=== PATIENT | male | born 1950 | race Caucasian/White ===

== ENCOUNTER → 2017-06-15 11:21 | Outpatient (CLI) | payer MEDICARE, OTHER, SELFPAY ==
--- NOTE | 2017-06-15 11:28 | RAD_ITS ---
STUDY: X-RAY - LUMBAR SPINE REASON FOR EXAM: Male, 66 years old. Low back pain TECHNIQUE: 3 view(s) of the lumbar spine were obtained. COMPARISON: None FINDINGS: Normal lumbar lordosis. There is a mild dextroscoliosis. There is a normal alignment of the vertebrae in the lateral view. There is diffuse demineralization with multi-level endplate spondylosis. There is multi-level degenerative disc disease with multi-level disc space narrowing. There is no demonstrated fracture. There is atherosclerotic calcification of the abdominal aorta without a demonstrated aneurysm. RAD/Lumbar Spine 2 or 3 Views IMPRESSION: Degenerative changes of the spine, as detailed above. Mild dextroscoliosis Electronically Signed: Esa Hernandez MD at 13:27 EDT , Service support ,
--- NOTE | 2017-06-15 11:30 | RAD_ITS ---
STUDY: X-RAY - PELVIS AND RIGHT HIP REASON FOR EXAM: Male, 66 years old. Atraumatic right hip pain. TECHNIQUE: Radiological exam, hip, unilateral, with pelvis when performed; 2 or 3 views. COMPARISON: None. FINDINGS: There is a non-specific bowel gas pattern. Normal visualized soft tissue structures. There is generalized osteopenia. Normal bilateral iliac wings, sacroiliac joints and visualized sacrum. Normal bilateral superior and inferior pubic rami. Normal pubic symphysis. Normal bilateral ischial tuberosities. There is mild arthrosis of both hips. RAD/Hip 2-3 Views with Pelvis IMPRESSION: Osteopenia with mild arthrosis of both hips. No acute pathology. Electronically Signed: Ron Daniel MD at 15:41 EDT , Service support ,
== END ==
PROVIDERS: Family Provider Family Medicine Geriatric Medicine; PCP Family Medicine Geriatric Medicine; Visit Provider Family Medicine Geriatric Medicine
DX: M54.5 Low back pain (principal); M25.559 Pain in unspecified hip
CPT/HCPCS: 72100; 73502

== ENCOUNTER → 2017-07-23 10:42 | Outpatient (CLI) | payer MEDICARE, OTHER, SELFPAY ==
--- NOTE | 2017-07-30 07:01 | LEAS ---
Arterial Study - Arterial Study Arterial Study: This is a 66-year-old male with a history of hypertension and diabetes mellitus. The patient presents with bilateral lower extremity ambulatory pain, consistent with intermittent claudication. He is also noted to have color changes in the digits of his feet, suggesting ischemia. Suspecting the presence of atherosclerotic peripheral arterial occlusive disease, the patient was brought to the noninvasive vascular laboratory at this time for the purpose of bilateral noninvasive lower extremity arterial assessment. Doppler signal assessment was used to evaluate the pulses at ankle level bilaterally. The posterior tibial and dorsalis pedis pulses were triphasic bilaterally. Segmental limb pressures were obtained bilaterally. The right ankle pressure, as determined by posterior tibial pulse, was measured at 158 mmHg. The right ankle pressure, as determined by dorsalis pedis pulse, was measured at 153 mmHg. The right digital pressure was measured at 114 mmHg. The left ankle pressure, as determined by posterior tibial pulse, was measured at 152 mmHg. The left ankle pressure, as determined by dorsalis pedis pulse, was measured at 144 mmHg. The left digital pressure was measured at 111 mmHg. Resting ankle-brachial indices were calculated bilaterally. The resting right ankle-brachial index was calculated to be 1.11. The resting left ankle-brachial index was calculated to be 1.07. Digital-brachial indices were calculated bilaterally. The right digital-brachial index was calculated to be 0.80. The left digital-brachial index was calculated to be 0.78. Impression: Based upon the findings of this resting noninvasive lower extremity arterial study, there is no evidence of significant atherosclerotic peripheral arterial occlusive disease in the lower extremities bilaterally. Triphasic waveforms were noted at ankle level bilaterally. Resting ankle-brachial indices are bilaterally normal. Digital-brachial indices are also normal bilaterally. In summary, this represents a normal resting noninvasive lower extremity arterial study bilaterally.
--- NOTE | 2017-07-30 07:06 | LEAS_ITS ---
Arterial Study - Arterial Study Arterial Study: This is a 66-year-old male with a history of hypertension and diabetes mellitus. The patient presents with bilateral lower extremity ambulatory pain, consistent with intermittent claudication. He is also noted to have color changes in the digits of his feet, suggesting ischemia. Suspecting the presence of atherosclerotic peripheral arterial occlusive disease, the patient was brought to the noninvasive vascular laboratory at this time for the purpose of bilateral noninvasive lower extremity arterial assessment. Doppler signal assessment was used to evaluate the pulses at ankle level bilaterally. The posterior tibial and dorsalis pedis pulses were triphasic bilaterally. Segmental limb pressures were obtained bilaterally. The right ankle pressure, as determined by posterior tibial pulse, was measured at 158 mmHg. The right ankle pressure, as determined by dorsalis pedis pulse, was measured at 153 mmHg. The right digital pressure was measured at 114 mmHg. The left ankle pressure, as determined by posterior tibial pulse, was measured at 152 mmHg. The left ankle pressure, as determined by dorsalis pedis pulse, was measured at 144 mmHg. The left digital pressure was measured at 111 mmHg. Resting ankle-brachial indices were calculated bilaterally. The resting right ankle-brachial index was calculated to be 1.11. The resting left ankle- brachial index was calculated to be 1.07. Digital-brachial indices were calculated bilaterally. The right digital- brachial index was calculated to be 0.80. The left digital-brachial index was calculated to be 0.78. Impression: Based upon the findings of this resting noninvasive lower extremity arterial study, there is no evidence of significant atherosclerotic peripheral arterial occlusive disease in the lower extremities bilaterally. Triphasic waveforms were noted at ankle level bilaterally. Resting ankle-brachial indices are bilaterally normal. Digital-brachial indices are also normal bilaterally. In summary, this represents a normal resting noninvasive lower extremity arterial study bilaterally.
== END ==
PROVIDERS: Family Provider Family Medicine Geriatric Medicine; PCP Family Medicine Geriatric Medicine; Visit Provider Family Medicine Geriatric Medicine
DX: I73.9 Peripheral vascular disease, unspecified (principal)
CPT/HCPCS: 93922

== ENCOUNTER → 2017-08-29 14:35 | Outpatient (CLI) | payer MEDICARE, OTHER, SELFPAY ==
--- NOTE | 2017-08-29 14:35 | DT_ITS ---
This patient was seen during an EMR downtime August 27, 2017 - September 03, 2017. This patient may have a combination of paper and electronic documentation or all paper documentation. All documentation is viewable within the e-chart portion of [employer] for each patient visit.
--- NOTE | 2017-08-29 14:45 | RAD_ITS ---
STUDY: X-RAY - CERVICAL SPINE REASON FOR EXAM: Male, 66 years old. Neck pain. TECHNIQUE: 4 view(s) of the cervical spine were obtained. COMPARISON: None FINDINGS: Normal anterior atlantoaxial articulation. Normal odontoid process. On the lateral view cervical spine seen from C1 through the mid body of C6. There is disc space narrowing C3-C4 and C5-C6 with marginal osteophytes C5-6. Uncovertebral joint hypertrophy at multiple levels in the mid cervical spine. The soft tissue structures are unremarkable. RAD/Cerv Spine 2 or 3 Views IMPRESSION: Multilevel degenerative changes of the cervical spine. No fracture identified. The lower cervical spine from the mid body of C6 through C7-T1 not well-seen on the lateral view. Consider additional plain film images or CT cervical spine. Electronically Signed: Donald Knox MD at 8:02 EDT , Service support ,
== END ==
PROVIDERS: Family Provider Family Medicine Geriatric Medicine; PCP Family Medicine Geriatric Medicine; Visit Provider Anesthesiology Pain Medicine
DX: M54.2 Cervicalgia (principal)
CPT/HCPCS: 72040

== ENCOUNTER → 2017-09-05 14:45 | Outpatient (CLI) | payer MEDICARE, OTHER, SELFPAY ==
--- NOTE | 2017-09-05 14:46 | RAD_ITS ---
STUDY: X-RAY - BILATERAL RIBS WITH CHEST REASON FOR EXAM: Male, 66 years old. Right-sided rib pain, recent fall TECHNIQUE - RIBS: 8 view(s) of the ribs. TECHNIQUE - CHEST: Single PA view of the chest. COMPARISON: None. FINDINGS - RIBS : There is severe demineralization of the osseous structures which diminishes the diagnostic sensitivity of this examination, however there is no visualized rib fracture. FINDINGS - CHEST: There are interstitial fibrotic changes of the lungs. There is no demonstrated pleural abnormality. Normal size heart. Normal mediastinum and abby. Normal visualized pulmonary arteries. Normal visualized aortic arch and descending thoracic aorta. There are diffuse degenerative changes of the visualized thoracic spine. Severe left glenohumeral arthrosis. Extensive postsurgical changes noted in the right glenohumeral joint and proximal right humerus. There is no demonstrated abnormality of the visualized soft tissue structures of the upper abdomen. RAD/Ribs Jaylan Min 4V w/PA Chest IMPRESSION: RIBS: Demineralization of the osseous structures but no demonstrated acute displaced rib fracture, pleural thickening or pneumothorax. CHEST: Chronic interstitial changes, no superimposed acute pulmonary process Electronically Signed: Esa Hernandez MD at 8:38 EDT , Service support ,
== END ==
PROVIDERS: Family Provider Family Medicine Geriatric Medicine; PCP Family Medicine Geriatric Medicine; Visit Provider Anesthesiology Pain Medicine
DX: R07.81 Pleurodynia (principal)
CPT/HCPCS: 71111

== ENCOUNTER → 2017-09-12 12:20 | Outpatient (CLI) | payer MEDICARE, OTHER, SELFPAY ==
--- NOTE | 2017-09-12 14:11 | NEURO ---
NCS and/or EMG Patient Report Ordering Doctor: Cameron Mueller Chi DATE OF SERVICE: 09/12/17 Rubén Flores is a 66-year-old male presents for electrodiagnostic testing of the lower limbs. He reports numbness and tingling in both legs with poor balance. He has a history of diabetes. Electrodiagnostic findings: Common peroneal nerve demonstrates prolonged distal latency bilaterally with reduced amplitude and conduction velocity. Reduced tibial motor conduction velocity. Bilaterally. Reduced right tibial motor amplitude. Sensory responses are unobtainable bilaterally. On needle EMG, 1+ fibrillations are noted in the right anterior tibialis with motor units demonstrating polyphasics. Motor units of increased amplitude and duration noted in the peroneus longus and gastrocnemius bilaterally. Electrodiagnostic impression: This is an abnormal study. 1. Electrodiagnostic findings demonstrate peripheral polyneuropathy, with involvement of motor and sensory nerve fibers. There is evidence of axonal loss. Etiology may be likely to poorly controlled diabetes. 2. Electrodiagnostic evidence suggestive of chronic right L5 radiculopathy. If there are any further questions, please not hesitate contact me.
== END ==
PROVIDERS: Family Provider Family Medicine Geriatric Medicine; PCP Family Medicine Geriatric Medicine; Visit Provider Family Medicine Geriatric Medicine
DX: R94.131 Abnormal electromyogram [EMG] (principal); R20.9 Unspecified disturbances of skin sensation; L53.9 Erythematous condition, unspecified; E11.9 Type 2 diabetes mellitus without complications; G62.9 Polyneuropathy, unspecified
CPT/HCPCS: 95886; 95913

== ENCOUNTER → 2017-10-08 16:50 | Outpatient (CLI) | payer MEDICARE, OTHER, SELFPAY ==
[2017-10-08 17:56] LABS: Absolute Neutrophil Count 6.7 X10^3/uL (2.0-7.7); Basophil# 0.02 X10^3/uL; Basophil% 0.2 % (0-1); Eosinophil# 0.14 X10^3/uL; Eosinophils% 1.5 % (0-5); Hematocrit 42.4 % (40-54); Hemoglobin 13.4 g/dl (13.0-16.5); Lymphocyte % 15.3 % (19-41); Mean Corp Hgb Conc 31.6 g/gl (32-36); Mean Corpuscular Hgb 28.6 pg (27.0-32.0); Mean Corpuscular Volume 90.6 fL (80-94); Mean Platelet Vol. 9.7 fl (6.2-12.0); Monocyte# 0.91 X10^3/uL; Monocyte% 9.9 % (0-10); Neutrophil # 6.65 X10^3/uL (2.7-7.7); Neutrophil % 72.6 % (47-70); POSITIVE COUNT NO; POSITIVE DIFFERENTIAL NO; POSITIVE MORPHOLOGY NO; Platelet Count 188 K/mm3 (150-450); RBC Distribution Width CV 15.4 % (11.6-14.6); RBC Distribution Width SD 50.2 fl (35.1-43.9); Red Blood Count 4.68 M/mm3 (4.6-6.2); White Blood Count 9.2 K/mm3 (4.4-11.0)
[2017-10-08 18:02] LABS: Vitamin D,25 Hydroxy 14.1 ng/mL (29.95-100.01)
[2017-10-08 18:04] LABS: ALB/GLOB Ratio 0.6 RATIO (0.9-2.4); AST(SGOT) 37 U/L (15-37); Alanine Aminotransfer ALT/SGPT 39 U/L (16-61); Albumin, Serum 2.9 g/dL (3.2-5.0); Alkaline Phosphatase 218 U/L (45-117); Anion Gap 12 (5-15); BUN 8 mg/dL (7-18); BUN/Creat Ratio 9.8 RATIO (10-20); Chloride 98 mmol/L (98-107); Cholesterol 142 mg/dL (200); Creatinine, Serum 0.82 mg/dL (0.70-1.30); EST Glomerular Filtration Rate 100 mL/min (>60); Est Glom Filt Rate - Afr Amer 121 mL/min (>60); Globulin 4.7 g/dL (2.2-4.2); Glucose 140 mg/dL (74-106); High Density Lipoprotein 79 mg/dL; Potassium 3.9 mmol/L (3.5-5.1); Protein, Total 7.6 g/dL (6.4-8.2); Sodium Level 137 mmol/L (136-145); Triglycerides 75 mg/dL; Very Low Density Lipoprotein 15 mg/dL (5-40)
== END ==
PROVIDERS: Family Provider Family Medicine Geriatric Medicine; PCP Family Medicine Geriatric Medicine; Visit Provider Family Medicine Geriatric Medicine
DX: E11.9 Type 2 diabetes mellitus without complications (principal); E55.9 Vitamin D deficiency, unspecified; F52.8 Other sexual dysfunction not due to a substance or known physiological condition; I10 Essential (primary) hypertension
CPT/HCPCS: 36415; 80053; 80061; 82306; 84403; 84443; 85025

== ENCOUNTER → 2017-12-19 12:52 | Outpatient (CLI) | payer MEDICARE, OTHER, SELFPAY ==
--- NOTE | 2017-12-19 12:57 | CT_ITS ---
STUDY: CT BRAIN WITHOUT CONTRAST REASON FOR EXAM: Male, 67 years old. Leg weakness. Closed head injury. RADIATION DOSAGE (If Supplied By Facility): CTDIvol = ( 44.99 ) mGy, DLP = ( 846.73 ) mGycm TECHNIQUE: Transaxial CT imaging of the brain was performed without administration of intravenous contrast material. Individualized dose optimization techniques were used for this CT. COMPARISON: Comparison is made with prior study June 15, 2013. FINDINGS: Normal soft tissue structures. Normal calvarium. There is mild cerebral atrophy with widening of the extra-axial spaces and ventricular dilatation. There are areas of decreased attenuation within the white matter tracts of the supratentorial brain, consistent with microvascular disease changes. Normal basal ganglia and thalami. Normal brainstem. Normal cerebellum. There is no intracranial hemorrhage. There are no findings of an acute ischemic infarction. Calcified atherosclerotic plaques involving both vertebral arteries and the cavernous portions of the internal carotid arteries bilaterally. Normal visualized paranasal sinuses. CT/Brain/Head without Contrast IMPRESSION: Chronic involutional changes of the brain. Electronically Signed: Quirino Smith MD at 13:32 EDT Tel [phone], Service support ,
[2017-12-19 16:09] LABS: Absolute Lymphocyte Count 1.51 X10^3/ul (0.83-4.51); Absolute Neutrophil Count 4.7 X10^3/uL (2.0-7.7); Basophil# 0.02 X10^3/uL; Basophil% 0.3 % (0-1); Eosinophil# 0.21 X10^3/uL; Eosinophils% 2.9 % (0-5); Hematocrit 39.8 % (40-54); Hemoglobin 12.4 g/dl (13.0-16.5); Lymphocyte # 1.51 X10^3/ul (4.0); Lymphocyte % 20.7 % (19-41); Mean Corp Hgb Conc 31.2 g/gl (32-36); Mean Corpuscular Hgb 28.1 pg (27.0-32.0); Mean Platelet Vol. 9.8 fl (6.2-12.0); Monocyte# 0.79 X10^3/uL; Monocyte% 10.9 % (0-10); Neutrophil # 4.74 X10^3/uL (2.7-7.7); Neutrophil % 65.1 % (47-70); Platelet Count 150 K/mm3 (150-450); RBC Distribution Width CV 15.9 % (11.6-14.6); RBC Distribution Width SD 52.5 fl (35.1-43.9); Red Blood Count 4.42 M/mm3 (4.6-6.2); White Blood Count 7.3 K/mm3 (4.4-11.0)
[2017-12-19 16:23] LABS: Anion Gap 12 (5-15); BUN 16 mg/dL (7-18); BUN/Creat Ratio 17.7 RATIO (10-20); Calcium,Total 8.9 mg/dL (8.5-10.1); Chloride 100 mmol/L (98-107); Creatinine, Serum 0.91 mg/dL (0.70-1.30); EST Glomerular Filtration Rate 89 mL/min (>60); Est Glom Filt Rate - Afr Amer 107 mL/min (>60); Glucose 261 mg/dL (74-106); Potassium 4.4 mmol/L (3.5-5.1); Sodium Level 138 mmol/L (136-145)
[2017-12-19 17:16] LABS: POSITIVE COUNT NO; POSITIVE DIFFERENTIAL NO; POSITIVE MORPHOLOGY NO
== END ==
PROVIDERS: Family Provider Family Medicine Geriatric Medicine; PCP Family Medicine Geriatric Medicine; Referring Provider Family Medicine Geriatric Medicine; Visit Provider Family Medicine Geriatric Medicine
DX: E11.9 Type 2 diabetes mellitus without complications (principal); S09.90XA Unspecified injury of head, initial encounter
CPT/HCPCS: 36415; 70450; 80048; 85025

== ENCOUNTER → 2017-12-25 12:38 | Outpatient (CLI) | payer MEDICARE, OTHER, SELFPAY ==
--- NOTE | 2017-12-25 13:00 | MRI_ITS ---
STUDY: MRI LUMBAR SPINE WITHOUT CONTRAST REASON FOR EXAM: Male, 67 years old. LBP, rt leg weakness, falls TECHNIQUE: Standardized fat and water weighted pulse sequences were obtained in the sagittal and axial planes. COMPARISON: None FINDINGS: T12-L1: There is mild disc space narrowing and endplate spondylosis. There is no significant disc herniation, central canal or foraminal stenosis. Normal lumbar lordosis. There is no substantial scoliosis. Normal conus medullaris that terminates at the L1 L1-2: There is minimal disc space narrowing and endplate spondylosis. There is no significant disc herniation, central canal or foraminal stenosis. L2-3: There is mild disc space narrowing and endplate spondylosis. There is no significant disc herniation, central canal or foraminal stenosis. L3-4: There is moderate disc space narrowing and endplates spondylosis. There is disc osteophyte complex asymmetric to the left with moderate left foraminal stenosis. There is inferiorly directed left paracentral extrusion (1.2 x 0.8 x 2.0 cm) with severe left lateral recess narrowing. There is facet arthropathy contributing to moderate central canal stenosis. There is minimal right foraminal stenosis. There is redundancy of the nerve roots L4-5: There is minimal disc space narrowing and endplate spondylosis. There is a disc bulge with small central protrusion and facet hypertrophy with severe central canal stenosis. There is redundancy of the nerve roots. There is moderate right and mild left foraminal stenosis. L5-S1: There is mild disc space narrowing and endplates spondylosis. There is extensive facet arthropathy with minimal anterolisthesis. There is a disc osteophyte complex asymmetric to the right with severe right foraminal stenosis. There is mild central canal and mild left foraminal stenosis. Normal visualized sacral ala. Normal visualized paraspinous soft tissue structures. MRI/Spine Lumbar (Routine) IMPRESSION: L3/L4, left paracentral extrusion with severe left lateral recess narrowing. Moderate central canal stenosis. Moderate left foraminal stenosis. L4/L5: Severe central canal stenosis. Moderate right foraminal stenosis. L5/S1: Minimal degenerative anterolisthesis. Severe right foraminal stenosis. Electronically Signed: Charli Priest MD at 11:05 EDT Tel , Service support ,
== END ==
PROVIDERS: Family Provider Family Medicine Geriatric Medicine; PCP Family Medicine Geriatric Medicine; Referring Provider Family Medicine Geriatric Medicine; Visit Provider Family Medicine Geriatric Medicine
DX: M54.16 Radiculopathy, lumbar region (principal); G83.10 Monoplegia of lower limb affecting unspecified side
CPT/HCPCS: 72148

== ENCOUNTER → 2018-01-09 14:03 | Outpatient (CLI) | payer MEDICARE, OTHER, SELFPAY ==
[2018-01-09 17:06] LABS: Absolute Lymphocyte Count 1.41 X10^3/ul (0.83-4.51); Basophil# 0.01 X10^3/uL; Basophil% 0.2 % (0-1); Eosinophil# 0.16 X10^3/uL; Eosinophils% 2.5 % (0-5); Hematocrit 41.8 % (40-54); Hemoglobin 13.2 g/dl (13.0-16.5); Lymphocyte # 1.41 X10^3/ul (4.0); Lymphocyte % 22.4 % (19-41); Mean Corp Hgb Conc 31.6 g/gl (32-36); Mean Corpuscular Hgb 28.4 pg (27.0-32.0); Mean Corpuscular Volume 89.9 fL (80-94); Mean Platelet Vol. 9.8 fl (6.2-12.0); Monocyte# 0.67 X10^3/uL; Monocyte% 10.6 % (0-10); Neutrophil # 4.04 X10^3/uL (2.7-7.7); Neutrophil % 64.1 % (47-70); Platelet Count 168 K/mm3 (150-450); RBC Distribution Width CV 15.9 % (11.6-14.6); RBC Distribution Width SD 52.1 fl (35.1-43.9); Red Blood Count 4.65 M/mm3 (4.6-6.2); White Blood Count 6.3 K/mm3 (4.4-11.0)
[2018-01-09 17:16] LABS: ALB/GLOB Ratio 0.7 RATIO (0.9-2.4); AST(SGOT) 25 U/L (15-37); Alanine Aminotransfer ALT/SGPT 30 U/L (16-61); Albumin, Serum 2.9 g/dL (3.2-5.0); Alkaline Phosphatase 172 U/L (45-117); Anion Gap 10 (5-15); BUN 11 mg/dL (7-18); BUN/Creat Ratio 13.6 RATIO (10-20); Calcium,Total 9.1 mg/dL (8.5-10.1); Chloride 99 mmol/L (98-107); Creatinine, Serum 0.81 mg/dL (0.70-1.30); EST Glomerular Filtration Rate 101 mL/min (>60); Est Glom Filt Rate - Afr Amer 122 mL/min (>60); Globulin 4.4 g/dL (2.2-4.2); Glucose 197 mg/dL (74-106); Potassium 4.1 mmol/L (3.5-5.1); Protein, Total 7.3 g/dL (6.4-8.2); Sodium Level 138 mmol/L (136-145); Thyroid Stim Hormone (TSH) 3.18 uIU/mL (0.358-3.74)
[2018-01-09 17:24] LABS: POSITIVE COUNT NO; POSITIVE DIFFERENTIAL NO; POSITIVE MORPHOLOGY NO
[2018-01-09 19:19] LABS: Vitamin D,25 Hydroxy 24.5 ng/mL (29.95-100.01)
[2018-01-11 05:08] LABS: HEPATITIS B SURFACE AG 6510 Negative (Negative); Hepatitis C Ab <0.1 s/co ratio (0.0-0.9)
[2018-01-11 08:21] LABS: Hep B Surface Antibodies Non Reactive (.)
[2018-01-11 13:28] LABS: HIV - WCH Non-Reactive (Nonreactive)
== END ==
PROVIDERS: Family Provider Family Medicine Geriatric Medicine; PCP Family Medicine Geriatric Medicine; Visit Provider Family Medicine Geriatric Medicine
DX: E11.9 Type 2 diabetes mellitus without complications (principal); E55.9 Vitamin D deficiency, unspecified; F52.8 Other sexual dysfunction not due to a substance or known physiological condition; I10 Essential (primary) hypertension
CPT/HCPCS: 36415; 80053; 82306; 84403; 84443; 85025; 86703; 86704; 86706; 86803; 87340

== ENCOUNTER → 2018-03-06 11:19 | Outpatient (CLI) | payer MEDICARE, OTHER, SELFPAY ==
--- NOTE | 2018-03-06 11:28 | RAD_ITS ---
STUDY: X-RAY - LEFT SHOULDER REASON FOR EXAM: Male, 67 years old. Fall, pain TECHNIQUE: 4 view(s) of the shoulder. COMPARISON: None. FINDINGS: Chronic acromioclavicular joint arthrosis, with apparent intracapsular extraosseous bone formation/osteophytosis. Severe degenerative features of the glenohumeral articulation, sclerosis and cortical surface irregularity of the humeral head, subcortical cysts, joint margin osteophytic lipping, and ossifications that appear to be intra-articular probably representing chondral or synovial calcifications. Periarticular soft tissues normal. There is widening of the subacromial-humeral interval, suggesting rotator cuff insufficiency. RAD/Shoulder min 2 Views IMPRESSION: Severe degenerative changes of the glenohumeral joint. Severe degenerative changes of the acromioclavicular joint. Electronically Signed: Frank Diego MD at 12:01 EST Tel , Service support ,
--- OUTSIDE RECORDS SUMMARY | 2018-04-22 14:16 | XMS RPT_ITS ---
:1950 Author Organization OHIP Support Name Relationship Address Phone JOSE MANUEL FLORES Unavailable [address] + [place] [address] R Unavailable Unavailable Unavailable RANULFO, JOSE MANUEL Unavailable [address] + [place] [address] R Unavailable Unavailable Unavailable RANULFO, JOSE MANUEL Unavailable [address] + [place] [address] R Unavailable Unavailable Unavailable RANULFO, JOSE MANUEL Unavailable [address] + [place] [address] R Unavailable Unavailable Unavailable RANULFO, JOSE MANUEL Unavailable [address] + [place] [address] R Unavailable Unavailable Unavailable RANULFO, JOSE MANUEL Unavailable [address] + [place] [address] R Unavailable Unavailable Unavailable RANULFO, JOSE MANUEL Unavailable [address] + [place] [address] R Unavailable Unavailable Unavailable RANULFO, JOSE MANUEL Unavailable [address] + [place] [address] R Unavailable Unavailable Unavailable RANULFO, JOSE MANUEL Unavailable [address] + [place] [address] R Unavailable Unavailable Unavailable RANULFO, JOSE MANUEL Unavailable [address] + [place] [address] S Unavailable Unavailable Unavailable Care Team Providers Name Role Phone Ervin, Cameron Chi Attending Unavailable Ervin, Cameron Chi Referring Unavailable Ervin, Cameron Chi Primary Care Unavailable Ervin, Cameron Chi Attending Unavailable Ervin, Cameron Chi Referring Unavailable Ervin, Cameron Chi Primary Care Unavailable Ervin, Cameron Chi Attending Unavailable Ervin, Cameron Chi Primary Care Unavailable Yanira Rodriguezman Attending Unavailable Basali Ayman Referring Unavailable Ervin, Cameron Chi Primary Care Unavailable Basali, Ayman Attending Unavailable Basali, Ayman Referring Unavailable Ervin, Cameron Chi Primary Care Unavailable Ervin, Cameron Chi Attending Unavailable Ervin, Cameron Chi Referring Unavailable Ervin, Cameron Chi Primary Care Unavailable Ervin, Cameron Chi Attending Unavailable Ervin, Cameron Chi Primary Care Unavailable Ervin, Cameron Chi Attending Unavailable Ervin, Cameron Chi Referring Unavailable Ervin, Cameron Chi Primary Care Unavailable Ervin, Cameron Chi Attending Unavailable Ervin, Cameron Chi Referring Unavailable Ervin, Cameron Chi Primary Care Unavailable Ervin, Cameron Chi Attending Unavailable Ervin, Cameron Chi Primary Care Unavailable PROBLEMS PROBLEMS DATE TYPE CONDITION / CODE ATTENDING STATUS SOURCE 03/06/2018 Unknown M25.519 - Pain in Ervin, Cameron Chi Active [place] unspecified Community shoulder / Hospital M25.519(ICD-10) Repository 01/09/2018 Unknown E11.9 - Type 2 Ervin, Cameron Chi Active [place] diabetes mellitus Community without Hospital complications / Repository E11.9(ICD-10) 01/09/2018 Unknown E55.9 - Vitamin D Ervin, Cameron Chi Active [place] deficiency, Community unspecified / Hospital E55.9(ICD-10) Repository 01/09/2018 Unknown Z77.21 - Contact Ervin, Cameron Chi Active [place] with and Community (suspected) Hospital exposure to Repository potentially hazardous body fluids / Z77.21(ICD-10) 09/19/2017 Unknown M54.2 - Cervicalgia Basali, Ayman Active [place] / M54.2(ICD-10) [facility] Repository 08/16/2017 Unknown L53.9 - Ervin, Cameron Chi Active [place] Erythematous Community condition, Hospital unspecified / Repository L53.9(ICD-10) 06/15/2017 Unknown M54.5 - Low back Ervin, Cameron Chi Active [place] pain / Community M54.5(ICD-10) Hospital Repository 06/15/2017 Unknown M25.559 - Pain in Ervin, Cameron Chi Active [place] unspecified hip / Community M25.559(ICD-10) Hospital Repository PROCEDURES PROCEDURES No Procedure Records FoundRESULTS RESULTS SHOULDER MIN 2 VIEWS Observed: 03/06/2018 Status: F Source: [place] 11:23 AM [facility] HOSPITAL REPOSITORY [facility] Imaging Services [address] [place] [address] Shoulder min 2 Views MR#: [id number] Acct: [id number] Name: LIANET FLORES Rep #: [id number] : 1950 M 67 From: Frank Diego MD PCP: Cameron Mueller MD, Chi Status: REG CLI Study: Shoulder min 2 Views Date of Exam: 03/06/18 Exam# [id number] Ordering Dr: Cameron Mueller MD STUDY: X-RAY - LEFT SHOULDER REASON FOR EXAM: Male, 67 years old. Fall, pain TECHNIQUE: 4 view(s) of the shoulder. COMPARISON: None. FINDINGS: Chronic acromioclavicular joint arthrosis, with apparent intracapsular extraosseous bone formation/osteophytosis. Severe degenerative features of the glenohumeral articulation, sclerosis and cortical surface irregularity of the humeral head, subcortical cysts, joint margin osteophytic lipping, and ossifications that appear to be intra-articular probably representing chondral or synovial calcifications. Periarticular soft tissues normal. There is widening of the subacromial-humeral interval, suggesting rotator cuff insufficiency. RAD/Shoulder min 2 Views IMPRESSION: Severe degenerative changes of the glenohumeral joint. Severe degenerative changes of the acromioclavicular joint. Electronically Signed: Frank Diego MD at 12:01 EST Tel , Service support , CC: Cameron Mueller MD Cardiac Technician: Signed HEPATITIS EXPOSE PANEL Collected: 01/09/2018 Status: F Source: [place] 3:[address] [facility] REPOSITORY TYPE CODE TESTS RESULT OUT OF RANGE REFERENCE UNITS LAB L3100.0350 Negative Normal HB Negative SURF AG 6510 LAB L3100.0528 . Normal Hep B Non Reactive Tatianna AB Result Comment: Non Reactive: Inconsistent with immunity, less than 10 mIU/mL Reactive: Consistent with immunity, greater than 9.9 mIU/mL LAB L3100.0750 0.0-0.9 s/co ratio Normal HCV Ab <0.1 LAB L3100.0765 . Normal COMMENT Comment Result Comment: Non reactive HCV antibody screen is consistent with no HCV infection, unless recent infection is suspected or other evidence exists to indicate HCV infection. Performed at: - [facility] [address] [id number] Display Department Manager: Sancho Vigil PhD, Phone: [phone] Performed By: #### L3000.0400 #### [facility] (refer to report for specific site) refer to report for address and phone number HIV - [facility] Collected: 01/09/2018 Status: F Source: [place] 2:[address] [facility] REPOSITORY TYPE CODE TESTS RESULT OUT OF RANGE REFERENCE UNITS LAB L3890.6005 Nonreactive Normal HIV - [facility] Non-Reactive Performed By: #### L3890.6005 #### [facility] [address] [place], [place], [id number] COMPREHENSIVE METABOLIC Collected: 01/09/2018 Status: F Source: [facility] 2:[address] [facility] REPOSITORY TYPE CODE TESTS RESULT OUT OF RANGE REFERENCE UNITS LAB L501.0100 74-106 mg/dL High GLU 197 Result Comment: Fasting Glucose result greater than or equal to 126 mg/dL suggests DIABETES MELLITUS per A.D.A. criteria. Please note revised GLUCOSE reference range effective 2017. LAB L501.1000 7-18 mg/dL Normal BUN 11 LAB L501.1100 0.70-1.30 mg/dL Normal CREAT,SERUM 0.81 Result Comment: The validity of the calculated GFR AND GFRAA in patients over 70 years has not been determined. Clinical correlation is essential. LAB L501.1110 >60 mL/min Normal EST GFR 101 Result Comment: Non- GFR Calc LAB L501.1115 >60 mL/min Normal EST GFR - AA 122 Result Comment: GFR Calc LAB L501.1300 10-20 RATIO Normal BUN/CRE 13.6 LAB L501.1500 6.4-8.2 g/dL T Normal PROT 7.3 LAB L501.1800 3.2-5.0 g/dL Low ALB 2.9 LAB L501.1950 2.2-4.2 g/dL High GLOB 4.4 LAB L501.2000 0.9-2.4 RATIO Low A/G 0.7 LAB L501.2200 8.5-10.1 mg/dL CA Normal 9.1 LAB L501.4100 15-37 U/L Normal AST 25 LAB L501.4305 45-117 U/L High ALK P 172 LAB L501.4405 16-61 U/L Normal ALT 30 LAB L501.4600 0.20-1.00 mg/dL T Normal BILI 0.50 LAB L501.5300 136-145 mmol/L NA Normal 138 LAB L501.5600 3.5-5.1 mmol/L K Normal 4.1 LAB L501.5900 98-107 mmol/L CL Normal 99 LAB L501.6100 21.0-32.0 mmol/L Normal CO2 29.0 LAB L501.6200 5-15 Normal GAP 10 Performed By: #### L500.4050, L501.9520 #### [facility] [address] [place], [place], [address] THYROID STIM HORMONE Collected: 01/09/2018 Status: F Source: [place] (TSH) 2:[address] [facility] REPOSITORY TYPE CODE TESTS RESULT OUT OF RANGE REFERENCE UNITS LAB L501.9520 0.358-3.74 uIU/mL Normal TSH 3.18 Performed By: #### L500.4050, L501.9520 #### [facility] [address] [place], [address] CBC W/DIFF, AUTOMATED Collected: 01/09/2018 Status: F Source: [place] 2:[address] [facility] REPOSITORY TYPE CODE TESTS RESULT OUT OF RANGE REFERENCE UNITS LAB L100.1000 4.4-11.0 K/mm3 Normal WBC 6.3 LAB L100.1200 4.6-6.2 M/mm3 Normal RBC 4.65 LAB L100.1300 13.0-16.5 g/dl Normal HGB 13.2 LAB L100.1400 40-54 % Normal HCT 41.8 LAB L100.1500 80-94 fL Normal MCV 89.9 LAB L100.1600 27.0-32.0 pg Normal MCH 28.4 LAB L100.1700 32-36 g/gl Low MCHC 31.6 LAB L100.1810 11.6-14.6 % High RDW CV 15.9 LAB L100.1820 35.1-43.9 fl High RDW SD 52.1 LAB L100.1900 150-450 K/mm3 Normal PLT 168 LAB L100.2000 6.2-12.0 fl Normal MPV 9.8 LAB L100.2100 47-70 % Normal NEUT% 64.1 LAB L100.2200 19-41 % Normal LY% 22.4 LAB L100.2300 0-10 % High MONO% 10.6 LAB L100.2400 0-5 % Normal EO% 2.5 LAB L100.2500 0-1 % Normal BASO% 0.2 LAB L100.2550 0.0-0.9 % Normal IM GRAN % 0.200 Result Comment: IG% - Immature Granulocytes (promyelocytes, myelocytes and metamyelocytes) > 1% indicates that a LEFT SHIFT is Present. LAB L100.2620 2.0-7.7 X10 3/uL Normal Absolute Neut 4.0 LAB L100.2720 0.83-4.51 X10 3/ul Normal Absolute Lymph 1.41 Performed By: #### L100.0100 #### [facility] [address] [place], [place], [address] VITAMIN D,25 HYDROXY Collected: 01/09/2018 Status: F Source: [place] 2:[address] [facility] REPOSITORY TYPE CODE TESTS RESULT OUT OF REFERENCE UNITS RANGE LAB L506.1000 29.95-100.01 ng/mL Low Vitamin D 24.5 25-OH Result Comment: Vitamin D 25(OH) Status Range Deficiency <20 ng/mL (50nmol/L) Insuffciency 20 - 30 ng/mL (50 - 75 nmol/L) Sufficiency 30 - 100 ng/mL (75 - 250 nmol/L) Toxicity >100 ng/mL (>250 nmol/L) Performed By: #### L506.1000, L509.3000 #### [facility] [address] [place], [address] TESTOSTERONE, SERUM TOTAL Collected: 01/09/2018 Status: F Source: [place] 2:[address] [facility] REPOSITORY TYPE CODE TESTS RESULT OUT OF REFERENCE UNITS RANGE LAB L509.3000 ng/dL Testosterone Normal 248.67 Result Comment: NORMAL REFERENCE RANGES MALE AGE <50 123.06 - 813.86 ng/dL MALE AGE >50 89.98 - 780.10 ng/dL FEMALE PREMENOPAUSE AGE 21 - 60 9.01 - 47.94 ng/dL FEMALE POSTMENOPAUSE AGE 45 - 89 <7.00 - 45.62 ng/dL REFERENCE RANGE AND METHODOLOGY CHANGED 03/14/2017 Performed By: #### L506.1000, L509.3000 #### [facility] [address] [place], [address] SPINE LUMBAR Observed: 12/25/2017 Status: F Source: [place] (ROUTINE) 12:[address] [facility] REPOSITORY [facility] Imaging Services [address] [place] [address] Spine Lumbar (Routine) MR#: [id number] Acct: [id number] Name: LIANET FLORES Rep #: [id number] : 1950 M 67 From: Charli Priest PCP: Ervin CAMEJO,Cameron Eugene Status: REG CLI Study: Spine Lumbar (Routine) Date of Exam: 12/25/17 Exam# [id number] Ordering Dr: Cameron Mueller MD STUDY: MRI LUMBAR SPINE WITHOUT CONTRAST REASON FOR EXAM: Male, 67 years old. LBP, rt leg weakness, falls TECHNIQUE: Standardized fat and water weighted pulse sequences were obtained in the sagittal and axial planes. COMPARISON: None FINDINGS: T12-L1: There is mild disc space narrowing and endplate spondylosis. There is no significant disc herniation, central canal or foraminal stenosis. Normal lumbar lordosis. There is no substantial scoliosis. Normal conus medullaris that terminates at the L1 L1-2: There is minimal disc space narrowing and endplate spondylosis. There is no significant disc herniation, central canal or foraminal stenosis. L2-3: There is mild disc space narrowing and endplate spondylosis. There is no significant disc herniation, central canal or foraminal stenosis. L3-4: There is moderate disc space narrowing and endplates spondylosis. There is disc osteophyte complex asymmetric to the left with moderate left foraminal stenosis. There is inferiorly directed left paracentral extrusion (1.2 x 0.8 x 2.0 cm) with severe left lateral recess narrowing. There is facet arthropathy contributing to moderate central canal stenosis. There is minimal right foraminal stenosis. There is redundancy of the nerve roots L4-5: There is minimal disc space narrowing and endplate spondylosis. There is a disc bulge with small central protrusion and facet hypertrophy with severe central canal stenosis. There is redundancy of the nerve roots. There is moderate right and mild left foraminal stenosis. L5-S1: There is mild disc space narrowing and endplates spondylosis. There is extensive facet arthropathy with minimal anterolisthesis. There is a disc osteophyte complex asymmetric to the right with severe right foraminal stenosis. There is mild central canal and mild left foraminal stenosis. Normal visualized sacral ala. Normal visualized paraspinous soft tissue structures. MRI/Spine Lumbar (Routine) IMPRESSION: L3/L4, left paracentral extrusion with severe left lateral recess narrowing. Moderate central canal stenosis. Moderate left foraminal stenosis. L4/L5: Severe central canal stenosis. Moderate right foraminal stenosis. L5/S1: Minimal degenerative anterolisthesis. Severe right foraminal stenosis. Electronically Signed: Charli Priest MD at 11:05 EDT Tel , Service support , CC: Cameron Mueller MD Cardiac Technician: Signed BASIC METABOLIC Collected: 2017 Status: F Source: [place] PROFILE (BMP) 2:[address] [facility] REPOSITORY TYPE CODE TESTS RESULT OUT OF RANGE REFERENCE UNITS LAB L501.0100 74-106 mg/dL High GLU 261 Result Comment: Glucose result greater than or equal to 200 mg/dL suggests DIABETES MELLITUS per A.D.A. criteria. Please note revised GLUCOSE reference range effective 2017. LAB L501.1000 7-18 mg/dL Normal BUN 16 LAB L501.1100 0.70-1.30 mg/dL Normal CREAT,SERUM 0.91 Result Comment: The validity of the calculated GFR AND GFRAA in patients over 70 years has not been determined. Clinical correlation is essential. LAB L501.1110 >60 mL/min Normal EST GFR 89 Result Comment: Non- GFR Calc LAB L501.1115 >60 mL/min Normal EST GFR - AA 107 Result Comment: GFR Calc LAB L501.1300 10-20 RATIO Normal BUN/CRE 17.7 LAB L501.2200 8.5-10.1 mg/dL CA Normal 8.9 LAB L501.5300 136-145 mmol/L NA Normal 138 LAB L501.5600 3.5-5.1 mmol/L K Normal 4.4 LAB L501.5900 98-107 mmol/L CL Normal 100 LAB L501.6100 21.0-32.0 mmol/L Normal CO2 26.0 LAB L501.6200 5-15 Normal GAP 12 Performed By: #### L500.2500 #### [facility] [address] [facility] [place], [address] CBC W/DIFF, AUTOMATED Collected: 2017 Status: F Source: [place] 2:[address] [facility] REPOSITORY TYPE CODE TESTS RESULT OUT OF RANGE REFERENCE UNITS LAB L100.1000 4.4-11.0 K/mm3 Normal WBC 7.3 LAB L100.1200 4.6-6.2 M/mm3 Low RBC 4.42 LAB L100.1300 13.0-16.5 g/dl Low HGB 12.4 LAB L100.1400 40-54 % Low HCT 39.8 LAB L100.1500 80-94 fL Normal MCV 90.0 LAB L100.1600 27.0-32.0 pg Normal MCH 28.1 LAB L100.1700 32-36 g/gl Low MCHC 31.2 LAB L100.1810 11.6-14.6 % High RDW CV 15.9 LAB L100.1820 35.1-43.9 fl High RDW SD 52.5 LAB L100.1900 150-450 K/mm3 Normal PLT 150 LAB L100.2000 6.2-12.0 fl Normal MPV 9.8 LAB L100.2100 47-70 % Normal NEUT% 65.1 LAB L100.2200 19-41 % Normal LY% 20.7 LAB L100.2300 0-10 % High MONO% 10.9 LAB L100.2400 0-5 % Normal EO% 2.9 LAB L100.2500 0-1 % Normal BASO% 0.3 LAB L100.2550 0.0-0.9 % Normal IM GRAN % 0.100 Result Comment: IG% - Immature Granulocytes (promyelocytes, myelocytes and metamyelocytes) > 1% indicates that a LEFT SHIFT is Present. LAB L100.2620 2.0-7.7 X10 3/uL Normal Absolute Neut 4.7 LAB L100.2720 0.83-4.51 X10 3/ul Normal Absolute Lymph 1.51 Performed By: #### L100.0100 #### [facility] [address] [place], [address] BRAIN/HEAD WITHOUT Observed: 2017 Status: F Source: [place] CONTRAST 12:[address] [facility] REPOSITORY [facility] Imaging Services [address] [place] [address] Brain/Head without Contrast MR#: [id number] Acct: [id number] Name: LIANET FLORES Rep #: [id number] : 1950 M 67 From: Quirino Smith MD PCP: Cameron Mueller MD, Chi Status: REG CLI Study: Brain/Head without Contrast Date of Exam: 12/19/17 Exam# [id number] Ordering Dr: Cameron Mueller MD STUDY: CT BRAIN WITHOUT CONTRAST REASON FOR EXAM: Male, 67 years old. Leg weakness. Closed head injury. RADIATION DOSAGE (If Supplied By Facility): CTDIvol = ( 44.99 ) mGy, DLP = ( 846.73 ) mGycm TECHNIQUE: Transaxial CT imaging of the brain was performed without administration of intravenous contrast material. Individualized dose optimization techniques were used for this CT. COMPARISON: Comparison is made with prior study June 15, 2013. FINDINGS: Normal soft tissue structures. Normal calvarium. There is mild cerebral atrophy with widening of the extra- axial spaces and ventricular dilatation. There are areas of decreased attenuation within the white matter tracts of the supratentorial brain, consistent with microvascular disease changes. Normal basal ganglia and thalami. Normal brainstem. Normal cerebellum. There is no intracranial hemorrhage. There are no findings of an acute ischemic infarction. Calcified atherosclerotic plaques involving both vertebral arteries and the cavernous portions of the internal carotid arteries bilaterally. Normal visualized paranasal sinuses. CT/Brain/Head without Contrast IMPRESSION: Chronic involutional changes of the brain. Electronically Signed: Quirino Smith MD at 13:32 EDT Tel [phone], Service support , CC: Cameron Mueller MD Cardiac Technician: Signed CBC W/DIFF, AUTOMATED Collected: 10/08/2017 Status: F Source: [place] 4:[address] [facility] REPOSITORY TYPE CODE TESTS RESULT OUT OF RANGE REFERENCE UNITS LAB L100.1000 4.4-11.0 K/mm3 Normal WBC 9.2 LAB L100.1200 4.6-6.2 M/mm3 Normal RBC 4.68 LAB L100.1300 13.0-16.5 g/dl Normal HGB 13.4 LAB L100.1400 40-54 % Normal HCT 42.4 LAB L100.1500 80-94 fL Normal MCV 90.6 LAB L100.1600 27.0-32.0 pg Normal MCH 28.6 LAB L100.1700 32-36 g/gl Low MCHC 31.6 LAB L100.1810 11.6-14.6 % High RDW CV 15.4 LAB L100.1820 35.1-43.9 fl High RDW SD 50.2 LAB L100.1900 150-450 K/mm3 Normal PLT 188 LAB L100.2000 6.2-12.0 fl Normal MPV 9.7 LAB L100.2100 47-70 % High NEUT% 72.6 LAB L100.2200 19-41 % Low LY% 15.3 LAB L100.2300 0-10 % Normal MONO% 9.9 LAB L100.2400 0-5 % Normal EO% 1.5 LAB L100.2500 0-1 % Normal BASO% 0.2 LAB L100.2550 0.0-0.9 % Normal IM GRAN % 0.500 Result Comment: IG% - Immature Granulocytes (promyelocytes, myelocytes and metamyelocytes) > 1% indicates that a LEFT SHIFT is Present. LAB L100.2620 2.0-7.7 X10 3/uL Normal Absolute Neut 6.7 LAB L100.2720 0.83-4.51 X10 3/ul Normal Absolute Lymph 1.40 Performed By: #### L100.0100 #### [facility] [address] [place], [place], [id number] VITAMIN D,25 HYDROXY Collected: 10/08/2017 Status: F Source: [place] 4:[address] [facility] REPOSITORY TYPE CODE TESTS RESULT OUT OF REFERENCE UNITS RANGE LAB L506.1000 29.95-100.01 ng/mL Low Vitamin D 14.1 25-OH Result Comment: Vitamin D 25(OH) Status Range Deficiency <20 ng/mL (50nmol/L) Insuffciency 20 - 30 ng/mL (50 - 75 nmol/L) Sufficiency 30 - 100 ng/mL (75 - 250 nmol/L) Toxicity >100 ng/mL (>250 nmol/L) Performed By: #### L506.1000, L509.3000 #### [facility] [address] [facility] [place], [address] TESTOSTERONE, SERUM TOTAL Collected: 10/08/2017 Status: F Source: [place] 4:[address] [facility] REPOSITORY TYPE CODE TESTS RESULT OUT OF REFERENCE UNITS RANGE LAB L509.3000 ng/dL Testosterone Normal 244.63 Result Comment: NORMAL REFERENCE RANGES MALE AGE <50 123.06 - 813.86 ng/dL MALE AGE >50 89.98 - 780.10 ng/dL FEMALE PREMENOPAUSE AGE 21 - 60 9.01 - 47.94 ng/dL FEMALE POSTMENOPAUSE AGE 45 - 89 <7.00 - 45.62 ng/dL REFERENCE RANGE AND METHODOLOGY CHANGED 03/14/2017 Performed By: #### L506.1000, L509.3000 #### [facility] [address] [place], [address] COMPREHENSIVE METABOLIC Collected: 10/08/2017 Status: F Source: [place] [facility] 4:[address] [facility] REPOSITORY TYPE CODE TESTS RESULT OUT OF RANGE REFERENCE UNITS LAB L501.0100 74-106 mg/dL High GLU 140 Result Comment: Fasting Glucose result greater than or equal to 126 mg/dL suggests DIABETES MELLITUS per A.D.A. criteria. Please note revised GLUCOSE reference range effective 2017. LAB L501.1000 7-18 mg/dL Normal BUN 8 LAB L501.1100 0.70-1.30 mg/dL Normal CREAT,SERUM 0.82 Result Comment: The validity of the calculated GFR AND GFRAA in patients over 70 years has not been determined. Clinical correlation is essential. LAB L501.1110 >60 mL/min Normal EST GFR 100 Result Comment: Non- GFR Calc LAB L501.1115 >60 mL/min Normal EST GFR - AA 121 Result Comment: GFR Calc LAB L501.1300 10-20 RATIO Low BUN/CRE 9.8 LAB L501.1500 6.4-8.2 g/dL Normal T PROT 7.6 LAB L501.1800 3.2-5.0 g/dL Low ALB 2.9 LAB L501.1950 2.2-4.2 g/dL High GLOB 4.7 LAB L501.2000 0.9-2.4 RATIO Low A/G 0.6 LAB L501.2200 8.5-10.1 mg/dL Normal CA 9.0 LAB L501.4100 15-37 U/L Normal AST 37 LAB L501.4305 45-117 U/L High ALK P 218 LAB L501.4405 16-61 U/L Normal ALT 39 LAB L501.4600 0.20-1.00 mg/dL Normal T BILI 0.50 LAB L501.5300 136-145 mmol/L Normal NA 137 LAB L501.5600 3.5-5.1 mmol/L Normal K 3.9 LAB L501.5900 98-107 mmol/L Normal CL 98 LAB L501.6100 21.0-32.0 mmol/L Normal CO2 27.0 LAB L501.6200 5-15 Normal GAP 12 Performed By: #### L500.4050, L500.4100, L501.9520 #### [facility] [address] [place], [address] LIPID PROFILE Collected: 10/08/2017 Status: F Source: [place] 4:[address] [facility] REPOSITORY TYPE CODE TESTS RESULT OUT OF RANGE REFERENCE UNITS LAB L501.4900 200 mg/dL Normal CHOL 142 Result Comment: <200 mg/dL Desirable 200-240 mg/dL Borderline >240 mg/dL High Risk LAB L501.5000 mg/dL Normal TRIG 75 Result Comment: The drugs N-Acetylcysteine and Metamizole may falsely depress this assay. Serum Triglycerides Reference Interval Normal <150 mg/dL Borderline high 150 - 199 mg/dL High 200 - 499 mg/dL Very High > or = 500 mg/dL LAB L501.6400 mg/dL Normal HDL 79 Result Comment: The drugs N-Acetylcysteine and Metamizole may falsely depress this assay. Reference Range HDL <40 mg/dL Low HDL Cholesterol HDL >or= 60 mg/dL High HDL Cholesterol LAB L501.6500 0-130 mg/dL Normal LDL 48 LAB L501.6600 5-40 mg/dL Normal VLDL 15 Performed By: #### L500.4050, L500.4100, L501.9520 #### [facility] [address] [place], [address] THYROID STIM HORMONE Collected: 10/08/2017 Status: F Source: [place] (TSH) 4:[address] [facility] REPOSITORY TYPE CODE TESTS RESULT OUT OF RANGE REFERENCE UNITS LAB L501.9520 0.358-3.74 uIU/mL Normal TSH 3.10 Performed By: #### L500.4050, L500.4100, L501.9520 #### [facility] [address] [place], [place], [address] DOWNTIME REPORT Observed: 09/13/2017 Status: F Source: [place] 12:[address] [facility] REPOSITORY [facility] Medical Records Department [address] [place] [address] Downtime Report MR#: [id number] Acct: [id number] Name: LIANET FLORES Rep #: [id number] : 1950 66 From: Alberto Olivares PCP: Cameron Mueller MD, Chi Status: REG CLI This patient was seen during an EMR downtime August 27, 2017 - September 03, 2017. This patient may have a combination of paper and electronic documentation or all paper documentation. All documentation is viewable within the e-chart portion of [facility] for each patient visit. NCS AND/OR EMG Observed: 09/12/2017 Status: F Source: [place] PATIENT 2:[address] [facility] REPOSITORY [facility] Pulmonary Services/Neurology [address] [place] [address] MR#: [id number] Acct: [id number] Name: LIANET FLORES Rep #: [id number] : 1950 66 From: Elsie Holloway MD Referring Dr: Ervin CAMEJO,Cameron Eugene Status: REG CLI Ordering Dr: Date: Location: [facility] Sex: M C NCS and/or EMG Patient Report Ordering Doctor: Cameron Mueller Chi DATE OF SERVICE: 09/12/17 Lianet Flores is a 66-year-old male presents for electrodiagnostic testing of the lower limbs. He reports numbness and tingling in both legs with poor balance. He has a history of diabetes. Electrodiagnostic findings: Common peroneal nerve demonstrates prolonged distal latency bilaterally with reduced amplitude and conduction velocity. Reduced tibial motor conduction velocity. Bilaterally. Reduced right tibial motor amplitude. Sensory responses are unobtainable bilaterally. On needle EMG, 1+ fibrillations are noted in the right anterior tibialis with motor units demonstrating polyphasics. Motor units of increased amplitude and duration noted in the peroneus longus and gastrocnemius bilaterally. Electrodiagnostic impression: This is an abnormal study. 1. Electrodiagnostic findings demonstrate peripheral polyneuropathy, with involvement of motor and sensory nerve fibers. There is evidence of axonal loss. Etiology may be likely to poorly controlled diabetes. 2. Electrodiagnostic evidence suggestive of chronic right L5 radiculopathy. If there are any further questions, please not hesitate contact me. 09/12/17 1454 <Electronically signed by Elsie Holloway MD> Date Elsie Holloway MD CC: Elsie Holloway; Cameron Mueller MD Date Dictated: 09/12/17 141 Date Transcribed: 09/12/171410 Cardiac Technician: RAFAELA Signed RIBS JAYLAN MIN 4V Observed: 09/05/2017 Status: F Source: [place] W/PA CHEST 2:[address] [facility] REPOSITORY [facility] Imaging Services [address] [place] [address] Ribs Jaylan Min 4V w/PA Chest MR#: [id number] Acct: [id number] Name: LIANET FLORES Rep #: [id number] : 1950 [facility] From: Dejan Hernandez MD PCP: Cameron Mueller MD, Chi Status: REG CLI Study: Ribs Jaylan Min 4V w/PA Chest Date of Exam: 09/05/17 Exam# [id number] Ordering Dr: Abby Rodriguez MD STUDY: X-RAY - BILATERAL RIBS WITH CHEST REASON FOR EXAM: Male, 66 years old. Right-sided rib pain, recent fall TECHNIQUE - RIBS: 8 view(s) of the ribs. TECHNIQUE - CHEST: Single PA view of the chest. COMPARISON: None. FINDINGS - RIBS : There is severe demineralization of the osseous structures which diminishes the diagnostic sensitivity of this examination, however there is no visualized rib fracture. FINDINGS - CHEST: There are interstitial fibrotic changes of the lungs. There is no demonstrated pleural abnormality. Normal size heart. Normal mediastinum and abby. Normal visualized pulmonary arteries. Normal visualized aortic arch and descending thoracic aorta. There are diffuse degenerative changes of the visualized thoracic spine. Severe left glenohumeral arthrosis. Extensive postsurgical changes noted in the right glenohumeral joint and proximal right humerus. There is no demonstrated abnormality of the visualized soft tissue structures of the upper abdomen. RAD/Ribs Jaylan Min 4V w/PA Chest IMPRESSION: RIBS: Demineralization of the osseous structures but no demonstrated acute displaced rib fracture, pleural thickening or pneumothorax. CHEST: Chronic interstitial changes, no superimposed acute pulmonary process Electronically Signed: Esa Hernandez MD at 8:38 EDT , Service support , CC: Abby Rodriguez MD; Cameron Mueller MD Cardiac Technician: Signed CERV SPINE 2 OR 3 Observed: 08/30/2017 Status: F Source: [place] VIEWS 4:[address] [facility] REPOSITORY [facility] Imaging Services [address] [place] [address] Cerv Spine 2 or 3 Views MR#: [id number] Acct: [id number] Name: LIANET FLORES Rep #: [id number] : 1950 M 66 From: Donald Knox PCP: Ervin CAMEJO,Cameron Eugene Status: REG CLI Study: Cerv Spine 2 or 3 Views Date of Exam: 08/29/17 Exam# [id number] Ordering Dr: Abby Rodriguez MD STUDY: X-RAY - CERVICAL SPINE REASON FOR EXAM: Male, 66 years old. Neck pain. TECHNIQUE: 4 view(s) of the cervical spine were obtained. COMPARISON: None FINDINGS: Normal anterior atlantoaxial articulation. Normal odontoid process. On the lateral view cervical spine seen from C1 through the mid body of C6. There is disc space narrowing C3-C4 and C5-C6 with marginal osteophytes C5-6. Uncovertebral joint hypertrophy at multiple levels in the mid cervical spine. The soft tissue structures are unremarkable. RAD/Cerv Spine 2 or 3 Views IMPRESSION: Multilevel degenerative changes of the cervical spine. No fracture identified. The lower cervical spine from the mid body of C6 through C7- T1 not well-seen on the lateral view. Consider additional plain film images or CT cervical spine. Electronically Signed: Donald Knox MD at 8:02 EDT , Service support , CC: Abby Rodriguez MD; Cameron Mueller MD Cardiac Technician: Signed LOWER EXT ARTERIAL Observed: 07/30/2017 Status: F Source: [facility] 7:[address] [facility] REPOSITORY [facility] Cardiovascular Services [address] [place] [address] 07/30/17 0701 MR#: [id number] Acct: [id number] Name: LIANET FLORES Rep #: [id number] : 1950 66 From: Buddy Ro MD Attending Dr: Ervin CAMEJO,Cameron Eugene Status: REG CLI Ordering Dr: Date: 07/30/17 Location: [facility] Sex: M C Admitted: Arterial Study - Arterial Study Arterial Study: This is a 66-year-old male with a history of hypertension and diabetes mellitus. The patient presents with bilateral lower extremity ambulatory pain, consistent with intermittent claudication. He is also noted to have color changes in the digits of his feet, suggesting ischemia. Suspecting the presence of atherosclerotic peripheral arterial occlusive disease, the patient was brought to the noninvasive vascular laboratory at this time for the purpose of bilateral noninvasive lower extremity arterial assessment. Doppler signal assessment was used to evaluate the pulses at ankle level bilaterally. The posterior tibial and dorsalis pedis pulses were triphasic bilaterally. Segmental limb pressures were obtained bilaterally. The right ankle pressure, as determined by posterior tibial pulse, was measured at 158 mmHg. The right ankle pressure, as determined by dorsalis pedis pulse, was measured at 153 mmHg. The right digital pressure was measured at 114 mmHg. The left ankle pressure, as determined by posterior tibial pulse, was measured at 152 mmHg. The left ankle pressure, as determined by dorsalis pedis pulse, was measured at 144 mmHg. The left digital pressure was measured at 111 mmHg. Resting ankle-brachial indices were calculated bilaterally. The resting right ankle-brachial index was calculated to be 1.11. The resting left ankle-brachial index was calculated to be 1.07. Digital-brachial indices were calculated bilaterally. The right digital-brachial index was calculated to be 0.80. The left digital-brachial index was calculated to be 0.78. Impression: Based upon the findings of this resting noninvasive lower extremity arterial study, there is no evidence of significant atherosclerotic peripheral arterial occlusive disease in the lower extremities bilaterally. Triphasic waveforms were noted at ankle level bilaterally. Resting ankle-brachial indices are bilaterally normal. Digital- brachial indices are also normal bilaterally. In summary, this represents a normal resting noninvasive lower extremity arterial study bilaterally. 07/30/17705 <Electronically signed by Buddy Ro MD> Date Buddy Ro MD CC: Cameron Mueller MD Date Dictated: 07/30/17700 Date Transcribed: 07/30/17700 Cardiac Technician: LAS Signed LUMBAR SPINE 2 OR 3 Observed: 06/15/2017 Status: F Source: [place] VIEWS 11:[address] [facility] REPOSITORY [facility] Imaging Services [address] [place] [address] Lumbar Spine 2 or 3 Views MR#: [id number] Acct: [id number] Name: LIANET FLORES Rep #: [id number] : 1950 M 66 From: Dejna Hernandez MD PCP: Cameron Mueller MD, Chi Status: REG CLI Study: Lumbar Spine 2 or 3 Views Date of Exam: 06/15/17 Exam# [id number] Ordering Dr: Cameron Mueller MD STUDY: X-RAY - LUMBAR SPINE REASON FOR EXAM: Male, 66 years old. Low back pain TECHNIQUE: 3 view(s) of the lumbar spine were obtained. COMPARISON: None FINDINGS: Normal lumbar lordosis. There is a mild dextroscoliosis. There is a normal alignment of the vertebrae in the lateral view. There is diffuse demineralization with multi-level endplate spondylosis. There is multi-level degenerative disc disease with multi- level disc space narrowing. There is no demonstrated fracture. There is atherosclerotic calcification of the abdominal aorta without a demonstrated aneurysm. RAD/Lumbar Spine 2 or 3 Views IMPRESSION: Degenerative changes of the spine, as detailed above. Mild dextroscoliosis Electronically Signed: Esa Hernandez MD at 13:27 EDT , Service support , CC: Cameron Mueller MD Cardiac Technician: Signed HIP 2-3 VIEWS WITH Observed: 06/15/2017 Status: F Source: [place] PELVIS 11:[address] [facility] REPOSITORY [facility] Imaging Services [address] [place] [address] Hip 2-3 Views with Pelvis MR#: [id number] Acct: [id number] Name: LIANET FLORES Rep #: [id number] : 1950 66 From: Ron Daniel MD PCP: Cameron Mueller MD, Chi Status: REG CLI Study: Hip 2-3 Views with Pelvis Date of Exam: 06/15/17 Exam# [id number] Ordering Dr: Cameron Mueller MD STUDY: X-RAY - PELVIS AND RIGHT HIP REASON FOR EXAM: Male, 66 years old. Atraumatic right hip pain. TECHNIQUE: Radiological exam, hip, unilateral, with pelvis when performed; 2 or 3 views. COMPARISON: None. FINDINGS: There is a non-specific bowel gas pattern. Normal visualized soft tissue structures. There is generalized osteopenia. Normal bilateral iliac wings, sacroiliac joints and visualized sacrum. Normal bilateral superior and inferior pubic rami. Normal pubic symphysis. Normal bilateral ischial tuberosities. There is mild arthrosis of both hips. RAD/Hip 2-3 Views with Pelvis IMPRESSION: Osteopenia with mild arthrosis of both hips. No acute pathology. Electronically Signed: Ron Daniel MD at 15:41 EDT , Service support , CC: Cameron Mueller MD Cardiac Technician: Signed ALLERGIES ALLERGIES DATE TYPE / CODE NAME / CODE REACTION SEVERITY SOURCE 09/10/2016 Drug pioglitazone Swelling Unknown [place] Allergy/416 HCl/[id number]([facility] 037552[facility] ED CT) Repository 09/10/2016 Drug YONATAN THROAT SWELLS SV [place] Allergy/416 Inhibitors/[id number] [facility] [id number]([address]) Repository ENCOUNTERS ENCOUNTERS ADMIT/DISCHARGE ACCOUNT ADMITTING ENCOUNTER LOCATION SOURCE NUMBER CLASS 03/06/2018 [id number] Ambulatory [place] Alisha 5 [facility] Hospital ing:RAD Repository 01/09/2018 [id number] Ambulatory [place] 7 [facility] Hospital ing:POLAB3 Repository 12/25/2017 [id number] Ambulatory [place] Alisha 0 [facility] Hospital ing:MRI Repository 2017 [id number] Ambulatory [place] 8 [facility] Hospital ing:CT Repository 10/08/2017 [id number] [place] 3 [facility] Hospital ing:LAB Repository 09/12/2017 [id number] Ambulatory [place] [facility] 1 [facility] Hospital ing:PSN Repository 09/05/2017 [id number] Ambulatory [place] [facility] 4 [facility] ing:RAD Repository 08/29/2017 [id number] Ambulatory [place] [facility] 1 [facility] ing:RAD Repository 07/23/2017 [id number] [place] 8 [facility] Hospital ing:CVS Repository 06/15/2017 [id number] Ambulatory [place] 8 [facility] Hospital ing:RAD Repository PAYERS PAYERS ENCOUNTER GUARANTOR PAYER SUBSCRIBER SOURCE 03/06/2018 LIANET Robin Primary LIANET Robin [place] [id number] [place] Insurance[place] [facility] [id number] Hospital [address]Qif: (330) Number: Repository [phone] () [id number] Date:2018-03-06 03/06/2018 Secondary LIANET L [place] Insurance:MEDICAL BOWERDOB: [facility] [id number] Hospital Number: Repository [id number] Date:[id number] [address]TP: 03/06/2018 Tertiary NOT GIVENUNK [place] Insurance:SELF PAY [facility] Number: Effective Repository Date:2018-03-06 01/09/2018 LIANET L Primary LIANET L [place] [id number] [place] Insurance:MEDICARE [place]OWER[place]OB[place] [facility] [id number] Hospital 284[address]Vjl: (330) Number: Repository [phone] () [id number] Date:2018-01-09 01/09/2018 Secondary LIANET L [place] Insurance:MEDICAL BOWERDOB: [facility] [id number] Hospital Number: Repository [id number] Date:6318-19-77CI[address] [address]AY: 01/09/2018 Tertiary NOT GIVENUNK [place] Insurance:SELF PAY [facility] Number: Effective Repository Date:2018-01-09 12/25/2017 LIANET L Primary LIANET L [place] [id number] [place] Insurance:MEDICARE [place]OWER[place]OB[place] [facility] [id number] Hospital 16[address]Oab: (330) Number: Repository [phone] () [id number] Date:2017 12/25/2017 Secondary LIANET L [place] Insurance:MEDICAL BOWERDOB: [facility] [id number] Hospital Number: Repository [id number] Date:6436-11-36ZF[address] [address]PY: 12/25/2017 Tertiary NOT GIVENUNK [place] Insurance:SELF PAY [facility] Number: Effective Repository Date:2017 2017 LIANET L Primary LIANET L [place] [id number] [place] Insurance:MEDICARE [place]OWER[place]OB[place] [facility] [id number] Hospital 560[address]Uxx: (330) Number: Repository [phone] () [id number] Date:2017 2017 Secondary LIANET L [place] Insurance:MEDICAL BOWERDOB: [facility] [id number] Hospital Number: Repository [id number] Date:9094-24-31DX [address] [address]QS: 2017 Tertiary NOT GIVENUNK [place] Insurance:SELF PAY [facility] Number: Effective Repository Date:2017 10/08/2017 LIANET L Primary LIANET L [place] [id number] [place] Insurance:MEDICARE BOWERDOB[place] [facility] [id number] Hospital [address]23[address]Hxc: (330) Number: Repository [phone] () [id number] Date:2017-10-08 10/08/2017 Secondary LIANET L [place] Insurance:MEDICAL BOWERDOB: [facility] [id number] Hospital Number: Repository [id number] Date:5673-05-43VO [address] [address]AO: 10/08/2017 Tertiary NOT GIVENUNK [place] Insurance:SELF PAY [facility] Number: Effective Repository Date:2017-10-08 09/12/2017 LIANET L Primary LIANET L [place] [id number] [place] Insurance:MEDICARE [place]OWER[place]OB[place] [facility] [id number] Hospital [address]Ajq: (330) Number: Repository [phone] () [id number] Date:2017-07-10 09/12/2017 Secondary LIANET L [place] Insurance:MEDICAL BOWERDOB: [facility] [id number] Hospital Number: Repository [id number] Date:5936-52-09ZV[address] [address]MO: 09/12/2017 Tertiary NOT GIVENUNK [place] Insurance:SELF PAY [facility] Number: Effective Repository Date:2017-07-10 09/05/2017 LIANET L Primary LIANET L [place] [id number] [place] Insurance:MEDICARE BOWERDOB: [place] [facility] [id number] Hospital 74[address]Yvo: (330) Number: Repository [phone] () [id number] Date:2017-09-05 09/05/2017 Secondary LIANET L [place] Insurance:MEDICAL BOWERDOB: [facility] [id number] Hospital Number: Repository [id number] Date:6250-87-78NW[address] [address]FK: 09/05/2017 Tertiary NOT GIVENUNK [place] Insurance:SELF PAY [facility] Number: Effective Repository Date:2017-09-05 08/29/2017 LIANET L Primary LIANET L [place] [id number] [place] Insurance:MEDICARE [place]OWER[place]OB[place] [facility] [id number] Hospital 450[address]Jld: (330) Number: Repository [phone] () [id number] Date:2017-08-29 08/29/2017 Secondary LIANET L [place] Insurance:MEDICAL BOWERDOB: [facility] [id number] Hospital Number: Repository [id number] Date:9219-11-[address]XM[address] [address]LU: 08/29/2017 Tertiary NOT GIVENUNK [place] Insurance:SELF PAY [facility] Number: Effective Repository Date:2017-08-29 07/23/2017 LIANET L Primary LIANET L [place] [id number] [place] Insurance:AETNA BOWERDOB: [facility] Number: [id number] Hospital 222[address]Orh: (330 [id number] Repository [phone] () Date:4466-41-76[address] [address]SA: 07/23/2017 Secondary LIANET L [place] Insurance:MEDICAL BOWERDOB: [facility] [id number] Hospital Number: Repository [id number] Date:7209-85-76CM [address] [place] [address]KE: 07/23/2017 Tertiary NOT GIVENUNK [place] Insurance:SELF PAY [facility] Number: Effective Repository Date:2017-07-10 06/15/2017 LIANET L Primary LIANET L [place] [id number] [place] Insurance:AETNA BOWERDOB: [facility] Number: [id number] Hospital [address]Aje: ([phone]) [id number] Repository [phone] () Date:1862-18-18IM [address] [address]IN: 06/15/2017 Secondary LIANET L [place] Insurance:MEDICAL BOWERDOB: [facility] [id number] Hospital Number: Repository [id number] Date:9958-83-58NM [address] [place] [address]LD: 06/15/2017 Tertiary NOT GIVENUNK [place] Insurance:SELF PAY [facility] Number: Effective Repository Date:2017-06-15
== END ==
PROVIDERS: Family Provider Family Medicine Geriatric Medicine; PCP Family Medicine Geriatric Medicine; Referring Provider Family Medicine Geriatric Medicine; Visit Provider Family Medicine Geriatric Medicine
DX: M25.519 Pain in unspecified shoulder (principal)
CPT/HCPCS: 73030

== ENCOUNTER → 2018-05-08 15:07 | Outpatient (CLI) | payer MEDICARE, SELFPAY ==
--- NOTE | 2018-05-08 16:03 | RAD_ITS ---
STUDY: X-RAY - BILATERAL HIPS WITHOUT PELVIS REASON FOR EXAM: Male, 67 years old. Pain TECHNIQUE: 2 views of the right hip, and 2 views of the left hip were obtained. COMPARISON: None. FINDINGS: Right Hip: Normal right femoral head, neck, intertrochanteric region and visualized proximal femur. Questionable subtle lucency through the right acetabulum. Left Hip: Normal left femoral head, neck, intertrochanteric region and visualized proximal femur. Mild sclerosis of the left acetabulum. Normal left hip joint. Normal bilateral superior and inferior pubic rami , ischial tuberosities and pubic symphysis. RAD/Hips B/L min 2 views w/ Pelvis IMPRESSION: Questionable subtle lucency through the right acetabulum. Electronically Signed: Erik Green DO at 21:13 EST Tel [phone], Service support ,
[2018-05-08 16:22] LABS: Absolute Lymphocyte Count 1.21 X10^3/ul (0.83-4.51); Absolute Neutrophil Count 3.4 X10^3/uL (2.0-7.7); Basophil# 0.01 X10^3/uL; Basophil% 0.2 % (0-1); Eosinophil# 0.15 X10^3/uL; Eosinophils% 2.8 % (0-5); Hematocrit 38.7 % (40-54); Lymphocyte # 1.21 X10^3/ul (4.0); Lymphocyte % 22.4 % (19-41); Mean Corpuscular Hgb 28.4 pg (27.0-32.0); Mean Corpuscular Volume 91.7 fL (80-94); Mean Platelet Vol. 9.9 fl (6.2-12.0); Monocyte% 11.1 % (0-10); Neutrophil # 3.41 X10^3/uL (2.7-7.7); Neutrophil % 63.1 % (47-70); Platelet Count 134 K/mm3 (150-450); RBC Distribution Width SD 50.4 fl (35.1-43.9); Red Blood Count 4.22 M/mm3 (4.6-6.2); White Blood Count 5.4 K/mm3 (4.4-11.0)
[2018-05-08 16:33] LABS: POSITIVE COUNT NO; POSITIVE DIFFERENTIAL NO; POSITIVE MORPHOLOGY NO
[2018-05-08 16:46] LABS: Vitamin D,25 Hydroxy 22.6 ng/mL (29.95-100.01)
[2018-05-08 16:51] LABS: ALB/GLOB Ratio 0.7 RATIO (0.9-2.4); AST(SGOT) 31 U/L (15-37); Alanine Aminotransfer ALT/SGPT 33 U/L (16-61); Albumin, Serum 2.9 g/dL (3.2-5.0); Alkaline Phosphatase 179 U/L (45-117); Anion Gap 8 (5-15); BUN 23 mg/dL (7-18); BUN/Creat Ratio 26.2 RATIO (10-20); Calcium,Total 8.1 mg/dL (8.5-10.1); Chloride 104 mmol/L (98-107); Creatinine, Serum 0.88 mg/dL (0.70-1.30); EST Glomerular Filtration Rate 92 mL/min (>60); Est Glom Filt Rate - Afr Amer 111 mL/min (>60); Glucose 210 mg/dL (74-106); PSA,Total - Annual Screen 0.06 ng/mL (0.00-4.00); Potassium 4.6 mmol/L (3.5-5.1); Protein, Total 6.9 g/dL (6.4-8.2); Sodium Level 138 mmol/L (136-145); Thyroid Stim Hormone (TSH) 3.63 uIU/mL (0.358-3.74)
== END ==
LOC: POLAB3 15:08 → RAD 15:54
PROVIDERS: Family Provider Family Medicine Geriatric Medicine; PCP Family Medicine Geriatric Medicine; Referring Provider Family Medicine Geriatric Medicine; Visit Provider Family Medicine Geriatric Medicine
DX: E11.9 Type 2 diabetes mellitus without complications (principal); E55.9 Vitamin D deficiency, unspecified; I10 Essential (primary) hypertension; Z12.5 Encounter for screening for malignant neoplasm of prostate; M25.552 Pain in left hip; M25.551 Pain in right hip
CPT/HCPCS: 36415; 73521; 80053; 82306; 84153; 84443; 85025; G0103

== ENCOUNTER → 2018-05-29 14:05 | Outpatient (CLI) | payer MEDICARE, SELFPAY ==
--- NOTE | 2018-05-29 14:09 | RAD_ITS ---
STUDY: X-RAY - RIGHT SHOULDER REASON FOR EXAM: Male, 67 years old. CONTINUOUS PAIN FROM FALL 10 DAYS AGO TECHNIQUE: 4 view(s) of the shoulder. COMPARISON: None. FINDINGS: There is a shoulder prosthesis replacing the humeral head, and with a stem extending into the proximal humeral shaft. This prosthesis appears to be created from a nonmetallic substance through which a longitudinal metal screw is seen. The appearance suggests revision status post removal of conventional shoulder arthroplasty-correlate with history. A fracture seen through the stem of the prosthesis, including through the central middle screw. There also appear to be loosening between the stem in the telida humerus. No dislocation. Generalized osteoporosis and degenerative changes. Possible loose bodies and bone debris in the subaxillary bursa. RAD/Shoulder min 2 Views IMPRESSION: Nondisplaced fracture through the stem of a shoulder prosthesis which appears to be from revision of previous shoulder arthroplasty. Loosening and degenerative changes. Electronically Signed: Yariel Pedroza MD at 15:31 EST , Service support ,
== END ==
PROVIDERS: Family Provider Family Medicine Geriatric Medicine; PCP Family Medicine Geriatric Medicine; Referring Provider Family Medicine Geriatric Medicine; Visit Provider Family Medicine Geriatric Medicine
DX: M25.519 Pain in unspecified shoulder (principal)
CPT/HCPCS: 73030

== ENCOUNTER 2018-05-30 16:53 | Emergency (ER) | payer MEDICARE, SELFPAY ==
[2018-05-30 16:53] VITALS: BP 152/95; PULSE 92; RESP 20; TEMP 37.1; O2SAT 95; BMI 51.5
--- NOTE | 2018-05-30 17:41 | CT_ITS ---
STUDY: CT BRAIN WITHOUT CONTRAST REASON FOR EXAM: Male, 67 years old. Fall. RADIATION DOSAGE (If Supplied By Facility): CTDIvol = ( 44.99 ) mGy, DLP = ( 829.85 ) mGycm TECHNIQUE: Transaxial CT imaging of the brain was performed without administration of intravenous contrast material. Individualized dose optimization techniques were used for this CT. COMPARISON: None. FINDINGS: Normal soft tissue structures. Normal calvarium. Irregularities across the bridge of the nose are seen consistent with nondisplaced fractures. There is mild cerebral atrophy with widening of the extra-axial spaces and ventricular dilatation. There are areas of decreased attenuation within the white matter tracts of the supratentorial brain, consistent with microvascular disease changes. Normal basal ganglia and thalami. Normal brainstem. Normal cerebellum. There is no intracranial hemorrhage. There are no findings of an acute ischemic infarction. Normal visualized paranasal sinuses. CT/Brain/Head without Contrast IMPRESSION: No acute intracranial abnormality. Probable bilateral nasal fractures. Electronically Signed: Yariel Pedroza MD at 18:56 EST , Service support ,
--- NOTE | 2018-05-30 17:41 | CT_ITS ---
STUDY: CT FACIAL BONES WITHOUT CONTRAST REASON FOR EXAM: Male, 67 years old. Fall. RADIATION DOSAGE (If Supplied By Facility): CTDIvol = ( 29.38 ) mGy, DLP = ( 635.61 ) mGycm TECHNIQUE: The patient was scanned in a multi detector CT scanner. Sagittal and coronal images were reconstructed. Individualized dose optimization techniques were used for this CT. COMPARISON: None. FINDINGS: Soft tissue swelling seen over the nose. Bilateral nasal fractures are seen without significant displaced fragments or deviation to either side. No other nasal fractures are seen. Normal orbital jc and orbital contents. Normal visualized paranasal sinuses. CT/Sinus/Facial Bone IMPRESSION: Bilateral nasal fractures. Electronically Signed: Yariel Pedroza MD at 18:57 EST , Service support ,
--- NOTE | 2018-05-30 17:42 | CT_ITS ---
STUDY: CT CERVICAL SPINE WITHOUT CONTRAST REASON FOR EXAM: Male, 67 years old. Fall. RADIATION DOSAGE (If Supplied By Facility): CTDIvol = ( 43.81 ) mGy, DLP = ( 872.50 ) mGycm TECHNIQUE: High resolution transaxial imaging was performed without contrast material. Sagittal and coronal images were reconstructed. Individualized dose optimization techniques were used for this CT. COMPARISON: None FINDINGS: No definite acute fracture/dislocation. The cervical junction is intact. C1-C2 articulation is intact. There is straightening. There is normal alignment. Facet joints are intact at all levels bilaterally. No jumped facets. There is multilevel spondyloarthropathy. Multilevel degenerative disc disease seen. Multilevel loss of disc height. Multilevel posterior marginal osteophytes and disc bulges. Multilevel neural foraminal narrowing. Visualized paraspinal soft tissues and structures are unremarkable. CT/Spine Cervical without Contras IMPRESSION: There is no definite acute fracture/dislocation. Degenerative changes. Electronically Signed: Yariel Pedroza MD at 18:59 EST , Service support ,
[2018-05-30 18:12] LABS: Absolute Lymphocyte Count 1.22 X10^3/ul (0.83-4.51); Basophil# 0.01 X10^3/uL; Basophil% 0.2 % (0-1); Eosinophil# 0.15 X10^3/uL; Eosinophils% 2.4 % (0-5); Hemoglobin 12.2 g/dl (13.0-16.5); Lymphocyte # 1.22 X10^3/ul (4.0); Lymphocyte % 19.5 % (19-41); Mean Corp Hgb Conc 31.3 g/gl (32-36); Mean Corpuscular Hgb 28.7 pg (27.0-32.0); Mean Corpuscular Volume 91.8 fL (80-94); Mean Platelet Vol. 9.1 fl (6.2-12.0); Monocyte# 0.91 X10^3/uL; Monocyte% 14.6 % (0-10); Neutrophil # 3.95 X10^3/uL (2.7-7.7); Neutrophil % 63.1 % (47-70); Platelet Count 131 K/mm3 (150-450); RBC Distribution Width CV 15.1 % (11.6-14.6); RBC Distribution Width SD 49.9 fl (35.1-43.9); Red Blood Count 4.25 M/mm3 (4.6-6.2); White Blood Count 6.3 K/mm3 (4.4-11.0)
[2018-05-30 18:14] LABS: POSITIVE COUNT NO; POSITIVE DIFFERENTIAL NO; POSITIVE MORPHOLOGY NO
[2018-05-30 18:27] LABS: Anion Gap 8 (5-15); BUN 22 mg/dL (7-18); Calcium,Total 8.8 mg/dL (8.5-10.1); Chloride 103 mmol/L (98-107); EST Glomerular Filtration Rate 71 mL/min (>60); Est Glom Filt Rate - Afr Amer 86 mL/min (>60); Estimated Creatinine Clearance 60.93 ml/min; Glucose 201 mg/dL (74-106); Potassium 4.8 mmol/L (3.5-5.1); Sodium Level 137 mmol/L (136-145)
[2018-05-30 19:10] VITALS: BP 151/92
--- NOTE | 2018-05-30 20:09 | ED.DCSUM_ITS ---
- ER Visit Summary Date of Service: 05/30/18 Chief Complaint: Facial injury History of Present Illness: The patient is a 67 M who fell after trying to place his walker in the back of his pickup truck. He states he lost his balance and fell forward. He did not lose consciousness. He is not on blood thinners. Patient states he has a history of frequent falls which he believes is secondary to his prior knee surgeries. Physical Examination: Vital signs grossly unremarkable. Patient lying in bed no acute distress. Head neck examination reveals abrasions to his forehead and nasal bridge. He has some dried blood in the nares with no evidence of septal hematoma. C-spine is nontender. Heart is regular rate and rhythm. Lung sounds clear. Abdomen is soft and nontender. Extremity examination was abrasions to his left knee without bony tenderness. Neuro exam reveals good strength and sensation on testing. Test Results: CBC was normal white count. Hemoglobin 12.2 and platelet count 131,000. Chemistry studies significant only for glucose of 201. CT head shows no acute abnormality. CT C-spine shows degenerative changes with no fracture. CT of the facial bones shows bilateral nasal bone fractures. Emergency Department Course and Treatment: Wounds were cleansed. Dermabond was applied over the nasal bridge skin avulsion. The patient is currently on Duricef daily and this will cover for his nasal bone fracture as possible open fracture. Patient was able to ambulate with his walker without difficulty. Treatment Plan: [] Disposition: Discharge Impression: 1. Mechanical fall 2. Nasal bone fractures This note was generated with [employer] dictation software. It may contain incorrect words, spelling, and punctuation that were not noted in review of the chart prior to signing ED Disposition - Plan for ED Patient: Disposition: Home or Assisted Living Instructions: ED Mechanical Fall, ED Head Injury Closed, ED Fx Nose W Lac Skin Glue Referrals: Cameron Mueller Chi, MD [Primary Care Provider] - 1 Week
[2018-05-30 20:22] VITALS: BP 138/78; PULSE 92; RESP 18; O2SAT 97
== END 2018-05-30 20:45 | disposition home or self-care (01) ==
PROVIDERS: Emergency Provider Emergency Medicine; Family Provider Family Medicine Geriatric Medicine; PCP Family Medicine Geriatric Medicine
DX: S02.2XXA Fracture of nasal bones, initial encounter for closed fracture (principal); S80.212A Abrasion, left knee, initial encounter; S00.31XA Abrasion of nose, initial encounter; S00.81XA Abrasion of other part of head, initial encounter; V87.8XXA Person injured in other specified noncollision transport accidents involving motor vehicle (traffic), initial encounter; Y93.9 Activity, unspecified; Y92.89 Other specified places as the place of occurrence of the external cause; Y99.9 Unspecified external cause status; E11.9 Type 2 diabetes mellitus without complications; K21.9 Gastro-esophageal reflux disease without esophagitis; I10 Essential (primary) hypertension; E78.00 Pure hypercholesterolemia, unspecified; G47.33 Obstructive sleep apnea (adult) (pediatric)
CPT/HCPCS: 12011; 70450; 70486; 72125; 80048; 85025; 99285; A4216

== ENCOUNTER → 2018-08-08 14:43 | Outpatient (CLI) | payer MEDICARE, SELFPAY ==
[2018-08-08 16:59] LABS: Absolute Lymphocyte Count 1.32 X10^3/ul (0.83-4.51); Absolute Neutrophil Count 6.9 X10^3/uL (2.0-7.7); Basophil# 0.01 X10^3/uL; Basophil% 0.1 % (0-1); Eosinophils% 1.1 % (0-5); Hematocrit 38.7 % (40-54); Hemoglobin 12.9 g/dl (13.0-16.5); Lymphocyte # 1.32 X10^3/ul (4.0); Lymphocyte % 14.2 % (19-41); Mean Corp Hgb Conc 33.3 g/gl (32-36); Mean Corpuscular Hgb 30.1 pg (27.0-32.0); Mean Corpuscular Volume 90.2 fL (80-94); Monocyte# 0.94 X10^3/uL; Monocyte% 10.1 % (0-10); Neutrophil # 6.89 X10^3/uL (2.7-7.7); Neutrophil % 74.3 % (47-70); Platelet Count 174 K/mm3 (150-450); RBC Distribution Width CV 15.3 % (11.6-14.6); RBC Distribution Width SD 49.5 fl (35.1-43.9); Red Blood Count 4.29 M/mm3 (4.6-6.2); White Blood Count 9.3 K/mm3 (4.4-11.0)
[2018-08-08 17:03] LABS: POSITIVE COUNT NO; POSITIVE DIFFERENTIAL NO; POSITIVE MORPHOLOGY NO
[2018-08-08 17:22] LABS: ALB/GLOB Ratio 0.7 RATIO (0.9-2.4); AST(SGOT) 32 U/L (15-37); Alanine Aminotransfer ALT/SGPT 29 U/L (16-61); Alkaline Phosphatase 168 U/L (45-117); Anion Gap 10 (5-15); BUN 25 mg/dL (7-18); BUN/Creat Ratio 24.3 RATIO (10-20); Calcium,Total 8.8 mg/dL (8.5-10.1); Chloride 102 mmol/L (98-107); Creatinine, Serum 1.03 mg/dL (0.70-1.30); EST Glomerular Filtration Rate 76 mL/min (>60); Est Glom Filt Rate - Afr Amer 93 mL/min (>60); Globulin 4.4 g/dL (2.2-4.2); Glucose 248 mg/dL (74-106); Potassium 4.7 mmol/L (3.5-5.1); Protein, Total 7.4 g/dL (6.4-8.2); Sodium Level 136 mmol/L (136-145); Thyroid Stim Hormone (TSH) 3.97 uIU/mL (0.358-3.74)
[2018-08-08 17:23] LABS: Vitamin D,25 Hydroxy 18.4 ng/mL (29.95-100.01)
== END ==
PROVIDERS: Family Provider Family Medicine Geriatric Medicine; PCP Family Medicine Geriatric Medicine; Visit Provider Family Medicine Geriatric Medicine
DX: E55.9 Vitamin D deficiency, unspecified (principal); E23.6 Other disorders of pituitary gland; E11.9 Type 2 diabetes mellitus without complications
CPT/HCPCS: 36415; 80053; 82306; 84403; 84443; 85025

== ENCOUNTER → 2018-11-06 13:55 | Outpatient (CLI) | payer MEDICARE, SELFPAY ==
[2018-11-06 17:07] LABS: Absolute Neutrophil Count 4.2 X10^3/uL (2.0-7.7); Basophil# 0.03 X10^3/uL; Basophil% 0.5 % (0-1); Eosinophil# 0.16 X10^3/uL; Eosinophils% 2.5 % (0-5); Hematocrit 37.7 % (40-54); Hemoglobin 11.8 g/dL (13.0-16.5); Lymphocyte % 17.2 % (19-41); Mean Corp Hgb Conc 31.3 g/dL (32-36); Mean Corpuscular Volume 89.5 fL (80-94); Mean Platelet Vol. 9.9 fl (6.2-12.0); Monocyte# 0.86 X10^3/uL; Monocyte% 13.4 % (0-10); NRBC Flagged by Analyzer 0 % (0-5); Neutrophil # 4.22 X10^3/uL (2.7-7.7); Neutrophil % 65.9 % (47-70); Platelet Count 151 K/mm3 (150-450); RBC Distribution Width CV 15.7 % (11.6-14.6); RBC Distribution Width SD 51.5 fl (35.1-43.9); Red Blood Count 4.21 M/mm3 (4.6-6.2); White Blood Count 6.4 K/mm3 (4.4-11.0)
[2018-11-06 17:23] LABS: Vitamin D,25 Hydroxy 27.1 ng/mL (29.95-100.01)
[2018-11-06 17:31] LABS: ALB/GLOB Ratio 0.6 RATIO (0.9-2.4); AST(SGOT) 30 U/L (15-37); Alanine Aminotransfer ALT/SGPT 36 U/L (16-61); Albumin, Serum 2.8 g/dL (3.2-5.0); Alkaline Phosphatase 146 U/L (45-117); Anion Gap 9 (5-15); BUN 27 mg/dL (7-18); BUN/Creat Ratio 28.5 RATIO (10-20); Calcium,Total 8.8 mg/dL (8.5-10.1); Chloride 101 mmol/L (98-107); Creatinine, Serum 0.95 mg/dL (0.70-1.30); EST Glomerular Filtration Rate 84 mL/min (>60); Est Glom Filt Rate - Afr Amer 102 mL/min (>60); Globulin 4.5 g/dL (2.2-4.2); Glucose 202 mg/dL (74-106); Potassium 4.3 mmol/L (3.5-5.1); Protein, Total 7.3 g/dL (6.4-8.2); Sodium Level 135 mmol/L (136-145); Thyroid Stim Hormone (TSH) 2.49 uIU/mL (0.358-3.74)
== END ==
PROVIDERS: Family Provider Family Medicine Geriatric Medicine; PCP Family Medicine Geriatric Medicine; Visit Provider Family Medicine Geriatric Medicine
DX: E11.9 Type 2 diabetes mellitus without complications (principal); E23.6 Other disorders of pituitary gland; E55.9 Vitamin D deficiency, unspecified; I10 Essential (primary) hypertension
CPT/HCPCS: 36415; 80053; 82306; 84403; 84443; 85025

== ENCOUNTER → 2018-12-04 14:27 | Outpatient (CLI) | payer MEDICARE, SELFPAY ==
--- NOTE | 2018-12-04 14:47 | RAD_ITS ---
STUDY: X-RAY - ABDOMEN/PELVIS REASON FOR EXAM: Male, 67 years old. Fecal impaction. Abdominal pain. TECHNIQUE: AP supine and upright views of the abdomen and pelvis. COMPARISON: None. FINDINGS: Normal visualized lung bases. There is a moderate amount of colonic fecal material. There is no demonstrated free abdominal air. The visualized liver, spleen and kidneys are grossly normal in size and morphology. Normal soft tissue structures. There are diffuse degenerative changes of the visualized lumbar spine. Dextroscoliosis. RAD/Abd Inc Decub and/or Erect IMPRESSION: Moderate amount of fecal material is seen in the colon. Electronically Signed: Quirino Smith, at 15:43 EDT , Service support ,
[2018-12-04 15:41] LABS: Absolute Lymphocyte Count 1.21 X10^3/uL (0.83-4.51); Basophil# 0.02 X10^3/uL; Basophil% 0.3 % (0-1); Eosinophil# 0.17 X10^3/uL; Eosinophils% 2.7 % (0-5); Hematocrit 38.4 % (40-54); Hemoglobin 11.8 g/dL (13.0-16.5); Lymphocyte # 1.21 X10^3/ul (4.0); Mean Corp Hgb Conc 30.7 g/dL (32-36); Mean Corpuscular Hgb 27.4 pg (27.0-32.0); Mean Corpuscular Volume 89.3 fL (80-94); Monocyte# 0.96 X10^3/uL; Monocyte% 15.1 % (0-10); NRBC Flagged by Analyzer 0 % (0-5); Neutrophil # 3.98 X10^3/uL (2.7-7.7); Neutrophil % 62.6 % (47-70); Platelet Count 154 K/mm3 (150-450); RBC Distribution Width CV 15.9 % (11.6-14.6); RBC Distribution Width SD 51.3 fl (35.1-43.9); White Blood Count 6.4 K/mm3 (4.4-11.0)
[2018-12-04 16:17] LABS: ALB/GLOB Ratio 0.6 RATIO (0.9-2.4); AST(SGOT) 33 U/L (15-37); Alanine Aminotransfer ALT/SGPT 28 U/L (16-61); Albumin, Serum 2.9 g/dL (3.2-5.0); Alkaline Phosphatase 131 U/L (45-117); Anion Gap 10 (5-15); BUN 36 mg/dL (7-18); BUN/Creat Ratio 34.3 RATIO (10-20); Calcium,Total 9.1 mg/dL (8.5-10.1); Chloride 102 mmol/L (98-107); Creatinine, Serum 1.05 mg/dL (0.70-1.30); EST Glomerular Filtration Rate 75 mL/min (>60); Est Glom Filt Rate - Afr Amer 90 mL/min (>60); Globulin 4.5 g/dL (2.2-4.2); Glucose 170 mg/dL (74-106); Potassium 4.3 mmol/L (3.5-5.1); Protein, Total 7.4 g/dL (6.4-8.2); Sodium Level 138 mmol/L (136-145); Thyroid Stim Hormone (TSH) 2.93 uIU/mL (0.358-3.74)
== END ==
PROVIDERS: Family Provider Family Medicine Geriatric Medicine; PCP Family Medicine Geriatric Medicine; Referring Provider Family Medicine Geriatric Medicine; Visit Provider Family Medicine Geriatric Medicine
DX: I10 Essential (primary) hypertension (principal); K56.41 Fecal impaction
CPT/HCPCS: 36415; 74019; 80053; 84443; 85025

== ENCOUNTER 2018-12-04 20:34 | Emergency (ER) | payer MEDICARE, SELFPAY ==
[2018-12-04 20:34] VITALS: BP 144/84; PULSE 90; RESP 18; TEMP 36.8; O2SAT 97; BMI 49.0
--- NOTE | 2018-12-04 22:35 | EKG12_ITS ---
Test Reason : FALL Blood Pressure : / mmHG Vent. Rate : 095 BPM Atrial Rate : 095 BPM P-R Int : 178 ms QRS Dur : 154 ms QT Int : 424 ms P-R-T Axes : 042 014 -17 degrees QTc Int : 532 ms Normal sinus rhythm Right bundle branch block T wave abnormality, consider inferior ischemia Abnormal ECG Confirmed by FLACO CAMEJO, JAMES ([id number]), advertising editor BRANDON STEINER ([id number]) on 12/06/2018 11:45:06 AM Referred By: ERINN Confirmed By:GARY SAM MD
--- NOTE | 2018-12-04 22:35 | RAD_ITS ---
STUDY: X-RAY CHEST REASON FOR EXAM: Male, 67 years old. Weak and short of breath TECHNIQUE: Single AP portable view of the chest. COMPARISON: None. FINDINGS: The lungs are clear and expanded. There is no demonstrated pleural abnormality. There is mild cardiac enlargement. Normal mediastinum and abby. Normal visualized pulmonary arteries. Normal visualized aortic arch and descending thoracic aorta. Normal visualized thoracic spine. There is an implant of the right shoulder joint. An associated right humeral threaded pin associated with this implant is fractured. There are degenerative changes of the left shoulder joint. There is no demonstrated abnormality of the visualized soft tissue structures of the upper abdomen. RAD/Chest 1 View (Portable) IMPRESSION: Mild cardiomegaly. No acute cardiopulmonary disease process is seen. Right shoulder implant with associated fractured threaded pin noted. Electronically Signed: Noam Acosta MD at 22:52 EDT , Service support ,
--- NOTE | 2018-12-04 22:35 | ED.VIS.GEN ---
History of Present Illness Chief Complaint: Fall Narrative: Patient is a 67-year-old male who presents with generalized weakness and fall. Patient uses a walker. He has a history of frequent falls. He has poor mobility. He actually saw his primary care physician today and had laboratory studies and an abdominal x-ray. He was given a couple of shots which he believes was a muscle relaxer. He was getting down off of a tractor. With the position his leg was then he was unable to sit down further. He has some chronic leg weakness related to multiple surgeries and neuropathy and also reports a history of abnormal nerve conduction studies. He fell to the ground and had to roll himself out to the road. He was afraid that if someone help him up he would fall again and he was unable to get up on his own. He denies any pain right now. He does not believe that he injured anything. Past Medical History - Allergies and Home Meds Allergies/Adverse Reactions: Allergies YONATAN Inhibitors Allergy (Severe, Verified 12/04/18 20:37) throat swells pioglitazone HCl [From Actos] Adverse Reaction (Verified 12/04/18 20:37) Swelling Primary Care Physician: Cameron Mueller Chi, MD [Primary Care Provider] - Past Medical History: - - Diabetes, hypothyroidism, hypertension, hyperlipidemia Surgical History: adenoidectomy, arthroscopy, knee, rotator cuff repair, total knee arthroplasty, tonsillectomy, - Smoking Status: Never smoker - Family History Maternal Family History: Reports: Diabetes, Heart Disease, Hypertension Paternal Family History: Reports: High Cholesterol, Heart Disease Review of Systems All systems negative except as indicated General: Denies: Fever Cardiovascular: Denies: Chest pain Respiratory: Denies: Dyspnea, Cough Gastrointestinal: Denies: Vomiting, Diarrhea Musculoskeletal: Denies: Myalgias, Arthralgias Neurological: Reports: Weakness Physical Exam Vital Signs/Narrative: Vital Signs Temp Pulse Resp BP Pulse Ox 12/04/18 20:34 98.3 F 90 18 144/84 H 97 Inital Vital Signs reviewed: Yes General: Well nourished, Well developed Head: Normocephalic Eyes: EOMI ENT: Moist mucous membranes Neck: Supple Cardiovascular: Regular rate, Regular rhythm Respiratory: No distress, CTA bilaterally Abdomen: Soft, Nontender Extremities: Nontender, - - Active full range of motion x4 without any pain. Negative for: Tenderness Skin: Normal color Neurological: Alert, - - No focal or lateralizing neurological deficits Psychological: Normal affect Diagnostic/Tx/Re-eval - Medical Decision Making EKG shows normal sinus rhythm with a right bundle branch block and inferior T wave inversions that is similar to prior EKG. Chest x-ray shows mild cardiomegaly, no acute process. I was able to review laboratory studies from earlier today which were unremarkable including a normal TSH. Patient reports that his urine was checked today but I was unable to see these results I did order urinalysis. Patient has been unable to void. He does not want to wait longer wants to go home. He actually has an appointment tomorrow morning with Dr. Mueller at 11 AM. He was advised to keep this. Patient discharged. ED Disposition - Plan for ED Patient: Disposition: Home or Assisted Living Diagnosis: General weakness Instructions: FALL, Uncertain Cause, WEAKNESS, Unk Cause Referrals: Cameron Mueller Chi, MD [Primary Care Provider] -
[2018-12-04 23:55] VITALS: BP 151/86; PULSE 89; RESP 18; O2SAT 98
--- NOTE | 2018-12-04 23:56 | ED.RN ---
PT ASSISTED INTO WHEELCHAIR WITH LITTLE ASSISTANCE. TAKEN OUT TO FAMILY CAR AND PT GOT INTO CAR BY HIS SELF.
== END 2018-12-04 23:58 | disposition home or self-care (01) ==
PROVIDERS: Emergency Provider Emergency Medicine; Family Provider Family Medicine Geriatric Medicine; PCP Family Medicine Geriatric Medicine
DX: R53.1 Weakness (principal); E03.9 Hypothyroidism, unspecified; E11.9 Type 2 diabetes mellitus without complications; E78.5 Hyperlipidemia, unspecified; I10 Essential (primary) hypertension; I45.10 Unspecified right bundle-branch block; Z91.81 History of falling
CPT/HCPCS: 36415; 71045; 74019; 80053; 84443; 85025; 93005; 99283

== ENCOUNTER → 2019-02-04 13:01 | Outpatient (CLI) | payer MEDICARE, SELFPAY ==
[2019-02-04 15:47] LABS: Absolute Lymphocyte Count 1.26 X10^3/uL (0.83-4.51); Absolute Neutrophil Count 4.5 X10^3/uL (2.0-7.7); Basophil# 0.03 X10^3/uL; Basophil% 0.4 % (0-1); Eosinophil# 0.22 X10^3/uL; Eosinophils% 3.2 % (0-5); Hematocrit 41.7 % (40-54); Hemoglobin 12.6 g/dL (13.0-16.5); Lymphocyte # 1.26 X10^3/ul (4.0); Lymphocyte % 18.3 % (19-41); Mean Corp Hgb Conc 30.2 g/dL (32-36); Mean Corpuscular Hgb 26.8 pg (27.0-32.0); Mean Corpuscular Volume 88.5 fL (80-94); Mean Platelet Vol. 9.9 fl (6.2-12.0); Monocyte# 0.86 X10^3/uL; Monocyte% 12.5 % (0-10); NRBC Flagged by Analyzer 0 % (0-5); Neutrophil # 4.49 X10^3/uL (2.7-7.7); Neutrophil % 65.3 % (47-70); Platelet Count 165 K/mm3 (150-450); RBC Distribution Width CV 15.7 % (11.6-14.6); RBC Distribution Width SD 50.6 fl (35.1-43.9); Red Blood Count 4.71 M/mm3 (4.6-6.2); White Blood Count 6.9 K/mm3 (4.4-11.0)
[2019-02-04 16:05] LABS: Vitamin D,25 Hydroxy 28.4 ng/mL (29.95-100.01)
[2019-02-04 16:19] LABS: ALB/GLOB Ratio 0.7 RATIO (0.9-2.4); AST(SGOT) 26 U/L (15-37); Alanine Aminotransfer ALT/SGPT 26 U/L (16-61); Albumin, Serum 3.1 g/dL (3.2-5.0); Alkaline Phosphatase 135 U/L (45-117); Anion Gap 8 (5-15); BUN 22 mg/dL (7-18); BUN/Creat Ratio 24.6 RATIO (10-20); Calcium,Total 9.3 mg/dL (8.5-10.1); Chloride 101 mmol/L (98-107); Creatinine, Serum 0.89 mg/dL (0.70-1.30); EST Glomerular Filtration Rate 90 mL/min (>60); Est Glom Filt Rate - Afr Amer 109 mL/min (>60); Globulin 4.6 g/dL (2.2-4.2); Glucose 181 mg/dL (74-106); Potassium 4.8 mmol/L (3.5-5.1); Protein, Total 7.7 g/dL (6.4-8.2); Sodium Level 135 mmol/L (136-145); Thyroid Stim Hormone (TSH) 4.92 uIU/mL (0.358-3.74)
== END ==
PROVIDERS: Family Provider Family Medicine Geriatric Medicine; PCP Family Medicine Geriatric Medicine; Visit Provider Family Medicine Geriatric Medicine
DX: E11.9 Type 2 diabetes mellitus without complications (principal); I10 Essential (primary) hypertension; E55.9 Vitamin D deficiency, unspecified
CPT/HCPCS: 36415; 80053; 82306; 84443; 85025

== ENCOUNTER → 2019-05-07 13:43 | Outpatient (CLI) | payer MEDICARE, SELFPAY ==
[2019-05-07 14:49] LABS: Absolute Lymphocyte Count 0.94 X10^3/uL (0.83-4.51); Absolute Neutrophil Count 3.7 X10^3/uL (2.0-7.7); Basophil# 0.02 X10^3/uL; Basophil% 0.4 % (0-1); Eosinophil# 0.18 X10^3/uL; Eosinophils% 3.3 % (0-5); Hematocrit 41.5 % (40-54); Hemoglobin 13.1 g/dL (13.0-16.5); Lymphocyte # 0.94 X10^3/ul (4.0); Mean Corp Hgb Conc 31.6 g/dL (32-36); Mean Corpuscular Hgb 27.8 pg (27.0-32.0); Mean Corpuscular Volume 87.9 fL (80-94); Mean Platelet Vol. 10.3 fl (6.2-12.0); Monocyte# 0.67 X10^3/uL; Monocyte% 12.1 % (0-10); NRBC Flagged by Analyzer 0 % (0-5); Neutrophil # 3.69 X10^3/uL (2.7-7.7); Neutrophil % 66.7 % (47-70); Platelet Count 142 K/mm3 (150-450); RBC Distribution Width CV 15.6 % (11.6-14.6); RBC Distribution Width SD 49.6 fl (35.1-43.9); Red Blood Count 4.72 M/mm3 (4.6-6.2); White Blood Count 5.5 K/mm3 (4.4-11.0)
[2019-05-07 15:08] LABS: Vitamin D,25 Hydroxy 40.6 ng/mL (29.95-100.01)
[2019-05-07 16:04] LABS: ALB/GLOB Ratio 0.7 RATIO (0.9-2.4); AST(SGOT) 26 U/L (15-37); Alanine Aminotransfer ALT/SGPT 27 U/L (16-61); Albumin, Serum 3.3 g/dL (3.2-5.0); Alkaline Phosphatase 134 U/L (45-117); Anion Gap 6 (5-15); BUN 25 mg/dL (7-18); BUN/Creat Ratio 25.9 RATIO (10-20); Calcium,Total 9.6 mg/dL (8.5-10.1); Chloride 97 mmol/L (98-107); Creatinine, Serum 0.97 mg/dL (0.70-1.30); EST Glomerular Filtration Rate 82 mL/min (>60); Est Glom Filt Rate - Afr Amer 99 mL/min (>60); Globulin 4.5 g/dL (2.2-4.2); Glucose 163 mg/dL (74-106); PSA,Total - Annual Screen 0.11 ng/mL (0.00-4.00); Potassium 4.3 mmol/L (3.5-5.1); Protein, Total 7.8 g/dL (6.4-8.2); Sodium Level 135 mmol/L (136-145); Thyroid Stim Hormone (TSH) 1.66 uIU/mL (0.358-3.74)
== END ==
PROVIDERS: Family Provider Family Medicine Geriatric Medicine; PCP Family Medicine Geriatric Medicine; Visit Provider Family Medicine Geriatric Medicine
DX: E11.9 Type 2 diabetes mellitus without complications (principal); E55.9 Vitamin D deficiency, unspecified; I10 Essential (primary) hypertension; Z12.5 Encounter for screening for malignant neoplasm of prostate; E03.9 Hypothyroidism, unspecified
CPT/HCPCS: 36415; 80053; 82306; 84153; 84443; 85025; G0103

== ENCOUNTER → 2019-08-22 08:54 | Outpatient (CLI) | payer MEDICARE, SELFPAY | LOC: POLAB3 09:00 → LAB.FUTURE 12:01 | PROVIDERS: PCP Family Medicine Geriatric Medicine; Visit Provider Family Medicine Geriatric Medicine | DX: E11.9 Type 2 diabetes mellitus without complications (principal); E23.6 Other disorders of pituitary gland; E55.9 Vitamin D deficiency, unspecified; I10 Essential (primary) hypertension ==

== ENCOUNTER → 2019-11-20 09:59 | Outpatient (CLI) | payer MEDICARE, SELFPAY ==
[2019-11-20 12:17] LABS: Absolute Lymphocyte Count 1.02 X10^3/uL (0.83-4.51); Absolute Neutrophil Count 4.7 X10^3/uL (2.0-7.7); Basophil# 0.02 X10^3/uL; Basophil% 0.3 % (0-1); Eosinophil# 0.16 X10^3/uL; Eosinophils% 2.3 % (0-5); Hematocrit 39.8 % (40-54); Hemoglobin 12.5 g/dL (13.0-16.5); Lymphocyte # 1.02 X10^3/ul (4.0); Lymphocyte % 14.9 % (19-41); Mean Corp Hgb Conc 31.4 g/dL (32-36); Mean Corpuscular Hgb 29.5 pg (27.0-32.0); Mean Corpuscular Volume 93.9 fL (80-94); Mean Platelet Vol. 10.5 fl (6.2-12.0); Monocyte# 0.96 X10^3/uL; NRBC Flagged by Analyzer 0 % (0-5); Neutrophil # 4.67 X10^3/uL (2.7-7.7); Neutrophil % 68.2 % (47-70); Platelet Count 158 K/mm3 (150-450); RBC Distribution Width CV 14.5 % (11.6-14.6); RBC Distribution Width SD 49.1 fl (35.1-43.9); Red Blood Count 4.24 M/mm3 (4.6-6.2); White Blood Count 6.9 K/mm3 (4.4-11.0)
[2019-11-20 12:31] LABS: Vitamin D,25 Hydroxy 65.6 ng/mL
[2019-11-20 12:33] LABS: ALB/GLOB Ratio 0.7 RATIO (0.9-2.4); AST(SGOT) 24 U/L (15-37); Alanine Aminotransfer ALT/SGPT 21 U/L (16-61); Albumin, Serum 2.9 g/dL (3.2-5.0); Alkaline Phosphatase 124 U/L (45-117); Anion Gap 9 (5-15); BUN 18 mg/dL (7-18); BUN/Creat Ratio 19.6 RATIO (10-20); Calcium,Total 9.2 mg/dL (8.5-10.1); Chloride 98 mmol/L (98-107); Creatinine, Serum 0.92 mg/dL (0.70-1.30); EST Glomerular Filtration Rate 87 mL/min (>60); Est Glom Filt Rate - Afr Amer 105 mL/min (>60); Globulin 4.3 g/dL (2.2-4.2); Glucose 139 mg/dL (74-106); Potassium 3.9 mmol/L (3.5-5.1); Protein, Total 7.2 g/dL (6.4-8.2); Sodium Level 136 mmol/L (136-145); Thyroid Stim Hormone (TSH) 2.48 uIU/mL (0.358-3.74)
== END ==
PROVIDERS: PCP Family Medicine Geriatric Medicine; Visit Provider Family Medicine Geriatric Medicine
DX: I10 Essential (primary) hypertension (principal); E11.9 Type 2 diabetes mellitus without complications; E55.9 Vitamin D deficiency, unspecified; E23.6 Other disorders of pituitary gland
CPT/HCPCS: 36415; 80053; 82306; 84403; 84443; 85025

== ENCOUNTER → 2020-02-18 10:38 | Outpatient (CLI) | payer MEDICARE, SELFPAY ==
[2020-02-18 13:12] LABS: Absolute Neutrophil Count 3.6 X10^3/uL (2.0-7.7); Basophil# 0.01 X10^3/uL; Basophil% 0.2 % (0-1); Eosinophil# 0.15 X10^3/uL; Eosinophils% 2.9 % (0-5); Hematocrit 36.9 % (40-54); Hemoglobin 11.3 g/dL (13.0-16.5); Lymphocyte % 13.6 % (19-41); Mean Corp Hgb Conc 30.6 g/dL (32-36); Mean Corpuscular Hgb 28.4 pg (27.0-32.0); Mean Corpuscular Volume 92.7 fL (80-94); Mean Platelet Vol. 10.3 fl (6.2-12.0); Monocyte# 0.66 X10^3/uL; Monocyte% 12.8 % (0-10); NRBC Flagged by Analyzer 0 % (0-5); Neutrophil # 3.63 X10^3/uL (2.7-7.7); Neutrophil % 70.3 % (47-70); Platelet Count 133 K/mm3 (150-450); RBC Distribution Width SD 51.4 fl (35.1-43.9); Red Blood Count 3.98 M/mm3 (4.6-6.2); White Blood Count 5.2 K/mm3 (4.4-11.0)
[2020-02-18 13:43] LABS: ALB/GLOB Ratio 0.8 RATIO (0.9-2.4); AST(SGOT) 32 U/L (15-37); Alanine Aminotransfer ALT/SGPT 33 U/L (16-61); Albumin, Serum 3.1 g/dL (3.2-5.0); Alkaline Phosphatase 167 U/L (45-117); Anion Gap 5 (5-15); BUN 39 mg/dL (7-18); Calcium,Total 9.2 mg/dL (8.5-10.1); Chloride 101 mmol/L (98-107); Creatinine, Serum 0.89 mg/dL (0.70-1.30); EST Glomerular Filtration Rate 91 mL/min (>60); Est Glom Filt Rate - Afr Amer 110 mL/min (>60); Globulin 4.1 g/dL (2.2-4.2); Glucose 228 mg/dL (74-106); Potassium 4.5 mmol/L (3.5-5.1); Protein, Total 7.2 g/dL (6.4-8.2); Sodium Level 136 mmol/L (136-145); Thyroid Stim Hormone (TSH) 1.93 uIU/mL (0.358-3.74)
== END ==
PROVIDERS: PCP Family Medicine Geriatric Medicine; Visit Provider Family Medicine Geriatric Medicine
DX: I10 Essential (primary) hypertension (principal); E55.9 Vitamin D deficiency, unspecified; E23.6 Other disorders of pituitary gland; E11.9 Type 2 diabetes mellitus without complications
CPT/HCPCS: 36415; 80053; 82306; 84403; 84443; 85025

== ENCOUNTER → 2020-05-17 13:28 | Outpatient (CLI) | payer MEDICARE, SELFPAY ==
[2020-05-17 17:00] LABS: Absolute Lymphocyte Count 0.91 X10^3/uL (0.83-4.51); Absolute Neutrophil Count 3.5 X10^3/uL (2.0-7.7); Basophil# 0.02 X10^3/uL; Basophil% 0.4 % (0-1); Eosinophil# 0.09 X10^3/uL; Eosinophils% 1.7 % (0-5); Hematocrit 39.6 % (40-54); Hemoglobin 11.7 g/dL (13.0-16.5); Lymphocyte # 0.91 X10^3/ul (4.0); Lymphocyte % 17.2 % (19-41); Mean Corp Hgb Conc 29.5 g/dL (32-36); Mean Corpuscular Hgb 26.7 pg (27.0-32.0); Mean Corpuscular Volume 90.4 fL (80-94); Mean Platelet Vol. 10.3 fl (6.2-12.0); Monocyte# 0.76 X10^3/uL; Monocyte% 14.4 % (0-10); NRBC Flagged by Analyzer 0 % (0-5); Neutrophil # 3.49 X10^3/uL (2.7-7.7); Neutrophil % 65.9 % (47-70); Platelet Count 171 K/mm3 (150-450); RBC Distribution Width CV 15.9 % (11.6-14.6); RBC Distribution Width SD 52.6 fl (35.1-43.9); Red Blood Count 4.38 M/mm3 (4.6-6.2); White Blood Count 5.3 K/mm3 (4.4-11.0)
[2020-05-17 17:34] LABS: Vitamin D,25 Hydroxy 43.7 ng/mL
[2020-05-17 18:00] LABS: ALB/GLOB Ratio 0.7 RATIO (0.9-2.4); AST(SGOT) 47 U/L (15-37); Alanine Aminotransfer ALT/SGPT 42 U/L (16-61); Albumin, Serum 3.1 g/dL (3.2-5.0); Alkaline Phosphatase 175 U/L (45-117); Anion Gap 8 (5-15); BUN 45 mg/dL (7-18); BUN/Creat Ratio 42.5 RATIO (10-20); Calcium,Total 9.6 mg/dL (8.5-10.1); Chloride 100 mmol/L (98-107); Creatinine, Serum 1.06 mg/dL (0.70-1.30); EST Glomerular Filtration Rate 74 mL/min (>60); Est Glom Filt Rate - Afr Amer 89 mL/min (>60); Globulin 4.4 g/dL (2.2-4.2); Glucose 288 mg/dL (74-106); PSA,Total - Annual Screen 0.05 ng/mL (0.00-4.00); Potassium 4.8 mmol/L (3.5-5.1); Protein, Total 7.5 g/dL (6.4-8.2); Sodium Level 135 mmol/L (136-145); Thyroid Stim Hormone (TSH) 1.72 uIU/mL (0.358-3.74)
== END ==
PROVIDERS: PCP Family Medicine Geriatric Medicine; Visit Provider Family Medicine Geriatric Medicine
DX: E11.9 Type 2 diabetes mellitus without complications (principal); I10 Essential (primary) hypertension; E55.9 Vitamin D deficiency, unspecified; Z12.5 Encounter for screening for malignant neoplasm of prostate
CPT/HCPCS: 36415; 80053; 82306; 84153; 84443; 85025; G0103

== ENCOUNTER 2020-05-31 10:43 | Inpatient (IN) | payer MEDICARE, SELFPAY ==
[2020-05-31] VITALS (13 sets, daily range): BP systolic 118–156; BP diastolic 68–91; PULSE 68–90; RESP 19–26; TEMP 36.8–38.6; O2SAT 88–97; BMI 43.4; BMI 43.5
--- NOTE | 2020-05-31 10:53 | RAD_ITS ---
STUDY: X-RAY CHEST REASON FOR EXAM: Male, 69 years old. sob TECHNIQUE: Single AP portable view of the chest. COMPARISON: None. FINDINGS: Ill-defined subpleural groundglass opacities are seen more prominent in the lung bases , may represent atypical pneumonia or viral pneumonia (COVID-19 ?). There is no demonstrated pleural abnormality. Normal size heart. Normal mediastinum and abby. Normal visualized pulmonary arteries. Normal visualized aortic arch and descending thoracic aorta. Normal visualized thoracic spine. Normal visualized ribs, clavicles, and shoulders. There is no demonstrated abnormality of the visualized soft tissue structures of the upper abdomen. RAD/Chest 1 View (Portable) IMPRESSION: Ill-defined subpleural groundglass opacities are seen more prominent in the lung bases , may represent atypical pneumonia or viral pneumonia (COVID-19 ?). Electronically Signed: Areli Wolfe MD at 12:05 EST Tel , Service support ,
--- NOTE | 2020-05-31 10:53 | EKG12_ITS ---
Test Reason : WEAKNESS Blood Pressure : / mmHG Vent. Rate : 082 BPM Atrial Rate : 082 BPM P-R Int : 172 ms QRS Dur : 156 ms QT Int : 406 ms P-R-T Axes : 057 028 001 degrees QTc Int : 474 ms Sinus rhythm with Fusion complexes Right bundle branch block Abnormal ECG Confirmed by GILBERT CAMEJO, BETTIE ([id number]), online editor SALAZAR FU ([id number]) on 06/02/2020 10:58:48 AM Referred By: ESTEBAN Confirmed By:BETTIE HUNT MD
--- NOTE | 2020-05-31 10:53 | CT_ITS ---
STUDY: CT BRAIN WITHOUT CONTRAST REASON FOR EXAM: Male, 69 years old. fall RADIATION DOSAGE (If Supplied By Facility): CTDIvol = ( 44.99 ) mGy, DLP = ( 880.47 ) mGycm TECHNIQUE: Transaxial CT imaging of the brain was performed without administration of intravenous contrast material. Individualized dose optimization techniques were used for this CT. COMPARISON: No relevant priors. FINDINGS: Normal soft tissue structures. Normal calvarium. Normal size ventricles and extra-axial spaces for the patient''s age. There are areas of decreased attenuation within the white matter tracts of the supratentorial brain, consistent with microvascular disease changes. Normal basal ganglia and thalami. Normal brainstem. Normal cerebellum. There is no intracranial hemorrhage. There are no findings of an acute ischemic infarction. Normal visualized paranasal sinuses. CT/Brain/Head without Contrast IMPRESSION: Chronic involutional changes of the brain. Electronically Signed: Areli Wolfe MD at 12:03 EST Tel , Service support ,
--- NOTE | 2020-05-31 10:54 | ED.DCSUM_ITS ---
History of Present Illness Chief Complaint: Weakness Informant: Patient Onset: Weeks Context: Gradual Onset Timing: Continuous Current Severity: Moderate Maximum Severity: Moderate Narrative: Patient is a 69-year-old male with medical history significant for diabetes, hypertension, hyperlipidemia, restless legs, and depression who presents to the emergency department increasing weakness. Patient states he felt like this for the past 2 weeks but it has gotten worse. He had a few falls. He states today, he does feel that he had no energy. He does admit to increasing cough and shortness of breath. He does not have any sick contacts. He denies abdominal pain. He does admit to diffuse arthralgias and myalgias. He states his been compliant with his medications. He states that his blood sugars have been in the 140s to 180s. He is not had dysuria. He states he just feels uncomfortable and weak. Prior similar symptoms: No Recent Illness/Hospitalization: No Past Medical History - Allergies and Home Meds Allergies/Adverse Reactions: Allergies YONATAN Inhibitors Allergy (Severe, Verified 05/31/20 11:37) throat swells pioglitazone HCl [From Actos] Adverse Reaction (Verified 05/31/20 11:37) Swelling Primary Care Physician: Cameron Mueller Chi, MD [Primary Care Provider] - Prior records reviewed: Yes Past Medical History: - - Diabetes, hypertension, depression, restless legs Surgical History: adenoidectomy, arthroscopy, knee, rotator cuff repair, total knee arthroplasty, tonsillectomy, - Smoking Status: Never smoker - Family History Maternal Family History: Reports: Diabetes, Heart Disease, Hypertension Paternal Family History: Reports: High Cholesterol, Heart Disease Review of Systems General: Reports: Fever, Malaise. Denies: Chills, Sweats Eyes: Denies: Visual changes - bilaterally, Diplopia ENT: Denies: Rhinorrhea, Sore throat Cardiovascular: Denies: Chest pain, Palpitations Respiratory: Reports: Dyspnea, Cough. Denies: Dyspnea on exertion Gastrointestinal: Denies: Abdominal pain, Nausea, Vomiting, Diarrhea, Melena, Hematochezia Genitourinary: Denies: Dysuria, Hematuria, Frequency Musculoskeletal: Reports: Myalgias, Arthralgias. Denies: Back pain, Extremity Pain Skin: Denies: Rash, Wounds Neurological: Denies: Headache, Weakness, Numbness Physical Exam Vital Signs/Narrative: Vital Signs Temp Pulse Resp BP Pulse Ox 05/31/20 10:50 101.4 F H 84 24 H 133/83 H 91 05/31/20 10:44 101.4 F H 85 20 H 133/83 H 94 Inital Vital Signs reviewed: Yes General: Well nourished, Well developed, No Acute Distress Head: Normocephalic, Atraumatic Eyes: Perrl, EOMI ENT: Moist mucous membranes, No rhinorrhea Neck: Supple, Nontender Cardiovascular: Regular rate, Regular rhythm, No murmurs Respiratory: No distress, Chest nontender, Wheezing, Diminished Abdomen: Soft, Nontender, Nondistended, Normal bowel sounds Back: Nontender, Normal Inspection Extremities: Nontender, No edema Skin: Normal color, No rash Neurological: Alert, Oriented x3, Cranial nerves II-XII grossly intact, Normal Strength, Normal Sensation Psychological: Normal affect, Normal Mood Diagnostic/Tx/Re-eval Chest X-Ray - ED: 1 View, Read by ED Physician, Normal, Mediastinum, Cardiomegaly, Right Infiltrate, Left Infiltrate Abnormal Lab Results 05/31/20 05/31/20 05/31/20 11:00 11:00 11:00 WBC 2.5 L RBC 4.36 L Hgb 12.1 L Hct 37.6 L MCV 86.2 MCH 27.8 MCHC 32.2 RDW Std Deviation 49.9 H RDW Coeff of Linnette 15.9 H Plt Count 111 L MPV 9.6 Immature Gran % (Auto) 0.400 Neut % (Auto) 66.1 Lymph % (Auto) 13.4 L [place] % (Auto) 19.7 H Eos % (Auto) 0.0 Baso % (Auto) 0.4 Absolute Neuts (auto) 1.7 L Absolute Lymphs (auto) 0.34 L Nucleated RBC % 0 Differential Comment SCANNED Diff Path Review May foll Sodium 133 L Potassium 4.0 Chloride 96 L Carbon Dioxide 30.0 Anion Gap 7 BUN 28 H Creatinine 0.99 Estim Creat Clear Calc 65.84 Est GFR (MDRD) Af Amer 96 Est GFR (MDRD) Non-Af 79 BUN/Creatinine Ratio 28.2 H Glucose 189 H Lactic Acid 3.0 H* Calcium 9.0 Total Bilirubin 0.80 AST 56 H ALT 42 Alkaline Phosphatase 127 H Total Protein 7.2 Albumin 2.9 L Globulin 4.3 H Albumin/Globulin Ratio 0.7 L - Rhythm Strip Rhythm Strip: Sinus Rhythm Rate: 80 Ectopy: None - Medical Decision Making Patient presents with cough, shortness of breath, weakness, and multiple falls. He is febrile on arrival. Sepsis work-up was pursued. Patient was found to be Covid positive. Chest x-ray does demonstrate patchy infiltrates consistent with Covid. He is also leukopenic and thrombocytopenic. Patient was also hypoxic. He is started on Decadron. His lactic acid is 3, but I do feel that this is more likely from his global hypoxemia rather than hypoperfusion. The patient has not been tachycardic or hypotensive. He was given a small amount of fluids because he is Covid positive. At this point, given his age, frequent falls, and hypoxia I do feel that he would benefit from admission. Impression 1. COVID-19 2. Hypoxia ED Disposition - Plan for ED Patient: Referrals: Cameron Mueller Chi, MD [Primary Care Provider] -
[2020-05-31] MEDS: Acetaminophen 500 MG Tablet 1000 MG PO (11:09)
[2020-05-31] MEDS: fentaNYL 100 MCG/2 ML Ampul 50 MCG IV (11:09)
[2020-05-31 11:13] LABS: Absolute Lymphocyte Count 0.34 X10^3/uL (0.83-4.51); Absolute Neutrophil Count 1.7 X10^3/uL (2.0-7.7); Basophil# 0.01 X10^3/uL; Basophil% 0.4 % (0-1); Hematocrit 37.6 % (40-54); Hemoglobin 12.1 g/dL (13.0-16.5); Lymphocyte # 0.34 X10^3/ul (4.0); Lymphocyte % 13.4 % (19-41); Mean Corp Hgb Conc 32.2 g/dL (32-36); Mean Corpuscular Hgb 27.8 pg (27.0-32.0); Mean Corpuscular Volume 86.2 fL (80-94); Mean Platelet Vol. 9.6 fl (6.2-12.0); Monocyte% 19.7 % (0-10); NRBC Flagged by Analyzer 0 % (0-5); Neutrophil # 1.68 X10^3/uL (2.7-7.7); Neutrophil % 66.1 % (47-70); POSITIVE DIFFERENTIAL YES; Platelet Count 111 K/mm3 (150-450); RBC Distribution Width CV 15.9 % (11.6-14.6); RBC Distribution Width SD 49.9 fl (35.1-43.9); Red Blood Count 4.36 M/mm3 (4.6-6.2); White Blood Count 2.5 K/mm3 (4.4-11.0)
[2020-05-31 11:20] LABS: Differential Indicated SCAN CRITERIA MET
[2020-05-31 11:27] LABS: ALB/GLOB Ratio 0.7 RATIO (0.9-2.4); AST(SGOT) 56 U/L (15-37); Alanine Aminotransfer ALT/SGPT 42 U/L (16-61); Albumin, Serum 2.9 g/dL (3.2-5.0); Alkaline Phosphatase 127 U/L (45-117); Anion Gap 7 (5-15); BUN 28 mg/dL (7-18); BUN/Creat Ratio 28.2 RATIO (10-20); Chloride 96 mmol/L (98-107); Creatinine, Serum 0.99 mg/dL (0.70-1.30); EST Glomerular Filtration Rate 79 mL/min (>60); Est Glom Filt Rate - Afr Amer 96 mL/min (>60); Estimated Creatinine Clearance 65.84 ml/min; Globulin 4.3 g/dL (2.2-4.2); Glucose 189 mg/dL (74-106); Protein, Total 7.2 g/dL (6.4-8.2); Sodium Level 133 mmol/L (136-145)
[2020-05-31 11:39] LABS: Differential Comment SCANNED
[2020-05-31] MEDS: dexAMETHasone 4 MG/ML Vial 6 MG IV (11:50)
--- NOTE | 2020-05-31 12:01 | HP.PCM_ITS ---
History of Present Illness Date of Admission: 05/31/20 Chief Complaint: worsening weakness The patient is a 69 year old M with a PMH as outlined who was admitted via the ED on 05/31/2020 with a complaint of generalised weakness which has been worsening. Patient said he has been gradually getting weak and tired and symptoms had not improved. He could not eat or drink much. He had also had a fever and cough as well as mild shortness of breath. Also had a few falls at home where he said his legs just gave way because of weakness. He denied any sick contacts. He admitted to diffuse arthralgia and myalgia denied any nausea vomiting or diarrhea. Review of systems otherwise negative. In the ED, vitals showed temperature of 101.4 Fahrenheit with blood pressure 133/83, respiratory rate of 20 and pulse rate of 86. He was saturating at 88% on 4 L of oxygen. Of note he does not usually wear oxygen at home. Chemistry was significant for lactic acid of 3 with sodium of 130. Chloride of 96. Bicarb was 30. CBC showed hemoglobin of 12.1 with WBC of 2.5 and platelets of 111. Chest x-ray showed bilateral infiltrates typical for Covid and CT of the brain done was negative for any acute intracranial pathology. Covid test done was positive. He has been admitted to manage for acute hypoxic respiratory insufficiency and general debility due to COVID-19 infection. [] Past Medical History Past Medical History (Chronic Problems): Chronic Problems Obstructive sleep apnea (Chronic) Morbid obesity (Chronic) HTN (hypertension) (Chronic) HLD (hyperlipidemia) (Chronic) Generalized osteoarthritis (Chronic) Type II diabetes mellitus, uncontrolled (Chronic) Restless leg (Chronic) Depressive disorder (Chronic) Allergies YONATAN Inhibitors Allergy (Severe, Verified 05/31/20 11:37) throat swells pioglitazone HCl [From Actos] Adverse Reaction (Verified 05/31/20 11:37) Swelling Home Medications: Ambulatory Orders Medication Instructions Recorded Venlafaxine HCl [Effexor] 200 mg PO BREAKFAST 12/05/13 Atorvastatin Calcium [Lipitor] 80 mg PO QHS 04/09/15 Hydrochlorothiazide [Hctz] 25 mg PO DAILY 04/09/15 buPROPion XL [Wellbutrin Xl] 150 mg PO DAILY 04/09/15 cycloBENZAPRine HCl [Flexeril] 10 mg PO QHS 04/09/15 metFORMIN HCl [Glucophage] 1,000 mg PO BIDCM 04/09/15 Cefadroxil [Duracef] 500 mg PO BID 05/30/18 Glimepiride [Amaryl] 4 mg PO BID 05/30/18 Levothyroxine [Synthroid] 75 mcg PO DAILY 05/30/18 Metoprolol Succinate 50 mg PO BID 05/30/18 Oxybutynin [Ditropan] 5 mg PO BID 05/30/18 Pioglitazone [Actos] 30 mg PO DAILY 05/30/18 Meloxicam 15 mg PO DAILY 05/26/20 Cholecalciferol (VIT D3) [Vitamin 1,000 unit PO DAILY 05/31/20 D] Insulin Glargine,Hum.rec.anlog 20 unit SQ DAILY 05/31/20 [Brunilda Corey] Venlafaxine HCl [Effexor] 100 mg PO QHS 05/31/20 Surgical History: adenoidectomy, arthroscopy, knee, rotator cuff repair, total knee arthroplasty, tonsillectomy, - Psychiatric History: Depression Lives: With Family Smoking Status: Never smoker Alcohol: None Drugs: None - *Family History Maternal History Items: Diabetes, Heart Disease, Hypertension Paternal History Items: High Cholesterol, Heart Disease Review of Systems Constitutional: Reports: Anorexia, Chills, Fever, Malaise, Weakness, Fatigue Eyes: Denies: Blurred vision HEENT: Denies: Head Aches, Sinus Congestion, Sinus Drainage Cardiovascular: Denies: Chest Pain, Palpitations Respiratory: Reports: Cough, Shortness of Breath, Shortness of breath at rest, Shortness of breath upon exertion. Denies: Sputum production, Wheezing Gastrointestinal: Denies: Abdominal Pain, Nausea, Vomiting Genitourinary: Denies: Dysuria Musculoskeletal: Reports: Hand Pain. Denies: Joint Pain, Joint Tenderness Skin: Denies: Rash, Wounds Neurological: Denies: Numbness, Tingling, Focal weakness Psychiatric: Denies: Anxiety, Depression, Homicidal Ideations, Suicidal Ideations Hematologic/ Lymphatic: Denies: Easy Bruising, Easy Bleeding VTE Information - Inpt Only VTE Present on Admission: No VTE Pharm Prophylaxis ordered?: Yes - Physical Exam Vitals/I&O's: Vital Signs Temp Pulse Resp BP Pulse Ox 101.4 F H 86 20 H 133/83 H 88 05/31/20 10:50 05/31/20 11:10 05/31/20 11:10 05/31/20 10:50 05/31/20 11:10 Oxygen Flow Rate (L/min) 4 Oxygen Delivery Method Room Air Weight: 277 lb 8.992 oz Body Mass Index (BMI) 43.4 Finger Stick Blood Glucose 500 General: Alert, Oriented x3, Cooperative, Lethargic HEENT: Atraumatic, PERRLA, EOMI, Normocephalic Oral: Dry Mucosa Neck: Supple, No JVD, Negative Carotid Bruits Lungs: - - diminished breath sounds bibasally, no wheezes or crackles. on 4L of oxygen by nasal canula Cardiovascular: Regular rate, Regular Rhythm, Normal S1, Normal S2, No murmurs Abdomen: Bowel Sounds Present, Soft, Non Tender Extremities: No clubbing, No cyanosis, No edema, Capillary Refill Less than 3 Seconds Skin: No rashes, No breakdown Musculoskeletal: No Tenderness to Palpation of Joints or Extremities Lymphatic: No Cervical, Supraclavicular, or Inguinal Adenopathy Neurological: Cranial nerves II-XII grossly intact, Neuro grossly intact, Motor Exam 5/5 strength throughout Psych/Mental Status: Normal Affect, Appropriate, Alert and oriented to time, place, person, mood and affect Microbiology Past 72 Hours 05/31/20 10:50 Mucosa - Nasopharyngeal SARS-CoV-2 Antigen (Rapid) - Final SARS-CoV-2 (COVID 19) Laboratory Results 05/31/20 11:00: WBC 2.5 L, RBC 4.36 L, Hgb 12.1 L, Hct 37.6 L, MCV 86.2, MCH 27.8, MCHC 32.2, RDW Std Deviation 49.9 H, RDW Coeff of Linnette 15.9 H, Plt Count 111 L, MPV 9.6, Immature Gran % (Auto) 0.400, Neut % (Auto) 66.1, Lymph % (Auto) 13.4 L, [place] % (Auto) 19.7 H, Eos % (Auto) 0.0, Baso % (Auto) 0.4, Absolute Neuts (auto) 1.7 L, Absolute Lymphs (auto) 0.34 L, Nucleated RBC % 0, Differential Comment SCANNED, Diff Path Review July05/31/20 11:00: Sodium 133 L, Potassium 4.0, Chloride 96 L, Carbon Dioxide 30.0, Anion Gap 7, BUN 28 H, Creatinine 0.99, Estim Creat Clear Calc 65.84, Est GFR ( MDRD) Af Amer 96, Est GFR (MDRD) Non-Af 79, BUN/Creatinine Ratio 28.2 H, Glucose 189 H, Calcium 9.0, Total Bilirubin 0.80, AST 56 H, ALT 42, Alkaline Phosphatase 127 H, Total Protein 7.2, Albumin 2.9 L, Globulin 4.3 H, Albumin/Globulin Ratio 0.7 L 05/31/20 11:00: Lactic Acid 3.0 H* Diagnostic Data Brain CT 05/31/20 10:53 IMPRESSION: Chronic involutional changes of the brain. Electronically Signed: Areli Wolfe MD at 12:03 EST Tel , Service support , Chest X-Ray 05/31/20 10:53 IMPRESSION: Ill-defined subpleural groundglass opacities are seen more prominent in the lung bases , may represent atypical pneumonia or viral pneumonia (COVID-19 ?). Electronically Signed: Areli Wolfe MD at 12:05 EST Tel , Service support , Assessment/Plan All Active Problems Rhabdomyolysis (Acute) 69-year-old male admitted with a complaint of lethargy and shortness of breath. #Acute hypoxic respiratory insufficiency due to COVID 19 infection * admit to covid unit * check D dimer * titrate oxygen to maintain sats >90% * start remdesivir and decadron * consult ID * consult pulmonology to help determine if he will benefit from convalescent plasma * #Lactic acidosis: Likely due to dehydration as he is not been eating and drinking well. He is also on Metformin. Hold Metformin and hydrate with IV fluids. #COVID 19 infection: as above * * #Type 2 diabetes mellitus: On glimepiride and Lantus 20 units daily. Insulin sliding scale. Accu-Cheks AC at bedtime. Hold Metformin. Also hold pioglitazone. #Depression: On venlafaxine #Hyperlipidemia: On statin #Hypertension: On hydrochlorothiazide and metoprolol #DVT prophylaxis: Lovenox #CODE STATUS: full code * Patient and daughter counseled extensively about different types of CODE STATUS including full code, DNR CCA and DNR CCA. Patient elects to be full code. * Total [id number] time 17 minutes. Inpatient E&M: 56522 Init Hosp L3 Procedures: 48007 Advncd Care Plan 30 Min
[2020-05-31 14:55] LABS: Alkaline Phosphatase 125 U/L (45-117)
[2020-05-31 15:05] LABS: Reflex Lactate? Y
[2020-05-31 15:07] LABS: BNP,B-Type NATRIURETIC PEPTIDE 31.3 pg/mL (0-100)
[2020-05-31 15:16] LABS: Procalcitonin 0.32 ng/mL (0.00-0.09)
[2020-05-31 15:20] LABS: D-Dimer Quantitative (DVT/PE) 1.74 FEU/ug/m (0.27-0.49)
[2020-05-31 16:04] LABS: Lactic Acid 1.4 mmol/L (0.4-1.9)
[2020-05-31 16:46] LABS: Bedside Glucose 191 mg/dL (70-110)
[2020-05-31] MEDS: Metoprolol Tartrate 50 MG Tablet PO (22:13)
[2020-05-31] MEDS: Oxybutynin 5 MG Tablet PO (22:13)
[2020-05-31] MEDS: Atorvastatin Calcium 80 MG Tablet PO (22:13)
[2020-05-31] MEDS: cycloBENZAPRine HCl 10 MG Tablet PO (22:13)
[2020-05-31 23:28] LABS: Bacteria 0 SEEN /hpf (None Seen); Mucous, Urine 0 SEEN /hpf (<or=2+); Red Blood Cells-Urine 0 SEEN /hpf (0-5); White Blood Cells 0 SEEN /hpf (0-5)
[2020-05-31 23:29] LABS: Color, Urine Yellow (Yellow); Glucose, Dipstick 250 mg/dl (Normal); Ketone-Dipstick 15 mg/dl (Negative); Leukocyte Esterase-Dipstick Negative /ul (Negative); Nitrite-Dipstick Negative (Negative); Occult Blood-Urine Negative /ul (Negative); Protein-Dipstick 30 mg/dl (Negative); Urine Bilirubin Dipstick Negative (Negative); Urine Clarity Clear (Clear); Urine Urobilinogen Normal (Normal)
[2020-05-31 23:35] LABS: Squamous Epithelial Cells - UA 0-5 SEEN /hpf (0-5)
[2020-06-01] VITALS (14 sets, daily range): BP systolic 121–140; BP diastolic 57–91; PULSE 60–88; RESP 12–22; TEMP 36.6–37.1; O2SAT 94–99
[2020-06-01 01:36] LABS: Bedside Glucose 341 mg/dL (70-110)
[2020-06-01 04:33] LABS: Absolute Lymphocyte Count 0.32 X10^3/uL (0.83-4.51); Absolute Neutrophil Count 1.7 X10^3/uL (2.0-7.7); Hematocrit 35.7 % (40-54); Hemoglobin 11.5 g/dL (13.0-16.5); Lymphocyte # 0.32 X10^3/ul (4.0); Lymphocyte % 13.6 % (19-41); Mean Corp Hgb Conc 32.2 g/dL (32-36); Mean Corpuscular Volume 86.9 fL (80-94); Mean Platelet Vol. 9.8 fl (6.2-12.0); Monocyte# 0.32 X10^3/uL; Monocyte% 13.6 % (0-10); NRBC Flagged by Analyzer 0 % (0-5); Neutrophil # 1.71 X10^3/uL (2.7-7.7); Neutrophil % 72.4 % (47-70); POSITIVE DIFFERENTIAL YES; Platelet Count 105 K/mm3 (150-450); RBC Distribution Width CV 15.9 % (11.6-14.6); RBC Distribution Width SD 50.9 fl (35.1-43.9); Red Blood Count 4.11 M/mm3 (4.6-6.2); White Blood Count 2.4 K/mm3 (4.4-11.0)
[2020-06-01 04:34] LABS: Differential Indicated SCAN CRITERIA MET
[2020-06-01 04:46] LABS: ALB/GLOB Ratio 0.6 RATIO (0.9-2.4); AST(SGOT) 51 U/L (15-37); Alanine Aminotransfer ALT/SGPT 41 U/L (16-61); Albumin, Serum 2.6 g/dL (3.2-5.0); Alkaline Phosphatase 119 U/L (45-117); Anion Gap 7 (5-15); BUN 27 mg/dL (7-18); BUN/Creat Ratio 32.5 RATIO (10-20); Calcium,Total 8.6 mg/dL (8.5-10.1); Chloride 100 mmol/L (98-107); Creatinine, Serum 0.83 mg/dL (0.70-1.30); EST Glomerular Filtration Rate 97 mL/min (>60); Est Glom Filt Rate - Afr Amer 118 mL/min (>60); Globulin 4.3 g/dL (2.2-4.2); Glucose 252 mg/dL (74-106); Protein, Total 6.9 g/dL (6.4-8.2); Sodium Level 137 mmol/L (136-145)
--- NOTE | 2020-06-01 05:39 | NURSING ---
Pt having periods of apnea that monitor alarming is not waking him up, p.ox. sats as low as 56%. Pt wakes easily when staff yelled from doorway for him to take a deeper breath while donning PPE. Pt drowsy, but appropriately oriented. Pt does state to this nurse when questioned about advanced life support that he wants everything done to stay alive had a trach before and did well with it for months. Monitor alarm volume turned all the way up for loudness to startle pt awake if apnea causes him to desat again.
--- NOTE | 2020-06-01 06:11 | CON.PCM_ITS ---
Reason for Consult Date of Consultation: 06/01/20 Reason for Consultation: Acute respiratory insufficiency secondary to COVID-19 pneumonia History of Present Illness: The patient is a 69-year-old male, with a history as outlined below, who presented to the emergency department on May 31 with complaints of generalized malaise, weakness, cough and shortness of breath. The patient has a known history of severe obstructive sleep apnea, diabetes mellitus, hypertension, hyperlipidemia and hypothyroidism. On presentation to the emergency department, the patient was noted to be febrile and tachypneic. Laboratory evaluation revealed evidence of pancytopenia. D- dimer was elevated at 1.74. Chemistry profile was largely unrevealing. Lactate was elevated at 3.0. BNP was within normal limits. Liver function was within normal limits. Head CT revealed chronic involutional changes of the brain. Plain film chest x-ray revealed subpleural groundglass opacities. The patient received supplemental IV fluids, remdesivir and Decadron. He was subsequently admitted for management of his coronavirus infection. Past Medical History Past Medical History (Chronic Problems): Chronic Problems Obstructive sleep apnea (Chronic) Morbid obesity (Chronic) HTN (hypertension) (Chronic) HLD (hyperlipidemia) (Chronic) Generalized osteoarthritis (Chronic) Type II diabetes mellitus, uncontrolled (Chronic) Restless leg (Chronic) Depressive disorder (Chronic) Allergies YONATAN Inhibitors Allergy (Severe, Verified 05/31/20 11:37) throat swells pioglitazone HCl [From Actos] Adverse Reaction (Verified 05/31/20 11:37) Swelling Home Medications: Ambulatory Orders Medication Instructions Recorded Venlafaxine HCl [Effexor] 200 mg PO BREAKFAST 12/05/13 Atorvastatin Calcium [Lipitor] 80 mg PO QHS 04/09/15 Hydrochlorothiazide [Hctz] 25 mg PO DAILY 04/09/15 buPROPion XL [Wellbutrin Xl] 150 mg PO DAILY 04/09/15 cycloBENZAPRine HCl [Flexeril] 10 mg PO QHS 04/09/15 metFORMIN HCl [Glucophage] 1,000 mg PO BIDCM 04/09/15 Cefadroxil [Duracef] 500 mg PO BID 05/30/18 Glimepiride [Amaryl] 4 mg PO BID 05/30/18 Levothyroxine [Synthroid] 75 mcg PO DAILY 05/30/18 Metoprolol Succinate 50 mg PO BID 05/30/18 Oxybutynin [Ditropan] 5 mg PO BID 05/30/18 Pioglitazone [Actos] 30 mg PO DAILY 05/30/18 Meloxicam 15 mg PO DAILY 05/26/20 Cholecalciferol (VIT D3) [Vitamin 1,000 unit PO DAILY 05/31/20 D] Insulin Glargine,Hum.rec.anlog 20 unit SQ DAILY 05/31/20 [Brunilda Corey] Venlafaxine HCl [Effexor] 100 mg PO QHS 05/31/20 Surgical History: adenoidectomy, arthroscopy, knee, rotator cuff repair, total knee arthroplasty, tonsillectomy, - Psychiatric History: Depression Lives: With Family Smoking Status: Never smoker Alcohol: None Drugs: None - *Family History Maternal History Items: Diabetes, Heart Disease, Hypertension Paternal History Items: High Cholesterol, Heart Disease Review of Systems Constitutional: Reports: Fever, Malaise, Weakness, Fatigue. Denies: Chills Eyes: Denies: Blurred vision, Double vision HEENT: Denies: Head Aches, Sinus Congestion, Sinus Drainage Cardiovascular: Denies: Chest Pain, Palpitations Respiratory: Reports: Cough, Shortness of Breath Gastrointestinal: Denies: Abdominal Pain, Nausea, Vomiting Genitourinary: Denies: Dysuria Musculoskeletal: Denies: Joint Pain, Joint Tenderness Skin: Denies: Rash, Wounds Neurological: Denies: Numbness, Tingling, Focal weakness Psychiatric: Denies: Anxiety, Depression, Homicidal Ideations, Suicidal Ideations Hematologic/ Lymphatic: Denies: Easy Bruising, Easy Bleeding Patient Problems: Active and Suspected Problems COVID-19 (Acute) Objective: The patient's most recent lab work, culture data and imaging studies have all been personally reviewed. - Physical Exam Vitals/I&O's: Vital Signs Temp Pulse Resp BP Pulse Ox 98.4 F 63 22 H 121/69 H 99 06/01/20 04:00 06/01/20 04:00 06/01/20 04:00 06/01/20 04:00 06/01/20 04:00 Oxygen Flow Rate (L/min) 2 Oxygen Delivery Method Nasal Cannula Weight: 269 lb 10.005 oz Body Mass Index (BMI) 43.4 Finger Stick Blood Glucose 500 Intake and Output for Last 24 Hours 05/30/20 05/31/20 06/01/20 23:59 23:59 23:59 Intake Total 1050 / 1050 Balance 1050 / 1050 General: Alert, Cooperative, No apparent distress HEENT: Atraumatic, Normocephalic Oral: No Gingival or Mucosal Lesions/ Ulcerations Neck: Supple, No Nodes, Trachea Midline Lungs: No rhonchi, No wheeze, No rales, Diminished Cardiovascular: Regular rate, Regular Rhythm Abdomen: Bowel Sounds Present, Soft, Non Tender, Obese Extremities: No clubbing, No cyanosis, No edema Skin: No breakdown Musculoskeletal: No Tenderness to Palpation of Joints or Extremities Lymphatic: No Cervical, Supraclavicular, or Inguinal Adenopathy Neurological: - - No focal neurological deficits. Psych/Mental Status: Normal Affect, Appropriate Labs (Last 48 Hours) 05/31/20 05/31/20 05/31/20 11:00 11:00 11:00 WBC 2.5 L RBC 4.36 L Hgb 12.1 L Hct 37.6 L MCV 86.2 MCH 27.8 MCHC 32.2 RDW Std Deviation 49.9 H RDW Coeff of [place] 15.9 H Plt Count 111 L MPV 9.6 Immature Gran % (Auto) 0.400 Neut % (Auto) 66.1 Lymph % (Auto) 13.4 L [place] % (Auto) 19.7 H Eos % (Auto) 0.0 Baso % (Auto) 0.4 Absolute Neuts (auto) 1.7 L Absolute Lymphs (auto) 0.34 L Nucleated RBC % 0 Differential Comment SCANNED Diff Path Review May foll D-Dimer Quant (PE/DVT) Sodium 133 L Potassium 4.0 Chloride 96 L Carbon Dioxide 30.0 Anion Gap 7 BUN 28 H Creatinine 0.99 Estim Creat Clear Calc 65.84 Est GFR (MDRD) Af Amer 96 Est GFR (MDRD) Non-Af 79 BUN/Creatinine Ratio 28.2 H Glucose 189 H Lactic Acid 3.0 H* Calcium 9.0 Total Bilirubin 0.80 AST 56 H ALT 42 Alkaline Phosphatase 127 H B-Natriuretic Peptide Total Protein 7.2 Albumin 2.9 L Globulin 4.3 H Albumin/Globulin Ratio 0.7 L Procalcitonin Urine Color Urine Clarity Urine pH Ur Specific [place] Urine Protein Urine Glucose (UA) Urine Ketones Urine Occult Blood Urine Nitrite Urine Bilirubin Urine Urobilinogen Ur Leukocyte Esterase Urine RBC Urine WBC Ur Squamous Epith Cells Urine Bacteria Urine Mucus POC Glucose 05/31/20 05/31/20 05/31/20 14:20 14:20 14:20 WBC RBC Hgb Hct MCV MCH MCHC RDW Std Deviation RDW Coeff of [place] Plt Count MPV Immature Gran % (Auto) Neut % (Auto) Lymph % (Auto) [place] % (Auto) Eos % (Auto) Baso % (Auto) Absolute Neuts (auto) Absolute Lymphs (auto) Nucleated RBC % Differential Comment Diff Path Review D-Dimer Quant (PE/DVT) 1.74 H* Sodium Potassium Chloride Carbon Dioxide Anion Gap BUN Creatinine Estim Creat Clear Calc Est GFR (MDRD) Af Amer Est GFR (MDRD) Non-Af BUN/Creatinine Ratio Glucose Lactic Acid Calcium Total Bilirubin AST ALT Alkaline Phosphatase B-Natriuretic Peptide 31.3 Total Protein Albumin Globulin Albumin/Globulin Ratio Procalcitonin 0.32 H Urine Color Urine Clarity Urine pH Ur Specific [place] Urine Protein Urine Glucose (UA) Urine Ketones Urine Occult Blood Urine Nitrite Urine Bilirubin Urine Urobilinogen Ur Leukocyte Esterase Urine RBC Urine WBC Ur Squamous Epith Cells Urine Bacteria Urine Mucus POC Glucose 05/31/20 05/31/20 05/31/20 14:20 15:20 16:33 WBC RBC Hgb Hct MCV MCH MCHC RDW Std Deviation RDW Coeff of [place] Plt Count MPV Immature Gran % (Auto) Neut % (Auto) Lymph % (Auto) [place] % (Auto) Eos % (Auto) Baso % (Auto) Absolute Neuts (auto) Absolute Lymphs (auto) Nucleated RBC % Differential Comment Diff Path Review D-Dimer Quant (PE/DVT) Sodium Potassium Chloride Carbon Dioxide Anion Gap BUN Creatinine Estim Creat Clear Calc Est GFR (MDRD) Af Amer Est GFR (MDRD) Non-Af BUN/Creatinine Ratio Glucose Lactic Acid 1.4 Calcium Total Bilirubin AST ALT Alkaline Phosphatase 125 H B-Natriuretic Peptide Total Protein Albumin Globulin Albumin/Globulin Ratio Procalcitonin Urine Color Urine Clarity Urine pH Ur Specific [place] Urine Protein Urine Glucose (UA) Urine Ketones Urine Occult Blood Urine Nitrite Urine Bilirubin Urine Urobilinogen Ur Leukocyte Esterase Urine RBC Urine WBC Ur Squamous Epith Cells Urine Bacteria Urine Mucus POC Glucose 191 H 05/31/20 05/31/20 06/01/20 22:11 23:25 04:00 WBC 2.4 L RBC 4.11 L Hgb 11.5 L Hct 35.7 L MCV 86.9 MCH 28.0 MCHC 32.2 RDW Std Deviation 50.9 H RDW Coeff of [place] 15.9 H Plt Count 105 L MPV 9.8 Immature Gran % (Auto) 0.400 Neut % (Auto) 72.4 H Lymph % (Auto) 13.6 L [place] % (Auto) 13.6 H Eos % (Auto) 0.0 Baso % (Auto) 0.0 Absolute Neuts (auto) 1.7 L Absolute Lymphs (auto) 0.32 L Nucleated RBC % 0 Differential Comment Diff Path Review May foll D-Dimer Quant (PE/DVT) Sodium Potassium Chloride Carbon Dioxide Anion Gap BUN Creatinine Estim Creat Clear Calc Est GFR (MDRD) Af Amer Est GFR (MDRD) Non-Af BUN/Creatinine Ratio Glucose Lactic Acid Calcium Total Bilirubin AST ALT Alkaline Phosphatase B-Natriuretic Peptide Total Protein Albumin Globulin Albumin/Globulin Ratio Procalcitonin Urine Color Yellow Urine Clarity Clear Urine pH 6.0 Ur Specific [place] 1.020 Urine Protein 30 H Urine Glucose (UA) 250 H Urine Ketones 15 H Urine Occult Blood Negative Urine Nitrite Negative Urine Bilirubin Negative Urine Urobilinogen Normal Ur Leukocyte Esterase Negative Urine RBC 0 SEEN Urine WBC 0 SEEN Ur Squamous Epith Cells 0-5 SEEN Urine Bacteria 0 SEEN Urine Mucus 0 SEEN POC Glucose 341 H 06/01/20 04:00 WBC RBC Hgb Hct MCV MCH MCHC RDW Std Deviation RDW Coeff of [place] Plt Count MPV Immature Gran % (Auto) Neut % (Auto) Lymph % (Auto) [place] % (Auto) Eos % (Auto) Baso % (Auto) Absolute Neuts (auto) Absolute Lymphs (auto) Nucleated RBC % Differential Comment Diff Path Review D-Dimer Quant (PE/DVT) Sodium 137 Potassium 4.0 Chloride 100 Carbon Dioxide 30.0 Anion Gap 7 BUN 27 H Creatinine 0.83 Estim Creat Clear Calc 75.80 Est GFR (MDRD) Af Amer 118 Est GFR (MDRD) Non-Af 97 BUN/Creatinine Ratio 32.5 H Glucose 252 H Lactic Acid Calcium 8.6 Total Bilirubin 0.60 AST 51 H ALT 41 Alkaline Phosphatase 119 H B-Natriuretic Peptide Total Protein 6.9 Albumin 2.6 L Globulin 4.3 H Albumin/Globulin Ratio 0.6 L Procalcitonin Urine Color Urine Clarity Urine pH Ur Specific [place] Urine Protein Urine Glucose (UA) Urine Ketones Urine Occult Blood Urine Nitrite Urine Bilirubin Urine Urobilinogen Ur Leukocyte Esterase Urine RBC Urine WBC Ur Squamous Epith Cells Urine Bacteria Urine Mucus POC Glucose Microbiology 05/31/20 10:50 Mucosa - Nasopharyngeal SARS-CoV-2 Antigen (Rapid) - Final SARS-CoV-2 (COVID 19) Clinical Impression(s) from Imaging Studies Brain CT 05/31/20 10:53 IMPRESSION: Chronic involutional changes of the brain. Electronically Signed: Areli Wolfe MD at 12:03 EST Tel , Service support , Chest X-Ray 05/31/20 10:53 IMPRESSION: Ill-defined subpleural groundglass opacities are seen more prominent in the lung bases , may represent atypical pneumonia or viral pneumonia (COVID-19 ?). Electronically Signed: Areli Wolfe MD at 12:05 EST Tel , Service support , Current Medications Atorvastatin Calcium (Atorvastatin Calcium 80 Mg Tablet) 80 mg PO QHS [facility] Last Admin: 05/31/20 22:13 Dose: 80 mg Documented by: Bupropion HCl (Bupropion (Xl) 150 Mg Tablet.Xl) 150 mg PO DAILY [facility] Cholecalciferol (Cholecalciferol (Vit D3) 1,000 Unit (25mcg)) 1,000 unit PO DAILY [facility] Cyclobenzaprine HCl (Cyclobenzaprine Hcl 10 Mg Tablet) 10 mg PO QHS [facility] Last Admin: 05/31/20 22:13 Dose: 10 mg Documented by: Dexamethasone Sodium Phosphate (Dexamethasone 10 Mg/Ml Vial) 6 mg IV DAILY [facility] Enoxaparin Sodium (Enoxaparin 40 Mg/0.4 Ml Syringe) 40 mg SC DAILY [facility] Hydrochlorothiazide (Hydrochlorothiazide 25 Mg Tablet) 25 mg PO DAILY [facility] Remdesivir 100 mg/ Sodium (Chloride) 250 mls @ 125 mls/hr IV DAILY [facility] Stop: 06/04/20 11:59 Insulin Glargine (Insulin Glargine 100 Units/Ml Pen) 20 units SC DAILY [facility] Insulin Human Lispro (Insulin Lispro 100 Unit/Ml Insuln.Pen) 0 unit SC [facility]; Protocol Levothyroxine Sodium (Levothyroxine 75 Mcg Tablet) 75 mcg PO DAILY [facility] Meloxicam (Meloxicam 15 Mg Tablet) 15 mg PO DAILY [facility] Metoprolol Tartrate (Metoprolol Tartrate 50 Mg Tablet) 50 mg PO BID [facility] Last Admin: 05/31/20 22:13 Dose: 50 mg Documented by: Nitroglycerin (Nitroglycerin (Inpatient Use) 0.4 Mg Tab.Subl) 0.4 mg SL Q5M PRN PRN Reason: CARDIAC/CHEST PAIN Ondansetron HCl (Ondansetron 4 Mg/2 Ml Vial) 4 mg IV Q8H PRN PRN PRN Reason: NAUSEA/VOMITING Oxybutynin Chloride (Oxybutynin 5 Mg Tablet) 5 mg PO BID [facility] Last Admin: 05/31/20 22:13 Dose: 5 mg Documented by: Sodium Chloride (0.9% Saline Lock 10 Ml Syringe) 10 - 40 ml IV UD PRN PRN Reason: SALINE FLUSH Venlafaxine HCl (Venlafaxine Hcl 100 Mg Tablet) 200 mg PO 1000 [facility] Venlafaxine HCl (Venlafaxine Hcl 100 Mg Tablet) 100 mg PO QHS [facility] Last Admin: 05/31/20 22:13 Dose: 100 mg Documented by: Assessment/Plan All Active Problems COVID-19 (Acute) Rhabdomyolysis (Acute) RECOMMENDATIONS: 1. Wean supplemental oxygen to maintain saturations at or above 90%. 2. Continue remdesivir as ordered. Continue to monitor liver and renal function. 3. Continue Decadron to complete 10-day treatment course. 4. Continue prophylactic dosing of Lovenox. 5. Start BiPAP therapy to be utilized nightly and with naps. 6. Start sliding scale insulin coverage. 7. Encourage incentive spirometer use and mobilize patient as tolerated. IMPRESSIONS: 1. Acute hypoxemic respiratory insufficiency secondary to COVID-19 pneumonia Plan to continue current supportive measures including supplemental oxygen to maintain saturations at or above 90%. Continue remdesivir and Decadron as ordered. Continue to monitor liver and renal function accordingly. Continue prophylactic Lovenox as ordered. 2. Severe obstructive sleep apnea The patient has known severe obstructive sleep apnea. Accordingly, BiPAP therapy will be utilized while the patient is sleeping or napping throughout the day. 3. Obesity/hypertension/hyperlipidemia/diabetes mellitus Complicates care, management, recovery and prognosis. Continue home medications as indicated. Start sliding scale insulin coverage. This note was generated with [employer] dictation software. It may contain incorrect words, spelling, and punctuation that were not noted in checking the note before signing. Inpatient E&M: 85425 Init Hosp L3
[2020-06-01] MEDS: Enoxaparin 40 MG/0.4 ML Syringe SC ×2 (08:30→20:09)
[2020-06-01] MEDS: Meloxicam 15 MG Tablet PO (08:31)
[2020-06-01] MEDS: Insulin Lispro 100 UNIT/ML INSULN.PEN SC ×4 (08:31→20:10)
[2020-06-01] MEDS: hydroCHLOROthiazide 25 MG Tablet PO (08:31)
[2020-06-01] MEDS: Oxybutynin 5 MG Tablet PO ×2 (08:31→20:08)
[2020-06-01] MEDS: Levothyroxine 75 MCG Tablet PO (08:34)
[2020-06-01] MEDS: Metoprolol Tartrate 50 MG Tablet PO ×2 (08:34→20:09)
[2020-06-01] MEDS: buPROPion (XL) 150 MG TABLET.XL PO (08:34)
[2020-06-01] MEDS: dexAMETHasone 10 MG/ML Vial 6 MG IV (08:35)
[2020-06-01 08:56] LABS: Bedside Glucose 181 mg/dL (70-110)
[2020-06-01] MEDS: 0.9% Saline Lock 10 ML Syringe IV (10:11)
--- NOTE | 2020-06-01 10:38 | PCM.HP.ID ---
Problem List (1) COVID-19 Status: Acute Reason for Consult: covid Consulted by: Dr. Mar History of Present Illness: The patient is a 69 year old M, not on home O2, lives alone, presents with sx starting about 2 weeks ago with URI-type sx. Had progressive headache, sore throat, mild aches, decreased sense of taste/smell, chills, cough, and SOB. No n/v/d. Was on waitlist for covid shot. Came to ED, covid Ag (+), admitted on dex and remdesivir. Still some headache, sore throat, cough. Full ROS performed and neg except as noted above. - Medical History Past Medical History (Chronic Problems): Chronic Problems Obstructive sleep apnea (Chronic) Morbid obesity (Chronic) HTN (hypertension) (Chronic) HLD (hyperlipidemia) (Chronic) Generalized osteoarthritis (Chronic) Type II diabetes mellitus, uncontrolled (Chronic) Restless leg (Chronic) Depressive disorder (Chronic) Allergies/Adverse Reactions: Allergies YONATAN Inhibitors Allergy (Severe, Verified 05/31/20 11:37) throat swells pioglitazone HCl [From Actos] Adverse Reaction (Verified 05/31/20 11:37) Swelling Home Medications: Ambulatory Orders Medication Instructions Recorded Venlafaxine HCl [Effexor] 200 mg PO BREAKFAST 12/05/13 Atorvastatin Calcium [Lipitor] 80 mg PO QHS 04/09/15 Hydrochlorothiazide [Hctz] 25 mg PO DAILY 04/09/15 buPROPion XL [Wellbutrin Xl] 150 mg PO DAILY 04/09/15 cycloBENZAPRine HCl [Flexeril] 10 mg PO QHS 04/09/15 metFORMIN HCl [Glucophage] 1,000 mg PO BIDCM 04/09/15 Cefadroxil [Duracef] 500 mg PO BID 05/30/18 Glimepiride [Amaryl] 4 mg PO BID 05/30/18 Levothyroxine [Synthroid] 75 mcg PO DAILY 05/30/18 Metoprolol Succinate 50 mg PO BID 05/30/18 Oxybutynin [Ditropan] 5 mg PO BID 05/30/18 Pioglitazone [Actos] 30 mg PO DAILY 05/30/18 Meloxicam 15 mg PO DAILY 05/26/20 Cholecalciferol (VIT D3) [Vitamin 1,000 unit PO DAILY 05/31/20 D] Insulin Glargine,Hum.rec.anlog 20 unit SQ DAILY 05/31/20 [Touadelaida Solostar] Venlafaxine HCl [Effexor] 100 mg PO QHS 05/31/20 - Social History SMOKING STATUS:: Former smoker Vital Signs Temp Pulse Resp BP Pulse Ox 97.8 F 68 20 H 128/77 H 97 06/01/20 08:27 06/01/20 08:34 06/01/20 08:27 06/01/20 08:34 06/01/20 08:27 Oxygen Flow Rate (L/min) 2 Oxygen Delivery Method Nasal Cannula Weight: 122.3 kg Body Mass Index (BMI) 43.4 Finger Stick Blood Glucose 500 Microbiology Past 72 Hours 05/31/20 10:50 SARS-CoV-2 Antigen (Rapid) - Final Mucosa - Nasopharyngeal SARS-CoV-2 (COVID 19) Laboratory Tests Past 24 Hrs 05/31/20 05/31/20 05/31/20 11:00 11:00 11:00 WBC 2.5 L RBC 4.36 L Hgb 12.1 L Hct 37.6 L MCV 86.2 MCH 27.8 MCHC 32.2 RDW Std Deviation 49.9 H RDW Coeff of [place] 15.9 H Plt Count 111 L MPV 9.6 Immature Gran % (Auto) 0.400 Neut % (Auto) 66.1 Lymph % (Auto) 13.4 L [place] % (Auto) 19.7 H Eos % (Auto) 0.0 Baso % (Auto) 0.4 Absolute Neuts (auto) 1.7 L Absolute Lymphs (auto) 0.34 L Nucleated RBC % 0 Differential Comment SCANNED Diff Path Review May foll D-Dimer Quant (PE/DVT) Sodium 133 L Potassium 4.0 Chloride 96 L Carbon Dioxide 30.0 Anion Gap 7 BUN 28 H Creatinine 0.99 Estim Creat Clear Calc 65.84 Est GFR (MDRD) Af Amer 96 Est GFR (MDRD) Non-Af 79 BUN/Creatinine Ratio 28.2 H Glucose 189 H Lactic Acid 3.0 H* Calcium 9.0 Total Bilirubin 0.80 AST 56 H ALT 42 Alkaline Phosphatase 127 H B-Natriuretic Peptide Total Protein 7.2 Albumin 2.9 L Globulin 4.3 H Albumin/Globulin Ratio 0.7 L Procalcitonin Urine Color Urine Clarity Urine pH Ur Specific [place] Urine Protein Urine Glucose (UA) Urine Ketones Urine Occult Blood Urine Nitrite Urine Bilirubin Urine Urobilinogen Ur Leukocyte Esterase Urine RBC Urine WBC Ur Squamous Epith Cells Urine Bacteria Urine Mucus 05/31/20 05/31/20 05/31/20 14:20 14:20 14:20 WBC RBC Hgb Hct MCV MCH MCHC RDW Std Deviation RDW Coeff of [place] Plt Count MPV Immature Gran % (Auto) Neut % (Auto) Lymph % (Auto) [place] % (Auto) Eos % (Auto) Baso % (Auto) Absolute Neuts (auto) Absolute Lymphs (auto) Nucleated RBC % Differential Comment Diff Path Review D-Dimer Quant (PE/DVT) 1.74 H* Sodium Potassium Chloride Carbon Dioxide Anion Gap BUN Creatinine Estim Creat Clear Calc Est GFR (MDRD) Af Amer Est GFR (MDRD) Non-Af BUN/Creatinine Ratio Glucose Lactic Acid Calcium Total Bilirubin AST ALT Alkaline Phosphatase B-Natriuretic Peptide 31.3 Total Protein Albumin Globulin Albumin/Globulin Ratio Procalcitonin 0.32 H Urine Color Urine Clarity Urine pH Ur Specific [place] Urine Protein Urine Glucose (UA) Urine Ketones Urine Occult Blood Urine Nitrite Urine Bilirubin Urine Urobilinogen Ur Leukocyte Esterase Urine RBC Urine WBC Ur Squamous Epith Cells Urine Bacteria Urine Mucus 05/31/20 05/31/20 05/31/20 14:20 15:20 23:25 WBC RBC Hgb Hct MCV MCH MCHC RDW Std Deviation RDW Coeff of [place] Plt Count MPV Immature Gran % (Auto) Neut % (Auto) Lymph % (Auto) [place] % (Auto) Eos % (Auto) Baso % (Auto) Absolute Neuts (auto) Absolute Lymphs (auto) Nucleated RBC % Differential Comment Diff Path Review D-Dimer Quant (PE/DVT) Sodium Potassium Chloride Carbon Dioxide Anion Gap BUN Creatinine Estim Creat Clear Calc Est GFR (MDRD) Af Amer Est GFR (MDRD) Non-Af BUN/Creatinine Ratio Glucose Lactic Acid 1.4 Calcium Total Bilirubin AST ALT Alkaline Phosphatase 125 H B-Natriuretic Peptide Total Protein Albumin Globulin Albumin/Globulin Ratio Procalcitonin Urine Color Yellow Urine Clarity Clear Urine pH 6.0 Ur Specific [place] 1.020 Urine Protein 30 H Urine Glucose (UA) 250 H Urine Ketones 15 H Urine Occult Blood Negative Urine Nitrite Negative Urine Bilirubin Negative Urine Urobilinogen Normal Ur Leukocyte Esterase Negative Urine RBC 0 SEEN Urine WBC 0 SEEN Ur Squamous Epith Cells 0-5 SEEN Urine Bacteria 0 SEEN Urine Mucus 0 SEEN 06/01/20 06/01/20 04:00 04:00 WBC 2.4 L RBC 4.11 L Hgb 11.5 L Hct 35.7 L MCV 86.9 MCH 28.0 MCHC 32.2 RDW Std Deviation 50.9 H RDW Coeff of [place] 15.9 H Plt Count 105 L MPV 9.8 Immature Gran % (Auto) 0.400 Neut % (Auto) 72.4 H Lymph % (Auto) 13.6 L [place] % (Auto) 13.6 H Eos % (Auto) 0.0 Baso % (Auto) 0.0 Absolute Neuts (auto) 1.7 L Absolute Lymphs (auto) 0.32 L Nucleated RBC % 0 Differential Comment Diff Path Review May foll D-Dimer Quant (PE/DVT) Sodium 137 Potassium 4.0 Chloride 100 Carbon Dioxide 30.0 Anion Gap 7 BUN 27 H Creatinine 0.83 Estim Creat Clear Calc 75.80 Est GFR (MDRD) Af Amer 118 Est GFR (MDRD) Non-Af 97 BUN/Creatinine Ratio 32.5 H Glucose 252 H Lactic Acid Calcium 8.6 Total Bilirubin 0.60 AST 51 H ALT 41 Alkaline Phosphatase 119 H B-Natriuretic Peptide Total Protein 6.9 Albumin 2.6 L Globulin 4.3 H Albumin/Globulin Ratio 0.6 L Procalcitonin Urine Color Urine Clarity Urine pH Ur Specific [place] Urine Protein Urine Glucose (UA) Urine Ketones Urine Occult Blood Urine Nitrite Urine Bilirubin Urine Urobilinogen Ur Leukocyte Esterase Urine RBC Urine WBC Ur Squamous Epith Cells Urine Bacteria Urine Mucus - Other Studies Radiology: [] reviewed Other Studies: [] Route of nutrition/ use of supplements: [] Nutritional Intake: [] IV Site: [] [place]herty Catheter: [] - Physical Exam General: Alert, Oriented x3, Cooperative, No apparent distress HEENT: Atraumatic, PERRLA, EOMI Neck: Supple, No Nodes Lungs: Clear to auscultation, Diminished Cardiovascular: Regular rate, Regular Rhythm Abdomen: Soft, Non Tender, Non-Distended, Obese Extremities: No edema Skin: No rashes IV Site: Peripheral, without redness Musculoskeletal: No Tenderness to Palpation of Joints or Extremities Neurological: Cranial nerves II-XII grossly intact - Assessment/Plan Antibiotics: [] Assessment/Plan: [] covid with hypoxia - sx started about 14 days ago at this point. On dex, remdesivir. Will change dex to po, order AM labs. D-dimer at 1.7. Will increase lovenox to 40mg bid. Likely home soon. Quarantine for one more week. Discharge to complete 10 total days of dex. Ok for covid vaccine in 1-2 weeks. Will follow, thank you.
[2020-06-01 11:20] LABS: Bedside Glucose 248 mg/dL (70-110)
--- NOTE | 2020-06-01 11:23 | PCM.PN.HOSP ---
Patient Problems: Active and Suspected Problems COVID-19 (Acute) Subjective: Patient seen and examined. He feels much better today, and has no complaints. He feels much better today. He is down to 2L of oxygen; review of systems is otherwise negative. He has remained hemodynamically stable. Vitals/I&O's: Vital Signs Temp Pulse Resp BP Pulse Ox 97.8 F 68 20 H 128/77 H 97 06/01/20 08:27 06/01/20 08:34 06/01/20 08:27 06/01/20 08:34 06/01/20 08:27 Oxygen Flow Rate (L/min) 2 Oxygen Delivery Method Nasal Cannula Weight: 269 lb 10.005 oz Body Mass Index (BMI) 43.4 Finger Stick Blood Glucose 500 Intake and Output for Last 24 Hours 05/30/20 05/31/20 06/01/20 23:59 23:59 23:59 Intake Total 1050 / 1050 Balance 1050 / 1050 General: Alert, Oriented x3, Cooperative HEENT: Atraumatic, PERRLA, EOMI, Normocephalic Oral: Dry Mucosa Neck: Supple, No JVD, Negative Carotid Bruits Lungs: - - diminished breath sounds bibasally, no wheezes or crackles. on 2L of oxygen by nasal canula Cardiovascular: Regular rate, Regular Rhythm, Normal S1, Normal S2, No murmurs Abdomen: Bowel Sounds Present, Soft, Non Tender Extremities: No clubbing, No cyanosis, No edema, Capillary Refill Less than 3 Seconds Skin: No rashes, No breakdown Musculoskeletal: No Tenderness to Palpation of Joints or Extremities Lymphatic: No Cervical, Supraclavicular, or Inguinal Adenopathy Neurological: Cranial nerves II-XII grossly intact, Neuro grossly intact, Motor Exam 5/5 strength throughout Psych/Mental Status: Normal Affect, Appropriate, Alert and oriented to time, place, person, mood and affect Microbiology Past 72 Hours 05/31/20 10:50 Mucosa - Nasopharyngeal SARS-CoV-2 Antigen (Rapid) - Final SARS-CoV-2 (COVID 19) Laboratory Results 05/31/20 11:00: Differential Comment SCANNED, Diff Path Review July05/31/20 11:00: Sodium 133 L, Potassium 4.0, Chloride 96 L, Carbon Dioxide 30.0, Anion Gap 7, BUN 28 H, Creatinine 0.99, Estim Creat Clear Calc 65.84, Est GFR (MDRD) Af Amer 96, Est GFR (MDRD) Non-Af 79, BUN/Creatinine Ratio 28.2 H, Glucose 189 H, Calcium 9.0, Total Bilirubin 0.80, AST 56 H, ALT 42, Alkaline Phosphatase 127 H, Total Protein 7.2, Albumin 2.9 L, Globulin 4.3 H, Albumin/Globulin Ratio 0.7 L 05/31/20 11:00: Lactic Acid 3.0 H* 05/31/20 14:20: D-Dimer Quant (PE/DVT) 1.74 H* 05/31/20 14:20: B-Natriuretic Peptide 31.3 05/31/20 14:20: Procalcitonin 0.32 H 05/31/20 14:20: Alkaline Phosphatase 125 H 05/31/20 15:20: Lactic Acid 1.4 05/31/20 16:33: POC Glucose 191 H 05/31/20 22:11: POC Glucose 341 H 05/31/20 23:25: Urine Color Yellow, Urine Clarity Clear, Urine pH 6.0, Ur Specific [place] 1.020, Urine Protein 30 H, Urine Glucose (UA) 250 H, Urine Ketones 15 H, Urine Occult Blood Negative, Urine Nitrite Negative, Urine Bilirubin Negative, Urine Urobilinogen Normal, Ur Leukocyte Esterase Negative, Urine RBC 0 SEEN, Urine WBC 0 SEEN, Ur Squamous Epith Cells 0-5 SEEN, Urine Bacteria 0 SEEN, Urine Mucus 0 SEEN 06/01/20 04:00: WBC 2.4 L, RBC 4.11 L, Hgb 11.5 L, Hct 35.7 L, MCV 86.9, MCH 28.0, MCHC 32.2, RDW Std Deviation 50.9 H, RDW Coeff of [place] 15.9 H, Plt Count 105 L, MPV 9.8, Immature Gran % (Auto) 0.400, Neut % (Auto) 72.4 H, Lymph % (Auto) 13.6 L, [place] % (Auto) 13.6 H, Eos % (Auto) 0.0, Baso % (Auto) 0.0, Absolute Neuts (auto) 1.7 L, Absolute Lymphs (auto) 0.32 L, Nucleated RBC % 0, Diff Path Review July06/01/20 04:00: Sodium 137, Potassium 4.0, Chloride 100, Carbon Dioxide 30.0, Anion Gap 7, BUN 27 H, Creatinine 0.83, Estim Creat Clear Calc 75.80, Est GFR (MDRD) Af Amer 118, Est GFR (MDRD) Non-Af 97, BUN/Creatinine Ratio 32.5 H, Glucose 252 H, Calcium 8.6, Total Bilirubin 0.60, AST 51 H, ALT 41, Alkaline Phosphatase 119 H, Total Protein 6.9, Albumin 2.6 L, Globulin 4.3 H, Albumin/Globulin Ratio 0.6 L 06/01/20 08:24: POC Glucose 181 H 06/01/20 11:14: POC Glucose 248 H Diagnostic Data Brain CT 05/31/20 10:53 IMPRESSION: Chronic involutional changes of the brain. Electronically Signed: Areli Wolfe MD at 12:03 EST Tel , Service support , Chest X-Ray 05/31/20 10:53 IMPRESSION: Ill-defined subpleural groundglass opacities are seen more prominent in the lung bases , may represent atypical pneumonia or viral pneumonia (COVID-19 ?). Electronically Signed: Areli Wolfe MD at 12:05 EST Tel , Service support , Current Medications Atorvastatin Calcium (Atorvastatin Calcium 80 Mg Tablet) 80 mg PO QHS [facility] Last Admin: 05/31/20 22:13 Dose: 80 mg Documented by: Bupropion HCl (Bupropion (Xl) 150 Mg Tablet.Xl) 150 mg PO DAILY [facility] Last Admin: 06/01/20 08:34 Dose: 150 mg Documented by: Cholecalciferol (Cholecalciferol (Vit D3) 1,000 Unit (25mcg)) 1,000 unit PO DAILY [facility] Last Admin: 06/01/20 08:31 Dose: 1,000 unit Documented by: Cyclobenzaprine HCl (Cyclobenzaprine Hcl 10 Mg Tablet) 10 mg PO QHS [facility] Last Admin: 05/31/20 22:13 Dose: 10 mg Documented by: Dexamethasone (Dexamethasone 4 Mg Tablet) 6 mg PO DAILY [facility] Stop: 06/09/20 10:01 Enoxaparin Sodium (Enoxaparin 40 Mg/0.4 Ml Syringe) 40 mg SC BID [facility] Hydrochlorothiazide (Hydrochlorothiazide 25 Mg Tablet) 25 mg PO DAILY [facility] Last Admin: 06/01/20 08:31 Dose: 25 mg Documented by: Remdesivir 100 mg/ Sodium (Chloride) 250 mls @ 125 mls/hr IV DAILY [facility] Stop: 06/04/20 11:59 Last Admin: 06/01/20 10:11 Dose: 125 mls/hr Documented by: Insulin Glargine (Insulin Glargine 100 Units/Ml Pen) 20 units SC DAILY [facility] Last Admin: 06/01/20 08:30 Dose: 20 u Documented by: Insulin Human Lispro (Insulin Lispro 100 Unit/Ml Insuln.Pen) 0 unit SC ACHS [facility]; Protocol Last Admin: 06/01/20 11:15 Dose: 4 u Documented by: Levothyroxine Sodium (Levothyroxine 75 Mcg Tablet) 75 mcg PO DAILY [facility] Last Admin: 06/01/20 08:34 Dose: 75 mcg Documented by: Meloxicam (Meloxicam 15 Mg Tablet) 15 mg PO DAILY [facility] Last Admin: 06/01/20 08:31 Dose: 15 mg Documented by: Metoprolol Tartrate (Metoprolol Tartrate 50 Mg Tablet) 50 mg PO BID [facility] Last Admin: 06/01/20 08:34 Dose: 50 mg Documented by: Nitroglycerin (Nitroglycerin (Inpatient Use) 0.4 Mg Tab.Subl) 0.4 mg SL Q5M PRN PRN Reason: CARDIAC/CHEST PAIN Ondansetron HCl (Ondansetron 4 Mg/2 Ml Vial) 4 mg IV Q8H PRN PRN PRN Reason: NAUSEA/VOMITING Oxybutynin Chloride (Oxybutynin 5 Mg Tablet) 5 mg PO BID [facility] Last Admin: 06/01/20 08:31 Dose: 5 mg Documented by: Sodium Chloride (0.9% Saline Lock 10 Ml Syringe) 10 - 40 ml IV UD PRN PRN Reason: SALINE FLUSH Last Admin: 06/01/20 10:11 Dose: 10 ml Documented by: Venlafaxine HCl (Venlafaxine Hcl 100 Mg Tablet) 200 mg PO 1000 [facility] Last Admin: 06/01/20 08:34 Dose: 200 mg Documented by: Venlafaxine HCl (Venlafaxine Hcl 100 Mg Tablet) 100 mg PO QHS [facility] Last Admin: 05/31/20 22:13 Dose: 100 mg Documented by: STROKE Vital Signs/Narrative: Vital Signs Temp Pulse Resp BP Pulse Ox 06/01/20 08:34 68 128/77 H 06/01/20 08:27 97.8 F 64 20 H 128/77 H 97 06/01/20 07:36 95 06/01/20 07:34 88 22 H 95 Medical Necessity - Tobacco Use Smoking Status: Never smoker Assessment/Plan All Active Problems COVID-19 (Acute) Rhabdomyolysis (Acute) 69-year-old male admitted with a complaint of lethargy and shortness of breath. #Acute hypoxic respiratory insufficiency due to COVID 19 infection now on 2L of oxygen feels much better. On remdesivir and decadron ID and pulmonology on board on breathing treatment. Titrate oxygen to maintain sats >90% #Lactic acidosis:resolved. #COVID 19 infection: as above #Type 2 diabetes mellitus: On glimepiride and Lantus 20 units daily. Insulin sliding scale. Accu-Cheks AC at bedtime. metformin and pioglitazone on hold. #Depression: On venlafaxine #Hyperlipidemia: On statin #Hypertension: On hydrochlorothiazide and metoprolol #DVT prophylaxis: Lovenox #CODE STATUS: full code Inpatient E&M: 61360 Subs Hosp L3
--- NOTE | 2020-06-01 11:50 | CASEMGMT ---
DEMARIO CONNOLLY Assessment: Phone interview with patient due to COVID precautions for initial transition planning/care coordination assessment. RN MOHSEN introduced self and role at [facility], pt voices understanding and consents to assessment. Pt is A/Ox4 and answers questions appropriately. Care providers, pharmacy, and demographics verified. Presentation: increased weakness, cough, sob and bilat knee pain Admitting dx: COVID 19 infection PCP:Ervin Marin Pharmacy:[facility] Insurance:[employer] Prescription Benefit: yes Living Will/HPOA:Pt states his son is his HPOA, Axel Flores and he has a LW. Pt is aware that LW/HPOA is not on file at [facility]. LNOK: son Axel Living Arrangements: Pt lives in a 1 1/2 story home and reports he recently has done a major remodel project. He has widened all the door, put the bedroom on the main floor, brought washer and dryer to main level, added a walk in shower and installed high toilets. Pt states he is I in ADL's. Transportation:Pt drives self and has no concerns with transportation. States he only leaves his home once every 3 wks. DME/HHC: Pt reports he has a bipap machine at home but has not used for years. He has previously used [facility]HS and has been in [facility] TCU. Pt is current with [facility] and states they are to visit today and wanted this CM to make them aware he was in the hospital. Left vm with Aman in [facility]. Pt also pays privately for aides through [employer] and private hires another to shop for his groceries. Pt states no concerns with going home at time of dc. Pt states he may need some therapy at home. He reports no smoking or drinking of ETOH. Pt states no further concerns/needs. CM to follow for any further dc planning/needs. Advised pt to ask for CM if any further questions/concerns/needs arise, voices understanding. Pt goal: Home with home therapy Plan:Home and CM to follow therapy.
[2020-06-01 12:39] LABS: Pathologist Review Reviewed
[2020-06-01 12:40] LABS: Pathologist Review Reviewed
[2020-06-01] MEDS: Acetaminophen 325 MG Tablet 650 MG PO (14:19)
[2020-06-01 18:31] LABS: Bedside Glucose 330 mg/dL (70-110)
[2020-06-01] MEDS: cycloBENZAPRine HCl 10 MG Tablet PO (20:08)
[2020-06-01] MEDS: Atorvastatin Calcium 80 MG Tablet PO (20:09)
[2020-06-02] VITALS (17 sets, daily range): BP systolic 116–139; BP diastolic 58–107; PULSE 54–72; RESP 12–27; TEMP 36.8–37.2; O2SAT 95–99; BMI 43.4
[2020-06-02 00:40] LABS: Bedside Glucose 379 mg/dL (70-110)
[2020-06-02 04:25] LABS: Hematocrit 35.2 % (40-54); Hemoglobin 11.2 g/dL (13.0-16.5); Mean Corp Hgb Conc 31.8 g/dL (32-36); Mean Corpuscular Hgb 27.9 pg (27.0-32.0); Mean Corpuscular Volume 87.6 fL (80-94); Mean Platelet Vol. 9.8 fl (6.2-12.0); Platelet Count 123 K/mm3 (150-450); RBC Distribution Width CV 15.9 % (11.6-14.6); RBC Distribution Width SD 50.7 fl (35.1-43.9); Red Blood Count 4.02 M/mm3 (4.6-6.2); White Blood Count 4.2 K/mm3 (4.4-11.0)
[2020-06-02 04:56] LABS: ALB/GLOB Ratio 0.6 RATIO (0.9-2.4); AST(SGOT) 53 U/L (15-37); Alanine Aminotransfer ALT/SGPT 41 U/L (16-61); Albumin, Serum 2.6 g/dL (3.2-5.0); Alkaline Phosphatase 121 U/L (45-117); Anion Gap 5 (5-15); BUN 34 mg/dL (7-18); BUN/Creat Ratio 40.3 RATIO (10-20); Calcium,Total 8.8 mg/dL (8.5-10.1); Chloride 100 mmol/L (98-107); Creatinine, Serum 0.84 mg/dL (0.70-1.30); EST Glomerular Filtration Rate 96 mL/min (>60); Est Glom Filt Rate - Afr Amer 116 mL/min (>60); Globulin 4.1 g/dL (2.2-4.2); Glucose 178 mg/dL (74-106); Potassium 3.8 mmol/L (3.5-5.1); Protein, Total 6.7 g/dL (6.4-8.2); Sodium Level 137 mmol/L (136-145)
--- NOTE | 2020-06-02 05:27 | PN_ITS ---
Patient Problems: Active and Suspected Problems COVID-19 (Acute) Subjective: The patient was seen and examined at the bedside this morning. Events from the last 24 hours have been reviewed. The patient is currently afebrile, hemodynamically stable and maintaining appropriate oxygen saturations on nocturnal BiPAP. Yesterday, the patient was able to be weaned to 2 L/min via nasal cannula. Liver and renal function are stable. The patient remains on remdesivir and Decadron. Objective: The patient's most recent lab work, culture data and imaging studies have all been personally reviewed. Coronavirus rapid antigen testing was positive on May 31. Blood cultures have shown no growth to date. - Physical Exam Vitals/I&O's: Vital Signs Temp Pulse Resp BP Pulse Ox 98.8 F 54 L 23 H 133/72 H 98 06/02/20 02:00 06/02/20 04:38 06/02/20 04:38 06/02/20 02:00 06/02/20 04:38 Oxygen Flow Rate (L/min) 2 Oxygen Delivery Method Bi-pap Weight: 269 lb 10.005 oz Body Mass Index (BMI) 43.4 Finger Stick Blood Glucose 500 Intake and Output for Last 24 Hours 05/31/20 06/01/20 06/02/20 23:59 23:59 23:59 Intake Total 1050 / 1050 1010 / 1010 120 / 120 Output Total 200 / 200 Balance 1050 / 1050 810 / 810 120 / 120 General: Alert, Cooperative, No apparent distress HEENT: Atraumatic, Normocephalic Oral: No Gingival or Mucosal Lesions/ Ulcerations Neck: Supple, No Nodes, Trachea Midline Lungs: No rhonchi, No wheeze, No rales, Diminished Cardiovascular: Regular rate, Regular Rhythm Abdomen: Bowel Sounds Present, Soft, Non Tender, Obese Extremities: No clubbing, No cyanosis, No edema Skin: No breakdown Musculoskeletal: No Tenderness to Palpation of Joints or Extremities Lymphatic: No Cervical, Supraclavicular, or Inguinal Adenopathy Neurological: Cranial nerves II-XII grossly intact, Neuro grossly intact Psych/Mental Status: Normal Affect, Appropriate Labs (Last 48 Hours) 05/31/20 05/31/20 05/31/20 11:00 11:00 11:00 WBC 2.5 L RBC 4.36 L Hgb 12.1 L Hct 37.6 L MCV 86.2 MCH 27.8 MCHC 32.2 RDW Std Deviation 49.9 H RDW Coeff of [place] 15.9 H Plt Count 111 L MPV 9.6 Immature Gran % (Auto) 0.400 Neut % (Auto) 66.1 Lymph % (Auto) 13.4 L Reeves % (Auto) 19.7 H Eos % (Auto) 0.0 Baso % (Auto) 0.4 Absolute Neuts (auto) 1.7 L Absolute Lymphs (auto) 0.34 L Nucleated RBC % 0 Differential Comment SCANNED Diff Path Review Reviewed D-Dimer Quant (PE/DVT) Sodium 133 L Potassium 4.0 Chloride 96 L Carbon Dioxide 30.0 Anion Gap 7 BUN 28 H Creatinine 0.99 Estim Creat Clear Calc 65.84 Est GFR (MDRD) Af Amer 96 Est GFR (MDRD) Non-Af 79 BUN/Creatinine Ratio 28.2 H Glucose 189 H Lactic Acid 3.0 H* Calcium 9.0 Total Bilirubin 0.80 AST 56 H ALT 42 Alkaline Phosphatase 127 H B-Natriuretic Peptide Total Protein 7.2 Albumin 2.9 L Globulin 4.3 H Albumin/Globulin Ratio 0.7 L Procalcitonin Urine Color Urine Clarity Urine pH Ur Specific [place] Urine Protein Urine Glucose (UA) Urine Ketones Urine Occult Blood Urine Nitrite Urine Bilirubin Urine Urobilinogen Ur Leukocyte Esterase Urine RBC Urine WBC Ur Squamous Epith Cells Urine Bacteria Urine Mucus POC Glucose 05/31/20 05/31/20 05/31/20 14:20 14:20 14:20 WBC RBC Hgb Hct MCV MCH MCHC RDW Std Deviation RDW Coeff of [place] Plt Count MPV Immature Gran % (Auto) Neut % (Auto) Lymph % (Auto) Reeves % (Auto) Eos % (Auto) Baso % (Auto) Absolute Neuts (auto) Absolute Lymphs (auto) Nucleated RBC % Differential Comment Diff Path Review D-Dimer Quant (PE/DVT) 1.74 H* Sodium Potassium Chloride Carbon Dioxide Anion Gap BUN Creatinine Estim Creat Clear Calc Est GFR (MDRD) Af Amer Est GFR (MDRD) Non-Af BUN/Creatinine Ratio Glucose Lactic Acid Calcium Total Bilirubin AST ALT Alkaline Phosphatase B-Natriuretic Peptide 31.3 Total Protein Albumin Globulin Albumin/Globulin Ratio Procalcitonin 0.32 H Urine Color Urine Clarity Urine pH Ur Specific [place] Urine Protein Urine Glucose (UA) Urine Ketones Urine Occult Blood Urine Nitrite Urine Bilirubin Urine Urobilinogen Ur Leukocyte Esterase Urine RBC Urine WBC Ur Squamous Epith Cells Urine Bacteria Urine Mucus POC Glucose 05/31/20 05/31/20 05/31/20 14:20 15:20 16:33 WBC RBC Hgb Hct MCV MCH MCHC RDW Std Deviation RDW Coeff of [place] Plt Count MPV Immature Gran % (Auto) Neut % (Auto) Lymph % (Auto) Reeves % (Auto) Eos % (Auto) Baso % (Auto) Absolute Neuts (auto) Absolute Lymphs (auto) Nucleated RBC % Differential Comment Diff Path Review D-Dimer Quant (PE/DVT) Sodium Potassium Chloride Carbon Dioxide Anion Gap BUN Creatinine Estim Creat Clear Calc Est GFR (MDRD) Af Amer Est GFR (MDRD) Non-Af BUN/Creatinine Ratio Glucose Lactic Acid 1.4 Calcium Total Bilirubin AST ALT Alkaline Phosphatase 125 H B-Natriuretic Peptide Total Protein Albumin Globulin Albumin/Globulin Ratio Procalcitonin Urine Color Urine Clarity Urine pH Ur Specific [place] Urine Protein Urine Glucose (UA) Urine Ketones Urine Occult Blood Urine Nitrite Urine Bilirubin Urine Urobilinogen Ur Leukocyte Esterase Urine RBC Urine WBC Ur Squamous Epith Cells Urine Bacteria Urine Mucus POC Glucose 191 H 05/31/20 05/31/20 06/01/20 22:11 23:25 04:00 WBC 2.4 L RBC 4.11 L Hgb 11.5 L Hct 35.7 L MCV 86.9 MCH 28.0 MCHC 32.2 RDW Std Deviation 50.9 H RDW Coeff of [place] 15.9 H Plt Count 105 L MPV 9.8 Immature Gran % (Auto) 0.400 Neut % (Auto) 72.4 H Lymph % (Auto) 13.6 L Reeves % (Auto) 13.6 H Eos % (Auto) 0.0 Baso % (Auto) 0.0 Absolute Neuts (auto) 1.7 L Absolute Lymphs (auto) 0.32 L Nucleated RBC % 0 Differential Comment Diff Path Review Reviewed D-Dimer Quant (PE/DVT) Sodium Potassium Chloride Carbon Dioxide Anion Gap BUN Creatinine Estim Creat Clear Calc Est GFR (MDRD) Af Amer Est GFR (MDRD) Non-Af BUN/Creatinine Ratio Glucose Lactic Acid Calcium Total Bilirubin AST ALT Alkaline Phosphatase B-Natriuretic Peptide Total Protein Albumin Globulin Albumin/Globulin Ratio Procalcitonin Urine Color Yellow Urine Clarity Clear Urine pH 6.0 Ur Specific [place] 1.020 Urine Protein 30 H Urine Glucose (UA) 250 H Urine Ketones 15 H Urine Occult Blood Negative Urine Nitrite Negative Urine Bilirubin Negative Urine Urobilinogen Normal Ur Leukocyte Esterase Negative Urine RBC 0 SEEN Urine WBC 0 SEEN Ur Squamous Epith Cells 0-5 SEEN Urine Bacteria 0 SEEN Urine Mucus 0 SEEN POC Glucose 341 H 06/01/20 06/01/20 06/01/20 04:00 08:24 11:14 WBC RBC Hgb Hct MCV MCH MCHC RDW Std Deviation RDW Coeff of [place] Plt Count MPV Immature Gran % (Auto) Neut % (Auto) Lymph % (Auto) Reeves % (Auto) Eos % (Auto) Baso % (Auto) Absolute Neuts (auto) Absolute Lymphs (auto) Nucleated RBC % Differential Comment Diff Path Review D-Dimer Quant (PE/DVT) Sodium 137 Potassium 4.0 Chloride 100 Carbon Dioxide 30.0 Anion Gap 7 BUN 27 H Creatinine 0.83 Estim Creat Clear Calc 75.80 Est GFR (MDRD) Af Amer 118 Est GFR (MDRD) Non-Af 97 BUN/Creatinine Ratio 32.5 H Glucose 252 H Lactic Acid Calcium 8.6 Total Bilirubin 0.60 AST 51 H ALT 41 Alkaline Phosphatase 119 H B-Natriuretic Peptide Total Protein 6.9 Albumin 2.6 L Globulin 4.3 H Albumin/Globulin Ratio 0.6 L Procalcitonin Urine Color Urine Clarity Urine pH Ur Specific [place] Urine Protein Urine Glucose (UA) Urine Ketones Urine Occult Blood Urine Nitrite Urine Bilirubin Urine Urobilinogen Ur Leukocyte Esterase Urine RBC Urine WBC Ur Squamous Epith Cells Urine Bacteria Urine Mucus POC Glucose 181 H 248 H 06/01/20 06/01/20 06/02/20 16:54 20:02 04:08 WBC 4.2 L RBC 4.02 L Hgb 11.2 L Hct 35.2 L MCV 87.6 MCH 27.9 MCHC 31.8 L RDW Std Deviation 50.7 H RDW Coeff of [place] 15.9 H Plt Count 123 L MPV 9.8 Immature Gran % (Auto) Neut % (Auto) Lymph % (Auto) Reeves % (Auto) Eos % (Auto) Baso % (Auto) Absolute Neuts (auto) Absolute Lymphs (auto) Nucleated RBC % Differential Comment Diff Path Review D-Dimer Quant (PE/DVT) Sodium Potassium Chloride Carbon Dioxide Anion Gap BUN Creatinine Estim Creat Clear Calc Est GFR (MDRD) Af Amer Est GFR (MDRD) Non-Af BUN/Creatinine Ratio Glucose Lactic Acid Calcium Total Bilirubin AST ALT Alkaline Phosphatase B-Natriuretic Peptide Total Protein Albumin Globulin Albumin/Globulin Ratio Procalcitonin Urine Color Urine Clarity Urine pH Ur Specific [place] Urine Protein Urine Glucose (UA) Urine Ketones Urine Occult Blood Urine Nitrite Urine Bilirubin Urine Urobilinogen Ur Leukocyte Esterase Urine RBC Urine WBC Ur Squamous Epith Cells Urine Bacteria Urine Mucus POC Glucose 330 H 379 H 06/02/20 04:08 WBC RBC Hgb Hct MCV MCH MCHC RDW Std Deviation RDW Coeff of [place] Plt Count MPV Immature Gran % (Auto) Neut % (Auto) Lymph % (Auto) Reeves % (Auto) Eos % (Auto) Baso % (Auto) Absolute Neuts (auto) Absolute Lymphs (auto) Nucleated RBC % Differential Comment Diff Path Review D-Dimer Quant (PE/DVT) Sodium 137 Potassium 3.8 Chloride 100 Carbon Dioxide 32.0 Anion Gap 5 BUN 34 H Creatinine 0.84 Estim Creat Clear Calc 74.90 Est GFR (MDRD) Af Amer 116 Est GFR (MDRD) Non-Af 96 BUN/Creatinine Ratio 40.3 H Glucose 178 H Lactic Acid Calcium 8.8 Total Bilirubin 0.40 AST 53 H ALT 41 Alkaline Phosphatase 121 H B-Natriuretic Peptide Total Protein 6.7 Albumin 2.6 L Globulin 4.1 Albumin/Globulin Ratio 0.6 L Procalcitonin Urine Color Urine Clarity Urine pH Ur Specific [place] Urine Protein Urine Glucose (UA) Urine Ketones Urine Occult Blood Urine Nitrite Urine Bilirubin Urine Urobilinogen Ur Leukocyte Esterase Urine RBC Urine WBC Ur Squamous Epith Cells Urine Bacteria Urine Mucus POC Glucose Microbiology 05/31/20 10:50 Mucosa - Nasopharyngeal SARS-CoV-2 Antigen (Rapid) - Final SARS-CoV-2 (COVID 19) Clinical Impression(s) from Imaging Studies Brain CT 05/31/20 10:53 IMPRESSION: Chronic involutional changes of the brain. Electronically Signed: Areli Wolfe MD at 12:03 EST Tel , Service support , Chest X-Ray 05/31/20 10:53 IMPRESSION: Ill-defined subpleural groundglass opacities are seen more prominent in the lung bases , may represent atypical pneumonia or viral pneumonia (COVID-19 ?). Electronically Signed: Areli Wolfe MD at 12:05 EST Tel , Service support , Current Medications Acetaminophen (Acetaminophen 325 Mg Tablet) 650 mg PO Q6H PRN PRN PRN Reason: Pain Score 1-10 Last Admin: 06/01/20 14:19 Dose: 650 mg Documented by: Atorvastatin Calcium (Atorvastatin Calcium 80 Mg Tablet) 80 mg PO QHS [facility] Last Admin: 06/01/20 20:09 Dose: 80 mg Documented by: Bupropion HCl (Bupropion (Xl) 150 Mg Tablet.Xl) 150 mg PO DAILY [facility] Last Admin: 06/01/20 08:34 Dose: 150 mg Documented by: Cholecalciferol (Cholecalciferol (Vit D3) 1,000 Unit (25mcg)) 1,000 unit PO DAILY [facility] Last Admin: 06/01/20 08:31 Dose: 1,000 unit Documented by: Cyclobenzaprine HCl (Cyclobenzaprine Hcl 10 Mg Tablet) 10 mg PO QHS [facility] Last Admin: 06/01/20 20:08 Dose: 10 mg Documented by: Dexamethasone (Dexamethasone 4 Mg Tablet) 6 mg PO DAILY [facility] Stop: 06/09/20 10:01 Enoxaparin Sodium (Enoxaparin 40 Mg/0.4 Ml Syringe) 40 mg SC BID [facility] Last Admin: 06/01/20 20:09 Dose: 40 mg Documented by: Hydrochlorothiazide (Hydrochlorothiazide 25 Mg Tablet) 25 mg PO DAILY [facility] Last Admin: 06/01/20 08:31 Dose: 25 mg Documented by: Remdesivir 100 mg/ Sodium (Chloride) 250 mls @ 125 mls/hr IV DAILY [facility] Stop: 06/04/20 11:59 Last Infusion: 06/01/20 13:40 Dose: Infused Documented by: Insulin Glargine (Insulin Glargine 100 Units/Ml Pen) 20 units SC DAILY [facility] Last Admin: 06/01/20 08:30 Dose: 20 u Documented by: Insulin Human Lispro (Insulin Lispro 100 Unit/Ml Insuln.Pen) 0 unit SC [facility]; Protocol Last Admin: 06/01/20 20:10 Dose: 10 u Documented by: Levothyroxine Sodium (Levothyroxine 75 Mcg Tablet) 75 mcg PO DAILY [facility] Last Admin: 06/01/20 08:34 Dose: 75 mcg Documented by: Meloxicam (Meloxicam 15 Mg Tablet) 15 mg PO DAILY [facility] Last Admin: 06/01/20 08:31 Dose: 15 mg Documented by: Metoprolol Tartrate (Metoprolol Tartrate 50 Mg Tablet) 50 mg PO BID [facility] Last Admin: 06/01/20 20:09 Dose: 50 mg Documented by: Nitroglycerin (Nitroglycerin (Inpatient Use) 0.4 Mg Tab.Subl) 0.4 mg SL Q5M PRN PRN Reason: CARDIAC/CHEST PAIN Ondansetron HCl (Ondansetron 4 Mg/2 Ml Vial) 4 mg IV Q8H PRN PRN PRN Reason: NAUSEA/VOMITING Oxybutynin Chloride (Oxybutynin 5 Mg Tablet) 5 mg PO BID [facility] Last Admin: 06/01/20 20:08 Dose: 5 mg Documented by: Sodium Chloride (0.9% Saline Lock 10 Ml Syringe) 10 - 40 ml IV UD PRN PRN Reason: SALINE FLUSH Last Admin: 06/01/20 10:11 Dose: 10 ml Documented by: Venlafaxine HCl (Venlafaxine Hcl 100 Mg Tablet) 200 mg PO 1000 [facility] Last Admin: 06/01/20 08:34 Dose: 200 mg Documented by: Venlafaxine HCl (Venlafaxine Hcl 100 Mg Tablet) 100 mg PO QHS [facility] Last Admin: 06/01/20 20:08 Dose: 100 mg Documented by: Medical Necessity - Tobacco Use Smoking Status: Never smoker Assessment/Plan All Active Problems COVID-19 (Acute) Rhabdomyolysis (Acute) RECOMMENDATIONS: 1. Wean supplemental oxygen to maintain saturations at or above 90%. 2. Continue remdesivir as ordered. Continue to monitor liver and renal function. 3. Continue Decadron to complete 10-day treatment course. 4. Continue prophylactic dosing of Lovenox. 5. Continue BiPAP therapy nightly and with naps. 6. Continue sliding scale insulin coverage. 7. Encourage incentive spirometer use and mobilize patient as tolerated. IMPRESSIONS: 1. Acute hypoxemic respiratory insufficiency secondary to COVID-19 pneumonia Plan to continue current supportive measures including supplemental oxygen to maintain saturations at or above 90%. Continue remdesivir and Decadron as ordered. Continue to monitor liver and renal function accordingly. Continue prophylactic Lovenox as ordered. 2. Severe obstructive sleep apnea The patient has known severe obstructive sleep apnea. Accordingly, BiPAP therapy will be utilized while the patient is sleeping or napping throughout the day. 3. Obesity/hypertension/hyperlipidemia/diabetes mellitus Complicates care, management, recovery and prognosis. Continue home medications as indicated. Continue sliding scale insulin coverage. This note was generated with [employer] dictation software. It may contain incorrect words, spelling, and punctuation that were not noted in checking the note before signing. Inpatient E&M: 72771 Subs Hosp L2
[2020-06-02] MEDS: Metoprolol Tartrate 50 MG Tablet PO ×2 (09:17→22:39)
[2020-06-02] MEDS: 0.9% Saline Lock 10 ML Syringe IV (09:17)
[2020-06-02] MEDS: Meloxicam 15 MG Tablet PO (09:18)
[2020-06-02] MEDS: Oxybutynin 5 MG Tablet PO ×2 (09:18→22:39)
[2020-06-02] MEDS: hydroCHLOROthiazide 25 MG Tablet PO (09:18)
[2020-06-02] MEDS: dexAMETHasone 4 MG Tablet 6 MG PO (09:18)
[2020-06-02] MEDS: Levothyroxine 75 MCG Tablet PO (09:18)
[2020-06-02] MEDS: buPROPion (XL) 150 MG TABLET.XL PO (09:19)
[2020-06-02] MEDS: Enoxaparin 40 MG/0.4 ML Syringe SC ×2 (09:19→22:40)
--- NOTE | 2020-06-02 09:40 | PCM.PN.HOSP ---
Patient Problems: Active and Suspected Problems COVID-19 (Acute) Subjective: Patient seen and examined. He was on BIPAP. He had no complaints. Review of systems was otherwise negative. He feels he is getting better. Review of systems otherwise negative. Has remained hemodynamically stable and is on 2 L of oxygen. Vitals/I&O's: Vital Signs Temp Pulse Resp BP Pulse Ox 98.9 F 67 18 138/88 H 95 06/02/20 09:01 06/02/20 09:17 06/02/20 09:01 06/02/20 09:01 06/02/20 09:01 Oxygen Flow Rate (L/min) 2 Oxygen Delivery Method Nasal Cannula Weight: 269 lb 10.005 oz Body Mass Index (BMI) 43.4 Finger Stick Blood Glucose 500 Intake and Output for Last 24 Hours 05/31/20 06/01/20 06/02/20 23:59 23:59 23:59 Intake Total 1050 / 1050 1010 / 1010 120 / 120 Output Total 200 / 200 Balance 1050 / 1050 810 / 810 120 / 120 General: Alert, Oriented x3, Cooperative HEENT: Atraumatic, PERRLA, EOMI, Normocephalic Oral: Dry Mucosa Neck: Supple, No JVD, Negative Carotid Bruits Lungs: - - diminished breath sounds bibasally, no wheezes or crackles. on BIPAP at time of review Cardiovascular: Regular rate, Regular Rhythm, Normal S1, Normal S2, No murmurs Abdomen: Bowel Sounds Present, Soft, Non Tender Extremities: No clubbing, No cyanosis, No edema, Capillary Refill Less than 3 Seconds Skin: No rashes, No breakdown Musculoskeletal: No Tenderness to Palpation of Joints or Extremities Lymphatic: No Cervical, Supraclavicular, or Inguinal Adenopathy Neurological: Cranial nerves II-XII grossly intact, Neuro grossly intact, Motor Exam 5/5 strength throughout Psych/Mental Status: Normal Affect, Appropriate, Alert and oriented to time, place, person, mood and affect Microbiology Past 72 Hours 05/31/20 10:50 Mucosa - Nasopharyngeal SARS-CoV-2 Antigen (Rapid) - Final SARS-CoV-2 (COVID 19) Laboratory Results 05/31/20 11:00: Diff Path Review Reviewed 06/01/20 04:00: Diff Path Review Reviewed 06/01/20 11:14: POC Glucose 248 H 06/01/20 16:54: POC Glucose 330 H 06/01/20 20:02: POC Glucose 379 H 06/02/20 04:08: WBC 4.2 L, RBC 4.02 L, Hgb 11.2 L, Hct 35.2 L, MCV 87.6, MCH 27.9, MCHC 31.8 L, RDW Std Deviation 50.7 H, RDW Coeff of [place] 15.9 H, Plt Count 123 L, MPV 9.8 06/02/20 04:08: Sodium 137, Potassium 3.8, Chloride 100, Carbon Dioxide 32.0, Anion Gap 5, BUN 34 H, Creatinine 0.84, Estim Creat Clear Calc 74.90, Est GFR (MDRD) Af Amer 116, Est GFR (MDRD) Non-Af 96, BUN/Creatinine Ratio 40.3 H, Glucose 178 H, Calcium 8.8, Total Bilirubin 0.40, AST 53 H, ALT 41, Alkaline Phosphatase 121 H, Total Protein 6.7, Albumin 2.6 L, Globulin 4.1, Albumin/Globulin Ratio 0.6 L Diagnostic Data Brain CT 05/31/20 10:53 IMPRESSION: Chronic involutional changes of the brain. Electronically Signed: Areli Wolfe MD at 12:03 EST Tel , Service support , Chest X-Ray 05/31/20 10:53 IMPRESSION: Ill-defined subpleural groundglass opacities are seen more prominent in the lung bases , may represent atypical pneumonia or viral pneumonia (COVID-19 ?). Electronically Signed: Areli Wolfe MD at 12:05 EST Tel , Service support , Current Medications Acetaminophen (Acetaminophen 325 Mg Tablet) 650 mg PO Q6H PRN PRN PRN Reason: Pain Score 1-10 Last Admin: 06/01/20 14:19 Dose: 650 mg Documented by: Atorvastatin Calcium (Atorvastatin Calcium 80 Mg Tablet) 80 mg PO QHS [facility] Last Admin: 06/01/20 20:09 Dose: 80 mg Documented by: Bupropion HCl (Bupropion (Xl) 150 Mg Tablet.Xl) 150 mg PO DAILY [facility] Last Admin: 06/02/20 09:19 Dose: 150 mg Documented by: Cholecalciferol (Cholecalciferol (Vit D3) 1,000 Unit (25mcg)) 1,000 unit PO DAILY [facility] Last Admin: 06/02/20 09:18 Dose: 1,000 unit Documented by: Cyclobenzaprine HCl (Cyclobenzaprine Hcl 10 Mg Tablet) 10 mg PO QHS [facility] Last Admin: 06/01/20 20:08 Dose: 10 mg Documented by: Dexamethasone (Dexamethasone 4 Mg Tablet) 6 mg PO DAILY [facility] Stop: 06/09/20 10:01 Last Admin: 06/02/20 09:18 Dose: 6 mg Documented by: Enoxaparin Sodium (Enoxaparin 40 Mg/0.4 Ml Syringe) 40 mg SC BID [facility] Last Admin: 06/02/20 09:19 Dose: 40 mg Documented by: Hydrochlorothiazide (Hydrochlorothiazide 25 Mg Tablet) 25 mg PO DAILY [facility] Last Admin: 06/02/20 09:18 Dose: 25 mg Documented by: Remdesivir 100 mg/ Sodium (Chloride) 250 mls @ 125 mls/hr IV DAILY [facility] Stop: 06/04/20 11:59 Last Infusion: 06/01/20 13:40 Dose: Infused Documented by: Insulin Glargine (Insulin Glargine 100 Units/Ml Pen) 20 units SC DAILY [facility] Last Admin: 06/02/20 09:19 Dose: 20 u Documented by: Insulin Human Lispro (Insulin Lispro 100 Unit/Ml Insuln.Pen) 0 unit SC [facility]; Protocol Last Admin: 06/02/20 09:20 Dose: Not Given Documented by: Levothyroxine Sodium (Levothyroxine 75 Mcg Tablet) 75 mcg PO DAILY [facility] Last Admin: 06/02/20 09:18 Dose: 75 mcg Documented by: Meloxicam (Meloxicam 15 Mg Tablet) 15 mg PO DAILY [facility] Last Admin: 06/02/20 09:18 Dose: 15 mg Documented by: Metoprolol Tartrate (Metoprolol Tartrate 50 Mg Tablet) 50 mg PO BID [facility] Last Admin: 06/02/20 09:17 Dose: 50 mg Documented by: Nitroglycerin (Nitroglycerin (Inpatient Use) 0.4 Mg Tab.Subl) 0.4 mg SL Q5M PRN PRN Reason: CARDIAC/CHEST PAIN Ondansetron HCl (Ondansetron 4 Mg/2 Ml Vial) 4 mg IV Q8H PRN PRN PRN Reason: NAUSEA/VOMITING Oxybutynin Chloride (Oxybutynin 5 Mg Tablet) 5 mg PO BID [facility] Last Admin: 06/02/20 09:18 Dose: 5 mg Documented by: Sodium Chloride (0.9% Saline Lock 10 Ml Syringe) 10 - 40 ml IV UD PRN PRN Reason: SALINE FLUSH Last Admin: 06/02/20 09:17 Dose: 10 ml Documented by: Venlafaxine HCl (Venlafaxine Hcl 100 Mg Tablet) 200 mg PO 1000 [facility] Last Admin: 06/02/20 09:18 Dose: 200 mg Documented by: Venlafaxine HCl (Venlafaxine Hcl 100 Mg Tablet) 100 mg PO QHS [facility] Last Admin: 06/01/20 20:08 Dose: 100 mg Documented by: STROKE Vital Signs/Narrative: Vital Signs Temp Pulse Resp BP Pulse Ox 06/02/20 09:17 67 06/02/20 09:01 98.9 F 67 18 138/88 H 95 06/02/20 07:20 58 L 24 H 99 Medical Necessity - Tobacco Use Smoking Status: Never smoker Assessment/Plan All Active Problems COVID-19 (Acute) Rhabdomyolysis (Acute) 69-year-old male admitted with a complaint of lethargy and shortness of breath. #Acute hypoxic respiratory insufficiency due to COVID 19 infection on BIPAP at time of review feels much better. On remdesivir and decadron in cumulative positive balance by 1.98L, though he doesnt have a morgan catheter in, so I am doubtful about how accurate this is. ID and pulmonology on board on breathing treatment. Titrate oxygen to maintain sats >90% #Lactic acidosis:resolved. #COVID 19 infection: as above #Type 2 diabetes mellitus: On glimepiride and Lantus 20 units daily. Insulin sliding scale. Accu-Cheks AC at bedtime. metformin and pioglitazone on hold. #Depression: On venlafaxine #Hyperlipidemia: On statin #Hypertension: On hydrochlorothiazide and metoprolol #DVT prophylaxis: Lovenox Disposition: will likely need placement. #CODE STATUS: full code Inpatient E&M: 45008 Subs Hosp L3
--- NOTE | 2020-06-02 10:07 | CASEMGMT ---
RN MOHSEN NOTE: Palliative screening completed using [facility] screening tool. Pt does not meet criteria/no referral made at this time. Key [id number] RN CM
--- NOTE | 2020-06-02 10:13 | CASEMGMT ---
Addendum entered by Dayan Raphael 06/02/20 11:55: Social Work Phone call to pt room. SW introduced self and role of SW. SW discussed discharge plans with pt. Pt stating that he wants to go home and feels like he can care for himself. SW reviewed therapy notes with pt and discussed concerns with need for min A x 2 with transfers and ambulation. SW presented idea of short term stay in a SNF and reviewed a list of SNF providers that are in patient's geographic region, medical needs and insurance network. Pt continues to state he can return home and that [facility] and [facility] can increase their services. Pt agreeable for SW to contact these organizations to see if they can increase services and will call pt back. AHSAN will send a list of SNF providers including quality and resource use data into room with pt nurse. Phone call to [facility] and they see pt once a week for medication management and vital signs. The amount of visits will not change. Phone call to [facility] and waiting on return call. SW to continue to follow for discharge planning. JOSE MIGUEL Kilgore Original Note: Social Work SW reviewed pt chart and spoke with OT. Pt required Min Ax2 for ambulation and transfers and was unsteady, shaky, painful and quick to fatigue. Pt lives at home alone and admits to OT he has not been eating well nor bathing and has had falls at home recently. Pt is connected with the [facility] and has private duty aides through [facility]. AHSAN attempted to call pt in room, due to Covid precautions, and discuss short term SNF placement. No answer on room phone or cell phone. AHSAN will continue to attempt to contact. JOSE MIGUEL Kilgore
--- NOTE | 2020-06-02 10:19 | CASEMGMT ---
Per RNCM, pt states his son Axel Flores is HCPOA and pt has also completed Living Will. RNCM updated pt documents are not in [facility] system. JOSE MIGUEL Kilgore
--- NOTE | 2020-06-02 10:27 | PCM.PN.ID ---
Patient Problems: Active and Suspected Problems COVID-19 (Acute) Subjective: Feeling better, cough/headache/sore throat improved, no fever - Physical Exam Vitals/I&O's: Vital Signs Temp Pulse Resp BP Pulse Ox 98.9 F 67 18 138/88 H 95 06/02/20 09:01 06/02/20 09:17 06/02/20 09:01 06/02/20 09:01 06/02/20 09:01 Oxygen Flow Rate (L/min) 2 Oxygen Delivery Method Nasal Cannula Weight: 122.3 kg Body Mass Index (BMI) 43.4 Finger Stick Blood Glucose 500 Intake and Output for Last 24 Hours 05/31/20 06/01/20 06/02/20 23:59 23:59 23:59 Intake Total 1050 / 1050 1010 / 1010 120 / 120 Output Total 200 / 200 Balance 1050 / 1050 810 / 810 120 / 120 General: Alert, Cooperative, No apparent distress Lungs: Clear to auscultation, Diminished Cardiovascular: Regular rate, Regular Rhythm Abdomen: Soft, Non Tender, Non-Distended Skin: No rashes Microbiology Past 72 Hours 05/31/20 10:50 Mucosa - Nasopharyngeal SARS-CoV-2 Antigen (Rapid) - Final SARS-CoV-2 (COVID 19) Laboratory Results 05/31/20 11:00: Diff Path Review Reviewed 06/01/20 04:00: Diff Path Review Reviewed 06/01/20 11:14: POC Glucose 248 H 06/01/20 16:54: POC Glucose 330 H 06/01/20 20:02: POC Glucose 379 H 06/02/20 04:08: WBC 4.2 L, RBC 4.02 L, Hgb 11.2 L, Hct 35.2 L, MCV 87.6, MCH 27.9, MCHC 31.8 L, RDW Std Deviation 50.7 H, RDW Coeff of Linnette 15.9 H, Plt Count 123 L, MPV 9.8 06/02/20 04:08: Sodium 137, Potassium 3.8, Chloride 100, Carbon Dioxide 32.0, Anion Gap 5, BUN 34 H, Creatinine 0.84, Estim Creat Clear Calc 74.90, Est GFR (MDRD) Af Amer 116, Est GFR (MDRD) Non-Af 96, BUN/Creatinine Ratio 40.3 H, Glucose 178 H, Calcium 8.8, Total Bilirubin 0.40, AST 53 H, ALT 41, Alkaline Phosphatase 121 H, Total Protein 6.7, Albumin 2.6 L, Globulin 4.1, Albumin/Globulin Ratio 0.6 L Current Medications Acetaminophen (Acetaminophen 325 Mg Tablet) 650 mg PO Q6H PRN PRN PRN Reason: Pain Score 1-10 Last Admin: 06/01/20 14:19 Dose: 650 mg Documented by: Atorvastatin Calcium (Atorvastatin Calcium 80 Mg Tablet) 80 mg PO QHS [facility] Last Admin: 06/01/20 20:09 Dose: 80 mg Documented by: Bupropion HCl (Bupropion (Xl) 150 Mg Tablet.Xl) 150 mg PO DAILY [facility] Last Admin: 06/02/20 09:19 Dose: 150 mg Documented by: Cholecalciferol (Cholecalciferol (Vit D3) 1,000 Unit (25mcg)) 1,000 unit PO DAILY [facility] Last Admin: 06/02/20 09:18 Dose: 1,000 unit Documented by: Cyclobenzaprine HCl (Cyclobenzaprine Hcl 10 Mg Tablet) 10 mg PO QHS [facility] Last Admin: 06/01/20 20:08 Dose: 10 mg Documented by: Dexamethasone (Dexamethasone 4 Mg Tablet) 6 mg PO DAILY [facility] Stop: 06/09/20 10:01 Last Admin: 06/02/20 09:18 Dose: 6 mg Documented by: Enoxaparin Sodium (Enoxaparin 40 Mg/0.4 Ml Syringe) 40 mg SC BID [facility] Last Admin: 06/02/20 09:19 Dose: 40 mg Documented by: Hydrochlorothiazide (Hydrochlorothiazide 25 Mg Tablet) 25 mg PO DAILY [facility] Last Admin: 06/02/20 09:18 Dose: 25 mg Documented by: Remdesivir 100 mg/ Sodium (Chloride) 250 mls @ 125 mls/hr IV DAILY [facility] Stop: 06/04/20 11:59 Last Infusion: 06/01/20 13:40 Dose: Infused Documented by: Insulin Glargine (Insulin Glargine 100 Units/Ml Pen) 20 units SC DAILY [facility] Last Admin: 06/02/20 09:19 Dose: 20 u Documented by: Insulin Human Lispro (Insulin Lispro 100 Unit/Ml Insuln.Pen) 0 unit SC [facility]; Protocol Last Admin: 06/02/20 09:20 Dose: Not Given Documented by: Levothyroxine Sodium (Levothyroxine 75 Mcg Tablet) 75 mcg PO DAILY [facility] Last Admin: 06/02/20 09:18 Dose: 75 mcg Documented by: Meloxicam (Meloxicam 15 Mg Tablet) 15 mg PO DAILY [facility] Last Admin: 06/02/20 09:18 Dose: 15 mg Documented by: Metoprolol Tartrate (Metoprolol Tartrate 50 Mg Tablet) 50 mg PO BID [facility] Last Admin: 06/02/20 09:17 Dose: 50 mg Documented by: Nitroglycerin (Nitroglycerin (Inpatient Use) 0.4 Mg Tab.Subl) 0.4 mg SL Q5M PRN PRN Reason: CARDIAC/CHEST PAIN Ondansetron HCl (Ondansetron 4 Mg/2 Ml Vial) 4 mg IV Q8H PRN PRN PRN Reason: NAUSEA/VOMITING Oxybutynin Chloride (Oxybutynin 5 Mg Tablet) 5 mg PO BID [facility] Last Admin: 06/02/20 09:18 Dose: 5 mg Documented by: Sodium Chloride (0.9% Saline Lock 10 Ml Syringe) 10 - 40 ml IV UD PRN PRN Reason: SALINE FLUSH Last Admin: 06/02/20 09:17 Dose: 10 ml Documented by: Venlafaxine HCl (Venlafaxine Hcl 100 Mg Tablet) 200 mg PO 1000 [facility] Last Admin: 06/02/20 09:18 Dose: 200 mg Documented by: Venlafaxine HCl (Venlafaxine Hcl 100 Mg Tablet) 100 mg PO QHS [facility] Last Admin: 06/01/20 20:08 Dose: 100 mg Documented by: Medical Necessity - Tobacco Use Smoking Status: Never smoker Route of nutrition/ use of supplements: [] Nutritional Intake: [] IV Site: [] Dougherty Catheter: [] - Assessment/Plan Antibiotics: [] Assessment/Plan: [] covid with hypoxia - sx started about 14 days ago at this point. On dex, remdesivir. D-dimer at 1.7. On lovenox 40mg bid. Likely home soon. Quarantine for one more week. Discharge to complete 10 total days of dex. Ok for covid vaccine in 1-2 weeks. Feeling better today. Will follow
[2020-06-02 10:50] LABS: Bedside Glucose 132 mg/dL (70-110)
[2020-06-02] MEDS: Insulin Lispro 100 UNIT/ML INSULN.PEN SC ×3 (12:13→22:36)
--- NOTE | 2020-06-02 14:13 | CASEMGMT ---
Social Work Return call from [facility] who state they are not making home visits for anyone with active Covid. Phone call to pt room and informed pt that [facility] will visit 1x week for med set up and vital signs. Private duty aids will not visit when pt is in Covid precautions. Pt expresses understanding. SW inquired about d/c plan now that home health aides will not be available. Pt continues to state he does not want to go to a SNF. SW reiterated safety concerns with returning home alone with no assistance. With pt permission, phone call to pt son Axel and updated him on d/c disposition. Son states that pt needs to be in an Assisted Living permanently however pt refuses to go. Axel is understanding and agreeable to need for SNF, but also does not feel like pt will be agreeable. Axel will speak with pt about discharge plan. SW read list of SNF providers including the quality ratings. SW also provided son with SW contact information. SW will continue to follow for discharge planning. JOSE MIGUEL Kilgore
[2020-06-02 15:36] LABS: Bedside Glucose 298 mg/dL (70-110)
--- NOTE | 2020-06-02 15:40 | PCM.NTREPORT ---
Nutrition Therapy Report - History Nutrition Services has been consulted to:: Manage nutrient details of diet order Current diet / nutrition support order:: consistent CHO, 1800 calorie controlled- mechanical (minced/moist) - Anthropometric Measurements Height:: 5 ft 6 in Weight:: 122.3 kg Body Mass Index (BMI):: 43.4 - Relevant Labs Relevant Labs:: WBC 4.2 K/mm3 (4.4-11.0) L 06/02/20 04:08 RBC 4.02 M/mm3 (4.6-6.2) L 06/02/20 04:08 Hgb 11.2 g/dL (13.0-16.5) L 06/02/20 04:08 Hct 35.2 % (40-54) L 06/02/20 04:08 MCHC 31.8 g/dL (32-36) L 06/02/20 04:08 RDW Std Deviation 50.7 fl (35.1-43.9) H 06/02/20 04:08 RDW Coeff of Linnette 15.9 % (11.6-14.6) H 06/02/20 04:08 Plt Count 123 K/mm3 (150-450) L 06/02/20 04:08 Neut % (Auto) 72.4 % (47-70) H 06/01/20 04:00 Lymph % (Auto) 13.6 % (19-41) L 06/01/20 04:00 Thurston % (Auto) 13.6 % (0-10) H 06/01/20 04:00 Absolute Neuts (auto) 1.7 X10^3/uL (2.0-7.7) L 06/01/20 04:00 Absolute Lymphs (auto) 0.32 X10^3/uL (0.83-4.51) L 06/01/20 04:00 D-Dimer Quant (PE/DVT) 1.74 FEU/ug/m (0.27-0.49) H* 05/31/20 14:20 Sodium 133 mmol/L (136-145) L 05/31/20 11:00 Chloride 96 mmol/L (98-107) L 05/31/20 11:00 BUN 34 mg/dL (7-18) H 06/02/20 04:08 BUN/Creatinine Ratio 40.3 RATIO (10-20) H 06/02/20 04:08 Glucose 178 mg/dL (74-106) H 06/02/20 04:08 Lactic Acid 3.0 mmol/L (0.4-1.9) H* 05/31/20 11:00 AST 53 U/L (15-37) H 06/02/20 04:08 Alkaline Phosphatase 121 U/L (45-117) H 06/02/20 04:08 Albumin 2.6 g/dL (3.2-5.0) L 06/02/20 04:08 Globulin 4.3 g/dL (2.2-4.2) H 06/01/20 04:00 Albumin/Globulin Ratio 0.6 RATIO (0.9-2.4) L 06/02/20 04:08 Procalcitonin 0.32 ng/mL (0.00-0.09) H 05/31/20 14:20 - Assessment Food / Nutrition-Related History:: Remains in isolation d/t COVID-19. Spoke w/ pt via room phone. States appetite/intake has gotten better since admission but is not at his baseline. 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 UBW ~280# and admission wt was 269.9#-10.1#/3.6% wt loss is significant for acute malnutrition. SMBG every AM at home. States he drinks 3-4 bottles of Boost/day at home. Pt does not have teeth. - Nutrition Diagnosis Problem / Etiology / Signs & Symptoms (PES):: severe, acute malnutrition r/t inadequate energy intake w/ increased energy needs d/t COVID-19 estimated PO intake meeting <50% of estimated nutritional needs x 1 week, unintentional wt loss of 10.1#/4.5% x 1 week Evidence of Malnutrition Exists:: Yes Severe PCM:: Acute Illness - Nutrition Intervention Nutrition Prescription:: [id number] teodoro / day (RMR x1.3 -500). 97-122 gm pro/day (.8-1 gm pro/kg). 2000 ml/day (1 ml/teodoro) - Food / Nutrient Delivery Interventions Summary of nutrition intervention:: Pt agreeable to ONS w/ meals until adequate, consistent PO intake is established. Would like ice cream w/ dinner tonight. Otherwise,no questions for RDN. Nutrition support ordered as / adjusted to:: will liberalize diet to CHO controlled (no protein/calorie restriction) d/t acute malnutrition and will add Glucerna ONS w/ meals. - MNT Monitoring Further MNT monitoring and evaluation required?: Yes MNT Follow-up in:: 3-5 days
[2020-06-02 17:26] LABS: Bedside Glucose 452 mg/dL (70-110)
[2020-06-02] MEDS: Insulin Lispro 100 UNIT/ML INSULN.PEN 10 UNIT SC (17:35)
[2020-06-02 18:15] LABS: Bedside Glucose 397 mg/dL (70-110)
[2020-06-02] MEDS: cycloBENZAPRine HCl 10 MG Tablet PO (22:40)
[2020-06-02] MEDS: Atorvastatin Calcium 80 MG Tablet PO (22:40)
[2020-06-03] VITALS (18 sets, daily range): BP systolic 117–141; BP diastolic 39–85; PULSE 51–75; RESP 12–24; TEMP 36.7–37.3; O2SAT 92–100
[2020-06-03 05:58] LABS: Hematocrit 35.5 % (40-54); Hemoglobin 11.4 g/dL (13.0-16.5); Mean Corp Hgb Conc 32.1 g/dL (32-36); Mean Corpuscular Hgb 28.2 pg (27.0-32.0); Mean Corpuscular Volume 87.9 fL (80-94); Mean Platelet Vol. 9.9 fl (6.2-12.0); Platelet Count 133 K/mm3 (150-450); RBC Distribution Width CV 15.7 % (11.6-14.6); RBC Distribution Width SD 50.4 fl (35.1-43.9); Red Blood Count 4.04 M/mm3 (4.6-6.2)
[2020-06-03 06:15] LABS: ALB/GLOB Ratio 0.6 RATIO (0.9-2.4); AST(SGOT) 46 U/L (15-37); Alanine Aminotransfer ALT/SGPT 42 U/L (16-61); Albumin, Serum 2.5 g/dL (3.2-5.0); Alkaline Phosphatase 130 U/L (45-117); Anion Gap 5 (5-15); BUN 27 mg/dL (7-18); BUN/Creat Ratio 39.3 RATIO (10-20); Calcium,Total 8.8 mg/dL (8.5-10.1); Chloride 100 mmol/L (98-107); Creatinine, Serum 0.69 mg/dL (0.70-1.30); EST Glomerular Filtration Rate 121 mL/min (>60); Est Glom Filt Rate - Afr Amer 147 mL/min (>60); Estimated Creatinine Clearance 62.91 ml/min; Globulin 4.2 g/dL (2.2-4.2); Glucose 178 mg/dL (74-106); Potassium 3.8 mmol/L (3.5-5.1); Protein, Total 6.7 g/dL (6.4-8.2); Sodium Level 136 mmol/L (136-145)
[2020-06-03] MEDS: Insulin Lispro 100 UNIT/ML INSULN.PEN SC ×4 (06:19→22:34)
[2020-06-03 06:20] LABS: Bedside Glucose 353 mg/dL (70-110)
[2020-06-03 06:30] LABS: Bedside Glucose 152 mg/dL (70-110)
--- NOTE | 2020-06-03 07:16 | PCM.PN.PUL ---
Patient Problems: Active and Suspected Problems COVID-19 (Acute) Subjective: The patient was seen and examined at the bedside this morning. Events from the last 24 hours have been reviewed. The patient continues to require minimal supplemental O2 and has been tolerant of nocturnal BiPAP therapy. Liver and renal function are stable. The patient remains on remdesivir and Decadron. Objective: The patient's most recent lab work, culture data and imaging studies have all been personally reviewed. Coronavirus rapid antigen testing was positive on May 31. Blood cultures have shown no growth to date. - Physical Exam Vitals/I&O's: Vital Signs Temp Pulse Resp BP Pulse Ox 98.1 F 52 L 20 H 117/39 L 98 06/03/20 02:20 06/03/20 03:48 06/03/20 03:48 06/03/20 02:20 06/03/20 03:48 Oxygen Flow Rate (L/min) 2 Oxygen Delivery Method Bi-pap Weight: 269 lb 10.005 oz Body Mass Index (BMI) 43.4 Finger Stick Blood Glucose 500 Intake and Output for Last 24 Hours 06/01/20 06/02/20 06/03/20 23:59 23:59 23:59 Intake Total 1010 / 1010 1220 / 1220 0 / 0 Output Total 200 / 200 Balance 810 / 810 1220 / 1220 0 / 0 General: Alert, No apparent distress HEENT: Atraumatic, Normocephalic Oral: Moist Mucosa, No Gingival or Mucosal Lesions/ Ulcerations Neck: Supple, No Nodes, Trachea Midline Lungs: No rhonchi, No wheeze, No rales, Diminished Cardiovascular: Regular rate, Regular Rhythm, Normal S1, Normal S2, No murmurs Abdomen: Bowel Sounds Present, Soft, Non Tender, Obese Extremities: No clubbing, No cyanosis, No edema Skin: No breakdown Musculoskeletal: No Tenderness to Palpation of Joints or Extremities Lymphatic: No Cervical, Supraclavicular, or Inguinal Adenopathy Neurological: Cranial nerves II-XII grossly intact, Neuro grossly intact Psych/Mental Status: Normal Affect, Appropriate Labs (Last 48 Hours) 05/31/20 06/01/20 06/01/20 11:00 04:00 08:24 WBC RBC Hgb Hct MCV MCH MCHC RDW Std Deviation RDW Coeff of Linnette Plt Count MPV Diff Path Review Reviewed Reviewed Sodium Potassium Chloride Carbon Dioxide Anion Gap BUN Creatinine Estim Creat Clear Calc Est GFR (MDRD) Af Amer Est GFR (MDRD) Non-Af BUN/Creatinine Ratio Glucose Calcium Total Bilirubin AST ALT Alkaline Phosphatase Total Protein Albumin Globulin Albumin/Globulin Ratio POC Glucose 181 H 06/01/20 06/01/20 06/01/20 11:14 16:54 20:02 WBC RBC Hgb Hct MCV MCH MCHC RDW Std Deviation RDW Coeff of Linnette Plt Count MPV Diff Path Review Sodium Potassium Chloride Carbon Dioxide Anion Gap BUN Creatinine Estim Creat Clear Calc Est GFR (MDRD) Af Amer Est GFR (MDRD) Non-Af BUN/Creatinine Ratio Glucose Calcium Total Bilirubin AST ALT Alkaline Phosphatase Total Protein Albumin Globulin Albumin/Globulin Ratio POC Glucose 248 H 330 H 379 H 06/02/20 06/02/20 06/02/20 04:08 04:08 08:58 WBC 4.2 L RBC 4.02 L Hgb 11.2 L Hct 35.2 L MCV 87.6 MCH 27.9 MCHC 31.8 L RDW Std Deviation 50.7 H RDW Coeff of Linnette 15.9 H Plt Count 123 L MPV 9.8 Diff Path Review Sodium 137 Potassium 3.8 Chloride 100 Carbon Dioxide 32.0 Anion Gap 5 BUN 34 H Creatinine 0.84 Estim Creat Clear Calc 74.90 Est GFR (MDRD) Af Amer 116 Est GFR (MDRD) Non-Af 96 BUN/Creatinine Ratio 40.3 H Glucose 178 H Calcium 8.8 Total Bilirubin 0.40 AST 53 H ALT 41 Alkaline Phosphatase 121 H Total Protein 6.7 Albumin 2.6 L Globulin 4.1 Albumin/Globulin Ratio 0.6 L POC Glucose 132 H 06/02/20 06/02/20 06/02/20 12:11 15:49 17:29 WBC RBC Hgb Hct MCV MCH MCHC RDW Std Deviation RDW Coeff of Linnette Plt Count MPV Diff Path Review Sodium Potassium Chloride Carbon Dioxide Anion Gap BUN Creatinine Estim Creat Clear Calc Est GFR (MDRD) Af Amer Est GFR (MDRD) Non-Af BUN/Creatinine Ratio Glucose Calcium Total Bilirubin AST ALT Alkaline Phosphatase Total Protein Albumin Globulin Albumin/Globulin Ratio POC Glucose 298 H 452 H* 397 H 06/02/20 06/03/20 06/03/20 22:34 04:23 04:23 WBC 5.0 RBC 4.04 L Hgb 11.4 L Hct 35.5 L MCV 87.9 MCH 28.2 MCHC 32.1 RDW Std Deviation 50.4 H RDW Coeff of Linnette 15.7 H Plt Count 133 L MPV 9.9 Diff Path Review Sodium 136 Potassium 3.8 Chloride 100 Carbon Dioxide 31.0 Anion Gap 5 BUN 27 H Creatinine 0.69 L Estim Creat Clear Calc 62.91 Est GFR (MDRD) Af Amer 147 Est GFR (MDRD) Non-Af 121 BUN/Creatinine Ratio 39.3 H Glucose 178 H Calcium 8.8 Total Bilirubin 0.40 AST 46 H ALT 42 Alkaline Phosphatase 130 H Total Protein 6.7 Albumin 2.5 L Globulin 4.2 Albumin/Globulin Ratio 0.6 L POC Glucose 353 H 06/03/20 06:17 WBC RBC Hgb Hct MCV MCH MCHC RDW Std Deviation RDW Coeff of Linnette Plt Count MPV Diff Path Review Sodium Potassium Chloride Carbon Dioxide Anion Gap BUN Creatinine Estim Creat Clear Calc Est GFR (MDRD) Af Amer Est GFR (MDRD) Non-Af BUN/Creatinine Ratio Glucose Calcium Total Bilirubin AST ALT Alkaline Phosphatase Total Protein Albumin Globulin Albumin/Globulin Ratio POC Glucose 152 H Microbiology 05/31/20 11:15 Blood Culture (Wb) - Right Hand Blood Culture - Preliminary No growth in 48 hours. 05/31/20 11:00 Blood Culture (Wb) - Anticubital Left Blood Culture - Preliminary No growth in 48 hours. Clinical Impression(s) from Imaging Studies Brain CT 05/31/20 10:53 IMPRESSION: Chronic involutional changes of the brain. Electronically Signed: Areli Wolfe MD at 12:03 EST Tel , Service support , Chest X-Ray 05/31/20 10:53 IMPRESSION: Ill-defined subpleural groundglass opacities are seen more prominent in the lung bases , may represent atypical pneumonia or viral pneumonia (COVID-19 ?). Electronically Signed: Areli Wolfe MD at 12:05 EST Tel , Service support , Current Medications Acetaminophen (Acetaminophen 325 Mg Tablet) 650 mg PO Q6H PRN PRN PRN Reason: Pain Score 1-10 Last Admin: 06/01/20 14:19 Dose: 650 mg Documented by: Atorvastatin Calcium (Atorvastatin Calcium 80 Mg Tablet) 80 mg PO QHS [facility] Last Admin: 06/02/20 22:40 Dose: 80 mg Documented by: Bupropion HCl (Bupropion (Xl) 150 Mg Tablet.Xl) 150 mg PO DAILY [facility] Last Admin: 06/02/20 09:19 Dose: 150 mg Documented by: Cholecalciferol (Cholecalciferol (Vit D3) 1,000 Unit (25mcg)) 1,000 unit PO DAILY [facility] Last Admin: 06/02/20 09:18 Dose: 1,000 unit Documented by: Cyclobenzaprine HCl (Cyclobenzaprine Hcl 10 Mg Tablet) 10 mg PO QHS [facility] Last Admin: 06/02/20 22:40 Dose: 10 mg Documented by: Dexamethasone (Dexamethasone 4 Mg Tablet) 6 mg PO DAILY [facility] Stop: 06/09/20 10:01 Last Admin: 06/02/20 09:18 Dose: 6 mg Documented by: Enoxaparin Sodium (Enoxaparin 40 Mg/0.4 Ml Syringe) 40 mg SC BID [facility] Last Admin: 06/02/20 22:40 Dose: 40 mg Documented by: Hydrochlorothiazide (Hydrochlorothiazide 25 Mg Tablet) 25 mg PO DAILY [facility] Last Admin: 06/02/20 09:18 Dose: 25 mg Documented by: Remdesivir 100 mg/ Sodium (Chloride) 250 mls @ 125 mls/hr IV DAILY [facility] Stop: 06/04/20 11:59 Last Infusion: 06/02/20 14:15 Dose: Infused Documented by: Insulin Glargine (Insulin Glargine 100 Units/Ml Pen) 20 units SC DAILY [facility] Last Admin: 06/02/20 09:19 Dose: 20 u Documented by: Insulin Human Lispro (Insulin Lispro 100 Unit/Ml Insuln.Pen) 0 unit SC [facility]; Protocol Last Admin: 06/03/20 06:19 Dose: 2 u Documented by: Levothyroxine Sodium (Levothyroxine 75 Mcg Tablet) 75 mcg PO DAILY [facility] Last Admin: 06/02/20 09:18 Dose: 75 mcg Documented by: Meloxicam (Meloxicam 15 Mg Tablet) 15 mg PO DAILY [facility] Last Admin: 06/02/20 09:18 Dose: 15 mg Documented by: Metoprolol Tartrate (Metoprolol Tartrate 50 Mg Tablet) 50 mg PO BID [facility] Last Admin: 06/02/20 22:39 Dose: 50 mg Documented by: Nitroglycerin (Nitroglycerin (Inpatient Use) 0.4 Mg Tab.Subl) 0.4 mg SL Q5M PRN PRN Reason: CARDIAC/CHEST PAIN Ondansetron HCl (Ondansetron 4 Mg/2 Ml Vial) 4 mg IV Q8H PRN PRN PRN Reason: NAUSEA/VOMITING Oxybutynin Chloride (Oxybutynin 5 Mg Tablet) 5 mg PO BID [facility] Last Admin: 06/02/20 22:39 Dose: 5 mg Documented by: Sodium Chloride (0.9% Saline Lock 10 Ml Syringe) 10 - 40 ml IV UD PRN PRN Reason: SALINE FLUSH Last Admin: 06/02/20 09:17 Dose: 10 ml Documented by: Venlafaxine HCl (Venlafaxine Hcl 100 Mg Tablet) 200 mg PO 1000 [facility] Last Admin: 06/02/20 09:18 Dose: 200 mg Documented by: Venlafaxine HCl (Venlafaxine Hcl 100 Mg Tablet) 100 mg PO QHS [facility] Last Admin: 06/02/20 22:39 Dose: 100 mg Documented by: Medical Necessity - Tobacco Use Smoking Status: Never smoker Assessment/Plan All Active Problems COVID-19 (Acute) Rhabdomyolysis (Acute) RECOMMENDATIONS: 1. Wean supplemental oxygen to maintain saturations at or above 90%. 2. Continue remdesivir. Continue to monitor liver and renal function. 3. Continue Decadron to complete 10-day treatment course. 4. Continue prophylactic dosing of Lovenox. 5. Continue BiPAP therapy nightly and with naps. 6. Continue sliding scale insulin coverage. 7. Encourage incentive spirometer use and mobilize patient as tolerated. 8. The patient can be discharged home from my perspective to complete his treatment course of Decadron. Will sign off. Please call with any additional questions. IMPRESSIONS: 1. Acute hypoxemic respiratory insufficiency secondary to COVID-19 pneumonia Plan to continue current supportive measures including supplemental oxygen to maintain saturations at or above 90%. Continue remdesivir and Decadron as ordered. Continue to monitor liver and renal function accordingly. Continue prophylactic Lovenox as ordered. 2. Severe obstructive sleep apnea The patient has known severe obstructive sleep apnea. Accordingly, BiPAP therapy will be utilized while the patient is sleeping or napping throughout the day. 3. Obesity/hypertension/hyperlipidemia/diabetes mellitus Complicates care, management, recovery and prognosis. Continue home medications as indicated. Continue sliding scale insulin coverage. This note was generated with [employer] dictation software. It may contain incorrect words, spelling, and punctuation that were not noted in checking the note before signing. Inpatient E&M: 53540 Subs Hosp L2
[2020-06-03] MEDS: Oxybutynin 5 MG Tablet PO ×2 (11:48→22:36)
[2020-06-03] MEDS: Metoprolol Tartrate 50 MG Tablet PO ×2 (11:49→22:36)
[2020-06-03] MEDS: buPROPion (XL) 150 MG TABLET.XL PO (11:49)
[2020-06-03] MEDS: Levothyroxine 75 MCG Tablet PO (11:49)
[2020-06-03] MEDS: Meloxicam 15 MG Tablet PO (11:49)
[2020-06-03] MEDS: dexAMETHasone 4 MG Tablet 6 MG PO (11:49)
[2020-06-03] MEDS: hydroCHLOROthiazide 25 MG Tablet PO (11:49)
[2020-06-03] MEDS: Enoxaparin 40 MG/0.4 ML Syringe SC ×2 (11:50→22:36)
--- NOTE | 2020-06-03 12:30 | CASEMGMT ---
Social Work SW spoke to pt via phone to discuss discharge plan. Pt states he spoke with his son and he and son decided pt has no other option but to go to SNF. Pt preferred provided is [facility]. Phone call to [facility] and they do not have any beds available. SW informed pt of this and pt second choice is [facility]. SW left VM with Shirley at [facility] requesting return call with bed availability. Referral Faxed. Will await return call and then notify pt. Plan: [facility] SNF, pending acceptance and insurance preauth. JOSE MIGUEL Kilgore
[2020-06-03 13:16] LABS: Bedside Glucose 252 mg/dL (70-110)
--- NOTE | 2020-06-03 15:07 | PCM.PN.HOSP ---
Patient Problems: Active and Suspected Problems COVID-19 (Acute) Subjective: Patient seen and examined. He felt well and said though he was still coughing, it wasnt productive. He denied any chest pain or palpitations. He had a mild fever this morning. Review of systems is otherwise negative. He is on 2L of oxygen. Vitals/I&O's: Vital Signs Temp Pulse Resp BP Pulse Ox 99.2 F H 65 20 H 141/74 H 98 06/03/20 14:30 06/03/20 14:30 06/03/20 14:30 06/03/20 14:30 06/03/20 14:30 Oxygen Flow Rate (L/min) 2 Oxygen Delivery Method Nasal Cannula Weight: 269 lb 10.005 oz Body Mass Index (BMI) 43.4 Finger Stick Blood Glucose 500 Intake and Output for Last 24 Hours 06/01/20 06/02/20 06/03/20 23:59 23:59 23:59 Intake Total 1010 / 1010 1220 / 1220 250 / 250 Output Total 200 / 200 Balance 810 / 810 1220 / 1220 250 / 250 General: Alert, Oriented x3, Cooperative HEENT: Atraumatic, PERRLA, EOMI, Normocephalic Oral: Dry Mucosa Neck: Supple, No JVD, Negative Carotid Bruits Lungs: - - diminished breath sounds bibasally, no wheezes or crackles. on 2L of oxygen Cardiovascular: Regular rate, Regular Rhythm, Normal S1, Normal S2, No murmurs Abdomen: Bowel Sounds Present, Soft, Non Tender Extremities: No clubbing, No cyanosis, No edema, Capillary Refill Less than 3 Seconds Skin: No rashes, No breakdown Musculoskeletal: No Tenderness to Palpation of Joints or Extremities Lymphatic: No Cervical, Supraclavicular, or Inguinal Adenopathy Neurological: Cranial nerves II-XII grossly intact, Neuro grossly intact, Motor Exam 5/5 strength throughout Psych/Mental Status: Normal Affect, Appropriate, Alert and oriented to time, place, person, mood and affect Microbiology Past 72 Hours 05/31/20 11:15 Blood Culture (Wb) - Right Hand Blood Culture - Preliminary No growth in 48 hours. 05/31/20 11:00 Blood Culture (Wb) - Anticubital Left Blood Culture - Preliminary No growth in 48 hours. 05/31/20 10:50 Mucosa - Nasopharyngeal SARS-CoV-2 Antigen (Rapid) - Final SARS-CoV-2 (COVID 19) Laboratory Results 06/02/20 12:11: POC Glucose 298 H 06/02/20 15:49: POC Glucose 452 H* 06/02/20 17:29: POC Glucose 397 H 06/02/20 22:34: POC Glucose 353 H 06/03/20 04:23: WBC 5.0, RBC 4.04 L, Hgb 11.4 L, Hct 35.5 L, MCV 87.9, MCH 28.2, MCHC 32.1, RDW Std Deviation 50.4 H, RDW Coeff of Linnette 15.7 H, Plt Count 133 L, MPV 9.9 06/03/20 04:23: Sodium 136, Potassium 3.8, Chloride 100, Carbon Dioxide 31.0, Anion Gap 5, BUN 27 H, Creatinine 0.69 L, Estim Creat Clear Calc 62.91, Est GFR (MDRD) Af Amer 147, Est GFR (MDRD) Non-Af 121, BUN/Creatinine Ratio 39.3 H, Glucose 178 H, Calcium 8.8, Total Bilirubin 0.40, AST 46 H, ALT 42, Alkaline Phosphatase 130 H, Total Protein 6.7, Albumin 2.5 L, Globulin 4.2, Albumin/Globulin Ratio 0.6 L 06/03/20 06:17: POC Glucose 152 H 06/03/20 11:46: POC Glucose 252 H Diagnostic Data Brain CT 05/31/20 10:53 IMPRESSION: Chronic involutional changes of the brain. Electronically Signed: Areli Wolfe MD at 12:03 EST Tel , Service support , Chest X-Ray 05/31/20 10:53 IMPRESSION: Ill-defined subpleural groundglass opacities are seen more prominent in the lung bases , may represent atypical pneumonia or viral pneumonia (COVID-19 ?). Electronically Signed: Areli Wolfe MD at 12:05 EST Tel , Service support , Current Medications Acetaminophen (Acetaminophen 325 Mg Tablet) 650 mg PO Q6H PRN PRN PRN Reason: Pain Score 1-10 Last Admin: 06/01/20 14:19 Dose: 650 mg Documented by: Atorvastatin Calcium (Atorvastatin Calcium 80 Mg Tablet) 80 mg PO QHS [facility] Last Admin: 06/02/20 22:40 Dose: 80 mg Documented by: Bupropion HCl (Bupropion (Xl) 150 Mg Tablet.Xl) 150 mg PO DAILY [facility] Last Admin: 06/03/20 11:49 Dose: 150 mg Documented by: Cholecalciferol (Cholecalciferol (Vit D3) 1,000 Unit (25mcg)) 1,000 unit PO DAILY [facility] Last Admin: 06/03/20 11:49 Dose: 1,000 unit Documented by: Cyclobenzaprine HCl (Cyclobenzaprine Hcl 10 Mg Tablet) 10 mg PO QHS [facility] Last Admin: 06/02/20 22:40 Dose: 10 mg Documented by: Dexamethasone (Dexamethasone 4 Mg Tablet) 6 mg PO DAILY [facility] Stop: 06/09/20 10:01 Last Admin: 06/03/20 11:49 Dose: 6 mg Documented by: Enoxaparin Sodium (Enoxaparin 40 Mg/0.4 Ml Syringe) 40 mg SC BID [facility] Last Admin: 06/03/20 11:50 Dose: 40 mg Documented by: Hydrochlorothiazide (Hydrochlorothiazide 25 Mg Tablet) 25 mg PO DAILY [facility] Last Admin: 06/03/20 11:49 Dose: 25 mg Documented by: Remdesivir 100 mg/ Sodium (Chloride) 250 mls @ 125 mls/hr IV DAILY [facility] Stop: 06/04/20 11:59 Last Infusion: 06/03/20 13:52 Dose: Infused Documented by: Insulin Glargine (Insulin Glargine 100 Units/Ml Pen) 20 units SC DAILY [facility] Last Admin: 06/03/20 11:55 Dose: 20 u Documented by: Insulin Human Lispro (Insulin Lispro 100 Unit/Ml Insuln.Pen) 0 unit SC [facility]; Protocol Last Admin: 06/03/20 11:56 Dose: 4 u Documented by: Levothyroxine Sodium (Levothyroxine 75 Mcg Tablet) 75 mcg PO DAILY [facility] Last Admin: 06/03/20 11:49 Dose: 75 mcg Documented by: Meloxicam (Meloxicam 15 Mg Tablet) 15 mg PO DAILY [facility] Last Admin: 06/03/20 11:49 Dose: 15 mg Documented by: Metoprolol Tartrate (Metoprolol Tartrate 50 Mg Tablet) 50 mg PO BID [facility] Last Admin: 06/03/20 11:49 Dose: 50 mg Documented by: Nitroglycerin (Nitroglycerin (Inpatient Use) 0.4 Mg Tab.Subl) 0.4 mg SL Q5M PRN PRN Reason: CARDIAC/CHEST PAIN Ondansetron HCl (Ondansetron 4 Mg/2 Ml Vial) 4 mg IV Q8H PRN PRN PRN Reason: NAUSEA/VOMITING Oxybutynin Chloride (Oxybutynin 5 Mg Tablet) 5 mg PO BID [facility] Last Admin: 06/03/20 11:48 Dose: 5 mg Documented by: Sodium Chloride (0.9% Saline Lock 10 Ml Syringe) 10 - 40 ml IV UD PRN PRN Reason: SALINE FLUSH Last Admin: 06/02/20 09:17 Dose: 10 ml Documented by: Venlafaxine HCl (Venlafaxine Hcl 100 Mg Tablet) 200 mg PO 1000 [facility] Last Admin: 06/03/20 11:55 Dose: 200 mg Documented by: Venlafaxine HCl (Venlafaxine Hcl 100 Mg Tablet) 100 mg PO QHS [facility] Last Admin: 06/02/20 22:39 Dose: 100 mg Documented by: STROKE Vital Signs/Narrative: Vital Signs Temp Pulse Resp BP Pulse Ox 06/03/20 14:30 99.2 F H 65 20 H 141/74 H 98 06/03/20 12:30 62 06/03/20 11:49 67 Medical Necessity - Tobacco Use Smoking Status: Never smoker Assessment/Plan All Active Problems COVID-19 (Acute) Rhabdomyolysis (Acute) 69-year-old male admitted with a complaint of lethargy and shortness of breath. #Acute hypoxic respiratory insufficiency due to COVID 19 infection now on 2L of oxygen feels much better. On remdesivir and decadron ID and pulmonology on board on breathing treatment. Titrate oxygen to maintain sats >90% #Lactic acidosis:resolved. #COVID 19 infection: as above #Type 2 diabetes mellitus: On glimepiride and Lantus 20 units daily. Insulin sliding scale. Accu-Cheks AC at bedtime. metformin and pioglitazone on hold. #Depression: On venlafaxine #Hyperlipidemia: On statin #Hypertension: On hydrochlorothiazide and metoprolol #DVT prophylaxis: Lovenox Disposition: will likely need placement. He is reluctant to go to SNF, because he says his previous experiences in SNF weren't positive. I did consumer credit counselor him that considering how weak he is, he has a high chance of readmission if he goes home. Patient now willing to reconsider SNF placement. CODE STATUS: full code Inpatient E&M: 23890 Subs Hosp L2
[2020-06-03 20:51] LABS: Bedside Glucose 282 mg/dL (70-110)
[2020-06-03] MEDS: cycloBENZAPRine HCl 10 MG Tablet PO (22:36)
[2020-06-03] MEDS: Atorvastatin Calcium 80 MG Tablet PO (22:36)
[2020-06-03 22:50] LABS: Bedside Glucose 372 mg/dL (70-110)
[2020-06-04] VITALS (16 sets, daily range): BP systolic 116–149; BP diastolic 58–88; PULSE 43–65; RESP 12–26; TEMP 36.8–37.2; O2SAT 92–100
[2020-06-04 04:19] LABS: Hemoglobin 10.8 g/dL (13.0-16.5); Mean Corp Hgb Conc 31.8 g/dL (32-36); Mean Corpuscular Hgb 27.8 pg (27.0-32.0); Mean Corpuscular Volume 87.4 fL (80-94); Mean Platelet Vol. 9.3 fl (6.2-12.0); Platelet Count 110 K/mm3 (150-450); RBC Distribution Width CV 15.9 % (11.6-14.6); RBC Distribution Width SD 50.2 fl (35.1-43.9); Red Blood Count 3.89 M/mm3 (4.6-6.2); White Blood Count 4.8 K/mm3 (4.4-11.0)
[2020-06-04 04:34] LABS: ALB/GLOB Ratio 0.6 RATIO (0.9-2.4); AST(SGOT) 40 U/L (15-37); Alanine Aminotransfer ALT/SGPT 44 U/L (16-61); Albumin, Serum 2.4 g/dL (3.2-5.0); Alkaline Phosphatase 144 U/L (45-117); Anion Gap 5 (5-15); BUN 23 mg/dL (7-18); BUN/Creat Ratio 29.8 RATIO (10-20); Calcium,Total 8.5 mg/dL (8.5-10.1); Chloride 99 mmol/L (98-107); Creatinine, Serum 0.77 mg/dL (0.70-1.30); EST Glomerular Filtration Rate 106 mL/min (>60); Est Glom Filt Rate - Afr Amer 128 mL/min (>60); Estimated Creatinine Clearance 62.91 ml/min; Glucose 277 mg/dL (74-106); Potassium 3.9 mmol/L (3.5-5.1); Protein, Total 6.4 g/dL (6.4-8.2); Sodium Level 134 mmol/L (136-145)
[2020-06-04] MEDS: Insulin Lispro 100 UNIT/ML INSULN.PEN SC ×4 (06:37→22:38)
--- NOTE | 2020-06-04 10:11 | PN_ITS ---
Patient Problems: Active and Suspected Problems COVID-19 (Acute) Subjective: Patient seen and examined. He had no complaints this morning and felt well. His shortness of breath had improved. He is now agreeable to going to a [place] [facility] [place] facility though he still states he is scared about it. I did my best to reassure him. He has remained hemodynamically stable. He is on 2L of oxygen. Vitals/I&O's: Vital Signs Temp Pulse Resp BP Pulse Ox 98.5 F 62 26 H 149/88 H 100 06/04/20 09:07 06/04/20 09:07 06/04/20 09:07 06/04/20 09:07 06/04/20 09:30 Oxygen Flow Rate (L/min) 2 Oxygen Delivery Method Nasal Cannula Weight: 269 lb 10.005 oz Body Mass Index (BMI) 43.4 Finger Stick Blood Glucose 500 Intake and Output for Last 24 Hours 06/02/20 06/03/20 06/04/20 23:59 23:59 23:59 Intake Total 1220 / 1220 250 / 400 150 / 150 Balance 1220 / 1220 250 / 400 150 / 150 General: Alert, Oriented x3, Cooperative HEENT: Atraumatic, PERRLA, EOMI, Normocephalic Oral: Dry Mucosa Neck: Supple, No JVD, Negative Carotid Bruits Lungs: - - diminished breath sounds bibasally, no wheezes or crackles. on 2L of oxygen Cardiovascular: Regular rate, Regular Rhythm, Normal S1, Normal S2, No murmurs Abdomen: Bowel Sounds Present, Soft, Non Tender Extremities: No clubbing, No cyanosis, No edema, Capillary Refill Less than 3 Seconds Skin: No rashes, No breakdown Musculoskeletal: No Tenderness to Palpation of Joints or Extremities Lymphatic: No Cervical, Supraclavicular, or Inguinal Adenopathy Neurological: Cranial nerves II-XII grossly intact, Neuro grossly intact, Motor Exam 5/5 strength throughout Psych/Mental Status: Normal Affect, Appropriate, Alert and oriented to time, place, person, mood and affect Microbiology Past 72 Hours 05/31/20 11:15 Blood Culture (Wb) - Right Hand Blood Culture - Preliminary No growth in 48 hours. 05/31/20 11:00 Blood Culture (Wb) - Anticubital Left Blood Culture - Preliminary No growth in 48 hours. Laboratory Results 06/03/20 11:46: POC Glucose 252 H 06/03/20 16:55: POC Glucose 282 H 06/03/20 22:32: POC Glucose 372 H 06/04/20 04:10: WBC 4.8, RBC 3.89 L, Hgb 10.8 L, Hct 34.0 L, MCV 87.4, MCH 27.8, MCHC 31.8 L, RDW Std Deviation 50.2 H, RDW Coeff of Linnette 15.9 H, Plt Count 110 L, MPV 9.3 06/04/20 04:10: Sodium 134 L, Potassium 3.9, Chloride 99, Carbon Dioxide 30.0, Anion Gap 5, BUN 23 H, Creatinine 0.77, Estim Creat Clear Calc 62.91, Est GFR (MDRD) Af Amer 128, Est GFR (MDRD) Non-Af 106, BUN/Creatinine Ratio 29.8 H, Glucose 277 H, Calcium 8.5, Total Bilirubin 0.40, AST 40 H, ALT 44, Alkaline Phosphatase 144 H, Total Protein 6.4, Albumin 2.4 L, Globulin 4.0, Albumin/Globulin Ratio 0.6 L Current Medications Acetaminophen (Acetaminophen 325 Mg Tablet) 650 mg PO Q6H PRN PRN PRN Reason: Pain Score 1-10 Last Admin: 06/01/20 14:19 Dose: 650 mg Documented by: Atorvastatin Calcium (Atorvastatin Calcium 80 Mg Tablet) 80 mg PO QHS [facility] Last Admin: 06/03/20 22:36 Dose: 80 mg Documented by: Bupropion HCl (Bupropion (Xl) 150 Mg Tablet.Xl) 150 mg PO DAILY [facility] Last Admin: 06/03/20 11:49 Dose: 150 mg Documented by: Cholecalciferol (Cholecalciferol (Vit D3) 1,000 Unit (25mcg)) 1,000 unit PO DAILY [facility] Last Admin: 06/03/20 11:49 Dose: 1,000 unit Documented by: Cyclobenzaprine HCl (Cyclobenzaprine Hcl 10 Mg Tablet) 10 mg PO QHS [facility] Last Admin: 06/03/20 22:36 Dose: 10 mg Documented by: Dexamethasone (Dexamethasone 4 Mg Tablet) 6 mg PO DAILY [facility] Stop: 06/09/20 10:01 Last Admin: 06/03/20 11:49 Dose: 6 mg Documented by: Enoxaparin Sodium (Enoxaparin 40 Mg/0.4 Ml Syringe) 40 mg SC BID [facility] Last Admin: 06/03/20 22:36 Dose: 40 mg Documented by: Hydrochlorothiazide (Hydrochlorothiazide 25 Mg Tablet) 25 mg PO DAILY [facility] Last Admin: 06/03/20 11:49 Dose: 25 mg Documented by: Remdesivir 100 mg/ Sodium (Chloride) 250 mls @ 125 mls/hr IV DAILY [facility] Stop: 06/04/20 11:59 Last Admin: 06/04/20 09:11 Dose: 125 mls/hr Documented by: Insulin Glargine (Insulin Glargine 100 Units/Ml Pen) 20 units SC DAILY [facility] Last Admin: 06/04/20 09:07 Dose: 20 u Documented by: Insulin Human Lispro (Insulin Lispro 100 Unit/Ml Insuln.Pen) 0 unit SC ACHS [facility]; Protocol Last Admin: 06/04/20 06:37 Dose: 6 u Documented by: Levothyroxine Sodium (Levothyroxine 75 Mcg Tablet) 75 mcg PO DAILY [facility] Last Admin: 06/03/20 11:49 Dose: 75 mcg Documented by: Meloxicam (Meloxicam 15 Mg Tablet) 15 mg PO DAILY [facility] Last Admin: 06/03/20 11:49 Dose: 15 mg Documented by: Metoprolol Tartrate (Metoprolol Tartrate 50 Mg Tablet) 50 mg PO BID [facility] Last Admin: 06/03/20 22:36 Dose: 50 mg Documented by: Nitroglycerin (Nitroglycerin (Inpatient Use) 0.4 Mg Tab.Subl) 0.4 mg SL Q5M PRN PRN Reason: CARDIAC/CHEST PAIN Ondansetron HCl (Ondansetron 4 Mg/2 Ml Vial) 4 mg IV Q8H PRN PRN PRN Reason: NAUSEA/VOMITING Oxybutynin Chloride (Oxybutynin 5 Mg Tablet) 5 mg PO BID [facility] Last Admin: 06/03/20 22:36 Dose: 5 mg Documented by: Sodium Chloride (0.9% Saline Lock 10 Ml Syringe) 10 - 40 ml IV UD PRN PRN Reason: SALINE FLUSH Last Admin: 06/02/20 09:17 Dose: 10 ml Documented by: Venlafaxine HCl (Venlafaxine Hcl 100 Mg Tablet) 200 mg PO 1000 [facility] Last Admin: 06/03/20 11:55 Dose: 200 mg Documented by: Venlafaxine HCl (Venlafaxine Hcl 100 Mg Tablet) 100 mg PO QHS [facility] Last Admin: 06/03/20 22:36 Dose: 100 mg Documented by: STROKE Vital Signs/Narrative: Vital Signs Temp Pulse Resp BP Pulse Ox 06/04/20 09:30 100 06/04/20 09:07 98.5 F 62 26 H 149/88 H 100 06/04/20 07:00 50 L 24 H 100 Medical Necessity - Tobacco Use Smoking Status: Never smoker Assessment/Plan All Active Problems COVID-19 (Acute) Rhabdomyolysis (Acute) 69-year-old male admitted with a complaint of lethargy and shortness of breath. #Acute hypoxic respiratory insufficiency due to COVID 19 infection * on 2L of oxygen. BIPAP qhs prn * feels much better. On remdesivir and decadron * ID and pulmonology on board * on breathing treatment. Titrate oxygen to maintain sats >90% * #Lactic acidosis:resolved. #COVID 19 infection: as above * #Type 2 diabetes mellitus: * On glimepiride and Lantus 20 units daily. Insulin sliding scale. * Accu-Cheks AC at bedtime. * metformin and pioglitazone on hold. #Depression: On venlafaxine #Hyperlipidemia: On statin #Hypertension: On hydrochlorothiazide and metoprolol #DVT prophylaxis: Lovenox Disposition: now willing to go to SNF. Awaiting precert. CODE STATUS: full code Inpatient E&M: 09617 Subs Hosp L2
[2020-06-04] MEDS: hydroCHLOROthiazide 25 MG Tablet PO (10:52)
[2020-06-04] MEDS: Meloxicam 15 MG Tablet PO (10:52)
[2020-06-04] MEDS: Oxybutynin 5 MG Tablet PO ×2 (10:52→22:36)
[2020-06-04] MEDS: Levothyroxine 75 MCG Tablet PO (10:52)
[2020-06-04] MEDS: Metoprolol Tartrate 50 MG Tablet PO ×2 (10:52→22:55)
[2020-06-04] MEDS: buPROPion (XL) 150 MG TABLET.XL PO (10:52)
[2020-06-04] MEDS: Enoxaparin 40 MG/0.4 ML Syringe SC ×2 (10:53→22:37)
[2020-06-04] MEDS: dexAMETHasone 4 MG Tablet 6 MG PO (10:53)
--- NOTE | 2020-06-04 11:29 | CASEMGMT ---
Social Work SW received message from [facility] stating they are no longer accepting Covid positive patients. The following facilities which are in network with insurance were called and are not able to accept pt due to Covid: [facility] [place] [facility] (pt refuses[facility] - Voice mail left [facility] - Voice mail left (although pt refuses) [facility] and [facility] state it is unlikely that they would accept but requested referrals be sent and decision would be made after review. SW spoke with pt on the phone and informed that [facility] cannot accept and that other options in [facility] and [facility] have been explored and that [facility] and [facility] would consider but not sounding hopeful. Pt is agreeable to [facility] but not [facility]. SW reviewed [facility] List with pt and requested he choose facilities from this list as SW needs to keep looking into options. After much review and discussion pt states he would prefer to go somewhere in [place] but does not express a preference. SW placed call to both facilities in [place]. [facility] - unable to accept Covid patients [facility] - They do have bed availability and are able to accept pt with Covid and in network with pt insurance. Referrals faxed to [facility]. SW will await return call for determination of acceptance. JOSE MIGUEL Kilgore
[2020-06-04 12:30] LABS: Bedside Glucose 178 mg/dL (70-110)
[2020-06-04 13:46] LABS: Bedside Glucose 227 mg/dL (70-110)
--- NOTE | 2020-06-04 15:04 | CASEMGMT ---
Addendum entered by Dayan Raphael 06/04/20 15:52: Social Work SW spoke with [facility] and they are unable to accept pt due to Covid. Phone call to [facility] and they can accept pt tomorrow. Pt, pt son and physician notified. 7000 Convalescent form completed. Plan: [facility] SN[facility], D/C Sunday JOSE MIGUEL [place] Original Note: Social Work Return call from [facility] and they are able to accept pt. SW left VM with [facility] requesting return call with determination of acceptance. SW submitted for precert with pt insurance and precert was granted. Lengthy conversation with pt son explaining conversation with pt and attempts to find SNF placement. Son is agreeable to either [facility] or [facility]. Questions regarding insurance and custodial SNF placement answered. SW spoke with pt and informed that [facility] can accept and that [facility] has not returned call. Pt is understanding and willing to go to either facility but prefers [facility] if this is an option. Will await return call from [facility] to make final discharge plan. JOSE MIGUEL Kilgore
[2020-06-04 17:15] LABS: Bedside Glucose 323 mg/dL (70-110)
[2020-06-04] MEDS: cycloBENZAPRine HCl 10 MG Tablet PO (22:36)
[2020-06-04] MEDS: Atorvastatin Calcium 80 MG Tablet PO (22:37)
[2020-06-05] VITALS (9 sets, daily range): BP systolic 133–138; BP diastolic 61–77; PULSE 46–70; RESP 12–28; TEMP 36.5–37.2; O2SAT 95–100
[2020-06-05 00:51] LABS: Bedside Glucose 431 mg/dL (70-110)
[2020-06-05 05:00] LABS: Absolute Lymphocyte Count 0.48 X10^3/uL (0.83-4.51); Absolute Neutrophil Count 4.2 X10^3/uL (2.0-7.7); Hematocrit 33.5 % (40-54); Hemoglobin 10.5 g/dL (13.0-16.5); Lymphocyte # 0.48 X10^3/ul (4.0); Lymphocyte % 8.8 % (19-41); Mean Corp Hgb Conc 31.3 g/dL (32-36); Mean Corpuscular Hgb 27.3 pg (27.0-32.0); Mean Platelet Vol. 9.6 fl (6.2-12.0); Monocyte# 0.75 X10^3/uL; Monocyte% 13.8 % (0-10); NRBC Flagged by Analyzer 0 % (0-5); Neutrophil # 4.17 X10^3/uL (2.7-7.7); Neutrophil % 76.5 % (47-70); POSITIVE DIFFERENTIAL YES; Platelet Count 115 K/mm3 (150-450); RBC Distribution Width CV 15.9 % (11.6-14.6); RBC Distribution Width SD 49.6 fl (35.1-43.9); Red Blood Count 3.85 M/mm3 (4.6-6.2); White Blood Count 5.5 K/mm3 (4.4-11.0)
[2020-06-05 05:21] LABS: Differential Indicated SCAN CRITERIA MET
[2020-06-05 05:33] LABS: Anion Gap 5 (5-15); BUN 23 mg/dL (7-18); BUN/Creat Ratio 31.3 RATIO (10-20); Calcium,Total 8.4 mg/dL (8.5-10.1); Chloride 100 mmol/L (98-107); Creatinine, Serum 0.73 mg/dL (0.70-1.30); EST Glomerular Filtration Rate 112 mL/min (>60); Est Glom Filt Rate - Afr Amer 136 mL/min (>60); Estimated Creatinine Clearance 62.91 ml/min; Glucose 294 mg/dL (74-106); Potassium 3.8 mmol/L (3.5-5.1); Sodium Level 136 mmol/L (136-145)
[2020-06-05] MEDS: 0.9% Saline Lock 10 ML Syringe IV (06:18)
[2020-06-05] MEDS: Insulin Lispro 100 UNIT/ML INSULN.PEN SC (08:56)
[2020-06-05 09:20] LABS: Bedside Glucose 192 mg/dL (70-110)
--- NOTE | 2020-06-05 09:46 | PCM.TXEXTCAR ---
- Diet 06/02/20 15:18 Diet: Carbohydrate Controlled Food consistency:: Mechanical (Minced/Moist) Liquid Consistency:: Regular/Thin Type of Dietary Supplement:: Glucerna Shake - Routine Orders/Code Status Enema Type: Fleetz Enema Frequency: Daily PRN Suppository Type: Dulcolax 10mg Suppository Frequency: Daily PRN O2 Frequency: PRN Keep PO Greater than or Equal to (%): 90 - Wound(s) back Wound Type: Abrasion abdomen Wound Type: Abrasion b/l arms Wound Type: Abrasion - Therapies Weight Bearing: Weight bearing as tolerated Physical Therapy: Eval and Treat Occupational Therapy: Eval and Treat - Allergies/Procedures Done in Hospital Allergies/Adverse Reactions: Allergies YONATAN Inhibitors Allergy (Severe, Verified 05/31/20 11:37) throat swells pioglitazone HCl [From Actos] Adverse Reaction (Verified 05/31/20 11:37) Swelling Procedures: None - Type of Care/Length of Stay Estimated LOS: Convalescent Care Less Than 30 days Type of Care Needed: Skilled Rehab Potential: Fair Prognosis: Fair - Additional Orders/Day of Discharge Additional Orders: to remain in isolation till 06/21/2020, to complete a 21 day course of self isolation since covid diagnosis Day of Discharge: 06/05/20 - Dietary and Speech Recommendations Dietitian Recommendations/Changes: Will continue CHO controlled (no protein/calorie restriction) d/t acute malnutrition. Continue Glucerna ONS w/ meals - Follow Up Care Primary Care Physician: Cameron Mueller Chi, MD [Primary Care Provider] - Please follow up with your Primary Care Physician in: 1-2 weeks
--- NOTE | 2020-06-05 09:52 | CASEMGMT ---
Pt has been discharged. SW called Sergio at [facility](she had already called this morning to ask when pt would be discharged), let her know pt is discharged and that the ICU would call the facility directly to let them know when pt is coming. She gave SW [phone] for the nurse to nurse report, and the fax numbers of [phone] and [phone] for the instructions to be faxed. AHSAN passed all of this information on to the community coordinator in ICU, she is able to set up the discharge, there is a green sheet on the chart. ELADIA Cat
[2020-06-05] MEDS: Levothyroxine 75 MCG Tablet PO (10:09)
[2020-06-05] MEDS: Meloxicam 15 MG Tablet PO (10:09)
[2020-06-05] MEDS: Metoprolol Tartrate 50 MG Tablet PO (10:09)
[2020-06-05] MEDS: hydroCHLOROthiazide 25 MG Tablet PO (10:09)
[2020-06-05] MEDS: buPROPion (XL) 150 MG TABLET.XL PO (10:09)
[2020-06-05] MEDS: Oxybutynin 5 MG Tablet PO (10:09)
[2020-06-05] MEDS: Enoxaparin 40 MG/0.4 ML Syringe SC (10:10)
[2020-06-05] MEDS: dexAMETHasone 4 MG Tablet 6 MG PO (10:12)
--- NOTE | 2020-06-05 10:35 | NURSING ---
Attempted to call SNF to give report- no answer- will try again shortly.
--- NOTE | 2020-06-05 11:04 | NURSING ---
Attempted to call [facility] again for report without answer from nursing unit.
--- NOTE | 2020-06-05 15:18 | DS.PCM_ITS ---
Discharge Date and Diagnosis - Problem List Patient Problems: Active and Suspected Problems COVID-19 (Acute) Date of Admission: 05/31/20 Date of Discharge: 06/05/20 - Primary Discharge Diagnosis Acute Problems: Active Problems COVID-19 (Acute) acute hypoxic respiratory insufficiency due to COVID 19 infection - Secondary Discharge Diagnosis Chronic Problems: Chronic Problems Obstructive sleep apnea (Chronic) Morbid obesity (Chronic) HTN (hypertension) (Chronic) HLD (hyperlipidemia) (Chronic) Generalized osteoarthritis (Chronic) Type II diabetes mellitus, uncontrolled (Chronic) Restless leg (Chronic) Depressive disorder (Chronic) Hospital Course and Treatment Imaging Results: Diagnostic Data Brain CT 05/31/20 10:53 IMPRESSION: Chronic involutional changes of the brain. Electronically Signed: Areli Wolfe MD at 12:03 EST Tel , Service support , Chest X-Ray 05/31/20 10:53 IMPRESSION: Ill-defined subpleural groundglass opacities are seen more prominent in the lung bases , may represent atypical pneumonia or viral pneumonia (COVID-19 ?). Electronically Signed: Areli Wolfe MD at 12:05 EST Tel , Service support , critical care- Dr Joshi ID- Dr Pham Operations: None Procedures: None Summary of Care Provided: The patient is a 69 year old M with a PMH as outlined who was admitted via the ED on 05/31/2020 with a complaint of generalised weakness which has been worsening. Patient said he has been gradually getting weak and tired and symptoms had not improved. He could not eat or drink much. He had also had a fever and cough as well as mild shortness of breath. Also had a few falls at home where he said his legs just gave way because of weakness. He denied any sick contacts. He admitted to diffuse arthralgia and myalgia denied any nausea vomiting or diarrhea. Review of systems otherwise negative. In the ED, vitals showed temperature of 101.4 Fahrenheit with blood pressure 133/83, respiratory rate of 20 and pulse rate of 86. He was saturating at 88% on 4 L of oxygen. Of note he does not usually wear oxygen at home. Chemistry was significant for lactic acid of 3 with sodium of 130. Chloride of 96. Bicarb was 30. CBC showed hemoglobin of 12.1 with WBC of 2.5 and platelets of 111. Chest x-ray showed bilateral infiltrates typical for Covid and CT of the brain done was negative for any acute intracranial pathology. Covid test done was positive. He has been admitted to manage for acute hypoxic respiratory insufficiency and general debility due to COVID-19 infection. He was started on remdesivir and Decadron. Oxygen was titrated to maintain saturation above 90%. Patient shortness of breath gradually improved. Acquired BiPAP usually at night. Blood cultures were negative. Patient's hospital course was uncomplicated. Physical therapy evaluated patient and patient was deemed is needing skilled therapy. Patient was initially reticent about going to a skilled facility because he said he was concerned about being exposed to Covid 19 infection. Patient was counseled that he was in the hospital on account of COVID-19 infection and so he needed skilled therapy to be able to get better and get his strength back. Patient subsequently agreed. Pre-CERT was obtained and he was discharged to a skilled LAT on 06/05/2020. He was discharged with a prescription for prednisone 6mg daily for 5 days to complete a 10-day course. He is to follow-up with his PCP in 1 to 2 weeks and is to remain in self-isolation until 06/21/2020, to complete a 21-day course of self-isolation since diagnosis. Patient seen and examined prior to discharge. He felt better and had no complaints. Review of systems otherwise negative. Labs and vitals reviewed. Home medication reviewed and reconciled. O/E: Vital Signs Temp Pulse Resp BP Pulse Ox 98.9 F 70 15 133/61 H 96 06/05/20 08:56 06/05/20 10:09 06/05/20 08:56 06/05/20 08:56 06/05/20 10:07 General: Alert, Oriented x3, Cooperative HEENT: Atraumatic, PERRLA, EOMI, Normocephalic Oral: Dry Mucosa Neck: Supple, No JVD, Negative Carotid Bruits Lungs: - - diminished breath sounds bibasally, no wheezes or crackles. on 2L of oxygen Cardiovascular: Regular rate, Regular Rhythm, Normal S1, Normal S2, No murmurs Abdomen: Bowel Sounds Present, Soft, Non Tender Extremities: No clubbing, No cyanosis, No edema, Capillary Refill Less than 3 Seconds Skin: No rashes, No breakdown Musculoskeletal: No Tenderness to Palpation of Joints or Extremities Lymphatic: No Cervical, Supraclavicular, or Inguinal Adenopathy Neurological: Cranial nerves II-XII grossly intact, Neuro grossly intact, Motor Exam 5/5 strength throughout Psych/Mental Status: Normal Affect, Appropriate, Alert and oriented to time, place, person, mood and affect Plan is for discharge to SNF today. Patient Problems: Active and Suspected Problems COVID-19 (Acute) - Physical Exam Vitals/I&O's: Vital Signs Temp Pulse Resp BP Pulse Ox 98.9 F 70 15 133/61 H 96 06/05/20 08:56 06/05/20 10:09 06/05/20 08:56 06/05/20 08:56 06/05/20 10:07 Oxygen Flow Rate (L/min) 2 Oxygen Delivery Method Nasal Cannula Weight: 269 lb 10.005 oz Body Mass Index (BMI) 43.4 Finger Stick Blood Glucose 500 Intake and Output for Last 24 Hours 06/03/20 06/04/20 06/05/20 23:59 23:59 23:59 Intake Total 250 / 400 400 / 400 Balance 250 / 400 400 / 400 Microbiology Past 72 Hours 05/31/20 11:15 Blood Culture (Wb) - Right Hand Blood Culture - Final No growth in 5 days. 05/31/20 11:00 Blood Culture (Wb) - Anticubital Left Blood Culture - Final No growth in 5 days. Laboratory Results 06/04/20 16:59: POC Glucose 323 H 06/04/20 22:34: POC Glucose 431 H 06/05/20 04:45: WBC 5.5, RBC 3.85 L, Hgb 10.5 L, Hct 33.5 L, MCV 87.0, MCH 27.3, MCHC 31.3 L, RDW Std Deviation 49.6 H, RDW Coeff of Linnette 15.9 H, Plt Count 115 L, MPV 9.6, Immature Gran % (Auto) 0.900, Neut % (Auto) 76.5 H, Lymph % (Auto) 8.8 L, Bureau % (Auto) 13.8 H, Eos % (Auto) 0.0, Baso % (Auto) 0.0, Absolute Neuts (auto) 4.2, Absolute Lymphs (auto) 0.48 L, Nucleated RBC % 0 06/05/20 04:45: Sodium 136, Potassium 3.8, Chloride 100, Carbon Dioxide 31.0, Anion Gap 5, BUN 23 H, Creatinine 0.73, Estim Creat Clear Calc 62.91, Est GFR (MDRD) Af Amer 136, Est GFR (MDRD) Non-Af 112, BUN/Creatinine Ratio 31.3 H, Glucose 294 H, Calcium 8.4 L 06/05/20 08:49: POC Glucose 192 H Discharge Diet: Low fat/ Low Cholesterol Home Medications: Medications to take at Discharge Venlafaxine HCl [Effexor] 200 mg PO BREAKFAST 12/05/13 Atorvastatin Calcium [Lipitor] 80 mg PO QHS 04/09/15 Hydrochlorothiazide [Hctz] 25 mg PO DAILY 04/09/15 buPROPion XL [Wellbutrin Xl] 150 mg PO DAILY 04/09/15 cycloBENZAPRine HCl [Flexeril] 10 mg PO QHS 04/09/15 metFORMIN HCl [Glucophage] 1,000 mg PO BIDCM 04/09/15 Glimepiride [Amaryl] 4 mg PO BID 05/30/18 Levothyroxine [Synthroid] 75 mcg PO DAILY 05/30/18 Metoprolol Succinate 50 mg PO BID 05/30/18 Oxybutynin [Ditropan] 5 mg PO BID 05/30/18 Pioglitazone [Actos] 30 mg PO DAILY 05/30/18 Meloxicam 15 mg PO DAILY 05/26/20 Cholecalciferol (VIT D3) [Vitamin D3] 1,000 unit PO DAILY 05/31/20 Insulin Glargine,Hum.rec.anlog [Toupamelao Solostar] 20 unit SQ DAILY 05/31/20 Venlafaxine HCl [Effexor] 100 mg PO QHS 05/31/20 Dexamethasone [Decadron] 6 mg PO DAILY #5 tab 06/05/20 Guaifenesin [Mucinex] 1,200 mg PO BID #30 tbmp.12hr 06/05/20 Following Prescriptions Were Given to Patient: Dexamethasone [Decadron] 6 mg PO DAILY #5 tab Prescription Printed Guaifenesin [Mucinex] 1,200 mg PO BID #30 tbmp.12hr Prescription Printed Primary Care Physician: Cameron Mueller Chi, MD [Primary Care Provider] - Please follow up with your Primary Care Physician in: 1-2 weeks Disposition: [facility] facility Minutes spent on discharge:: 45 Patient Condition:: Stable Medical Necessity - Tobacco Use Smoking Status: Never smoker Meaningful Use Info Meaningful Use Diagnoses (Choose all that apply): None applicable Inpatient E&M: [id number] [facility] Hosp
== END 2020-06-05 11:30 | disposition skilled nursing facility (03) | DRG 177 ==
LOC: ED 11:21 → ICU 12:51
PROVIDERS: Internal Medicine Infectious Disease; Admitting Provider Student in an Organized Health Care Education/Training Program; Emergency Provider Emergency Medicine; PCP Family Medicine Geriatric Medicine; Visit Provider Student in an Organized Health Care Education/Training Program
DX: U07.1 COVID-19 (principal); J12.82 Pneumonia due to coronavirus disease 2019; E87.2 Acidosis; Z68.41 Body mass index [BMI] 40.0-44.9, adult; D61.818 Other pancytopenia; M62.82 Rhabdomyolysis; E86.0 Dehydration; E11.9 Type 2 diabetes mellitus without complications; F32.9 Major depressive disorder, single episode, unspecified; G47.33 Obstructive sleep apnea (adult) (pediatric); E78.5 Hyperlipidemia, unspecified; I10 Essential (primary) hypertension; Z79.4 Long term (current) use of insulin; Z79.899 Other long term (current) drug therapy; E66.01 Morbid (severe) obesity due to excess calories; G25.81 Restless legs syndrome; R29.6 Repeated falls; Z79.1 Long term (current) use of non-steroidal anti-inflammatories (NSAID); Z79.890 Hormone replacement therapy; Z82.49 Family history of ischemic heart disease and other diseases of the circulatory system; Z83.3 Family history of diabetes mellitus; Z87.891 Personal history of nicotine dependence; Z96.659 Presence of unspecified artificial knee joint; R09.02 Hypoxemia
CPT/HCPCS: 70450; 71045; 80048; 80053; 81001; 82962; 83605; 83880; 84075; 84145; 85025; 85027; 85379; 87040; 87426; 93005; 94002; 94003; 97110; 97162; 97166; 97530; 97535; 99285; J7030; J7050; A4216

== ENCOUNTER 2020-07-28 06:46 | Emergency (ER) | payer MEDICARE, SELFPAY ==
[2020-06-02 15:45] VITALS: BMI 43.4
[2020-07-28 06:47] VITALS: BP 129/96; PULSE 71; RESP 16; TEMP 35.8; O2SAT 98; BMI 40.3
[2020-07-28 06:50] VITALS: O2SAT 98
--- NOTE | 2020-07-28 07:27 | CT_ITS ---
STUDY: CT BRAIN WITHOUT CONTRAST REASON FOR EXAM: Male, 69 years old. Fall RADIATION DOSAGE (If Supplied By Facility): CTDIvol = ( 44.99 ) mGy, DLP = ( 1592.22 ) mGycm TECHNIQUE: Transaxial CT imaging of the brain was performed without administration of intravenous contrast material. Individualized dose optimization techniques were used for this CT. COMPARISON: May 31, 2020 CT scan head FINDINGS: There is calcification of the vertebral arteries. There is calcification of the bilateral cavernous carotid arteries. There is minimal visible if any superficial soft tissue edema. Normal calvarium. There is mild cerebral atrophy with widening of the extra-axial spaces and ventricular dilatation. There are areas of decreased attenuation within the white matter tracts of the supratentorial brain, consistent with microvascular disease changes. Normal basal ganglia and thalami. Normal brainstem. There is mild cerebellar atrophy. There is no intracranial hemorrhage. There are no findings of an acute ischemic infarction. Normal visualized paranasal sinuses. There is persistent fluid within the left mastoid air cells. There is minimal fluid in the right-sided mastoid air cells. CT/Brain/Head without Contrast IMPRESSION: Atrophy no visualized evidence of acute hemorrhage infarct or edema. Bilateral persistent mastoiditis. Electronically Signed: Luz Irving MD at 8:01 EDT Tel , Service support ,
--- NOTE | 2020-07-28 07:27 | CT_ITS ---
STUDY: CT CERVICAL SPINE WITHOUT CONTRAST REASON FOR EXAM: Male, 69 years old. Fall RADIATION DOSAGE (If Supplied By Facility): CTDIvol = ( 35.64 ) mGy, DLP = ( 1436.92 ) mGycm TECHNIQUE: High resolution transaxial imaging was performed without contrast material. Sagittal and coronal images were reconstructed. Study is limited by motion artifact. Individualized dose optimization techniques were used for this CT. COMPARISON: Cervical spine May 30, 2018 FINDINGS: Normal craniovertebral junction. There are degenerative changes of the anterior atlantoaxial articulation. Normal odontoid process. There is straightening of the normal cervical lordosis. There is multilevel spondylosis. C2-3: Normal endplates. Normal disc height and morphology. Normal central canal and intervertebral neuroforamina. C3-4: There is disc space narrowing spondylosis moderate right neural foramina narrowing mild central stenosis. There is facet arthropathy. C4-5: There is disc space narrowing spondylosis facet arthropathy left greater than right with mild left neural foraminal narrowing no significant central stenosis. C5-6: There is disc space narrowing and broad disc osteophyte moderate left neural foraminal narrowing minimal central stenosis. C6-7: There is a broad disc osteophyte with moderate right neural foramina narrowing minimal central stenosis. C7-T1: There is disc space narrowing and mild neural foramina narrowing no significant central stenosis. There is fluid in the bilateral maxillary sinuses. There is partial visualization of right apical density which further evaluation is recommended. CT/Spine Cervical without Contras IMPRESSION: Multilevel degenerative change no visualized acute fracture. Study is limited by motion artifact. Partially visualized focal density in the right apex which may represent focal infiltrate. Electronically Signed: Luz Irving MD at 8:04 EDT Tel , Service support ,
--- NOTE | 2020-07-28 07:39 | EDS_ITS ---
HPI HPI - Fall History of Present Illness Chief Complaint: Fall Narrative Narrative: Patient presenting for evaluation secondary to a fall. Patient has a underlying history of dementia hypertension hyperlipidemia obesity sleep apnea and diabetes. Patient apparently suffered a mechanical fall today. Patient reports that he was trying to ambulate on a slippery floor and suffered a fall where he did hit his head on the corner of his bed. He is not on anticoagulants. He denies any visual changes numbness weakness nausea or vomiting. He currently is actually without complaint. Patient states that he typically ambulates with a walker, was not using the walker at that time. Patient is alert and oriented x1 at baseline, he is currently at his cognitive baseline. [facility] Medical History Diabetes mellitus Dysphasia Encephalopathy HTN (hypertension) Hyperthyroidism Hypomagnesemia Home Medications venlafaxine 200 mg PO BREAKFAST 12/05/13 [History Last Taken 08/01/15] atorvastatin 80 mg PO QHS 04/09/15 [History Last Taken 08/01/15] bupropion HCl 150 mg PO DAILY 04/09/15 [History Last Taken 08/01/15] cyclobenzaprine 10 mg PO QHS 04/09/15 [History Last Taken 08/01/15] hydrochlorothiazide 25 mg PO DAILY 04/09/15 [History Last Taken 08/01/15] metformin 1,000 mg PO BIDCM 04/09/15 [History Last Taken 08/01/15] glimepiride 4 mg PO BID 05/30/18 [History Last Taken Unknown] levothyroxine 75 mcg PO DAILY 05/30/18 [History Last Taken Unknown] metoprolol succinate 50 mg PO BID 05/30/18 [History Last Taken Unknown] oxybutynin chloride 5 mg PO BID 05/30/18 [History Last Taken Unknown] pioglitazone 30 mg PO DAILY 05/30/18 [History Last Taken Unknown] Meloxicam 15 mg PO DAILY 05/26/20 [History Last Taken Unknown] cholecalciferol (vitamin D3) 1,000 unit PO DAILY 05/31/20 [History Last Taken Unknown] insulin glargine U-300 conc 20 unit SQ DAILY 05/31/20 [History Last Taken Un known] venlafaxine 100 mg PO QHS 05/31/20 [History Last Taken Unknown] dexamethasone 6 mg PO DAILY #5 tab 06/05/20 [Rx Last Taken Unknown] guaifenesin 1,200 mg PO BID #30 tbmp.12hr 06/05/20 [Rx Last Taken Unknown] Allergy/AdvReac Type Severity Reaction Status Date / Time YONATAN Inhibitors Allergy Severe throat Verified 07/28/20 06:54 swells pioglitazone HCl [From Actos] AdvReac Swelling Verified 07/28/20 06:54 Social History Smoking Status: Never smoker ROS ROS ED Constitutional Constitutional ED: Denies chills or fever(s) ENT ENT ED: Denies rhinorrhea Cardiovascular Cardiovascular: Denies chest pain Respiratory/Chest Respiratory/Chest: Denies cough or dyspnea Gastrointestinal Gastrointestinal: Denies abdominal pain, diarrhea, nausea or vomiting Genitourinary Genitourinary ED: Denies dysuria or hematuria Musculoskeletal Musculoskeletal: Denies back pain Integumentary Denies rash Neurologic Neurologic: Denies paresthesias or weakness Psychiatric Psychiatric: Denies depression Endocrine Endocrinology: Denies fatigue Allergic/Immunologic Allergic/Immunologic ED: Denies urticaria EXAM Physical Exam Const Vital Signs: 07/28/20 06:47 07/28/20 06:50 Temperature 96.5 F L Temperature Source Temporal Pulse Rate 71 Respiratory Rate 16 Respiratory Effort Normal Respiratory Depth Normal Respiratory Pattern Normal Blood Pressure 129/96 H Blood Pressure Mean 107 Pulse Ox 98 98 Oxygen Delivery Method Nasal Cannula Nasal Cannula Oxygen Flow Rate (L/min) 3 3 Positive well nourished, well developed and obese General Appearance ED: well developed, NAD and other Airway is patent, breath sounds are equal bilateral, 2+ radial pulses bilaterally symmetric Nutritional Appearance: obese HEENT Reports moist mucous membranes Negative for trauma or tenderness Eyes EOMs intact bilaterally Neck no lymphadenopathy, supple and no JVD Neck Narrative: No evidence of step-offs or midline tenderness Chest Wall inspection of chest normal Resp normal respiratory effort and clear to auscultation bilaterally Cardio regular rate, regular rhythm, no murmurs and peripheral pulses 2+ throughout GI normal to inspection, nondistended, normoactive bowel sounds, non-tender and no masses Palpation: soft Back/Spine normal to inspection Extremity full ROM Extremity Narrative: Old skin tear noted over the patient's right nielson General Extremety ED: Negative for tenderness Neuro no sensory deficits noted Neuro Narrative: Patient is oriented x1. He has difficult understand speech but this is apparently at his baseline. He follows commands and is conversational. Sensorium / Orientation: alert Motor Exam: strength 5/5 throughout Psych mental status grossly normal Skin no rashes or lesions noted MDM MDM MDM Narrative Medical decision making narrative: Patient presented secondary to what sounded like a mechanical fall with a potential head injury. CT imaging of the brain and cervical spine were obtained and were found to be negative per radiology. Patient does not have any other obvious signs of injury and is at his cognitive baseline. Reports from both the prison as well as the patient are that this is mechanical fall I do not feel that further work-up is indicated at this time. Patient was reassured by his negative imaging results and will be discharged. Radiography Diagnostic Testing: Radiology Impression Brain CT 07/28/20 07:27 IMPRESSION: Atrophy no visualized evidence of acute hemorrhage infarct or edema. Bilateral persistent mastoiditis. Electronically Signed: Luz Irving MD at 8:01 EDT Tel , Service support , Cervical Spine CT 07/28/20 07:27 IMPRESSION: Multilevel degenerative change no visualized acute fracture. Study is limited by motion artifact. Partially visualized focal density in the right apex which may represent focal infiltrate. Electronically Signed: Luz Irving MD at 8:04 EDT Tel , Service support , Discharge Plan Triage Chief Complaint: Fall ED Provider: Reyes Phan Dx/Rx/DC Orders Clinical Impression: Fall, Closed head injury Instructions: ED Head Injury (Adult) Prescriptions: No Action venlafaxine 100 MG tablet 200 mg PO BREAKFAST RF: 0 Meloxicam 15 mg PO DAILY RF: 0 atorvastatin 80 MG tablet 80 mg PO QHS RF: 0 metformin 1,000 MG tablet 1,000 mg PO BIDCM RF: 0 cyclobenzaprine 10 MG tablet 10 mg PO QHS RF: 0 hydrochlorothiazide 25 MG tablet 25 mg PO DAILY RF: 0 bupropion HCl 150 MG tablet extended release 24 hr 150 mg PO DAILY RF: 0 metoprolol succinate 50 MG tablet extended release 24 hr 50 mg PO BID RF: 0 levothyroxine 25 MCG tablet 75 mcg PO DAILY RF: 0 glimepiride 4 MG tablet 4 mg PO BID RF: 0 pioglitazone 30 MG tablet 30 mg PO DAILY RF: 0 oxybutynin chloride 5 MG tablet 5 mg PO BID RF: 0 venlafaxine 100 MG tablet 100 mg PO QHS RF: 0 cholecalciferol (vitamin D3) 1,000 UNIT tablet 1,000 unit PO DAILY RF: 0 insulin glargine U-300 conc 300 UNIT/ML insulin pen 20 unit SQ DAILY RF: 0 dexamethasone 4 MG tablet 6 mg PO DAILY Qty: 5 RF: 0 guaifenesin 1,200 MG tablet 1,200 mg PO BID Qty: 30 RF: 0 Primary Care Provider: Cameron Mueller Chi Referrals: Cameron Mueller Chi, MD [Primary Care Provider] - As Needed Disposition Disposition: Nursing Home Facility Discharge Location: [facility]
[2020-07-28 08:13] VITALS: BP 129/96; PULSE 71; RESP 16; O2SAT 98
--- NOTE | 2020-07-28 08:27 | NURSING ---
CALLED [facility], ETA IS 30 MIN
--- NOTE | 2020-07-28 09:33 | NURSING ---
CALLED [facility]. ETA IS NOW 11 MIN
--- NOTE | 2020-07-28 09:49 | ED.RN ---
report called to tanvir at [facility].
== END 2020-07-28 09:49 | disposition skilled nursing facility (03) ==
PROVIDERS: Emergency Provider Emergency Medicine; PCP Family Medicine Geriatric Medicine
DX: S09.90XA Unspecified injury of head, initial encounter (principal); E66.9 Obesity, unspecified; E78.5 Hyperlipidemia, unspecified; E11.9 Type 2 diabetes mellitus without complications; I10 Essential (primary) hypertension; Z79.4 Long term (current) use of insulin; Z79.899 Other long term (current) drug therapy; W22.03XA Walked into furniture, initial encounter
CPT/HCPCS: 70450; 72125; 99284

== ENCOUNTER 2020-08-10 17:59 | Inpatient (IN) | payer MEDICARE, OTHER, SELFPAY ==
[2020-08-10] VITALS (19 sets, daily range): BP systolic 80–150; BP diastolic 35–108; PULSE 89–121; RESP 14–31; TEMP 38.5–40.3; O2SAT 94–100; BMI 32.1; BMI 35.4
--- NOTE | 2020-08-10 18:27 | EKG12_ITS ---
Test Reason : DYSRHYTHMIA Blood Pressure : / mmHG Vent. Rate : 115 BPM Atrial Rate : 115 BPM P-R Int : 186 ms QRS Dur : 134 ms QT Int : 334 ms P-R-T Axes : 056 079 -04 degrees QTc Int : 462 ms Poor data quality, interpretation may be adversely affected Sinus tachycardia Right bundle branch block T wave abnormality, consider inferior ischemia Abnormal ECG Confirmed by FLACO CAMEJO, JAMES ([id number]), scientific publications editor SALAZAR FU ([id number]) on 08/13/2020 11:32:28 A M Referred By: ELOISE Confirmed By:GARY SAM MD
--- NOTE | 2020-08-10 18:27 | CT_ITS ---
STUDY: CT BRAIN WITHOUT CONTRAST REASON FOR EXAM: Male, 69 years old. altered mental status RADIATION DOSAGE (If Supplied By Facility): CTDIvol = ( 44.99 ) mGy, DLP = ( 863.60 ) mGycm TECHNIQUE: Transaxial CT imaging of the brain was performed without administration of intravenous contrast material. Individualized dose optimization techniques were used for this CT. COMPARISON: 07/28/2020. FINDINGS: Normal soft tissue structures. Normal calvarium. There is mild cerebral atrophy with widening of the extra-axial spaces and ventricular dilatation. There are areas of decreased attenuation within the white matter tracts of the supratentorial brain, consistent with microvascular disease changes. There is no intracranial hemorrhage. There are no findings of an acute ischemic infarction. Normal visualized paranasal sinuses. CT/Brain/Head without Contrast IMPRESSION: 1. Acute findings. 2. Mild microvascular ischemic changes. Atrophy. Electronically Signed: Estelita Pino MD at 19:07 EDT Tel , Service support ,
[2020-08-10] MEDS: 0.9% Normal Saline 1,000 ML 999 ML IV ×4 (18:35→21:33)
[2020-08-10] MEDS: Etomidate 20 MG/10 ML Vial IV (18:38)
[2020-08-10] MEDS: Succinylcholine Chloride 200 MG/10 ML Vial 100 MG IV (18:40)
--- NOTE | 2020-08-10 18:42 | CT_ITS ---
STUDY: CT CERVICAL SPINE WITHOUT CONTRAST REASON FOR EXAM: Male, 69 years old. fall and injury RADIATION DOSAGE (If Supplied By Facility): CTDIvol = ( 33.61 ) mGy, DLP = ( 644.21 ) mGycm TECHNIQUE: High resolution transaxial imaging was performed without contrast material. Sagittal and coronal images were reconstructed. Individualized dose optimization techniques were used for this CT. COMPARISON: 07/28/2020. FINDINGS: Slightly limited due to patient positioning. Normal craniovertebral junction. Normal anterior atlantoaxial articulation. Normal odontoid process. Normal cervical lordosis. Normal vertebral bodies and posterior osseous elements. C2-3: Normal endplates. Normal disc height and morphology. Normal central canal and intervertebral neuroforamina. C3-4: Normal endplates. Normal disc height and morphology. Normal central canal. Right foraminal encroachment. C4-5: Normal endplates. Normal disc height and morphology. Normal central canal. Left foraminal encroachment. C5-6: Normal endplates. Disc space narrowing. Normal central canal. Left foraminal encroachment. C6-7: Normal endplates. Disc space narrowing. Normal central canal right foraminal stenosis. C7-T1: Normal endplates. Normal disc height and morphology. Normal central canal and intervertebral neuroforamina. Normal visualized soft tissue structures. CT/Spine Cervical without Contras IMPRESSION: 1. No demonstrated trauma. 2. Mild degenerative changes of the cervical spine. Electronically Signed: Estelita Pino MD at 19:31 EDT Tel , Service support ,
[2020-08-10] MEDS: Midazolam 5 MG/ML Syringe IV (18:46)
[2020-08-10 18:48] LABS: Absolute Lymphocyte Count 0.68 X10^3/uL (0.83-4.51); Absolute Neutrophil Count 10.8 X10^3/uL (2.0-7.7); Basophil# 0.03 X10^3/uL; Basophil% 0.2 % (0-1); Hematocrit 41.7 % (40-54); Hemoglobin 13.7 g/dL (13.0-16.5); Lymphocyte # 0.68 X10^3/ul (0.83-4.51); Lymphocyte % 5.5 % (19-41); Mean Corp Hgb Conc 32.9 g/dL (32-36); Mean Corpuscular Hgb 31.3 pg (27.0-32.0); Mean Corpuscular Volume 95.2 fL (80-94); Mean Platelet Vol. 10.1 fl (6.2-12.0); Monocyte# 0.72 X10^3/uL; Monocyte% 5.9 % (0-10); NRBC Flagged by Analyzer 0 % (0-5); Neutrophil # 10.75 X10^3/uL (2.7-7.7); Neutrophil % 87.6 % (47-70); POSITIVE MORPHOLOGY YES; Platelet Count 307 K/mm3 (150-450); RBC Distribution Width CV 19.6 % (11.6-14.6); Red Blood Count 4.38 M/mm3 (4.6-6.2); White Blood Count 12.3 K/mm3 (4.4-11.0)
[2020-08-10 18:53] LABS: International Normalized Ratio 1.6; Partial Thromboplast Time 30.2 Seconds (24.1-36.2)
[2020-08-10 18:53] LABS: Mucous, Urine 0 SEEN /hpf (<or=2+)
[2020-08-10 18:55] LABS: Differential Indicated SCAN CRITERIA MET
[2020-08-10 18:57] LABS: ALB/GLOB Ratio 0.4 RATIO (0.9-2.4); AST(SGOT) 63 U/L (15-37); Alanine Aminotransfer ALT/SGPT 29 U/L (16-61); Albumin, Serum 2.5 g/dL (3.2-5.0); Alkaline Phosphatase 308 U/L (45-117); Anion Gap 9 (5-15); BUN 24 mg/dL (7-18); BUN/Creat Ratio 12.4 RATIO (10-20); Calcium,Total 10.7 mg/dL (8.5-10.1); Chloride 105 mmol/L (98-107); Creatinine, Serum 1.94 mg/dL (0.70-1.30); EST Glomerular Filtration Rate 37 mL/min (>60); Est Glom Filt Rate - Afr Amer 44 mL/min (>60); Estimated Creatinine Clearance 39.44 ml/min; Globulin 5.9 g/dL (2.2-4.2); Glucose 251 mg/dL (74-106); Potassium 4.9 mmol/L (3.5-5.1); Protein, Total 8.4 g/dL (6.4-8.2); Sodium Level 141 mmol/L (136-145)
[2020-08-10 19:03] LABS: Color, Urine Yellow (Yellow); Glucose, Dipstick Normal (Normal); Ketone-Dipstick 5 mg/dl (Negative); Leukocyte Esterase-Dipstick 500 /ul (Negative); Nitrite-Dipstick Positive (Negative); Occult Blood-Urine 150 /ul (Negative); Protein-Dipstick 30 mg/dl (Negative); Specific Gravity, Urine 1.025 (1.002-1.030); Urine Bilirubin Dipstick Negative (Negative); Urine Clarity Cloudy (Clear); Urine Urobilinogen 1 mg/dl (Normal)
[2020-08-10 19:08] LABS: White Blood Cells >100 SEEN /hpf (0-5)
[2020-08-10 19:09] LABS: Bacteria 2+ /hpf (None Seen); Red Blood Cells-Urine 0-5 SEEN /hpf (0-5); Squamous Epithelial Cells - UA 0-5 SEEN /hpf (0-5)
[2020-08-10 19:14] LABS: Differential Comment SCANNED
[2020-08-10 19:15] LABS: Anisocytosis 1+
[2020-08-10 19:15] LABS: Allen Test Positive; Base Excess -2 mmol/L (-2 to +2); Bicarbonate 21.4 mmol/L (22-26); Blood Gas Specimen Type ART; FI02 45; Mode AC; O2 Delivery Device Adult Vent; PEEP 5; PO2 99 mmHG (75-100); RR 14; SITE R Radial; SO2 98 % (95-99); Total Carbon Dioxide 22 mmol/L; Vt 500; pCO2 28.6 mmHg (35-45); pH 7.48 (7.35-7.45)
[2020-08-10] MEDS: Acetaminophen 650 MG Suppository RC (19:24)
--- NOTE | 2020-08-10 19:37 | RAD_ITS ---
We are attempting to reach an attending provider to discuss findings. An addendum with communication details will be sent when the communication is complete. STUDY: X-RAY CHEST REASON FOR EXAM: Male, 69 years old. respiratory failure TECHNIQUE: Single AP portable view of the chest. COMPARISON: 05/31/2020. FINDINGS: ET tube terminates 3 cm above the jimena. Nasogastric tube position is uncertain and may terminate in the mid esophagus or left mainstem bronchus. The lungs are clear and expanded. There is no demonstrated pleural abnormality. Normal size heart. Normal mediastinum and abby. Normal visualized pulmonary arteries. Normal visualized aortic arch and descending thoracic aorta. Degenerative changes of the shoulders bilaterally. RAD/Chest 1 View (Portable) IMPRESSION: 1. No acute findings. 2. Nasogastric tube position is uncertain and may terminate in the mid esophagus or proximal left mainstem bronchus. Tube should be removed and repositioned. Electronically Signed: Estelita Pino MD at 21:02 EDT Tel , Service support ,
[2020-08-10] MEDS: Rocuronium Bromide 50 MG/5 ML Vial 30 MG IV (19:59)
[2020-08-10] MEDS: Rocuronium Bromide 50 MG/5 ML Vial 20 MG IV (19:59)
[2020-08-10] MEDS: Ceftriaxone 1 GM/50 ML BAG IV (20:15)
--- NOTE | 2020-08-10 20:32 | EDS_ITS ---
HPI History of Present Illness Chief Complaint: Alt LOC Informant: patient Narrative Narrative: Patient sent from [facility] with reported altered mental status, fever, and dilated pupils. Reportedly he had a fall yesterday and he has had altered mental status since. I am told that he had COVID-19 a couple months ago and due to extended high fever resulted in encephalopathy and baseline is ANO x1. [facility] Medical History Diabetes mellitus Dysphasia Encephalopathy HTN (hypertension) Hyperthyroidism Hypomagnesemia Home Medications atorvastatin 80 mg PO QHS 04/09/15 [History Last Taken 08/09/20] bupropion HCl 150 mg PO DAILY 04/09/15 [History Last Taken 08/10/20] cyclobenzaprine 10 mg PO DAILY 04/09/15 [History Last Taken 08/10/20] oxybutynin chloride 5 mg PO BID 05/30/18 [History Last Taken 08/10/20] cholecalciferol (vitamin D3) 1,000 unit PO DAILY 05/31/20 [History Last Taken 08/10/20] venlafaxine 100 mg PO QHS 05/31/20 [History Last Taken 08/09/20] acetaminophen [Tylenol] 650 mg PO Q4H PRN 08/10/20 [History Last Taken 08/10/20] aspirin 81 mg PO DAILY 08/10/20 [History Last Taken 08/10/20] bisacodyl [Dulcolax (bisacodyl)] 10 mg PO DAILY 08/10/20 [History Last Taken 08/10/20] hydrochlorothiazide 12.5 mg PO DAILY 08/10/20 [History Last Taken 08/10/20] insulin glargine [Basaglar KwikPen U-100 Insulin] 20 unit SUBCUT QHS 08/10/20 [History Last Taken 08/09/20] insulin lispro [Humalog U-100 Insulin] See Protocol SUBCUT ACHS 08/10/20 [History Last Taken 08/10/20] ipratropium-albuterol 3 ml INHALATION 4X/DAY 08/10/20 [History Last Taken 08/10/20] levothyroxine 75 mcg PO DAILY 08/10/20 [History Last Taken 08/10/20] magnesium oxide 400 mg PO DAILY 08/10/20 [History Last Taken 08/10/20] metoprolol succinate 50 mg PO BID 08/10/20 [History Last Taken 08/10/20] potassium chloride [Klor-Con M20] 40 meq PO DAILY 08/10/20 [History Last Taken 08/10/20] pseudoephedrine-guaifenesin [Mucinex D] 2 tab PO BID 08/10/20 [History Last Taken 08/10/20] venlafaxine 50 mg PO DAILY 08/10/20 [History Last Taken 08/10/20] Allergy/AdvReac Type Severity Reaction Status Date / Time YONATAN Inhibitors Allergy Severe throat Verified 08/10/20 18:05 swells pioglitazone HCl [From Actos] AdvReac Swelling Verified 08/10/20 18:05 Social History (Updated 08/10/20 @ 22:[address] Dee Shrestha MD) housing: [facility] Smoking Status: Never smoker alcohol intake: never substance use type: does not use ROS ROS ED Review of Systems ROS Unobtainable: due to endotracheal tube and due to mental condition EXAM Physical Exam Const Vital Signs: 08/10/20 18:00 08/10/20 18:19 08/10/20 18:32 Temperature 101.8 F H 101.8 F H Temperature Source Temporal Temporal Pulse Rate 121 H 121 H 120 H Respiratory Rate 31 H 27 H 25 H Blood Pressure 99/82 H 104/85 H Blood Pressure Mean 87 91 Pulse Ox 99 97 94 Oxygen Delivery Method Nasal Cannula Nasal Cannula Nasal Cannula Oxygen Flow Rate (L/min) 3 3 3 Fraction of Inspired Oxygen (FIO2) 08/10/20 19:33 08/10/20 19:35 08/10/20 20:00 Temperature 104.5 F H 104.1 F H Temperature Source Core Core Pulse Rate 110 H 116 H 104 H Respiratory Rate 26 H 24 H 14 Blood Pressure 126/67 H 99/64 Blood Pressure Mean 86 75 Pulse Ox 99 100 99 Oxygen Delivery Method Mechanical Ventilator Oxygen Flow Rate (L/min) Fraction of Inspired Oxygen (FIO2) 45 08/10/20 20:10 08/10/20 20:28 08/10/20 20:30 Temperature 103.5 F H 103.4 F H Temperature Source Core Core Pulse Rate 102 H 100 100 Respiratory Rate 14 14 14 Blood Pressure 105/70 115/71 Blood Pressure Mean 81 85 Pulse Ox 99 99 99 Oxygen Delivery Method Mechanical Ventilator Mechanical Ventilator Oxygen Flow Rate (L/min) Fraction of Inspired Oxygen (FIO2) 35 08/10/20 21:00 08/10/20 21:06 Temperature 102.3 F H Temperature Source Core Pulse Rate 95 95 Respiratory Rate 14 14 Blood Pressure 100/69 100/69 Blood Pressure Mean 79 79 Pulse Ox 99 99 Oxygen Delivery Method Mechanical Ventilator Mechanical Ventilator Oxygen Flow Rate (L/min) 3 Fraction of Inspired Oxygen (FIO2) 45 Positive well nourished, well developed and obese General Appearance ED: well developed Nutritional Appearance: obese HEENT Reports normocephalic, head/scalp atraumatic and moist mucous membranes HEENT Narrative: There are apparent food particles in his airway the tongue is very dry Eyes PERRL and EOMs intact bilaterally Eyes Narrative: Pupils are 5-3 Neck no lymphadenopathy, supple and no JVD Resp clear to auscultation bilaterally Resp Narrative: Patient seems to have a bit of an inspiratory stridor with accessory muscle use Cardio regular rate and no murmurs Rate: tachycardic GI normal to inspection, nondistended, normoactive bowel sounds and non-tender Palpation: soft Back/Spine normal ROM Extremity normal to inspection General Extremety ED: Yes edema General Extremity: edema Neuro Neuro Narrative: Patient is minimally responsive. He does have a corneal reflex minimal gag Psych Mood & Affect: Negative for depressed or tearful Skin no rashes or lesions noted and no wounds MDM MDM MDM Narrative Medical decision making narrative: Was question whether or not the patient had a prior stroke and now has stridor minimally responsive and need for airway protection. Patient was placed into a resuscitation room. Difficult airway was set up he was received etomidate and a 7.5 endotracheal tube was placed on the first step without difficulty. This was secured into place. He was then taken to head CT and CT of cervical spine which were negative. He is brought back to the room. Temperature sensitive Dougherty was placed noted to be 105 degrees. Urinalysis is obviously infected. White count of 12.3. Creatinine elevated 1.94 from baseline suggestive of KAREN. He received 30 cc/kg of IV fluids as well as Rocephin. He was placed on Precedex for sedation. This was later changed to propofol and fentanyl added. He was pancultured. Nursing and myself and a second emergency physician were unable to place an OG tube. Hospitalist will be admitting. Lab Data Attestation: I reviewed the patient's lab results. Labs: Laboratory Results - last 24 hr 08/10/20 08/10/20 08/10/20 18:10 18:10 18:10 WBC 12.3 H RBC 4.38 L Hgb 13.7 Hct 41.7 MCV 95.2 H MCH 31.3 MCHC 32.9 RDW Std Deviation 68.0 H RDW Coeff of [place] 19.6 H Plt Count 307 MPV 10.1 Immature Gran % (Auto) 0.800 Neut % (Auto) 87.6 H Lymph % (Auto) 5.5 L [place] % (Auto) 5.9 Eos % (Auto) 0.0 Baso % (Auto) 0.2 Absolute Neuts (auto) 10.8 H Absolute Lymphs (auto) 0.68 L Nucleated RBC % 0 Differential Comment SCANNED Anisocytosis 1+ PT 18.0 H INR 1.6 APTT 30.2 Sodium 141 Potassium 4.9 Chloride 105 Carbon Dioxide 27.0 Anion Gap 9 BUN 24 H Creatinine 1.94 H Estim Creat Clear Calc 39.44 Est GFR (MDRD) Af Amer 44 L Est GFR (MDRD) Non-Af 37 L BUN/Creatinine Ratio 12.4 Glucose 251 H Lactic Acid Calcium 10.7 H Total Bilirubin 1.10 H AST 63 H ALT 29 Alkaline Phosphatase 308 H Total Creatine Kinase Troponin I 0.027 Total Protein 8.4 H Albumin 2.5 L Globulin 5.9 H Albumin/Globulin Ratio 0.4 L Triglycerides TSH Urine Color Urine Clarity Urine pH Ur Specific [place] Urine Protein Urine Glucose (UA) Urine Ketones Urine Occult Blood Urine Nitrite Urine Bilirubin Urine Urobilinogen Ur Leukocyte Esterase Urine RBC Urine WBC Ur Squamous Epith Cells Urine Bacteria Urine Mucus 08/10/20 08/10/20 08/10/20 18:10 18:10 18:10 WBC RBC Hgb Hct MCV MCH MCHC RDW Std Deviation RDW Coeff of [place] Plt Count MPV Immature Gran % (Auto) Neut % (Auto) Lymph % (Auto) [place] % (Auto) Eos % (Auto) Baso % (Auto) Absolute Neuts (auto) Absolute Lymphs (auto) Nucleated RBC % Differential Comment Anisocytosis PT INR APTT Sodium Potassium Chloride Carbon Dioxide Anion Gap BUN Creatinine Estim Creat Clear Calc Est GFR (MDRD) Af Amer Est GFR (MDRD) Non-Af BUN/Creatinine Ratio Glucose Lactic Acid 5.0 H* Calcium Total Bilirubin AST ALT Alkaline Phosphatase Total Creatine Kinase 207 Troponin I Total Protein Albumin Globulin Albumin/Globulin Ratio Triglycerides 139 TSH 1.25 Urine Color Urine Clarity Urine pH Ur Specific [place] Urine Protein Urine Glucose (UA) Urine Ketones Urine Occult Blood Urine Nitrite Urine Bilirubin Urine Urobilinogen Ur Leukocyte Esterase Urine RBC Urine WBC Ur Squamous Epith Cells Urine Bacteria Urine Mucus 08/10/20 18:45 WBC RBC Hgb Hct MCV MCH MCHC RDW Std Deviation RDW Coeff of [place] Plt Count MPV Immature Gran % (Auto) Neut % (Auto) Lymph % (Auto) [place] % (Auto) Eos % (Auto) Baso % (Auto) Absolute Neuts (auto) Absolute Lymphs (auto) Nucleated RBC % Differential Comment Anisocytosis PT INR APTT Sodium Potassium Chloride Carbon Dioxide Anion Gap BUN Creatinine Estim Creat Clear Calc Est GFR (MDRD) Af Amer Est GFR (MDRD) Non-Af BUN/Creatinine Ratio Glucose Lactic Acid Calcium Total Bilirubin AST ALT Alkaline Phosphatase Total Creatine Kinase Troponin I Total Protein Albumin Globulin Albumin/Globulin Ratio Triglycerides TSH Urine Color Yellow Urine Clarity Cloudy Urine pH 5.0 Ur Specific [place] 1.025 Urine Protein 30 H Urine Glucose (UA) Normal Urine Ketones 5 H Urine Occult Blood 150 H Urine Nitrite Positive H Urine Bilirubin Negative Urine Urobilinogen 1 H Ur Leukocyte Esterase 500 H Urine RBC 0-5 SEEN Urine WBC >100 SEEN Ur Squamous Epith Cells 0-5 SEEN Urine Bacteria 2+ Urine Mucus 0 SEEN ABG Data ABG results: ABG 08/10/20 19:10 Specimen Type ART Sample Site R Radial pH 7.48 H Bicarbonate Actual 21.4 L Total CO2 22 Base Excess -2 O2 Saturation 98 O2 % 45 ABG pCO2 28.6 L ABG pO2 99 Kulwinder Test Positive Respiration Rate 14 O2 Delivery Device Adult Vent Vent Mode AC Tidal Volume 500 POC PEEP 5 Radiography Diagnostic Testing: Radiology Impression Brain CT 08/10/20 18:27 IMPRESSION: 1. Acute findings. 2. Mild microvascular ischemic changes. Atrophy. Electronically Signed: Estelita Pino MD at 19:07 EDT Tel , Service support , Cervical Spine CT 08/10/20 18:42 IMPRESSION: 1. No demonstrated trauma. 2. Mild degenerative changes of the cervical spine. Electronically Signed: Estelita Pino MD at 19:31 EDT Tel , Service support , Chest X-Ray 08/10/20 19:37 IMPRESSION: 1. No acute findings. 2. Nasogastric tube position is uncertain and may terminate in the mid esophagus or proximal left mainstem bronchus. Tube should be removed and repositioned. Electronically Signed: Estelita Pino MD at 21:02 EDT Tel , Service support , ADDENDUM: 08/10/202114 IMPRESSION: 1. No acute findings. 2. Nasogastric tube position is uncertain and may terminate in the mid esophagus or proximal left mainstem bronchus. Tube should be removed and repositioned. N.B. : The above information has been verbally conveyed by Estelita Pino MD to Mike Bui MD, , on 08/10/2020 21:08:22 (ET). Electronically Signed: Estelita Pino MD at 21:02 EDT Tel , Service support , EKG Initial EKG: Attestation: I personally reviewed and interpreted this EKG as follows: Comments: EKG demonstrates a sinus tachycardia with right bundle branch block at a rate of 115. This appears grossly unchanged from EKG dated 31 May 2020 Critical Care Time Critical care time (excluding procedures): 30-74 minutes (42), Discussing w/Patient &/or Family/Outreach Team Member, Discussing w/Consultants, Arranging Admission or Transfer and Performing Direct Patient Care at Bedside Discharge Plan Dx/Rx/DC Orders Clinical Impression: Acute UTI, Septic shock, Acute kidney injury, Respiratory failure, Required emergent intubation, Type II diabetes mellitus, uncontrolled, Morbid obesity, Encephalopathy Disposition Disposition: Acute Care Hospital [facility] Discharge Date/Time: 08/10/20 23:32
--- NOTE | 2020-08-10 20:58 | PCM.HP.STD ---
HPI - General General Date of Admission: 08/10/20 HPI Narrative The patient is a 69 y/o M w/ PMHx: Diabetes mellitus type II, HTN, HLD, OA, Anxiety and Depression, ALEX, RLS, Hypothyroidism, recent prior admission for COVID with encephalopathy (05/31/20) associated and following transition to SNF with baseline AxO x [address] [facility] ED on 08/10/20 with onset increased confusion and agitation as well as fall over the last 48 hours at SNF per discussion with family and SNF report. Family reported no specific recent cough, dyspnea, emesis, diarrhea. They note he has been significantly impaired mentally since having COVID. Work-up in the ED included T104.5, heart 110, BP 126/67, respiratory rate 31, initially 99% on 3 L nasal cannula however patient with inability to be an appropriate airway therefore patient intubated, CBC with WC 12.3, hemoglobin 13.7, platelet 307 with left shift and lymphopenia, coags with PT 18, INR 1.6, PTT 30.2, ABG with pH 7.48, bicarb 21.4, O2 saturation 98%, PCO2 28.6, PO2 99, performed following intubation, CMP with BUN/creatinine 24/1.94 (0.7), glucose 251, lactic acid 5, total bilirubin 1.10, AST/ALT 63/29, alk phos 308, troponin 0.027, urine was positive gravity 1.025, protein 30, positive nitrite, 500 leukocyte esterase, urine WBCs greater than 100, 2+ urine bacteria, CT brain with mild microvascular ischemic changes with atrophy with no acute intracranial findings, CT cervical spine with no demonstrated evidence of trauma with mild degenerative changes of the cervical spine, CXR w/ no acute cardiopulmonary findings but significantly noted orthopedic chronic changes with hardware, EKG with ST with RBBB. Given patient unresponsive status with evidence of possibly stridor patient intubated in the ED room with a 7.5 ET tube following etomidate with temperature sensitive Dougherty placed with inability to place OG x2. Patient was placed on Precedex for sedation per ED physician. Patient received 30 cc/kg IV fluids as well as IV Rocephin given urinary tract infection. [facility] Medical History Diabetes mellitus Dysphasia Encephalopathy HTN (hypertension) Hyperthyroidism Hypomagnesemia Home Medications atorvastatin 80 mg PO QHS 04/09/15 [History Last Taken 08/09/20] bupropion HCl 150 mg PO DAILY 04/09/15 [History Last Taken 08/10/20] cyclobenzaprine 10 mg PO DAILY 04/09/15 [History Last Taken 08/10/20] oxybutynin chloride 5 mg PO BID 05/30/18 [History Last Taken 08/10/20] cholecalciferol (vitamin D3) 1,000 unit PO DAILY 05/31/20 [History Last Taken 08/10/20] venlafaxine 100 mg PO QHS 05/31/20 [History Last Taken 08/09/20] acetaminophen [Tylenol] 650 mg PO Q4H PRN 08/10/20 [History Last Taken 08/10/20] aspirin 81 mg PO DAILY 08/10/20 [History Last Taken 08/10/20] bisacodyl [Dulcolax (bisacodyl)] 10 mg PO DAILY 08/10/20 [History Last Taken 08/10/20] hydrochlorothiazide 12.5 mg PO DAILY 08/10/20 [History Last Taken 08/10/20] insulin glargine [Basaglar KwikPen U-100 Insulin] 20 unit SUBCUT QHS 08/10/20 [History Last Taken 08/09/20] insulin lispro [Humalog U-100 Insulin] See Protocol SUBCUT [facility] 08/10/20 [History Last Taken 08/10/20] ipratropium-albuterol 3 ml INHALATION 4X/DAY 08/10/20 [History Last Taken 08/10/20] levothyroxine 75 mcg PO DAILY 08/10/20 [History Last Taken 08/10/20] magnesium oxide 400 mg PO DAILY 08/10/20 [History Last Taken 08/10/20] metoprolol succinate 50 mg PO BID 08/10/20 [History Last Taken 08/10/20] potassium chloride [Klor-Con M20] 40 meq PO DAILY 08/10/20 [History Last Taken 08/10/20] pseudoephedrine-guaifenesin [Mucinex D] 2 tab PO BID 08/10/20 [History Last Taken 08/10/20] venlafaxine 50 mg PO DAILY 08/10/20 [History Last Taken 08/10/20] Allergy/AdvReac Type Severity Reaction Status Date / Time YONATAN Inhibitors Allergy Severe throat Verified 08/10/20 18:05 swells pioglitazone HCl [From Actos] AdvReac Swelling Verified 08/10/20 18:05 other (Maternal family history diabetes, heart disease, hypertension, paternal family history heart disease, hyperlipidemia.) unable to obtain (Surgical history: T+A, rotator cuff repair, several knee arthroscopic surgeries and arthroplasties.) Social History (Updated 08/10/20 @ 22:[address] Dee Shrestha MD) housing: [facility] Smoking Status: Never smoker alcohol intake: never substance use type: does not use ROS Review of Systems ROS Unobtainable: due to encephalopathy, due to endotracheal tube and due to mental status Vital Signs Vital Signs Vital Signs: 08/10/20 18:00 08/10/20 18:19 08/10/20 18:32 Temperature 101.8 F H 101.8 F H Temperature Source Temporal Temporal Pulse Rate 121 H 121 H 120 H Respiratory Rate 31 H 27 H 25 H Blood Pressure 99/82 H 104/85 H Blood Pressure Mean 87 91 Pulse Ox 99 97 94 Oxygen Delivery Method Nasal Cannula Nasal Cannula Nasal Cannula Oxygen Flow Rate (L/min) 3 3 3 Fraction of Inspired Oxygen (FIO2) 08/10/20 19:33 08/10/20 19:35 08/10/20 20:00 Temperature 104.5 F H 104.1 F H Temperature Source Core Core Pulse Rate 110 H 116 H 104 H Respiratory Rate 26 H 24 H 14 Blood Pressure 126/67 H 99/64 Blood Pressure Mean 86 75 Pulse Ox 99 100 99 Oxygen Delivery Method Mechanical Ventilator Oxygen Flow Rate (L/min) Fraction of Inspired Oxygen (FIO2) 45 08/10/20 20:28 08/10/20 20:30 Temperature 103.5 F H 103.4 F H Temperature Source Core Core Pulse Rate 100 100 Respiratory Rate 14 14 Blood Pressure 105/70 115/71 Blood Pressure Mean 81 85 Pulse Ox 99 99 Oxygen Delivery Method Mechanical Ventilator Mechanical Ventilator Oxygen Flow Rate (L/min) Fraction of Inspired Oxygen (FIO2) Physical Exam Narrative Physical Examination: General: Patient laying in the ED bed, unable to answer any orientation questions, intubated, sedated, no acute distress currently. Skin: normal color, turgor, no icterus, cyanosis. HEENT: AT/NC, EOM unable to be assessed given intubated, sedated status, PERRLA however sluggish, dry MM, no carotid bruits or JVD noted although thickened neck makes examination difficult. Lungs: Diminished, symmetric rise, intubated, sedated, no rales, ronchi or wheezing. Heart: Mildly tachycardic with regular rhythm; no gallop, rub audible. Abdomen: soft, obese, NTTP with no grimacing, ND, distant normal BS, no obvious HSM however habitus makes examination difficult. Extremities: no cyanosis, clubbing, or edema. Neurological: patient laying in the ED bed, unable to answer any orientation questions, intubated, sedated, cognitive function not intact although from recent Covid admission patient following has been ANO only x1, pupils equally reactive to light and accommodation although sluggish, cranial nerves unable to be assessed given intubated sedated status, moving extremities to some painful stimuli, strength accordingly severely global decrease. Psychiatric: affect appears flat, sedated, no acute evidence of depressive or anxiety feelings. Lab / Micro Data Result Diagrams: 08/10/20 18:10 08/10/20 18:10 Labs: Laboratory Results - last 24 hr 08/10/20 08/10/20 08/10/20 18:10 18:10 18:10 WBC 12.3 H RBC 4.38 L Hgb 13.7 Hct 41.7 MCV 95.2 H MCH 31.3 MCHC 32.9 RDW Std Deviation 68.0 H RDW Coeff of [place] 19.6 H Plt Count 307 MPV 10.1 Immature Gran % (Auto) 0.800 Neut % (Auto) 87.6 H Lymph % (Auto) 5.5 L Lake % (Auto) 5.9 Eos % (Auto) 0.0 Baso % (Auto) 0.2 Absolute Neuts (auto) 10.8 H Absolute Lymphs (auto) 0.68 L Nucleated RBC % 0 Differential Comment SCANNED Anisocytosis 1+ PT 18.0 H INR 1.6 APTT 30.2 Sodium 141 Potassium 4.9 Chloride 105 Carbon Dioxide 27.0 Anion Gap 9 BUN 24 H Creatinine 1.94 H Estim Creat Clear Calc 39.44 Est GFR (MDRD) Af Amer 44 L Est GFR (MDRD) Non-Af 37 L BUN/Creatinine Ratio 12.4 Glucose 251 H Lactic Acid Calcium 10.7 H Total Bilirubin 1.10 H AST 63 H ALT 29 Alkaline Phosphatase 308 H Troponin I 0.027 Total Protein 8.4 H Albumin 2.5 L Globulin 5.9 H Albumin/Globulin Ratio 0.4 L Urine Color Urine Clarity Urine pH Ur Specific [place] Urine Protein Urine Glucose (UA) Urine Ketones Urine Occult Blood Urine Nitrite Urine Bilirubin Urine Urobilinogen Ur Leukocyte Esterase Urine RBC Urine WBC Ur Squamous Epith Cells Urine Bacteria Urine Mucus 08/10/20 08/10/20 18:10 18:45 WBC RBC Hgb Hct MCV MCH MCHC RDW Std Deviation RDW Coeff of [place] Plt Count MPV Immature Gran % (Auto) Neut % (Auto) Lymph % (Auto) Lake % (Auto) Eos % (Auto) Baso % (Auto) Absolute Neuts (auto) Absolute Lymphs (auto) Nucleated RBC % Differential Comment Anisocytosis PT INR APTT Sodium Potassium Chloride Carbon Dioxide Anion Gap BUN Creatinine Estim Creat Clear Calc Est GFR (MDRD) Af Amer Est GFR (MDRD) Non-Af BUN/Creatinine Ratio Glucose Lactic Acid 5.0 H* Calcium Total Bilirubin AST ALT Alkaline Phosphatase Troponin I Total Protein Albumin Globulin Albumin/Globulin Ratio Urine Color Yellow Urine Clarity Cloudy Urine pH 5.0 Ur Specific [place] 1.025 Urine Protein 30 H Urine Glucose (UA) Normal Urine Ketones 5 H Urine Occult Blood 150 H Urine Nitrite Positive H Urine Bilirubin Negative Urine Urobilinogen 1 H Ur Leukocyte Esterase 500 H Urine RBC 0-5 SEEN Urine WBC >100 SEEN Ur Squamous Epith Cells 0-5 SEEN Urine Bacteria 2+ Urine Mucus 0 SEEN Micro: Microbiology 08/10/20 19:40 Influenza Types A,B Direct FA (MALLORY) - Final Mucosa - Nasopharyngeal ABG Data ABG results: ABG 08/10/20 19:10 Specimen Type ART Sample Site R Radial pH 7.48 H Bicarbonate Actual 21.4 L Total CO2 22 Base Excess -2 O2 Saturation 98 O2 % 45 ABG pCO2 28.6 L ABG pO2 99 Kulwinder Test Positive Respiration Rate 14 O2 Delivery Device Adult Vent Vent Mode AC Tidal Volume 500 POC PEEP [address] 08/10/20 18:27 IMPRESSION: 1. Acute findings. 2. Mild microvascular ischemic changes. Atrophy. Electronically Signed: Estelita Pino MD at 19:07 EDT Tel , Service support , Cervical Spine CT 08/10/20 18:42 IMPRESSION: 1. No demonstrated trauma. 2. Mild degenerative changes of the cervical spine. Electronically Signed: Estelita Pino MD at 19:31 EDT Tel , Service support , Assessment & Plan Assessment/Plan (1) Septic shock: (2) Encephalopathy acute: (3) Acute kidney injury: (4) Acute UTI: PLAN: The patient is a 69 y/o M w/ PMHx: Diabetes mellitus type II, HTN, HLD, OA, Anxiety and Depression, ALEX, RLS, Hypothyroidism, recent prior admission for COVID with encephalopathy (05/31/20) associated and following transition to SNF with baseline AxO x [address] [facility] ED on 08/10/20 with onset increased confusion and agitation as well as fall over the last 48 hours at SNF per discussion with family and SNF report. Family reported no specific recent cough, dyspnea, emesis, diarrhea. They note he has been significantly impaired mentally since having COVID. 1. Acute Encephalopathy secondary to Acute Septic Shock secondary to Acute Complicated UTI: Will admit to the ICU, will maintain on transitioned from precedex ED to propofol and fentanyl, may require central line placement, trend LA, continue aggressive hydration, maintain on IV rocephin as cultures from prior revealed no prior UTI resistance patterns, continue with ICU consultation, continue vent settings initiated in the ED with alterations as needed pending repeat ABG, repeat CBC, CMP in AM, PT/OT/CM consulted. Failed OG placement x2 in the ED, will need to reattempt in AM. If patient status not improving after treatment acute infection may need to consider MRI brain and EEG given atypical ED presentation. 2. Acute kidney injury: Secondary to acute presentation #1. Admission BUN/Cr 24/1.94, prior baseline creatinine noted to be 0.7. Will hydrate, hold nephrotoxic medications and repeat chemistry in AM. If no improvement would plan FeNa assessment as well as renal US but given #1 acute complicated UTI would expect improvement with treatment. 3. History of 05/2020 COVID with associated Encephalopathy: Patient per report ANO only x1 following his Covid illness, transition to half-way facility. From review of records no evidence of any MRI of the brain although recent CT which showed prior strokes given timeline and none noted on report or film. 4. Diabetes mellitus type II: Hold oral home regimen, continue home insulin regimen, NPO status , accu checks w/ ISS. 5. Hypertension: Patient with low BP upon presentation, transitioning as noted to propofol and fentanyl, will hold any hypertensive medications and add back once appropriate. 6. Hyperlipidemia: We will continue patient home statin therapy. 7. Hypothyroidism: Continue home synthroid regimen. 8. Anxiety and depression: We will continue patient home venlafaxine and Wellbutrin regimen. 9. DVT prophylaxis: SCDs, lovenox. 10. CODE status: Patient DESTINY is his son Axel Flores and living will is currently in place. Discussed CODE status at length including difference between FULL code, DNR-CCA and DNR-CC status. Following discussions about the differences in these status, requested Full Code status but did discuss his status at length and his poor quality of life following recent Covid illness and family intends to consider transition to DNR CCA no intubation upon return to half-way facility or if worsens during admission potential consideration for comfort. Advanced Care Planning Face to Face Time: 16 minutes. Visit Charges Inpatient E&M: 41300 Init Hosp L3 Procedures Hospitalists Procedures: 38985 Advncd Care Plan 30 Min
[2020-08-10] MEDS: 0.9% Normal Saline 1,000 ML 250 ML IV (21:34)
[2020-08-10] MEDS: Propofol 10MG/Ml 1,000 MG/100 ML Bottle 6.4 MG CONT INF (21:44)
[2020-08-10 22:12] LABS: Thyroid Stim Hormone (TSH) 1.25 uIU/mL (0.358-3.74)
[2020-08-10 22:39] LABS: Reflex Lactate? Y
[2020-08-10 23:23] LABS: CPK Total, Creatine Kinase 207 U/L (39-308); Triglycerides 139 mg/dL
[2020-08-10 23:52] LABS: Lactic Acid 2.5 mmol/L (0.4-1.9)
[2020-08-11] VITALS (39 sets, daily range): BP systolic 69–126; BP diastolic 38–76; PULSE 81–88; RESP 14–20; TEMP 36.1–38.4; O2SAT 97–100; BMI 35.7
[2020-08-11] MEDS: 0.9% Normal Saline 1,000 ML 150 ML IV (00:35)
[2020-08-11] MEDS: Insulin Lispro 100 UNIT/ML INSULN.PEN SC ×5 (00:43→23:56)
--- NOTE | 2020-08-11 01:21 | RAD_ITS ---
STUDY: X-RAY - ABDOMEN/PELVIS REASON FOR EXAM: Male, 69 years old. OG placement TECHNIQUE: AP supine and decubitus views of the abdomen and pelvis. COMPARISON: None. FINDINGS: Normal visualized lung bases. The nasogastric tube has the tip at the gastric antrum. Nonspecific bowel distention. There is no demonstrated free abdominal air. The visualized liver, spleen and kidneys are grossly normal in size and morphology. Normal soft tissue structures. There are diffuse degenerative changes of the visualized lumbar spine. RAD/Abdomen Single View (Portable) IMPRESSION: Nasogastric tube as described. Electronically Signed: Ju Scott MD at 2:24 EDT , Service support ,
[2020-08-11 01:27] LABS: Probe Check PASS
[2020-08-11 01:28] LABS: M R Staph aureus DNA By PCR POSITIVE (Negative)
--- NOTE | 2020-08-11 01:37 | RAD_ITS ---
STUDY: X-RAY - ABDOMEN/PELVIS REASON FOR EXAM: Male, 69 years old. og placement TECHNIQUE: Single AP view of the abdomen / pelvis. COMPARISON: 08/11/2020. FINDINGS: Normal visualized lung bases. The nasogastric tube has the tip at the gastric fundus with sidehole just beyond the EG junction. There is nonspecific distention of bowel loops with fecal debris within the colon. There is no demonstrated free abdominal air. The visualized liver, spleen and kidneys are grossly normal in size and morphology. Normal soft tissue structures. Normal visualized osseous structures. RAD/Abdomen Single View (Portable) IMPRESSION: Nasogastric tube as described, recommend advancing the nasogastric tube approximately 10 cm. Nonspecific bowel distention. Electronically Signed: Ju Scott MD at 2:23 EDT , Service support ,
--- NOTE | 2020-08-11 01:38 | RAD_ITS ---
STUDY: X-RAY - ABDOMEN/PELVIS REASON FOR EXAM: Male, 69 years old. og placement TECHNIQUE: Single AP view of the abdomen / pelvis. COMPARISON: 08/11/2020. FINDINGS: Normal visualized lung bases. The nasogastric tube has the tip near the gastric antrum, normal location. Nonspecific distention of bowel. There is no demonstrated free abdominal air. The visualized liver, spleen and kidneys are grossly normal in size and morphology. Normal soft tissue structures. There are diffuse degenerative changes of the visualized lumbar spine. RAD/Abdomen Single View (Portable) IMPRESSION: Nasogastric tube in normal location. Electronically Signed: Ju Scott MD at 2:25 EDT , Service support ,
[2020-08-11] MEDS: Chlorhexidine 15 ML PO ×3 (01:43→21:28)
[2020-08-11] MEDS: Propofol 10MG/Ml 1,000 MG/100 ML Bottle 22.9 MG CONT INF (01:49)
[2020-08-11 04:22] LABS: Absolute Lymphocyte Count 1.18 X10^3/uL (0.83-4.51); Absolute Neutrophil Count 8.6 X10^3/uL (2.0-7.7); Basophil# 0.02 X10^3/uL; Basophil% 0.2 % (0-1); Hematocrit 32.6 % (40-54); Lymphocyte # 1.18 X10^3/ul (0.83-4.51); Lymphocyte % 10.1 % (19-41); Mean Corp Hgb Conc 30.7 g/dL (32-36); Mean Corpuscular Hgb 30.1 pg (27.0-32.0); Mean Corpuscular Volume 98.2 fL (80-94); Mean Platelet Vol. 9.8 fl (6.2-12.0); Monocyte# 1.77 X10^3/uL; Monocyte% 15.2 % (0-10); NRBC Flagged by Analyzer 0 % (0-5); Neutrophil # 8.62 X10^3/uL (2.7-7.7); Neutrophil % 73.8 % (47-70); POSITIVE DIFFERENTIAL YES; POSITIVE MORPHOLOGY YES; Platelet Count 162 K/mm3 (150-450); RBC Distribution Width CV 19.9 % (11.6-14.6); RBC Distribution Width SD 71.9 fl (35.1-43.9); Red Blood Count 3.32 M/mm3 (4.6-6.2); White Blood Count 11.7 K/mm3 (4.4-11.0)
[2020-08-11 04:32] LABS: Differential Indicated SCAN CRITERIA MET
[2020-08-11 04:37] LABS: Differential Comment SCANNED
[2020-08-11 05:07] LABS: ALB/GLOB Ratio 0.4 RATIO (0.9-2.4); AST(SGOT) 100 U/L (15-37); Alanine Aminotransfer ALT/SGPT 40 U/L (16-61); Albumin, Serum 1.9 g/dL (3.2-5.0); Alkaline Phosphatase 224 U/L (45-117); Anion Gap 6 (5-15); BUN 27 mg/dL (7-18); BUN/Creat Ratio 17.3 RATIO (10-20); Calcium,Total 8.7 mg/dL (8.5-10.1); Chloride 111 mmol/L (98-107); Creatinine, Serum 1.56 mg/dL (0.70-1.30); EST Glomerular Filtration Rate 47 mL/min (>60); Est Glom Filt Rate - Afr Amer 57 mL/min (>60); Estimated Creatinine Clearance 44.69 ml/min; Globulin 4.3 g/dL (2.2-4.2); Glucose 243 mg/dL (74-106); Phosphorus 4.1 mg/dL (2.5-4.9); Potassium 3.7 mmol/L (3.5-5.1); Protein, Total 6.2 g/dL (6.4-8.2); Sodium Level 143 mmol/L (136-145)
--- NOTE | 2020-08-11 05:47 | CON.PCM.CC_ITS ---
Assessment & Plan Assessment/Plan (1) Encephalopathy: (2) Septic shock: (3) Respiratory failure: PLAN: RECOMMENDATIONS: 1. Continue empiric antimicrobials, pending infectious work-up. 2. Place sedating medications on hold to reassess baseline neurological status. 3. Continue to wean FiO2 to maintain oxygen saturations at or above 90%. 4. Reconfirm OG tube placement and start tube feeds. 5. Start appropriate GI and DVT prophylaxis. IMPRESSIONS: 1. Acute hypoxemic respiratory failure The patient was initially intubated in the emergency department over concerns for his ability to protect his airway, as the patient was notably encephalopathic. The patient will be continued on assist control mode of mechanical ventilation as tolerated. Plan to wean FiO2 to maintain oxygen saturations at or above 90%. Chest imaging did not demonstrate any overt evidence of a pulmonary infectious etiology. Given the patient's depressed mental state, will hold all sedating medications this morning in hopes of better assessing his neurological status. Once OG tube placement is confirmed, tube feeds can be initiated from my perspective. Continue appropriate ICU prophylaxis. 2. Septic shock Clinical concern for underlying urinary tract source of infection. The patient did receive supplemental IV fluid hydration. Plan to continue broad-spectrum antimicrobials, pending infectious work-up. The patient is currently hemodynamically stable, without vasopressor need. 3. Encephalopathy Concern for underlying metabolic/infectious etiology. The patient is on appropriate antimicrobials. As noted above, we will plan to discontinue sedating medications in hopes of better assessing his baseline neurological status. 4. Acute kidney injury Likely prerenal in etiology and related to #2. Anticipate improvement with volume expansion. Continue to monitor urine output for now. No current indication for renal replacement therapy. 5. Obesity/diabetes mellitus/hypertension/hyperlipidemia/hypothyroidism Complicates care, management, recovery and prognosis. Continue home medications as indicated. TIME: 42 minutes of critical care time, independent of procedures, was spent addressing the patient's acute hypoxemic respiratory failure, septic shock, encephalopathy, acute kidney injury, review of all data and collaboration with the care team. ([id number]) HPI Consult Data Date of Consult: 08/11/20 HPI Narrative Reason for Consultation: Acute respiratory failure, encephalopathy HPI Narrative: The patient is a 69-year-old male, with a history as outlined below, who presented to the emergency department on August 10 via EMS from [facility] with altered mentation. The patient was last admitted to the hospital May 31 with acute hypoxemic respiratory failure secondary to COVID- 19 pneumonia. The patient did complete a treatment course of remdesivir and Decadron at that time. On presentation to the emergency department, the patient was noted to be febrile with a temperature of 101.8 ?F. The patient was also tachycardic, tachypneic with tenuous hemodynamics. Initial laboratory evaluation revealed a white blood cell count of 12,000. Chemistry profile was notable for a creatinine of 1.94. Initial lactate was elevated to 5.0. Total bilirubin was increased to 1.1. Urinalysis was positive for nitrites, leukocyte esterase and 2+ urine bacteria. MRSA screen was positive. CT head revealed no acute intracranial pathology. Initial plain film chest x-ray showed no acute cardiopulmonary process. While in the emergency department, the patient was noted to be minimally responsive with concern for airway protection. Therefore, he was intubated. Postintubation ABG revealed a pH of 7.48 with a PCO2 of 29 and PO2 of 99. The patient initially received supplemental IV fluid hydration and was placed on antimicrobials. He was subsequently admitted to the medical intensive care unit for further management. [facility] Medical History Diabetes mellitus Dysphasia Encephalopathy HTN (hypertension) Hyperthyroidism Hypomagnesemia Home Medications atorvastatin 80 mg PO QHS 04/09/15 [History Last Taken 08/09/20] bupropion HCl 150 mg PO DAILY 04/09/15 [History Last Taken 08/10/20] cyclobenzaprine 10 mg PO DAILY 04/09/15 [History Last Taken 08/10/20] oxybutynin chloride 5 mg PO BID 05/30/18 [History Last Taken 08/10/20] cholecalciferol (vitamin D3) 1,000 unit PO DAILY 05/31/20 [History Last Taken 08/10/20] venlafaxine 100 mg PO QHS 05/31/20 [History Last Taken 08/09/20] acetaminophen [Tylenol] 650 mg PO Q4H PRN 08/10/20 [History Last Taken 08/10/20] aspirin 81 mg PO DAILY 08/10/20 [History Last Taken 08/10/20] bisacodyl [Dulcolax (bisacodyl)] 10 mg PO DAILY 08/10/20 [History Last Taken 08/10/20] hydrochlorothiazide 12.5 mg PO DAILY 08/10/20 [History Last Taken 08/10/20] insulin glargine [Basaglar KwikPen U-100 Insulin] 20 unit SUBCUT QHS 08/10/20 [History Last Taken 08/09/20] insulin lispro [Humalog U-100 Insulin] See Protocol SUBCUT ACHS 08/10/20 [History Last Taken 08/10/20] ipratropium-albuterol 3 ml INHALATION 4X/DAY 08/10/20 [History Last Taken 08/10/20] levothyroxine 75 mcg PO DAILY 08/10/20 [History Last Taken 08/10/20] magnesium oxide 400 mg PO DAILY 08/10/20 [History Last Taken 08/10/20] metoprolol succinate 50 mg PO BID 08/10/20 [History Last Taken 08/10/20] potassium chloride [Klor-Con M20] 40 meq PO DAILY 08/10/20 [History Last Taken 08/10/20] pseudoephedrine-guaifenesin [Mucinex D] 2 tab PO BID 08/10/20 [History Last Taken 08/10/20] venlafaxine 50 mg PO DAILY 08/10/20 [History Last Taken 08/10/20] Allergy/AdvReac Type Severity Reaction Status Date / Time YONATAN Inhibitors Allergy Severe throat Verified 08/10/20 18:05 swells pioglitazone HCl [From Actos] AdvReac Swelling Verified 08/10/20 18:05 Social History (Updated 08/10/20 @ 22:[address] Dee Shrestha MD) housing: retirement Smoking Status: Never smoker alcohol intake: never substance use type: does not use ROS Review of Systems ROS Unobtainable: due to encephalopathy and due to endotracheal tube Physical Exam Const no apparent distress Constitutional Narrative: No ventilator dyssynchrony noted. General Appearance: patient mechanically ventilated HEENT normocephalic and head/scalp atraumatic Mouth: endotracheal tube in place and OG tube in place Eyes PERRL and conjunctivae normal Pupil: sluggish Neck supple General: trachea midline Resp Auscultation: diminished lung sounds; Negative for rales, rhonchi or wheezes Cardio regular rate and regular rhythm GI normal to inspection, nondistended, normoactive bowel sounds Extremity no clubbing, cyanosis or edema Skin no rashes or lesions noted Neuro no focal motor deficits Sensorium / Orientation: sedated on vent Psych Mood & Affect: flat affect Lab / Micro Data Result Diagrams: 08/11/20 04:15 08/11/20 04:15 Labs: Laboratory Results - last 24 hr 08/10/20 08/10/20 08/10/20 18:10 18:10 18:10 WBC 12.3 H RBC 4.38 L Hgb 13.7 Hct 41.7 MCV 95.2 H MCH 31.3 MCHC 32.9 RDW Std Deviation 68.0 H RDW Coeff of Linnette 19.6 H Plt Count 307 MPV 10.1 Immature Gran % (Auto) 0.800 Neut % (Auto) 87.6 H Lymph % (Auto) 5.5 L Cuming % (Auto) 5.9 Eos % (Auto) 0.0 Baso % (Auto) 0.2 Absolute Neuts (auto) 10.8 H Absolute Lymphs (auto) 0.68 L Nucleated RBC % 0 Differential Comment SCANNED Diff Path Review Anisocytosis 1+ PT 18.0 H INR 1.6 APTT 30.2 Sodium 141 Potassium 4.9 Chloride 105 Carbon Dioxide 27.0 Anion Gap 9 BUN 24 H Creatinine 1.94 H Estim Creat Clear Calc 39.44 Est GFR (MDRD) Af Amer 44 L Est GFR (MDRD) Non-Af 37 L BUN/Creatinine Ratio 12.4 Glucose 251 H Lactic Acid Calcium 10.7 H Phosphorus Magnesium Total Bilirubin 1.10 H AST 63 H ALT 29 Alkaline Phosphatase 308 H Total Creatine Kinase Troponin I 0.027 Total Protein 8.4 H Albumin 2.5 L Globulin 5.9 H Albumin/Globulin Ratio 0.4 L Triglycerides TSH Urine Color Urine Clarity Urine pH Ur Specific [place] Urine Protein Urine Glucose (UA) Urine Ketones Urine Occult Blood Urine Nitrite Urine Bilirubin Urine Urobilinogen Ur Leukocyte Esterase Urine RBC Urine WBC Ur Squamous Epith Cells Urine Bacteria Urine Mucus MRSA (PCR) 08/10/20 08/10/20 08/10/20 18:10 18:10 18:10 WBC RBC Hgb Hct MCV MCH MCHC RDW Std Deviation RDW Coeff of Linnette Plt Count MPV Immature Gran % (Auto) Neut % (Auto) Lymph % (Auto) Cuming % (Auto) Eos % (Auto) Baso % (Auto) Absolute Neuts (auto) Absolute Lymphs (auto) Nucleated RBC % Differential Comment Diff Path Review Anisocytosis PT INR APTT Sodium Potassium Chloride Carbon Dioxide Anion Gap BUN Creatinine Estim Creat Clear Calc Est GFR (MDRD) Af Amer Est GFR (MDRD) Non-Af BUN/Creatinine Ratio Glucose Lactic Acid 5.0 H* Calcium Phosphorus Magnesium Total Bilirubin AST ALT Alkaline Phosphatase Total Creatine Kinase 207 Troponin I Total Protein Albumin Globulin Albumin/Globulin Ratio Triglycerides 139 TSH 1.25 Urine Color Urine Clarity Urine pH Ur Specific [place] Urine Protein Urine Glucose (UA) Urine Ketones Urine Occult Blood Urine Nitrite Urine Bilirubin Urine Urobilinogen Ur Leukocyte Esterase Urine RBC Urine WBC Ur Squamous Epith Cells Urine Bacteria Urine Mucus MRSA (PCR) 08/10/20 08/10/20 08/11/20 18:45 22:55 00:15 WBC RBC Hgb Hct MCV MCH MCHC RDW Std Deviation RDW Coeff of Linnette Plt Count MPV Immature Gran % (Auto) Neut % (Auto) Lymph % (Auto) Cuming % (Auto) Eos % (Auto) Baso % (Auto) Absolute Neuts (auto) Absolute Lymphs (auto) Nucleated RBC % Differential Comment Diff Path Review Anisocytosis PT INR APTT Sodium Potassium Chloride Carbon Dioxide Anion Gap BUN Creatinine Estim Creat Clear Calc Est GFR (MDRD) Af Amer Est GFR (MDRD) Non-Af BUN/Creatinine Ratio Glucose Lactic Acid 2.5 H* Calcium Phosphorus Magnesium Total Bilirubin AST ALT Alkaline Phosphatase Total Creatine Kinase Troponin I Total Protein Albumin Globulin Albumin/Globulin Ratio Triglycerides TSH Urine Color Yellow Urine Clarity Cloudy Urine pH 5.0 Ur Specific [place] 1.025 Urine Protein 30 H Urine Glucose (UA) Normal Urine Ketones 5 H Urine Occult Blood 150 H Urine Nitrite Positive H Urine Bilirubin Negative Urine Urobilinogen 1 H Ur Leukocyte Esterase 500 H Urine RBC 0-5 SEEN Urine WBC >100 SEEN Ur Squamous Epith Cells 0-5 SEEN Urine Bacteria 2+ Urine Mucus 0 SEEN MRSA (PCR) POSITIVE H 08/11/20 08/11/20 04:15 04:15 WBC 11.7 H RBC 3.32 L Hgb 10.0 L Hct 32.6 L MCV 98.2 H MCH 30.1 MCHC 30.7 L D RDW Std Deviation 71.9 H RDW Coeff of Linnette 19.9 H Plt Count 162 MPV 9.8 Immature Gran % (Auto) 0.700 Neut % (Auto) 73.8 H Lymph % (Auto) 10.1 L Cuming % (Auto) 15.2 H Eos % (Auto) 0.0 Baso % (Auto) 0.2 Absolute Neuts (auto) 8.6 H Absolute Lymphs (auto) 1.18 Nucleated RBC % 0 Differential Comment SCANNED Diff Path Review May foll Anisocytosis PT INR APTT Sodium 143 Potassium 3.7 Chloride 111 H Carbon Dioxide 26.0 Anion Gap 6 BUN 27 H Creatinine 1.56 H Estim Creat Clear Calc 44.69 Est GFR (MDRD) Af Amer 57 L Est GFR (MDRD) Non-Af 47 L BUN/Creatinine Ratio 17.3 Glucose 243 H Lactic Acid Calcium 8.7 Phosphorus 4.1 Magnesium 2.0 Total Bilirubin 0.70 AST 100 H ALT 40 Alkaline Phosphatase 224 H Total Creatine Kinase Troponin I Total Protein 6.2 L Albumin 1.9 L Globulin 4.3 H Albumin/Globulin Ratio 0.4 L Triglycerides TSH Urine Color Urine Clarity Urine pH Ur Specific [place] Urine Protein Urine Glucose (UA) Urine Ketones Urine Occult Blood Urine Nitrite Urine Bilirubin Urine Urobilinogen Ur Leukocyte Esterase Urine RBC Urine WBC Ur Squamous Epith Cells Urine Bacteria Urine Mucus MRSA (PCR) Micro: Microbiology 08/10/20 19:40 Influenza Types A,B Direct FA (MALLORY) - Final Mucosa - Nasopharyngeal ABG Data ABG results: ABG 08/10/20 19:10 Specimen Type ART Sample Site R Radial pH 7.48 H Bicarbonate Actual 21.4 L Total CO2 22 Base Excess -2 O2 Saturation 98 O2 % 45 ABG pCO2 28.6 L ABG pO2 99 Kulwinder Test Positive Respiration Rate 14 O2 Delivery Device Adult Vent Vent Mode AC Tidal Volume 500 POC PEEP [address] 08/10/20 18:27 IMPRESSION: 1. Acute findings. 2. Mild microvascular ischemic changes. Atrophy. Electronically Signed: Estelita Pino MD at 19:07 EDT Tel , Service support , Cervical Spine CT 08/10/20 18:42 IMPRESSION: 1. No demonstrated trauma. 2. Mild degenerative changes of the cervical spine. Electronically Signed: Estelita Pino MD at 19:31 EDT Tel , Service support , Chest X-Ray 08/10/20 19:37 IMPRESSION: 1. No acute findings. 2. Nasogastric tube position is uncertain and may terminate in the mid esophagus or proximal left mainstem bronchus. Tube should be removed and repositioned. Electronically Signed: Estelita Pino MD at 21:02 EDT Tel , Service support , ADDENDUM: 08/10/202114 IMPRESSION: 1. No acute findings. 2. Nasogastric tube position is uncertain and may terminate in the mid esophagus or proximal left mainstem bronchus. Tube should be removed and repositioned. N.B. : The above information has been verbally conveyed by Estelita Pino MD to Mike Bui MD, MD, on 08/10/2020 21:08:22 (ET). Electronically Signed: Estelita Pino MD at 21:02 EDT Tel , Service support , KUB X-Ray 08/11/20 01:21 IMPRESSION: Nasogastric tube as described. Electronically Signed: Ju Scott MD at 2:24 EDT , Service support , KUB X-Ray 08/11/20 01:37 IMPRESSION: Nasogastric tube as described, recommend advancing the nasogastric tube approximately 10 cm. Nonspecific bowel distention. Electronically Signed: Ju Scott MD at 2:23 EDT , Service support , KUB X-Ray 08/11/20 01:38 IMPRESSION: Nasogastric tube in normal location. Electronically Signed: Ju Scott MD at 2:25 EDT , Service support , Charges/Coding Procedures Hospitalists Procedures: [id number] [facility]
[2020-08-11] MEDS: Levothyroxine 75 MCG Tablet PO (06:12)
[2020-08-11] MEDS: Propofol 10MG/Ml 1,000 MG/100 ML Bottle 19.6 MG CONT INF (06:12)
[2020-08-11] MEDS: Ipratropium/Albuterol Sulfate 3 ML AMPUL.NEB INHALATION ×3 (07:38→18:38)
--- NOTE | 2020-08-11 08:12 | PHA.PHARE_ITS ---
Consult Pharmacy has been consulted to manage selected antiobiotic: Vancomycin Type of Consult: Follow-up Suspected Infection: Sepsis Prior Doses of Antibiotics Received/Current Regimen: received 2000mg IV x1 this morning at 0200, then patient had been ordered to start 1500mg q24h tomorrow at 0200 Labs: Sodium 143 mmol/L (136-145) 08/11/20 04:15 Potassium 3.7 mmol/L (3.5-5.1) 08/11/20 04:15 Chloride 111 mmol/L (98-107) H 08/11/20 04:15 Carbon Dioxide 26.0 mmol/L (21.0-32.0) 08/11/20 04:15 Anion Gap 6 (5-15) 08/11/20 04:15 BUN 27 mg/dL (7-18) H 08/11/20 04:15 Creatinine 1.56 mg/dL (0.70-1.30) H 08/11/20 04:15 Est GFR (MDRD) Af Amer 57 mL/min (>60) L 08/11/20 04:15 Est GFR (MDRD) Non-Af 47 mL/min (>60) L 08/11/20 04:15 BUN/Creatinine Ratio 17.3 RATIO (10-20) 08/11/20 04:15 Glucose 243 mg/dL (74-106) H 08/11/20 04:15 Microbiology: Microbiology 08/10/20 19:40 Mucosa - Nasopharyngeal Influenza Types A,B Direct FA (MALLORY) - Final Weight used for dosin.8 kg Estimated Creatinine Clearance: 54.6ml/min Goal Trough: 15-20 mcg/mL Pharmacy Plan for Drug Dosing: The patient's SCr has improved to 1.56 from 1.94 last night so will change current dosing to 1000mg IV q12h per [facility] dosing protocol, beginning this afternoon. Will order a trough to be drawn before the 4th total dose tomorrow afternoon. The patient's CrCl of 54.6ml/min was calculated using an adjusted body weight of 86.3kg. Pharmacy Service will continue to monitor and adjust dosing as required. Follow-Up Labs: Trough Vancomycin Labs to be done on [date and time ordered]: 08/12/20 13:30
--- NOTE | 2020-08-11 08:51 | NURSING ---
unable to perform CAM d/t mental status
--- NOTE | 2020-08-11 09:09 | NURSING ---
per Dr. Joshi's order propofol and fentanyl held at this time due to RASS -4.
--- NOTE | 2020-08-11 09:35 | RAD_ITS ---
STUDY: X-RAY - ABDOMEN/PELVIS REASON FOR EXAM: Male, 69 years old. OG placement TECHNIQUE: Single AP view of the abdomen / pelvis. COMPARISON: None. FINDINGS: Nasogastric tube with the tip in the right upper quadrant likely in the antrum the stomach. Moderately dilated transverse colon. The visualized liver, spleen and kidneys are grossly normal in size and morphology. Normal soft tissue structures. Normal visualized osseous structures. RAD/Abdomen Single View (Portable) IMPRESSION: Nasogastric tube with the tip in the right upper quadrant likely in the antrum the stomach. Moderately dilated transverse colon. Electronically Signed: Frank Chowdary MD at 9:58 EDT Tel , Service support ,
--- NOTE | 2020-08-11 09:39 | NT.THERAPY_ITS ---
Nutrition Therapy Report - History Nutrition Services has been consulted to:: Manage nutrient details of diet order, Manage enteral nutrition Current diet / nutrition support order:: NPO - Anthropometric Measurements Height:: 5 ft 9 in Weight:: 109.8 kg Body Mass Index (BMI):: 35.7 - Relevant Labs Relevant Labs:: WBC 11.7 K/mm3 (4.4-11.0) H 08/11/20 04:15 RBC 3.32 M/mm3 (4.6-6.2) L 08/11/20 04:15 Hgb 10.0 g/dL (13.0-16.5) L 08/11/20 04:15 Hct 32.6 % (40-54) L 08/11/20 04:15 MCV 98.2 fL (80-94) H 08/11/20 04:15 MCHC 30.7 g/dL (32-36) L D 08/11/20 04:15 RDW Std Deviation 71.9 fl (35.1-43.9) H 08/11/20 04:15 RDW Coeff of Linnette 19.9 % (11.6-14.6) H 08/11/20 04:15 Neut % (Auto) 73.8 % (47-70) H 08/11/20 04:15 Lymph % (Auto) 10.1 % (19-41) L 08/11/20 04:15 [place] % (Auto) 15.2 % (0-10) H 08/11/20 04:15 Absolute Neuts (auto) 8.6 X10^3/uL (2.0-7.7) H 08/11/20 04:15 Absolute Lymphs (auto) 0.68 X10^3/uL (0.83-4.51) L 08/10/20 18:10 PT 18.0 SECONDS (11.7-14.9) H 08/10/20 18:10 Chloride 111 mmol/L (98-107) H 08/11/20 04:15 BUN 27 mg/dL (7-18) H 08/11/20 04:15 Creatinine 1.56 mg/dL (0.70-1.30) H 08/11/20 04:15 Est GFR (MDRD) Af Amer 57 mL/min (>60) L 08/11/20 04:15 Est GFR (MDRD) Non-Af 47 mL/min (>60) L 08/11/20 04:15 Glucose 243 mg/dL (74-106) H 08/11/20 04:15 Lactic Acid 2.5 mmol/L (0.4-1.9) H* 08/10/20 22:55 Calcium 10.7 mg/dL (8.5-10.1) H 08/10/20 18:10 Total Bilirubin 1.10 mg/dL (0.20-1.00) H 08/10/20 18:10 AST 100 U/L (15-37) H 08/11/20 04:15 Alkaline Phosphatase 224 U/L (45-117) H 08/11/20 04:15 Total Protein 6.2 g/dL (6.4-8.2) L 08/11/20 04:15 Albumin 1.9 g/dL (3.2-5.0) L 08/11/20 04:15 Globulin 4.3 g/dL (2.2-4.2) H 08/11/20 04:15 Albumin/Globulin Ratio 0.4 RATIO (0.9-2.4) L 08/11/20 04:15 - Assessment Food / Nutrition-Related History:: Discussed in ICU rounds. Pt unable to provide information- data gathered from EMR and SNF records. Currently intubated. Per rounds- RN suspecting OGT is not functioning and will need replaced prior to enteral nutrition initiation. Per SNF records- pt on pureed diet [employer] w/ 4oz supplement offered TID d/t wt loss/poor PO intake. Wt on 05/31/20 was 269.6# and CBW 242.1#-27.5#/10% wt loss x ~2 months is significant for malnutrition. - Nutrition Diagnosis Problem / Etiology / Signs & Symptoms (PES):: severe, acute malnutrition r/t inadequate energy intake s/p COVID infection as evidenced by unintentional wt loss of 27.5#/10% x 2 months, estimated PO intake meeting <75% of nutritional needs >1 month. Evidence of Malnutrition Exists:: Yes Severe Protein Calorie Malnutrition:: Acute Illness - Nutrition Intervention Nutrition Prescription:: 2221-1785 calories/day (22-25 calories/kg IBW per ASPEN guidelines). 144-180 g protein/day (2.0-2.5g/kg IBW per ASPEN guidelines). 1800mL fluid/day (1mL/calorie) - Food / Nutrient Delivery Interventions Summary of nutrition intervention:: Will start enteral nutrition when OGT confirmed. Nutrition support ordered as / adjusted to:: If OGT confirmed to be working, recommend enteral nutrition support- Vital HP via OGT at goal rate of 75mL/hour w/ 50mL H2O flush every 4 hours to provide 1800 calories, 157 g protein, and 1804mL total fluid/day. Would start at 15mL/hour and increase by 10mL every 8-12 hours as pt tolerates until goal rate achieved. - MNT Monitoring Further MNT monitoring and evaluation required?: Yes MNT Follow-up in:: 1-2 days
--- NOTE | 2020-08-11 09:46 | CASEMGMT ---
Social Work SW attended ICU rounds. Pt is currently intubated. Sedation to be weaned as pt presents with KODY -4. Pt is admitted from [facility]. Mr. Flores was discharged from [facility] in May to [facility] with diagnosis of Covid. Pt son Axel was involved with pt discharge planning at that time. After rounds SW placed call to aspen Reyna. Axel states while at [facility], pt was admitted to [facility]. From [facility], son opted to move pt to [facility]. Pt was there skilled initially but is currently private pay as he was no longer progressing with therapy. Axel reports since pt discharge with Covid, pt has just been there at SNF. Not thinking well or improving in functional or mental status. The plan is for pt to return to [facility] at time of discharge. Phone call to Sherrie at [facility] and VM left with update on pt status. Clinicals faxed. Pt may be able to return to SNF skilled depending on status at time of discharge. SW will continue to follow for d/c planning. Plan: Return to [facility] JOSE MIGUEL [place]
[2020-08-11] MEDS: Magnesium Chloride 64 MG Delay Rel.Tablet 128 MG PO (10:08)
[2020-08-11] MEDS: Potassium Chloride Oral Tablet 20 MEQ 40 MEQ PO (10:08)
[2020-08-11] MEDS: Oxybutynin 5 MG Tablet PO (10:08)
[2020-08-11] MEDS: Cholecalciferol (VIT D3) 25 MCG TABLET (1,000 UNITS) PO (10:09)
[2020-08-11] MEDS: 0.9% Saline Lock 10 ML Syringe IV (10:10)
[2020-08-11] MEDS: Venlafaxine HCl 25 MG Tablet 50 MG PO (10:12)
[2020-08-11] MEDS: Famotidine 20 MG Tablet GT ×2 (10:15→21:29)
[2020-08-11 11:36] LABS: Bedside Glucose 243 mg/dL (70-110)
[2020-08-11 11:36] LABS: Bedside Glucose 233 mg/dL (70-110)
[2020-08-11] MEDS: Propofol 10MG/Ml 1,000 MG/100 ML Bottle 16.3 MG CONT INF ×3 (11:47→23:48)
[2020-08-11 12:25] LABS: Bedside Glucose 201 mg/dL (70-110)
[2020-08-11] MEDS: Vancomycin IV 1,000 MG/200 ML BAG 200 MG IV (13:18)
[2020-08-11] MEDS: Heparin Injection (Vial) 5,000 UNIT/ML VIAL 5000 UNIT SC ×2 (13:22→21:28)
[2020-08-11 13:25] LABS: Pathologist Review Reviewed
[2020-08-11] MEDS: Vital High Protein 1,000 ML 75 ML GT (15:08)
--- NOTE | 2020-08-11 15:12 | NURSING ---
vital HP started at 15 mL/hr per order via OG.
--- NOTE | 2020-08-11 16:15 | PCM.PN.HOSP ---
Subjective Subjective Patient was seen and examined in the ICU today, he was admitted yesterday for septic shock, he was intubated in the emergency room and he remains on the vent at this time. I talked briefly with critical care about his care today. Objective Data Objective Data Vital Signs: Vital Signs Temp Pulse Resp BP Pulse Ox 99.1 F 85 14 103/63 99 08/11/20 16:00 08/11/20 16:00 08/11/20 16:00 08/11/20 16:00 08/11/20 16:00 Oxygen Flow Rate (L/min) 3 Oxygen Delivery Method Mechanical Ventilator Weight: 109.8 kg Body Mass Index (BMI) 35.7 Intake & Output: Intake and Output for Last 24 Hours 08/09/20 08/10/20 08/11/20 23:59 23:59 23:59 Intake Total 2381.20 / 2385.23 2917.31 / 2917.31 Output Total 800 / 800 Balance 2381.20 / 2235.23 2117.31 / 2117.31 Lab / Micro Data Result Diagrams: 08/11/20 04:15 08/11/20 04:15 Labs: Laboratory Results - last 24 hr 08/10/20 08/10/20 08/10/20 18:10 18:10 18:10 WBC 12.3 H RBC 4.38 L Hgb 13.7 Hct 41.7 MCV 95.2 H MCH 31.3 MCHC 32.9 RDW Std Deviation 68.0 H RDW Coeff of Linnette 19.6 H Plt Count 307 MPV 10.1 Immature Gran % (Auto) 0.800 Neut % (Auto) 87.6 H Lymph % (Auto) 5.5 L [place] % (Auto) 5.9 Eos % (Auto) 0.0 Baso % (Auto) 0.2 Absolute Neuts (auto) 10.8 H Absolute Lymphs (auto) 0.68 L Nucleated RBC % 0 Differential Comment SCANNED Diff Path Review Anisocytosis 1+ PT 18.0 H INR 1.6 APTT 30.2 Sodium 141 Potassium 4.9 Chloride 105 Carbon Dioxide 27.0 Anion Gap 9 BUN 24 H Creatinine 1.94 H Estim Creat Clear Calc 39.44 Est GFR (MDRD) Af Amer 44 L Est GFR (MDRD) Non-Af 37 L BUN/Creatinine Ratio 12.4 Glucose 251 H Lactic Acid Calcium 10.7 H Phosphorus Magnesium Total Bilirubin 1.10 H AST 63 H ALT 29 Alkaline Phosphatase 308 H Total Creatine Kinase Troponin I 0.027 Total Protein 8.4 H Albumin 2.5 L Globulin 5.9 H Albumin/Globulin Ratio 0.4 L Triglycerides TSH Urine Color Urine Clarity Urine pH Ur Specific [place] Urine Protein Urine Glucose (UA) Urine Ketones Urine Occult Blood Urine Nitrite Urine Bilirubin Urine Urobilinogen Ur Leukocyte Esterase Urine RBC Urine WBC Ur Squamous Epith Cells Urine Bacteria Urine Mucus MRSA (PCR) POC Glucose 08/10/20 08/10/20 08/10/20 18:10 18:10 18:10 WBC RBC Hgb Hct MCV MCH MCHC RDW Std Deviation RDW Coeff of [place] Plt Count MPV Immature Gran % (Auto) Neut % (Auto) Lymph % (Auto) [place] % (Auto) Eos % (Auto) Baso % (Auto) Absolute Neuts (auto) Absolute Lymphs (auto) Nucleated RBC % Differential Comment Diff Path Review Anisocytosis PT INR APTT Sodium Potassium Chloride Carbon Dioxide Anion Gap BUN Creatinine Estim Creat Clear Calc Est GFR (MDRD) Af Amer Est GFR (MDRD) Non-Af BUN/Creatinine Ratio Glucose Lactic Acid 5.0 H* Calcium Phosphorus Magnesium Total Bilirubin AST ALT Alkaline Phosphatase Total Creatine Kinase 207 Troponin I Total Protein Albumin Globulin Albumin/Globulin Ratio Triglycerides 139 TSH 1.25 Urine Color Urine Clarity Urine pH Ur Specific [place] Urine Protein Urine Glucose (UA) Urine Ketones Urine Occult Blood Urine Nitrite Urine Bilirubin Urine Urobilinogen Ur Leukocyte Esterase Urine RBC Urine WBC Ur Squamous Epith Cells Urine Bacteria Urine Mucus MRSA (PCR) POC Glucose 08/10/20 08/10/20 08/11/20 18:45 22:55 00:15 WBC RBC Hgb Hct MCV MCH MCHC RDW Std Deviation RDW Coeff of [place] Plt Count MPV Immature Gran % (Auto) Neut % (Auto) Lymph % (Auto) [place] % (Auto) Eos % (Auto) Baso % (Auto) Absolute Neuts (auto) Absolute Lymphs (auto) Nucleated RBC % Differential Comment Diff Path Review Anisocytosis PT INR APTT Sodium Potassium Chloride Carbon Dioxide Anion Gap BUN Creatinine Estim Creat Clear Calc Est GFR (MDRD) Af Amer Est GFR (MDRD) Non-Af BUN/Creatinine Ratio Glucose Lactic Acid 2.5 H* Calcium Phosphorus Magnesium Total Bilirubin AST ALT Alkaline Phosphatase Total Creatine Kinase Troponin I Total Protein Albumin Globulin Albumin/Globulin Ratio Triglycerides TSH Urine Color Yellow Urine Clarity Cloudy Urine pH 5.0 Ur Specific [place] 1.025 Urine Protein 30 H Urine Glucose (UA) Normal Urine Ketones 5 H Urine Occult Blood 150 H Urine Nitrite Positive H Urine Bilirubin Negative Urine Urobilinogen 1 H Ur Leukocyte Esterase 500 H Urine RBC 0-5 SEEN Urine WBC >100 SEEN Ur Squamous Epith Cells 0-5 SEEN Urine Bacteria 2+ Urine Mucus 0 SEEN MRSA (PCR) POSITIVE H POC Glucose 08/11/20 08/11/20 08/11/20 00:39 04:15 04:15 WBC 11.7 H RBC 3.32 L Hgb 10.0 L Hct 32.6 L MCV 98.2 H MCH 30.1 MCHC 30.7 L D RDW Std Deviation 71.9 H RDW Coeff of Linnette 19.9 H Plt Count 162 MPV 9.8 Immature Gran % (Auto) 0.700 Neut % (Auto) 73.8 H Lymph % (Auto) 10.1 L [place] % (Auto) 15.2 H Eos % (Auto) 0.0 Baso % (Auto) 0.2 Absolute Neuts (auto) 8.6 H Absolute Lymphs (auto) 1.18 Nucleated RBC % 0 Differential Comment SCANNED Diff Path Review Reviewed Anisocytosis PT INR APTT Sodium 143 Potassium 3.7 Chloride 111 H Carbon Dioxide 26.0 Anion Gap 6 BUN 27 H Creatinine 1.56 H Estim Creat Clear Calc 44.69 Est GFR (MDRD) Af Amer 57 L Est GFR (MDRD) Non-Af 47 L BUN/Creatinine Ratio 17.3 Glucose 243 H Lactic Acid Calcium 8.7 Phosphorus 4.1 Magnesium 2.0 Total Bilirubin 0.70 AST 100 H ALT 40 Alkaline Phosphatase 224 H Total Creatine Kinase Troponin I Total Protein 6.2 L Albumin 1.9 L Globulin 4.3 H Albumin/Globulin Ratio 0.4 L Triglycerides TSH Urine Color Urine Clarity Urine pH Ur Specific [place] Urine Protein Urine Glucose (UA) Urine Ketones Urine Occult Blood Urine Nitrite Urine Bilirubin Urine Urobilinogen Ur Leukocyte Esterase Urine RBC Urine WBC Ur Squamous Epith Cells Urine Bacteria Urine Mucus MRSA (PCR) POC Glucose 233 H 08/11/20 08/11/20 06:10 11:58 WBC RBC Hgb Hct MCV MCH MCHC RDW Std Deviation RDW Coeff of [place] Plt Count MPV Immature Gran % (Auto) Neut % (Auto) Lymph % (Auto) [place] % (Auto) Eos % (Auto) Baso % (Auto) Absolute Neuts (auto) Absolute Lymphs (auto) Nucleated RBC % Differential Comment Diff Path Review Anisocytosis PT INR APTT Sodium Potassium Chloride Carbon Dioxide Anion Gap BUN Creatinine Estim Creat Clear Calc Est GFR (MDRD) Af Amer Est GFR (MDRD) Non-Af BUN/Creatinine Ratio Glucose Lactic Acid Calcium Phosphorus Magnesium Total Bilirubin AST ALT Alkaline Phosphatase Total Creatine Kinase Troponin I Total Protein Albumin Globulin Albumin/Globulin Ratio Triglycerides TSH Urine Color Urine Clarity Urine pH Ur Specific [place] Urine Protein Urine Glucose (UA) Urine Ketones Urine Occult Blood Urine Nitrite Urine Bilirubin Urine Urobilinogen Ur Leukocyte Esterase Urine RBC Urine WBC Ur Squamous Epith Cells Urine Bacteria Urine Mucus MRSA (PCR) POC Glucose 243 H 201 H Micro: Microbiology 08/11/20 08:14 Sputum, Induced/Lukens Gram Stain - Final 08/10/20 18:45 Urine Catheter - Dougherty Urine Culture - Preliminary Presumptive E. coli 08/10/20 19:40 Mucosa - Nasopharyngeal Influenza Types A,B Direct FA (MALLORY) - Final ABG Data ABG results: ABG 08/10/20 19:10 Specimen Type ART Sample Site R Radial pH 7.48 H Bicarbonate Actual 21.4 L Total CO2 22 Base Excess -2 O2 Saturation 98 O2 % 45 ABG pCO2 28.6 L ABG pO2 99 Kulwinder Test Positive Respiration Rate 14 O2 Delivery Device Adult Vent Vent Mode AC Tidal Volume 500 POC PEEP 5 Radiography Diagnostic Testing: Radiology Impression Brain CT 08/10/20 18:27 IMPRESSION: 1. Acute findings. 2. Mild microvascular ischemic changes. Atrophy. Electronically Signed: Estelita Pino MD at 19:07 EDT Tel , Service support , Cervical Spine CT 08/10/20 18:42 IMPRESSION: 1. No demonstrated trauma. 2. Mild degenerative changes of the cervical spine. Electronically Signed: Estelita Pino MD at 19:31 EDT Tel , Service support , Chest X-Ray 08/10/20 19:37 IMPRESSION: 1. No acute findings. 2. Nasogastric tube position is uncertain and may terminate in the mid esophagus or proximal left mainstem bronchus. Tube should be removed and repositioned. Electronically Signed: Estelita Pino MD at 21:02 EDT Tel , Service support , ADDENDUM: 08/10/202114 IMPRESSION: 1. No acute findings. 2. Nasogastric tube position is uncertain and may terminate in the mid esophagus or proximal left mainstem bronchus. Tube should be removed and repositioned. N.B. : The above information has been verbally conveyed by Estelita Pino MD to Mike Bui MD, , on 08/10/2020 21:08:22 (ET). Electronically Signed: Estelita Pino MD at 21:02 EDT Tel , Service support , KUB X-Ray 08/11/20 01:21 IMPRESSION: Nasogastric tube as described. Electronically Signed: Ju Scott MD at 2:24 EDT , Service support , KUB X-Ray 08/11/20 01:37 IMPRESSION: Nasogastric tube as described, recommend advancing the nasogastric tube approximately 10 cm. Nonspecific bowel distention. Electronically Signed: Ju Scott MD at 2:23 EDT , Service support , KUB X-Ray 08/11/20 01:38 IMPRESSION: Nasogastric tube in normal location. Electronically Signed: Ju Scott MD at 2:25 EDT , Service support , KUB X-Ray 08/11/20 09:35 IMPRESSION: Nasogastric tube with the tip in the right upper quadrant likely in the antrum the stomach. Moderately dilated transverse colon. Electronically Signed: Frank Chowdary MD at 9:58 EDT Tel , Service support , Physical Exam Const Constitutional Narrative: Patient is sedated and on the ventilator HEENT head/scalp atraumatic Head and Scalp: normocephalic Neck no lymphadenopathy and no JVD Resp normal respiratory effort, no retractions, no use of accessory muscles and clear to auscultation bilaterally Cardio regular rate, regular rhythm, S1 normal heart sound, S2 normal heart sound, no gallops and no clicks GI normal to inspection, nondistended, normoactive bowel sounds, soft to palpation, non-tender and non-distended Extremity normal to inspection and no clubbing, cyanosis or edema Skin no rashes or lesions noted, no wounds and skin turgor normal Neuro Neuro Narrative: Patient is sedated on the ventilator Psych Psych Narrative: Patient is sedated and on the ventilator Assessment & Plan Assessment/Plan (1) Septic shock: PLAN: 1. Septic shock-from complicated UTI, continue present care per critical care medicine #2 acute complicated urinary tract infection #3 acute hypoxic respiratory failure secondary to #1 #4 type 2 diabetes #5 acute kidney injury #6 metabolic encephalopathy secondary to #1 #7 anemia-etiology unclear, labs will be monitored #8 severe protein and caloric malnutrition-nutritional services are seeing patient Visit Charges Inpatient E&M: 84269 Subs Hosp L2
[2020-08-11 18:25] LABS: Bedside Glucose 205 mg/dL (70-110)
[2020-08-11] MEDS: Ceftriaxone 1 GM/50 ML BAG IV (21:27)
[2020-08-11] MEDS: Oxybutynin 5 MG Tablet GT (21:28)
[2020-08-11] MEDS: Atorvastatin Calcium 80 MG Tablet GT (21:28)
[2020-08-11] MEDS: buPROPion 75 MG Tablet GT (21:28)
[2020-08-11] MEDS: Venlafaxine HCl 25 MG Tablet 100 MG GT (21:29)
[2020-08-12] VITALS (33 sets, daily range): BP systolic 84–123; BP diastolic 52–77; PULSE 78–103; RESP 2–26; TEMP 36–37.1; O2SAT 91–100
[2020-08-12 00:01] LABS: Bedside Glucose 206 mg/dL (70-110)
[2020-08-12] MEDS: Vancomycin IV 1,000 MG/200 ML BAG 200 MG IV (02:30)
--- NOTE | 2020-08-12 04:15 | NURSING ---
tube feed stopped for SBT @415
--- NOTE | 2020-08-12 05:40 | PN.CC_ITS ---
Assessment & Plan Assessment/Plan (1) Encephalopathy: (2) Respiratory failure: PLAN: RECOMMENDATIONS: 1. Proceed with a trial of extubation this morning. 2. Once extubated, wean supplemental oxygen to maintain saturations at or above 90%. 3. Recommend speech therapy evaluation, prior to advancing diet. 4. Wean oxygen to maintain saturations at or above 90%. 5. Change antimicrobials to Zosyn as monotherapy given ESBL E. coli noted on cultures. IMPRESSIONS: 1. Acute hypoxemic respiratory failure The patient was initially intubated in the emergency department over concerns for his ability to protect his airway, as the patient was notably encephalopathic. The patient's oxygenation and mentation is improved. He did pass a spontaneous breathing trial this morning and is able to follow simple commands. Therefore, we will plan to extubate the patient and wean supplemental oxygen to maintain saturations at or above 90%. I would recommend that speech therapy be consulted to evaluate the patient prior to advancing diet. Encourage incentive spirometer use and mobilize patient as tolerated. 2. Septic shock secondary to ESBL E. coli cystitis Clinical concern for underlying urinary tract source of infection. The patient did receive supplemental IV fluid hydration. Antibiotics to be transitioned to Zosyn as monotherapy for treatment purposes. The patient remains hemodynamically stable, without vasopressor need. 3. Encephalopathy Improved. Concern for underlying metabolic/infectious etiology. The patient is on appropriate antimicrobials. 4. Acute kidney injury Likely prerenal in etiology and related to #2. Anticipate improvement with volume expansion. Continue to monitor urine output for now. No current indication for renal replacement therapy. 5. Obesity/diabetes mellitus/hypertension/hyperlipidemia/hypothyroidism Complicates care, management, recovery and prognosis. Continue home medications as indicated. TIME: 38 minutes of critical care time, independent of procedures, was spent addressing the patient's acute hypoxemic respiratory failure, septic shock, en cephalopathy, acute kidney injury, review of all data and collaboration with the care team. ([id number]) Subjective Subjective The patient was seen and examined at the bedside this morning. Events from the last 24 hours have been reviewed. The patient is currently afebrile, hemodynamically stable and maintaining appropriate oxygen saturations on assist control mode of mechanical ventilation with an FiO2 requirement of 30%. Upon holding the patient's sedating medications yesterday, he did eventually become more arousable and subsequently agitated. The patient did apparently pass his spontaneous breathing trial this morning, but again became agitated. He has been tolerant of tube feeds thus far. The patient did have a bowel movement yesterday. Objective Data Objective Data The patient's most recent lab work, culture data and imaging studies have all been personally reviewed. Preliminary urine culture was positive for E. coli. Blood and sputum cultures are pending. Vital Signs: Vital Signs Temp Pulse Resp BP Pulse Ox 98.8 F 88 17 96/62 97 08/12/20 00:00 08/12/20 04:00 08/12/20 04:50 08/12/20 00:00 08/12/20 03:40 Oxygen Flow Rate (L/min) 3 Oxygen Delivery Method Mechanical Ventilator Weight: 244 lb 11.41 oz Body Mass Index (BMI) 35.7 Intake & Output: Intake and Output for Last 24 Hours 08/10/20 08/11/20 08/12/20 23:59 23:59 23:59 Intake Total 2381.20 / 2385.23 3237.69 / 3292.95 417.04 / 417.04 Output Total 890 / 890 100 / 100 Balance 2381.20 / 2235.23 2347.69 / 2402.95 317.04 / 317.04 Lab / Micro Data Attestation: I reviewed the patient's lab results. Result Diagrams: 08/12/20 04:30 08/12/20 04:30 Labs: Laboratory Results - last 24 hr 08/11/20 08/11/20 08/11/20 00:39 04:15 06:10 Diff Path Review Reviewed POC Glucose 233 H 243 H 08/11/20 08/11/20 08/11/20 11:58 18:08 23:56 Diff Path Review POC Glucose 201 H 205 H 206 H Micro: Microbiology 08/11/20 08:14 Sputum, Induced/Lukens Gram Stain - Final 08/10/20 18:45 Urine Catheter - Dougherty Urine Culture - Preliminary Presumptive E. coli 08/10/20 19:40 Mucosa - Nasopharyngeal Influenza Types A,B Direct FA (MALLORY) - Final Radiography Diagnostic Testing: Radiology Impression KUB X-Ray 08/11/20 09:35 IMPRESSION: Nasogastric tube with the tip in the right upper quadrant likely in the antrum the stomach. Moderately dilated transverse colon. Electronically Signed: Frank Chowdary MD at 9:58 EDT Tel , Service support , Physical Exam Const no apparent distress Constitutional Narrative: No ventilator dyssynchrony noted. Currently tolerating spontaneous mode of mechanical ventilation. General Appearance: patient mechanically ventilated HEENT normocephalic and head/scalp atraumatic Mouth: endotracheal tube in place and OG tube in place Eyes PERRL and conjunctivae normal Pupil: sluggish Neck supple General: trachea midline Resp Auscultation: diminished lung sounds; Negative for rales, rhonchi or wheezes Cardio regular rate and regular rhythm GI normal to inspection, nondistended, normoactive bowel sounds Extremity no clubbing, cyanosis or edema Skin no rashes or lesions noted Neuro moves all extremities and no focal motor deficits Neuro Narrative: Able to follow simple commands. Psych Activity / Motor Behavior: restless Charges/Coding Procedures Hospitalists Procedures: [id number] Critial Care 1st Hr
[2020-08-12 05:46] LABS: Allen Test Positive; Base Excess -2 mmol/L (-2 to +2); Bicarbonate 22.7 mmol/L (22-26); Blood Gas Specimen Type ART; FI02 30; Mode CPAP/PS; O2 Delivery Device Adult Vent; PEEP 5; PO2 69 mmHG (75-100); PS 5; SITE R Radial; SO2 93 % (95-99); Total Carbon Dioxide 24 mmol/L; pCO2 38.8 mmHg (35-45); pH 7.38 (7.35-7.45)
[2020-08-12 05:49] LABS: Absolute Lymphocyte Count 0.97 X10^3/uL (0.83-4.51); Absolute Neutrophil Count 10.9 X10^3/uL (2.0-7.7); Basophil# 0.03 X10^3/uL; Basophil% 0.2 % (0-1); Eosinophils% 0.7 % (0-5); Hematocrit 32.7 % (40-54); Hemoglobin 9.9 g/dL (13.0-16.5); Lymphocyte # 0.97 X10^3/ul (0.83-4.51); Mean Corp Hgb Conc 30.3 g/dL (32-36); Mean Corpuscular Hgb 29.8 pg (27.0-32.0); Mean Corpuscular Volume 98.5 fL (80-94); Mean Platelet Vol. 10.4 fl (6.2-12.0); Monocyte# 1.74 X10^3/uL; Monocyte% 12.6 % (0-10); NRBC Flagged by Analyzer 0 % (0-5); Neutrophil # 10.89 X10^3/uL (2.7-7.7); Neutrophil % 78.9 % (47-70); POSITIVE DIFFERENTIAL YES; POSITIVE MORPHOLOGY YES; Platelet Count 161 K/mm3 (150-450); RBC Distribution Width CV 20.3 % (11.6-14.6); RBC Distribution Width SD 74.2 fl (35.1-43.9); Red Blood Count 3.32 M/mm3 (4.6-6.2); White Blood Count 13.8 K/mm3 (4.4-11.0)
[2020-08-12 05:57] LABS: Anion Gap 6 (5-15); BUN 33 mg/dL (7-18); Calcium,Total 8.5 mg/dL (8.5-10.1); Chloride 111 mmol/L (98-107); EST Glomerular Filtration Rate 49 mL/min (>60); Est Glom Filt Rate - Afr Amer 60 mL/min (>60); Estimated Creatinine Clearance 46.48 ml/min; Glucose 244 mg/dL (74-106); Potassium 3.9 mmol/L (3.5-5.1); Sodium Level 141 mmol/L (136-145)
[2020-08-12 06:02] LABS: Differential Indicated SCAN CRITERIA MET
[2020-08-12] MEDS: Insulin Lispro 100 UNIT/ML INSULN.PEN SC ×3 (06:22→16:52)
[2020-08-12] MEDS: Heparin Injection (Vial) 5,000 UNIT/ML VIAL 5000 UNIT SC ×3 (06:22→21:36)
[2020-08-12] MEDS: Levothyroxine 75 MCG Tablet GT (06:22)
[2020-08-12] MEDS: Ipratropium/Albuterol Sulfate 3 ML AMPUL.NEB INHALATION ×3 (06:28→18:26)
[2020-08-12 06:31] LABS: Bedside Glucose 239 mg/dL (70-110)
[2020-08-12] MEDS: Potassium Chloride Oral Tablet 20 MEQ 40 MEQ GT (08:04)
[2020-08-12] MEDS: Aspirin 81 MG TAB.CHEW GT (08:04)
[2020-08-12] MEDS: Oxybutynin 5 MG Tablet GT (08:05)
[2020-08-12] MEDS: Cholecalciferol (VIT D3) 25 MCG TABLET (1,000 UNITS) GT (08:05)
[2020-08-12] MEDS: Venlafaxine HCl 25 MG Tablet 50 MG GT (08:05)
[2020-08-12] MEDS: Famotidine 20 MG Tablet GT (08:05)
[2020-08-12] MEDS: Chlorhexidine 15 ML PO (08:06)
[2020-08-12] MEDS: buPROPion 75 MG Tablet GT (08:06)
[2020-08-12 11:45] LABS: Bedside Glucose 182 mg/dL (70-110)
[2020-08-12 12:16] LABS: Pathologist Review Reviewed
--- NOTE | 2020-08-12 13:39 | CASEMGMT ---
DEMARIO CONNOLLY NOTE: Pt qualifies for a Palliative referral per the [facility] palliative screening tool at this time. Dr Ramirez aware but is not agreeable to Palliative referral at this time. Key TEJEDA RN CM
--- NOTE | 2020-08-12 15:31 | PCM.PN.HOSP ---
Subjective Subjective Patient was seen and examined today, I talked with pulmonary medicine briefly about his care, patient was extubated today. Urine culture grew ESBL positive E. coli. Objective Data Objective Data Vital Signs: Vital Signs Temp Pulse Resp BP Pulse Ox 97.3 F L 95 18 88/54 L 100 08/12/20 13:00 08/12/20 13:19 08/12/20 13:19 08/12/20 13:00 08/12/20 13:19 Oxygen Flow Rate (L/min) 2 Oxygen Delivery Method Nasal Cannula Weight: 111 kg Body Mass Index (BMI) 35.7 Intake & Output: Intake and Output for Last 24 Hours 08/10/20 08/11/20 08/12/20 23:59 23:59 23:59 Intake Total 2381.20 / 2385.23 3237.69 / 3292.95 423.62 / 423.62 Output Total 890 / 890 400 / 400 Balance 2381.20 / 2235.23 2347.69 / 2402.95 23.62 / 23.62 Lab / Micro Data Result Diagrams: 08/12/20 04:30 08/12/20 04:30 Labs: Laboratory Results - last 24 hr 08/11/20 08/11/20 08/12/20 18:08 23:56 04:30 WBC 13.8 H RBC 3.32 L Hgb 9.9 L Hct 32.7 L MCV 98.5 H MCH 29.8 MCHC 30.3 L RDW Std Deviation 74.2 H RDW Coeff of [place] 20.3 H Plt Count 161 MPV 10.4 Immature Gran % (Auto) 0.600 Neut % (Auto) 78.9 H Lymph % (Auto) 7.0 L [place] % (Auto) 12.6 H Eos % (Auto) 0.7 Baso % (Auto) 0.2 Absolute Neuts (auto) 10.9 H Absolute Lymphs (auto) 0.97 Nucleated RBC % 0 Diff Path Review Reviewed Sodium Potassium Chloride Carbon Dioxide Anion Gap BUN Creatinine Estim Creat Clear Calc Est GFR (MDRD) Af Amer Est GFR (MDRD) Non-Af BUN/Creatinine Ratio Glucose Calcium POC Glucose 205 H 206 H 08/12/20 08/12/20 08/12/20 04:30 06:21 11:35 WBC RBC Hgb Hct MCV MCH MCHC RDW Std Deviation RDW Coeff of [place] Plt Count MPV Immature Gran % (Auto) Neut % (Auto) Lymph % (Auto) [place] % (Auto) Eos % (Auto) Baso % (Auto) Absolute Neuts (auto) Absolute Lymphs (auto) Nucleated RBC % Diff Path Review Sodium 141 Potassium 3.9 Chloride 111 H Carbon Dioxide 24.0 Anion Gap 6 BUN 33 H Creatinine 1.50 H Estim Creat Clear Calc 46.48 Est GFR (MDRD) Af Amer 60 Est GFR (MDRD) Non-Af 49 L BUN/Creatinine Ratio 22.0 H Glucose 244 H Calcium 8.5 POC Glucose 239 H 182 H Micro: Microbiology 08/11/20 08:14 Sputum, Induced/Lukens Gram Stain - Final 08/11/20 08:14 Sputum, Induced/Lukens Respiratory Culture - Preliminary GNR lactose travel registered nurse nicu 08/10/20 18:45 Urine Catheter - Dougherty Urine Culture - Preliminary Presumptive E. coli 08/10/20 19:40 Mucosa - Nasopharyngeal Influenza Types A,B Direct FA (MALLORY) - Final ABG Data ABG results: ABG 08/12/20 05:38 Specimen Type ART Sample Site R Radial pH 7.38 Bicarbonate Actual 22.7 Total CO2 24 Base Excess -2 O2 Saturation 93 L O2 % 30 ABG pCO2 38.8 ABG pO2 69 L Kulwinder Test Positive O2 Delivery Device Adult Vent Vent Mode CPAP/PS POC PEEP 5 POC Pressure Suppt 5 Physical Exam Const alert and no apparent distress HEENT head/scalp atraumatic and moist oral mucous membranes Head and Scalp: normocephalic Eyes PERRL, EOMs intact bilaterally and conjunctivae normal Neck no lymphadenopathy, supple and no JVD Resp normal respiratory effort, no retractions, no use of accessory muscles and clear to auscultation bilaterally Cardio regular rate, regular rhythm, S1 normal heart sound, S2 normal heart sound, no gallops and no clicks GI normal to inspection, nondistended, normoactive bowel sounds, soft to palpation, non-tender and non-distended Extremity normal to inspection and no clubbing, cyanosis or edema Skin no rashes or lesions noted, no wounds, skin turgor normal and no jaundice Neuro CN's II-XII intact bilaterally and no sensory deficits noted Sensorium / Orientation: awake and alert Psych Psych Narrative: Patient has flat affect Assessment & Plan Assessment/Plan (1) Septic shock: PLAN: 1. Septic shock-from complicated UTI secondary to ESBL E. coli, continue present care per critical care medicine #2 acute complicated urinary tract infection secondary to ESBL E. coli-patient is currently on Zosyn #3 acute hypoxic respiratory failure secondary to #1, patient is extubated at this time and is on nasal cannula oxygen #4 type 2 diabetes #5 acute kidney injury #6 metabolic encephalopathy secondary to #1 #7 anemia-etiology unclear, labs will be monitored #8 severe protein and caloric malnutrition-nutritional services are seeing patient Visit Charges Inpatient E&M: 55505 Subs Hosp L2
[2020-08-12 16:51] LABS: Bedside Glucose 154 mg/dL (70-110)
[2020-08-13] VITALS (19 sets, daily range): BP systolic 89–132; BP diastolic 48–83; PULSE 84–100; RESP 16–28; TEMP 35.6–36.7; O2SAT 94–99
[2020-08-13] MEDS: Insulin Lispro 100 UNIT/ML INSULN.PEN SC (00:18)
[2020-08-13 00:21] LABS: Bedside Glucose 151 mg/dL (70-110)
[2020-08-13] MEDS: Heparin Injection (Vial) 5,000 UNIT/ML VIAL 5000 UNIT SC ×3 (05:46→21:52)
[2020-08-13 05:56] LABS: Bedside Glucose 58 mg/dL (70-110)
--- NOTE | 2020-08-13 06:06 | PN.CC_ITS ---
Assessment & Plan Assessment/Plan (1) Encephalopathy: (2) Respiratory failure: PLAN: RECOMMENDATIONS: 1. Speech therapy reevaluation prior to consideration for advancing diet. 2. If the patient continues to fail his swallow evaluations, may need to consider alternative means of nutritional support. 3. Continue antimicrobials as ordered. 4. Encourage incentive spirometer use while in bed and mobilize patient as tolerated. 5. Decrease basal insulin regimen by half, given n.p.o. status. 6. The patient is medically stable for transfer out of the intensive care unit. IMPRESSIONS: 1. Acute hypoxemic respiratory failure Resolved. The patient was initially intubated in the emergency department over concerns for his ability to protect his airway, as the patient was notably encephalopathic. The patient's oxygenation and mentation has improved. The patient was able to be successfully extubated on August 12. He is currently maint aining appropriate oxygen saturations on room air. Plan to encourage incentive spirometer use while in bed. Speech therapy evaluation pending prior to considering advancement of diet. 2. Septic shock secondary to ESBL E. coli cystitis Resolved. Clinical concern for underlying urinary tract source of infection. The patient did receive supplemental IV fluid hydration. Continue antimicrobials as ordered. The patient remains hemodynamically stable. 3. Encephalopathy Improved. Concern for underlying metabolic/infectious etiology. The patient is on appropriate antimicrobials. He does appear to be at his baseline from a mental status perspective. 4. Acute kidney injury Likely prerenal in etiology and related to #2. Anticipate improvement with volume expansion. Continue to monitor urine output for now. No current indication for renal replacement therapy. 5. Obesity/diabetes mellitus/hypertension/hyperlipidemia/hypothyroidism Complicates care, management, recovery and prognosis. Continue home medications as indicated. This note was generated with [employer] dictation software. It may contain incorrect words, spelling, and punctuation that were not noted in checking the note before signing. Subjective Subjective The patient was seen and examined at the bedside this morning. Events from the last 24 hours have been reviewed. The patient is currently afebrile, hemodynamically stable and maintaining appropriate oxygen saturations on room air. No overnight issues were identified by the nursing staff. The patient remains confused this morning. He denies any shortness of breath. Objective Data Objective Data The patient's most recent lab work, culture data and imaging studies have all been personally reviewed. Preliminary urine culture was positive for ESBL E. coli. 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 Vital Signs: Vital Signs Temp Pulse Resp BP Pulse Ox 97.1 F L 90 22 H 109/68 97 08/13/20 06:00 08/13/20 06:00 08/13/20 06:00 08/13/20 06:00 08/13/20 06:00 Oxygen Flow Rate (L/min) 2 Oxygen Delivery Method Room Air Weight: 244 lb 11.41 oz Body Mass Index (BMI) 35.7 Intake & Output: Intake and Output for Last 24 Hours 08/11/20 08/12/20 08/13/20 23:59 23:59 23:59 Intake Total 3237.69 / 3292.95 923.62 / 923.62 50 / 50 Output Total 890 / 890 400 / 400 325 / 325 Balance 2347.69 / 2402.95 523.62 / 523.62 -275 / -275 Lab / Micro Data Attestation: I reviewed the patient's lab results. Result Diagrams: 08/12/20 04:30 08/13/20 05:41 Labs: Laboratory Results - last 24 hr 08/12/20 08/12/20 08/12/20 04:30 06:21 11:35 Diff Path Review Reviewed POC Glucose 239 H 182 H 08/12/20 08/13/20 08/13/20 16:44 00:16 05:41 Diff Path Review POC Glucose 154 H 151 H 58 L Micro: Microbiology 08/11/20 08:14 Sputum, Induced/Lukens Gram Stain - Final 08/11/20 08:14 Sputum, Induced/Lukens Respiratory Culture - Preliminary GNR lactose developer [employer] 08/10/20 18:45 Urine Catheter - Dougherty Urine Culture - Preliminary Presumptive E. coli 08/10/20 19:40 Mucosa - Nasopharyngeal Influenza Types A,B Direct FA (MALLORY) - Final Physical Exam Const alert and no apparent distress General Appearance: cooperative Orientation / Consciousness: confused Nutritional Appearance: obese HEENT normocephalic, head/scalp atraumatic and moist oral mucous membranes Eyes PERRL and EOMs intact bilaterally Neck supple General: trachea midline Resp Auscultation: diminished lung sounds; Negative for rales, rhonchi or wheezes Cardio regular rate and regular rhythm GI normal to inspection, nondistended, normoactive bowel sounds Extremity no clubbing, cyanosis or edema Skin no rashes or lesions noted Neuro moves all extremities and no focal motor deficits Psych cooperative Mood & Affect: flat affect Charges/Coding Visit Charges Inpatient E&M: 49960 Subs Hosp L3
[2020-08-13] MEDS: Dextrose 50%-Water 25 GM/50 ML DISP.SYRIN IV (06:13)
[2020-08-13] MEDS: 0.9% Saline Lock 10 ML Syringe IV (06:14)
[2020-08-13 07:00] LABS: Anion Gap 6 (5-15); BUN 25 mg/dL (7-18); BUN/Creat Ratio 23.1 RATIO (10-20); Calcium,Total 8.7 mg/dL (8.5-10.1); Chloride 116 mmol/L (98-107); Creatinine, Serum 1.08 mg/dL (0.70-1.30); EST Glomerular Filtration Rate 72 mL/min (>60); Est Glom Filt Rate - Afr Amer 87 mL/min (>60); Estimated Creatinine Clearance 64.55 ml/min; Glucose 60 mg/dL (74-106); Potassium 3.4 mmol/L (3.5-5.1); Sodium Level 147 mmol/L (136-145)
--- NOTE | 2020-08-13 10:24 | CASEMGMT ---
Addendum entered by Dayan Raphael 08/13/20 13:17: Social Work [facility] and pt can discharge when medically ready. AHSAN spoke with Sherrie at [facility] and updated and they are able to accept pt when medically ready. Phone call to pt son Axel and left message on discharge plan. Plan: [facility], when medically ready JOSE MIGUEL Kilgore Original Note: Social Work AHSAN submitted for insurance precert to return to [facility]. Updated clinicals faxed to [facility]. Will await insurance determination. JOSE MIGUEL Kilgore
--- NOTE | 2020-08-13 10:38 | NURSING ---
report called to [facility] for transfer to room 110, report called, aspen Reyna informed of room change & visitors allowed
[2020-08-13 12:15] LABS: Bedside Glucose 68 mg/dL (70-110)
--- NOTE | 2020-08-13 18:26 | PN.HOSP_ITS ---
Subjective Subjective Patient was seen and examined today, he appears stable for transfer to PCU at this time, patient is alert and answers simple questions appropriately. Objective Data Objective Data Vital Signs: Vital Signs Temp Pulse Resp BP Pulse Ox 98.1 F 89 18 117/65 99 08/13/20 15:05 08/13/20 15:05 08/13/20 15:05 08/13/20 15:05 08/13/20 15:05 Oxygen Flow Rate (L/min) 2 Oxygen Delivery Method Room Air Weight: 111.6 kg Body Mass Index (BMI) 35.7 Intake & Output: Intake and Output for Last 24 Hours 08/11/20 08/12/20 08/13/20 23:59 23:59 23:59 Intake Total 3237.69 / 3292.95 923.62 / 923.62 100 / 100 Output Total 890 / 890 400 / 400 975 / 975 Balance 2347.69 / 2402.95 523.62 / 523.62 -875 / -875 Lab / Micro Data Result Diagrams: 08/12/20 04:30 08/13/20 05:41 Labs: Laboratory Results - last 24 hr 08/13/20 08/13/20 08/13/20 00:16 05:41 05:41 Sodium 147 H Potassium 3.4 L Chloride 116 H Carbon Dioxide 25.0 Anion Gap 6 BUN 25 H Creatinine 1.08 Estim Creat Clear Calc 64.55 Est GFR (MDRD) Af Amer 87 Est GFR (MDRD) Non-Af 72 BUN/Creatinine Ratio 23.1 H Glucose 60 L Calcium 8.7 POC Glucose 151 H 58 L 08/13/20 11:54 Sodium Potassium Chloride Carbon Dioxide Anion Gap BUN Creatinine Estim Creat Clear Calc Est GFR (MDRD) Af Amer Est GFR (MDRD) Non-Af BUN/Creatinine Ratio Glucose Calcium POC Glucose 68 L Micro: Microbiology 08/10/20 19:15 Blood Culture (Wb) - Anticubital Left Blood Culture - Preli minary No growth in 48 hours. 08/10/20 18:10 Blood Culture (Wb) - Anticubital Right Blood Culture - Preliminary No growth in 48 hours. 08/11/20 08:14 Sputum, Induced/Lukens Gram Stain - Final 08/11/20 08:14 Sputum, Induced/Lukens Respiratory Culture - Preliminary Klebsiella oxytoca Staphylococcus aureus 08/10/20 18:45 Urine Catheter - Dougherty Urine Culture - Final Presumptive E. coli 08/10/20 19:40 Mucosa - Nasopharyngeal Influenza Types A,B Direct FA (MALLORY) - Final Physical Exam Const alert and no apparent distress HEENT head/scalp atraumatic, moist oral mucous membranes and oropharynx normal Head and Scalp: normocephalic Eyes PERRL, EOMs intact bilaterally and conjunctivae normal Neck no lymphadenopathy, supple and no JVD Resp normal respiratory effort, no retractions, no use of accessory muscles and clear to auscultation bilaterally Cardio regular rate, regular rhythm, S1 normal heart sound, S2 normal heart sound, no gallops and no clicks GI normal to inspection, nondistended, normoactive bowel sounds, soft to palpation, non-tender and non-distended Extremity normal to inspection, full ROM and no clubbing, cyanosis or edema Skin no rashes or lesions noted, no wounds, skin turgor normal and no jaundice Neuro CN's II-XII intact bilaterally, no focal motor deficits and no sensory deficits noted Sensorium / Orientation: awake and alert Psych Psych Narrative: Patient has flat affect Assessment & Plan Assessment/Plan (1) Septic shock: PLAN: 1. Septic shock-from complicated UTI secondary to ESBL E. coli, continue present care per critical care medicine, patient will be transferred to PCU #2 acute complicated urinary tract infection secondary to ESBL E. coli-patient is currently on Zosyn #3 acute hypoxic respiratory failure secondary to #1, patient is on nasal cannula oxygen #4 type 2 diabetes #5 acute kidney injury #6 metabolic encephalopathy secondary to #1 #7 anemia-etiology unclear, labs will be monitored #8 severe protein and caloric malnutrition-nutritional services are seeing patient
[2020-08-13 18:40] LABS: Bedside Glucose 77 mg/dL (70-110)
[2020-08-13 21:50] LABS: Bedside Glucose 82 mg/dL (70-110)
[2020-08-14] VITALS (8 sets, daily range): BP systolic 133–149; BP diastolic 78–85; PULSE 94–101; RESP 16–18; TEMP 36.6–36.9; O2SAT 96–97
[2020-08-14 00:21] LABS: Bedside Glucose 77 mg/dL (70-110)
[2020-08-14] MEDS: Heparin Injection (Vial) 5,000 UNIT/ML VIAL 5000 UNIT SC ×3 (05:42→21:29)
[2020-08-14 06:30] LABS: Bedside Glucose 109 mg/dL (70-110)
--- NOTE | 2020-08-14 07:54 | PN.CC_ITS ---
Assessment & Plan Assessment/Plan (1) Encephalopathy: (2) Respiratory failure: PLAN: RECOMMENDATIONS: 1. Speech therapy reevaluation prior to consideration for advancing diet. 2. If the patient continues to fail his swallow evaluations, may need to consider alternative means of nutritional support. 3. Continue appropriate antimicrobials. 4. Encourage incentive spirometer use while in bed and mobilize patient as tolerated. 5. Continue to monitor blood sugars closely while marginal p.o. intake 6. Hemodynamically stable on room air. Will sign off from a critical care perspective IMPRESSIONS: 1. Acute hypoxemic respiratory failure Resolved. The patient was initially intubated in the emergency department over concerns for his ability to protect his airway, as the patient was notably encephalopathic. The patient's oxygenation and mentation has improved. The patient was able to be successfully extubated on August 12. He is currently maintaining appropriate oxygen saturations on room air. Plan to encourage lucila ntive spirometer use while in bed. Speech therapy evaluation pending prior to considering advancement of diet. 2. Septic shock secondary to ESBL E. coli cystitis Resolved. Clinical concern for underlying urinary tract source of infection. The patient did receive supplemental IV fluid hydration. Continue antimicrobials. The patient remains hemodynamically stable. Initiate contact precautions. 3. Encephalopathy Improved. Concern for underlying metabolic/infectious etiology. The patient is on appropriate antimicrobials. He does appear to be at his baseline from a mental status perspective. 4. Acute kidney injury Resolved. Likely prerenal in etiology and related to #2. Continue to monitor urine output for now. No current indication for renal replacement therapy. 5. Obesity/diabetes mellitus/hypertension/hyperlipidemia/hypothyroidism Complicates care, management, recovery and prognosis. Continue home medications as indicated. This note was generated with [employer] dictation software. It may contain incorrect words, spelling, and punctuation that were not noted in checking the note before signing. Subjective Subjective Patient with significantly garbled speech, so communication was difficult. Patient reportedly has been n.p.o. overnight secondary to a failed speech evaluation. Patient is reporting lower abdominal pain, but feels this is improved compared to previous. Objective Data Objective Data Vital Signs: Vital Signs Temp Pulse Resp BP Pulse Ox 36.6 C 100 16 134/85 H 97 08/14/20 03:00 08/14/20 07:36 08/14/20 03:00 08/14/20 03:00 08/14/20 03:00 Oxygen Flow Rate (L/min) 2 Oxygen Delivery Method Room Air Weight: 109.6 kg Body Mass Index (BMI) 35.7 Intake & Output: Intake and Output for Last 24 Hours 08/12/20 08/13/20 08/14/20 23:59 23:59 23:59 Intake Total 923.62 / 923.62 150 / 150 50 / 50 Output Total 400 / 400 975 / 1125 450 / 450 Balance 523.62 / 523.62 -825 / -975 -400 / -400 Lab / Micro Data Result Diagrams: 08/12/20 04:30 08/13/20 05:41 Labs: Laboratory Results - last 24 hr 08/13/20 08/13/20 08/13/20 11:54 18:35 21:48 POC Glucose 68 L 77 82 08/14/20 08/14/20 00:18 06:24 POC Glucose 77 109 Micro: Microbiology 08/10/20 19:15 Blood Culture (Wb) - Anticubital Left Blood Culture - Preliminary No growth in 48 hours. 08/10/20 18:10 Blood Culture (Wb) - Anticubital Right Blood Culture - Preliminary No growth in 48 hours. 08/11/20 08:14 Sputum, Induced/Lukens Gram Stain - Final 08/11/20 08:14 Sputum, Induced/Lukens Respiratory Culture - Preliminary Klebsiella oxytoca Staphylococcus aureus 08/10/20 18:45 Urine Catheter - Dougherty Urine Culture - Final Presumptive E. coli 08/10/20 19:40 Mucosa - Nasopharyngeal Influenza Types A,B Direct FA (MALLORY) - Final Physical Exam Const alert and no apparent distress Constitutional Narrative: Difficult to obtain history secondary to garbled speech General Appearance: cooperative Orientation / Consciousness: confused Nutritional Appearance: obese HEENT normocephalic, head/scalp atraumatic and moist oral mucous membranes Eyes PERRL and EOMs intact bilaterally Neck supple General: trachea midline Resp Auscultation: diminished lung sounds; Negative for rales, rhonchi or wheezes Cardio regular rate and regular rhythm GI normal to inspection, nondistended, normoactive bowel sounds Extremity no clubbing, cyanosis or edema Skin no rashes or lesions noted Neuro moves all extremities and no focal motor deficits Neuro Narrative: Able to follow simple commands. Sensorium / Orientation: sedated on vent Psych cooperative Activity / Motor Behavior: restless Mood & Affect: flat affect Charges/Coding Visit Charges Inpatient E&M: 24549 Subs Hosp L2
[2020-08-14 09:00] LABS: Anion Gap 7 (5-15); BUN 16 mg/dL (7-18); BUN/Creat Ratio 16.3 RATIO (10-20); Calcium,Total 8.5 mg/dL (8.5-10.1); Chloride 116 mmol/L (98-107); Creatinine, Serum 0.98 mg/dL (0.70-1.30); EST Glomerular Filtration Rate 80 mL/min (>60); Est Glom Filt Rate - Afr Amer 97 mL/min (>60); Estimated Creatinine Clearance 71.14 ml/min; Glucose 141 mg/dL (74-106); Potassium 3.6 mmol/L (3.5-5.1); Sodium Level 147 mmol/L (136-145)
[2020-08-14] MEDS: Insulin Lispro 100 UNIT/ML INSULN.PEN SC ×2 (11:52→23:22)
[2020-08-14 12:00] LABS: Bedside Glucose 154 mg/dL (70-110)
--- NOTE | 2020-08-14 14:06 | PCM.PN.HOSP ---
Subjective Subjective Patient was seen and examined today, he remains confused today, he is not agitated or nervous. Sodium today was 147 Objective Data Objective Data Vital Signs: Vital Signs Temp Pulse Resp BP Pulse Ox 98.5 F 100 18 149/78 H 96 08/14/20 10:00 08/14/20 13:00 08/14/20 10:00 08/14/20 10:00 08/14/20 10:00 Oxygen Flow Rate (L/min) 2 Oxygen Delivery Method Room Air Weight: 109.6 kg Body Mass Index (BMI) 35.7 Intake & Output: Intake and Output for Last 24 Hours 08/12/20 08/13/20 08/14/20 23:59 23:59 23:59 Intake Total 923.62 / 923.62 150 / 150 100 / 100 Output Total 400 / 400 975 / 1125 450 / 450 Balance 523.62 / 523.62 -825 / -975 -350 / -350 Lab / Micro Data Result Diagrams: 08/12/20 04:30 08/14/20 08:20 Labs: Laboratory Results - last 24 hr 08/13/20 08/13/20 08/14/20 18:35 21:48 00:18 Sodium Potassium Chloride Carbon Dioxide Anion Gap BUN Creatinine Estim Creat Clear Calc Est GFR (MDRD) Af Amer Est GFR (MDRD) Non-Af BUN/Creatinine Ratio Glucose Calcium POC Glucose 77 82 77 08/14/20 08/14/20 08/14/20 06:24 08:20 11:50 Sodium 147 H Potassium 3.6 Chloride 116 H Carbon Dioxide 24.0 Anion Gap 7 BUN 16 Creatinine 0.98 Estim Creat Clear Calc 71.14 Est GFR (MDRD) Af Amer 97 Est GFR (MDRD) Non-Af 80 BUN/Creatinine Ratio 16.3 Glucose 141 H Calcium 8.5 POC Glucose 109 154 H Micro: Microbiology 08/10/20 19:15 Blood Culture (Wb) - Anticubital Left Blood Culture - Preliminary No growth in 48 hours. 08/10/20 18:10 Blood Culture (Wb) - Anticubital Right Blood Culture - Preliminary No growth in 48 hours. 08/11/20 08:14 Sputum, Induced/Lukens Gram Stain - Final 08/11/20 08:14 Sputum, Induced/Lukens Respiratory Culture - Preliminary Klebsiella oxytoca Staphylococcus aureus 08/10/20 18:45 Urine Catheter - Dougherty Urine Culture - Final Presumptive E. coli 08/10/20 19:40 Mucosa - Nasopharyngeal Influenza Types A,B Direct FA (MALLORY) - Final Physical Exam Narrative Const alert and no apparent distress, he is confused HEENT head/scalp atraumatic, moist oral mucous membranes and oropharynx normal Head and Scalp: normocephalic Eyes PERRL, EOMs intact bilaterally and conjunctivae normal Neck no lymphadenopathy, supple and no JVD Resp normal respiratory effort, no retractions, no use of accessory muscles and clear to auscultation bilaterally Cardio regular rate, regular rhythm, S1 normal heart sound, S2 normal heart sound, no gallops and no clicks GI normal to inspection, nondistended, normoactive bowel sounds, soft to palpation, non-tender and non-distended Extremity normal to inspection, full ROM and no clubbing, cyanosis or edema Skin no rashes or lesions noted, no wounds, skin turgor normal and no jaundice Neuro CN's II-XII intact bilaterally, no focal motor deficits and no sensory deficits noted Sensorium / Orientation: awake and alert Psych Psych Narrative: Patient has flat affect, he is confused Assessment & Plan Assessment/Plan (1) Septic shock: PLAN: 1. Septic shock-from complicated UTI secondary to ESBL E. coli, continue present antibiotic coverage #2 acute complicated urinary tract infection secondary to ESBL E. coli-patient is currently on Zosyn #3 acute hypoxic respiratory failure secondary to #1, patient is on room air #4 type 2 diabetes #5 acute kidney injury #6 metabolic encephalopathy secondary to #1 #7 anemia-etiology unclear, labs will be monitored #8 severe protein and caloric malnutrition-nutritional services are seeing patient #9 hypernatremia-I will change patient's IV fluid to D5 half-normal saline #10 oropharyngeal dysphagia-I talked briefly with speech therapy, patient is on honey thickened liquid consistency with meds only, otherwise he is n.p.o., he will need a swallowing eval on Sunday under fluoroscopy Visit Charges Inpatient E&M: 50043 Subs Hosp L2
[2020-08-14] MEDS: Venlafaxine HCl 25 MG Tablet 50 MG GT (14:12)
[2020-08-14] MEDS: Aspirin 81 MG TAB.CHEW GT (14:12)
[2020-08-14] MEDS: Levothyroxine 75 MCG Tablet GT (14:13)
[2020-08-14] MEDS: Famotidine 20 MG Tablet GT ×2 (14:13→21:29)
[2020-08-14] MEDS: Potassium Chloride Oral Tablet 20 MEQ 40 MEQ GT (14:13)
[2020-08-14] MEDS: Cholecalciferol (VIT D3) 25 MCG TABLET (1,000 UNITS) GT (14:13)
[2020-08-14] MEDS: Dext 5%-0.45% NS 1,000 ML 100 ML IV (15:00)
[2020-08-14 18:31] LABS: Bedside Glucose 144 mg/dL (70-110)
[2020-08-14] MEDS: Venlafaxine HCl 25 MG Tablet 100 MG GT (21:29)
[2020-08-14] MEDS: Oxybutynin 5 MG Tablet GT (21:30)
[2020-08-14] MEDS: Atorvastatin Calcium 80 MG Tablet GT (21:30)
[2020-08-14 23:30] LABS: Bedside Glucose 172 mg/dL (70-110)
[2020-08-15] VITALS (8 sets, daily range): BP systolic 131–148; BP diastolic 69–88; PULSE 93–103; RESP 16–20; TEMP 36.3–38; O2SAT 95–96
[2020-08-15] MEDS: Dext 5%-0.45% NS 1,000 ML 100 ML IV ×3 (00:58→17:00)
[2020-08-15] MEDS: Heparin Injection (Vial) 5,000 UNIT/ML VIAL 5000 UNIT SC ×3 (06:03→21:47)
[2020-08-15 07:35] LABS: Bedside Glucose 152 mg/dL (70-110)
[2020-08-15] MEDS: Oxybutynin 5 MG Tablet GT ×2 (08:46→21:47)
[2020-08-15] MEDS: Potassium Chloride Oral Tablet 20 MEQ 40 MEQ GT (08:46)
[2020-08-15] MEDS: Aspirin 81 MG TAB.CHEW GT (08:46)
[2020-08-15] MEDS: Famotidine 20 MG Tablet GT ×2 (08:46→21:47)
[2020-08-15] MEDS: Venlafaxine HCl 25 MG Tablet 50 MG GT (08:47)
[2020-08-15] MEDS: Cholecalciferol (VIT D3) 25 MCG TABLET (1,000 UNITS) GT (08:47)
[2020-08-15] MEDS: buPROPion (XL) 150 MG TABLET.XL PO (08:49)
[2020-08-15] MEDS: Insulin Lispro 100 UNIT/ML INSULN.PEN SC ×2 (12:25→23:20)
[2020-08-15 12:35] LABS: Bedside Glucose 190 mg/dL (70-110)
[2020-08-15] MEDS: Amox/Clavulanate 500 MG Tablet PO ×2 (14:01→21:47)
[2020-08-15 16:45] LABS: Bedside Glucose 148 mg/dL (70-110)
[2020-08-15] MEDS: Atorvastatin Calcium 80 MG Tablet GT (21:47)
[2020-08-15] MEDS: Venlafaxine HCl 25 MG Tablet 100 MG GT (21:48)
[2020-08-15 23:25] LABS: Bedside Glucose 166 mg/dL (70-110)
[2020-08-16] VITALS (8 sets, daily range): BP systolic 128–157; BP diastolic 74–80; PULSE 92–110; RESP 16–18; TEMP 36.7–36.8; O2SAT 96
[2020-08-16] MEDS: Dext 5%-0.45% NS 1,000 ML 100 ML IV ×2 (03:56→13:53)
[2020-08-16] MEDS: Levothyroxine 75 MCG Tablet GT (05:39)
[2020-08-16] MEDS: Amox/Clavulanate 500 MG Tablet PO ×2 (05:39→13:51)
[2020-08-16] MEDS: Heparin Injection (Vial) 5,000 UNIT/ML VIAL 5000 UNIT SC ×2 (05:39→13:37)
[2020-08-16 05:56] LABS: Bedside Glucose 136 mg/dL (70-110)
[2020-08-16] MEDS: Potassium Chloride Oral Tablet 20 MEQ 40 MEQ GT (09:28)
[2020-08-16] MEDS: Oxybutynin 5 MG Tablet GT (09:28)
[2020-08-16] MEDS: Aspirin 81 MG TAB.CHEW GT (09:28)
[2020-08-16] MEDS: buPROPion (XL) 150 MG TABLET.XL PO (09:29)
[2020-08-16] MEDS: Cholecalciferol (VIT D3) 25 MCG TABLET (1,000 UNITS) GT (09:29)
[2020-08-16] MEDS: Venlafaxine HCl 25 MG Tablet 50 MG GT (09:29)
[2020-08-16] MEDS: Famotidine 20 MG Tablet GT (09:29)
--- NOTE | 2020-08-16 10:53 | CASEMGMT ---
AHSAN faxed updates to [facility] and [facility]. AHSAN also called Sherrie at [facility] and let her know it is possible patient could return today. Xiomara WALLS
--- NOTE | 2020-08-16 11:05 | NURSING ---
This nurse spoke to ST [facility], no plans for swallow study. Pt seen and evaluated by ST and pt is improving.
[2020-08-16] MEDS: Insulin Lispro 100 UNIT/ML INSULN.PEN SC (11:40)
[2020-08-16 11:50] LABS: Bedside Glucose 169 mg/dL (70-110)
--- NOTE | 2020-08-16 15:37 | TREXTCAR_ITS ---
Diet 08/15/20 11:30 Diet: Carbohydrate Controlled Food consistency:: Pureed Liquid Consistency:: [place]/Mildly Thick Type of Dietary Supplement:: Ensure Pudding Is pt able to select menu?: No Diet Comments: Straws ok, supervise meals & assist feeding as needed; ES Pud w/kimberly & din Wound(s) lt fa: Wound Type: Abrasion rt knee: Wound Type: Abrasion Therapies Physical Therapy: Eval and Treat Occupational Therapy: Eval and Treat Speech Therapy: Eval and Treat Problem/Diagnosis (1) Septic shock: Status: Acute Allergies/Procedures Done in Hospital Allergies YONATAN Inhibitors Allergy (Severe, Verified 08/10/20 18:05) throat swells pioglitazone HCl [From Actos] Adverse Reaction (Verified 08/10/20 18:05) Swelling Type of Care/Length of Stay Estimated LOS: Convalescent Care Less Than 30 days Type of Care Needed: Skilled Rehab Potential: Fair Prognosis: Fair Additional Orders/Day of Discharge Day of Discharge: 08/16/20 Dietary and Speech Recommendations Dietitian Recommendations/Changes: Continue carbohydrate-controlled therapeutic diet w/ consistency of solids/liquids as per [facility]. Will add ensure pudding BID w/ lunch and dinner. Additional ONS as needed if wt and/or meal intake decline. [place] thickened liquids and pureed solids. Meds crushed in puree. Sitting upright 60-60 minutes afterwards. 1 to 1 supervision. Discharge Plan Admission Admit Date/Time: 08/10/20 21:21 Attending Provider: Axel Renner Primary Care Provider: Cameron Mueller [employer] Providers: Domingo Joshi Discharge Orders/Prescriptions Prescriptions: New amoxicillin-pot clavulanate [Augmentin] 875-125 mg tablet 1 tab PO Q12H 5 Days Qty: 10 RF: 0 Continued atorvastatin 80 MG tablet 80 mg PO QHS RF: 0 bupropion HCl 150 MG tablet extended release 24 hr 150 mg PO DAILY RF: 0 oxybutynin chloride 5 MG tablet 5 mg PO BID RF: 0 venlafaxine 100 MG tablet 100 mg PO QHS RF: 0 cholecalciferol (vitamin D3) 1,000 UNIT tablet 1,000 unit PO DAILY RF: 0 acetaminophen [Tylenol] 325 mg Tablet 650 mg PO Q4H PRN (Reason: Pain) RF: 0 ipratropium-albuterol 0.5 mg-3 mg(2.5 mg base)/3 mL Solution For Nebulization 3 ml INHALATION 4X/DAY RF: 0 aspirin 81 mg Tablet,Delayed Release (Dr/Ec) 81 mg PO DAILY RF: 0 levothyroxine 75 mcg Tablet 75 mcg PO DAILY RF: 0 potassium chloride [Klor-Con M20] 20 mEq Tablet,Er Particles/Crystals 40 meq PO DAILY RF: 0 venlafaxine 50 mg Tablet 50 mg PO DAILY RF: 0 bisacodyl [Dulcolax (bisacodyl)] 5 mg Tablet,Delayed Release (Dr/Ec) 10 mg PO DAILY RF: 0 insulin lispro [Humalog U-100 Insulin] 100 unit/mL Solution See Protocol unit SUBCUT ACHS RF: 0 Basaglar KwikPen U-100 Insulin 100 unit/mL (3 mL) Insulin Pen 20 unit SUBCUT QHS RF: 0 metoprolol succinate 50 mg Capsule,Sprinkle,Er 24hr 50 mg PO BID RF: 0 magnesium oxide 400 mg magnesium Tablet 400 mg PO DAILY RF: 0 Discontinued cyclobenzaprine 10 MG tablet 10 mg PO DAILY RF: 0 pseudoephedrine-guaifenesin [Mucinex D] 60-600 mg Tablet Extended Release 12 Hr 2 tab PO BID RF: 0 hydrochlorothiazide 12.5 mg Tablet 12.5 mg PO DAILY RF: 0 Referrals / Follow Up: Cameron Mueller Chi, MD [Primary Care Provider] - Disposition Disposition (needs filled in before D/C Order can be placed): [facility]
--- NOTE | 2020-08-16 15:47 | DS.PCM_ITS ---
Providers Date of Admission: 08/10/20 Primary Care Physician: Dr. Cameron Mueller MD Consultations 08/10/20 23:45 Consult: Smt Operator / Pulmonary Medicine Routine Consulting Provider: Domingo Joshi Reason for Consult: Septic shock, UTI, encephalopathy EMERGENT Consult: No MD Notified: Yes Date Notified:: 08/10/20 Time Notified: 22:17 Method of Notification: Text Reason For Visit: SEPTIC SHOCK, UTI Diagnosis Discharge Diagnosis (1) Septic shock: Status: Acute Code(s): A41.9 - Sepsis, unspecified organism; R65.21 - Severe sepsis with septic shock Medications at Discharge Home Medications atorvastatin 80 mg PO QHS 04/09/15 bupropion HCl 150 mg PO DAILY 04/09/15 oxybutynin chloride 5 mg PO BID 05/30/18 cholecalciferol (vitamin D3) 1,000 unit PO DAILY 05/31/20 venlafaxine 100 mg PO QHS 05/31/20 Basaglar KwikPen U-100 Insulin 20 unit SUBCUT QHS 08/10/20 acetaminophen [Tylenol] 650 mg PO Q4H PRN 08/10/20 aspirin 81 mg PO DAILY 08/10/20 bisacodyl [Dulcolax (bisacodyl)] 10 mg PO DAILY 08/10/20 insulin lispro [Humalog U-100 Insulin] See Protocol SUBCUT ACHS 08/10/20 ipratropium-albuterol 3 ml INHALATION 4X/DAY 08/10/20 levothyroxine 75 mcg PO DAILY 08/10/20 magnesium oxide 400 mg PO DAILY 08/10/20 metoprolol succinate 50 mg PO BID 08/10/20 potassium chloride [Klor-Con M20] 40 meq PO DAILY 08/10/20 venlafaxine 50 mg PO DAILY 08/10/20 amoxicillin-pot clavulanate [Augmentin] 1 tab PO Q12H 5 Days #10 tab 08/16/20 ABG / Lab / Microbiology Data Result Diagrams: 08/12/20 04:30 08/14/20 08:20 Laboratory: Laboratory Results - last 24 hr 08/15/20 08/15/20 08/16/20 16:38 23:17 05:41 POC Glucose 148 H 166 H 136 H 08/16/20 11:38 POC Glucose 169 H Microbiology: Microbiology 08/10/20 19:15 Blood Culture - Final Blood Culture (Wb) - Anticubital Left No growth in 5 days. 08/10/20 18:10 Blood Culture - Final Blood Culture (Wb) - Anticubital Right No growth in 5 days. Microbiology 08/10/20 19:15 Blood Culture (Wb) - Anticubital Left Blood Culture - Final No growth in 5 days. 08/10/20 18:10 Blood Culture (Wb) - Anticubital Right Blood Culture - Final No growth in 5 days. 08/11/20 08:14 Sputum, Induced/Lukens Gram Stain - Final 08/11/20 08:14 Sputum, Induced/Lukens Respiratory Culture - Final Klebsiella oxytoca Meth. resistant Staph. aureus 08/10/20 18:45 Urine Catheter - Dougherty Urine Culture - Final Presumptive E. coli 08/10/20 19:40 Mucosa - Nasopharyngeal Influenza Types A,B Direct FA (MALLORY) - Final Meaningful Use Info Meaningful Use Diagnoses (Choose all that apply): None applicable Discharge Plan Admission Admit Date/Time: 08/10/20 21:21 Attending Provider: Axel Renner Primary Care Provider: Cameron Mueller Chi Consulting Providers: Domingo Joshi Discharge Orders/Prescriptions Prescriptions: New amoxicillin-pot clavulanate [Augmentin] 875-125 mg tablet 1 tab PO Q12H 5 Days Qty: 10 RF: 0 Continued atorvastatin 80 MG tablet 80 mg PO QHS RF: 0 bupropion HCl 150 MG tablet extended release 24 hr 150 mg PO DAILY RF: 0 oxybutynin chloride 5 MG tablet 5 mg PO BID RF: 0 venlafaxine 100 MG tablet 100 mg PO QHS RF: 0 cholecalciferol (vitamin D3) 1,000 UNIT tablet 1,000 unit PO DAILY RF: 0 acetaminophen [Tylenol] 325 mg Tablet 650 mg PO Q4H PRN (Reason: Pain) RF: 0 ipratropium-albuterol 0.5 mg-3 mg(2.5 mg base)/3 mL Solution For Nebulization 3 ml INHALATION 4X/DAY RF: 0 aspirin 81 mg Tablet,Delayed Release (Dr/Ec) 81 mg PO DAILY RF: 0 levothyroxine 75 mcg Tablet 75 mcg PO DAILY RF: 0 potassium chloride [Klor-Con M20] 20 mEq Tablet,Er Particles/Crystals 40 meq PO DAILY RF: 0 venlafaxine 50 mg Tablet 50 mg PO DAILY RF: 0 bisacodyl [Dulcolax (bisacodyl)] 5 mg Tablet,Delayed Release (Dr/Ec) 10 mg PO DAILY RF: 0 insulin lispro [Humalog U-100 Insulin] 100 unit/mL Solution See Protocol unit SUBCUT ACHS RF: 0 Basaglar KwikPen U-100 Insulin 100 unit/mL (3 mL) Insulin Pen 20 unit SUBCUT QHS RF: 0 metoprolol succinate 50 mg Capsule,Sprinkle,Er 24hr 50 mg PO BID RF: 0 magnesium oxide 400 mg magnesium Tablet 400 mg PO DAILY RF: 0 Discontinued cyclobenzaprine 10 MG tablet 10 mg PO DAILY RF: 0 pseudoephedrine-guaifenesin [Mucinex D] 60-600 mg Tablet Extended Release 12 Hr 2 tab PO BID RF: 0 hydrochlorothiazide 12.5 mg Tablet 12.5 mg PO DAILY RF: 0 Referrals / Follow Up: Cameron Mueller Chi, MD [Primary Care Provider] - Disposition Disposition (needs filled in before D/C Order can be placed): Custodial Facility
--- NOTE | 2020-08-16 15:49 | PCM.DC.SUM ---
Providers Date of Admission: 08/10/20 Primary Care Physician: Dr. Cameron Mueller MD Consultations 08/10/20 23:45 Consult: Sports Book Writer / Pulmonary Medicine Routine Consulting Provider: Domingo Joshi Reason for Consult: Septic shock, UTI, encephalopathy EMERGENT Consult: No MD Notified: Yes Date Notified:: 08/10/20 Time Notified: 22:17 Method of Notification: Text Reason For Visit: SEPTIC SHOCK, UTI Diagnosis Discharge Diagnosis (1) Septic shock: Status: Acute Code(s): A41.9 - Sepsis, unspecified organism; R65.21 - Severe sepsis with septic shock Medications at Discharge Home Medications atorvastatin 80 mg PO QHS 04/09/15 bupropion HCl 150 mg PO DAILY 04/09/15 oxybutynin chloride 5 mg PO BID 05/30/18 cholecalciferol (vitamin D3) 1,000 unit PO DAILY 05/31/20 venlafaxine 100 mg PO QHS 05/31/20 Basaglar KwikPen U-100 Insulin 20 unit SUBCUT QHS 08/10/20 acetaminophen [Tylenol] 650 mg PO Q4H PRN 08/10/20 aspirin 81 mg PO DAILY 08/10/20 bisacodyl [Dulcolax (bisacodyl)] 10 mg PO DAILY 08/10/20 insulin lispro [Humalog U-100 Insulin] See Protocol SUBCUT ACHS 08/10/20 ipratropium-albuterol 3 ml INHALATION 4X/DAY 08/10/20 levothyroxine 75 mcg PO DAILY 08/10/20 magnesium oxide 400 mg PO DAILY 08/10/20 metoprolol succinate 50 mg PO BID 08/10/20 potassium chloride [Klor-Con M20] 40 meq PO DAILY 08/10/20 venlafaxine 50 mg PO DAILY 08/10/20 amoxicillin-pot clavulanate [Augmentin] 1 tab PO Q12H 5 Days #10 tab 08/16/20 Hospital Course Operations None Procedures None Summary of Care Provided Minutes Spent on Discharge: 32 Hospital Course: Pt presents with septic shock 2/2 ESBL UTI and Klebsiella pneumonia. Discharged with amoxicillin/CA. Had dysphagia. Seen by ST, who recommends NTL with pureed. Pt to be discharged to SNF in stable condition. Physical Exam Const Constitutional Narrative: awake. confused. Resp normal respiratory effort and clear to auscultation bilaterally Cardio regular rate, regular rhythm, S1 normal heart sound and S2 normal heart sound ABG / Lab / Microbiology Data Attestation: I reviewed the patient's lab results. Result Diagrams: 08/12/20 04:30 08/14/20 08:20 Laboratory: Laboratory Results - last 24 hr 08/15/20 08/15/20 08/16/20 16:38 23:17 05:41 POC Glucose 148 H 166 H 136 H 08/16/20 11:38 POC Glucose 169 H Microbiology: Microbiology 08/10/20 19:15 Blood Culture - Final Blood Culture (Wb) - Anticubital Left No growth in 5 days. 08/10/20 18:10 Blood Culture - Final Blood Culture (Wb) - Anticubital Right No growth in 5 days. Microbiology 08/10/20 19:15 Blood Culture (Wb) - Anticubital Left Blood Culture - Final No growth in 5 days. 08/10/20 18:10 Blood Culture (Wb) - Anticubital Right Blood Culture - Final No growth in 5 days. 08/11/20 08:14 Sputum, Induced/Lukens Gram Stain - Final 08/11/20 08:14 Sputum, Induced/Lukens Respiratory Culture - Final Klebsiella oxytoca Meth. resistant Staph. aureus 08/10/20 18:45 Urine Catheter - Dougherty Urine Culture - Final Presumptive E. coli 08/10/20 19:40 Mucosa - Nasopharyngeal Influenza Types A,B Direct FA (MALLORY) - Final Meaningful Use Info Meaningful Use Diagnoses (Choose all that apply): None applicable Discharge Plan Admission Admit Date/Time: 08/10/20 21:21 Attending Provider: Axel Renner Primary Care Provider: Cameron Mueller Chi Consulting Providers: Domingo Joshi Discharge Orders/Prescriptions Prescriptions: New amoxicillin-pot clavulanate [Augmentin] 875-125 mg tablet 1 tab PO Q12H 5 Days Qty: 10 RF: 0 Continued atorvastatin 80 MG tablet 80 mg PO QHS RF: 0 bupropion HCl 150 MG tablet extended release 24 hr 150 mg PO DAILY RF: 0 oxybutynin chloride 5 MG tablet 5 mg PO BID RF: 0 venlafaxine 100 MG tablet 100 mg PO QHS RF: 0 cholecalciferol (vitamin D3) 1,000 UNIT tablet 1,000 unit PO DAILY RF: 0 acetaminophen [Tylenol] 325 mg Tablet 650 mg PO Q4H PRN (Reason: Pain) RF: 0 ipratropium-albuterol 0.5 mg-3 mg(2.5 mg base)/3 mL Solution For Nebulization 3 ml INHALATION 4X/DAY RF: 0 aspirin 81 mg Tablet,Delayed Release (Dr/Ec) 81 mg PO DAILY RF: 0 levothyroxine 75 mcg Tablet 75 mcg PO DAILY RF: 0 potassium chloride [Klor-Con M20] 20 mEq Tablet,Er Particles/Crystals 40 meq PO DAILY RF: 0 venlafaxine 50 mg Tablet 50 mg PO DAILY RF: 0 bisacodyl [Dulcolax (bisacodyl)] 5 mg Tablet,Delayed Release (Dr/Ec) 10 mg PO DAILY RF: 0 insulin lispro [Humalog U-100 Insulin] 100 unit/mL Solution See Protocol unit SUBCUT ACHS RF: 0 Basaglar KwikPen U-100 Insulin 100 unit/mL (3 mL) Insulin Pen 20 unit SUBCUT QHS RF: 0 metoprolol succinate 50 mg Capsule,Sprinkle,Er 24hr 50 mg PO BID RF: 0 magnesium oxide 400 mg magnesium Tablet 400 mg PO DAILY RF: 0 Discontinued cyclobenzaprine 10 MG tablet 10 mg PO DAILY RF: 0 pseudoephedrine-guaifenesin [Mucinex D] 60-600 mg Tablet Extended Release 12 Hr 2 tab PO BID RF: 0 hydrochlorothiazide 12.5 mg Tablet 12.5 mg PO DAILY RF: 0 Referrals / Follow Up: Cameron Mueller Chi, MD [Primary Care Provider] - Disposition Disposition (needs filled in before D/C Order can be placed): [facility] Facility Visit Charges Inpatient E&M: 83759 Disch Hosp
--- NOTE | 2020-08-16 15:54 | CASEMGMT ---
[facility]ALTH [facility] screening tool completed and pt does qualify. Pt to discharge back to [facility] today and [facility] to be notified of pt qualification for further f/u at SNF. Martina HANKS CM
--- NOTE | 2020-08-16 16:09 | CASEMGMT ---
Patient is ready for discharge back to [facility]. AHSAN notified Sherrie at [facility]. SW also called patient's son and let him know as well. Green sheet on chart with instructions for d/c. Xiomara WALLS
--- NOTE | 2020-08-16 16:37 | NURSING ---
Report called to nurse Wilkerson at [facility] for pt d/c to ECF.
[2020-08-16 16:55] LABS: Bedside Glucose 139 mg/dL (70-110)
--- NOTE | 2020-08-17 17:25 | PCM.PN.HOSP ---
Subjective Subjective The date of this entry should be 08/15/2020: Patient was seen and examined today, I talked briefly with speech therapy today about his care and they recommended instituting a honey thickened liquid diet with meds only but otherwise patient is n.p.o. Speech says that they will consider a swallowing exam on 08/16/2020 if he still shows signs of severe dysphagia. 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 Objective Data Objective Data Vital Signs: Vital Signs Temp Pulse Resp BP Pulse Ox 98.0 F 106 H 18 157/77 H 96 08/16/20 16:19 08/16/20 16:19 08/16/20 16:19 08/16/20 16:19 08/16/20 16:19 Oxygen Flow Rate (L/min) 2 Oxygen Delivery Method Room Air Weight: 112 kg Body Mass Index (BMI) 35.7 Intake & Output: Intake and Output for Last 24 Hours 08/15/20 08/16/20 08/17/20 23:59 23:59 23:59 Intake Total 2703.33 / 2703.33 2235 / 2235 Output Total 200 / 200 Balance 2503.33 / 2503.33 2235 / 2235 Lab / Micro Data Result Diagrams: 08/12/20 04:30 08/14/20 08:20 Micro: Microbiology 08/10/20 19:15 Blood Culture (Wb) - Anticubital Left Blood Culture - Final No growth in 5 days. 08/10/20 18:10 Blood Culture (Wb) - Anticubital Right Blood Culture - Final No growth in 5 days. 08/11/20 08:14 Sputum, Induced/Lukens Gram Stain - Final 08/11/20 08:14 Sputum, Induced/Lukens Respiratory Culture - Final Klebsiella oxytoca Meth. resistant Staph. aureus 08/10/20 18:45 Urine Catheter - Dougherty Urine Culture - Final Presumptive E. coli 08/10/20 19:40 Mucosa - Nasopharyngeal Influenza Types A,B Direct FA (MALLORY) - Final Physical Exam Narrative Const alert and no apparent distress, he is confused HEENT head/scalp atraumatic, moist oral mucous membranes and oropharynx normal Head and Scalp: normocephalic Eyes PERRL, EOMs intact bilaterally and conjunctivae normal Neck no lymphadenopathy, supple and no JVD Resp normal respiratory effort, no retractions, no use of accessory muscles and clear to auscultation bilaterally Cardio regular rate, regular rhythm, S1 normal heart sound, S2 normal heart sound, no gallops and no clicks GI normal to inspection, nondistended, normoactive bowel sounds, soft to palpation, non-tender and non-distended Extremity normal to inspection, full ROM and no clubbing, cyanosis or edema Skin no rashes or lesions noted, no wounds, skin turgor normal and no jaundice Neuro CN's II-XII intact bilaterally, no focal motor deficits and no sensory deficits noted Sensorium / Orientation: awake and alert Psych Psych Narrative: Patient has flat affect, he is confused Assessment & Plan Assessment/Plan (1) Septic shock: PLAN: 1. Septic shock-from complicated UTI secondary to ESBL E. coli, again, patient was switched to Augmentin today #2 acute complicated urinary tract infection secondary to ESBL E. coli-patient is currently on Augmentin #3 acute hypoxic respiratory failure secondary to #1, patient is on room air #4 type 2 diabetes #5 acute kidney injury #6 metabolic encephalopathy secondary to #1 #7 anemia-etiology unclear, labs will be monitored #8 severe protein and caloric malnutrition-nutritional services are seeing patient #9 hypernatremia-I will change patient's IV fluid to D5 half-normal saline #10 oropharyngeal dysphagia-I talked briefly with speech therapy, patient is on honey thickened liquid consistency with meds only, otherwise he is n.p.o., he will need a swallowing eval on Sunday under fluoroscopy if he has no improvement in his oral pharyngeal dysphagia Visit Charges Inpatient E&M: 86282 Subs Hosp L2
== END 2020-08-16 17:59 | DRG 871 ==
LOC: ED 20:34 → ICU 22:01 → PCU 08-13 10:33
PROVIDERS: Internal Medicine; Internal Medicine Critical Care Medicine; Nurse Practitioner Family; Admitting Provider Family Medicine; Emergency Provider Emergency Medicine; PCP Family Medicine Geriatric Medicine
DX: A41.9 Sepsis, unspecified organism (principal); R65.21 Severe sepsis with septic shock; J96.01 Acute respiratory failure with hypoxia; G93.41 Metabolic encephalopathy; E43 Unspecified severe protein-calorie malnutrition; N39.0 Urinary tract infection, site not specified; N17.9 Acute kidney failure, unspecified; E87.0 Hyperosmolality and hypernatremia; Z16.12 Extended spectrum beta lactamase (ESBL) resistance; B96.20 Unspecified Escherichia coli [E. coli] as the cause of diseases classified elsewhere; Z66 Do not resuscitate; B96.1 Klebsiella pneumoniae [K. pneumoniae] as the cause of diseases classified elsewhere; Z86.16 Personal history of COVID-19; F32.9 Major depressive disorder, single episode, unspecified; F41.9 Anxiety disorder, unspecified; E78.5 Hyperlipidemia, unspecified; E03.9 Hypothyroidism, unspecified; I10 Essential (primary) hypertension; Z87.01 Personal history of pneumonia (recurrent); R47.02 Dysphasia; H57.04 Mydriasis; E66.9 Obesity, unspecified; E11.9 Type 2 diabetes mellitus without complications; W19.XXXA Unspecified fall, initial encounter; Z68.35 Body mass index [BMI] 35.0-35.9, adult; Z79.4 Long term (current) use of insulin; Z79.82 Long term (current) use of aspirin; Z83.3 Family history of diabetes mellitus; Z82.49 Family history of ischemic heart disease and other diseases of the circulatory system; Z79.890 Hormone replacement therapy
CPT/HCPCS: 31500; 31720; 36415; 36600; 51702; 70450; 71045; 72125; 74018; 80048; 80053; 81001; 82550; 82803; 82962; 83605; 83735; 84100; 84443; 84478; 84484; 85025; 85610; 85730; 87040; 87070; 87077; 87086; 87088; 87186; 87205; 87641; 87804; 92526; 92610; 93005; 94002; 94003; 94640; 94660; 97110; 97163; 97166; 97530; 97535; 97802; 97803; 99251; 99285; J7030; J7040; J7050; A4216; G0463; J0330; J3010; J7799